=== PATIENT | female | born 1940 | race Caucasian/White ===

== ENCOUNTER 2017-06-19 13:58 | Inpatient (IN) | payer MEDICARE, OTHER ==
[2017-06-19] MEDS ORDERED: SODIUM CHLORIDE 0.9% 1,000 ML IV ONE ×2 (14:41→15:28)
--- NOTE | 2017-06-19 14:45 | ED ---
General Adult HPI - General Chief complaint: Altered Mental Status Stated complaint: UTI Time Seen by Provider: 06/19/17 14:09 Source: patient, EMS, RN notes reviewed Mode of arrival: EMS Limitations: no limitations - History of Present Illness Initial comments: 77-year-old female presents with chief complaint of confusion and difficulty urinating. Patient also complains of bilateral lower extremity and upper extremity twitching. Patient is alert and oriented 3 at the time my evaluation. He denies chest pain or shortness of breath. Denies fever. Patient believes she has urinary tract infection. She also has history of COPD and is on home oxygen. Denies worsening cough. Denies focal weakness. - Related Data Home Medications Medication Instructions Recorded Confirmed Metoprolol Succinate [Toprol XL] 25 mg PO DAILY 03/11/14 06/19/17 Cholecalciferol [Vitamin D3] 1,000 unit PO DAILY 02/24/15 06/19/17 Multivit-Min/FA/Lycopene/Lut 1 tab PO DAILY 02/25/15 06/19/17 [Centrum Silver Tablet] Levothyroxine Sodium [Synthroid] 100 mcg PO DAILY 08/26/15 06/19/17 HYDROcodone/APAP 10-325MG [[place] 1 tab PO TID PRN 11/18/15 06/19/17 10-325] Simvastatin [Simvastatin] 20 mg PO HS 05/30/16 06/19/17 metFORMIN HCL [Glucophage] 500 mg PO DAILY 05/30/16 06/19/17 Citalopram Hydrobromide [CeleXA] 10 mg PO DAILY 06/19/17 06/19/17 Diltiazem HCl [Diltiazem ER] 180 mg PO DAILY 06/19/17 06/19/17 Gabapentin 800 mg PO TID 06/19/17 06/19/17 Insulin Glargine,Hum.rec.anlog 30 unit SQ HS 06/19/17 06/19/17 [Lantus Solostar] Lactulose 10 gm PO BID 06/19/17 06/19/17 Lisinopril [Zestril] 10 mg PO DAILY 06/19/17 06/19/17 Spironolactone [Aldactone] 25 mg PO HS 06/19/17 06/19/17 Allergies Allergy/AdvReac Type Severity Reaction Status Date / Time atenolol [From Tenormin] AdvReac Severe Unknown Verified 06/19/17 14:46 Review of Systems ROS Statement: Those systems with pertinent positive or pertinent negative responses have been documented in the HPI. ROS Other: All systems not noted in ROS Statement are negative. Past Medical History Past Medical History: Asthma, Cancer, Heart Failure, COPD, Diabetes Mellitus, Eye Disorder, Hyperlipidemia, Hypertension, Osteoarthritis (OA), Thyroid Disorder Additional Past Medical History / Comment(s): PT was discharged 09/23/2015 from [facility]. Wheelchair van took her home. Fire dept had to be called to get her in house. She then tried to get up to commode after being home 1 hour. She states she was unable to stand on her own and "slid" down to ground. EMS was called ans she was brought back here to [facility]. History of Any Multi-Drug Resistant Organisms: MRSA Date of last positivie culture/infection: 2012 MDRO Source:: Blood, unknown Past Surgical History: Hernia Repair, Hysterectomy, Joint Replacement, Orthopedic Surgery Additional Past Surgical History / Comment(s): total L knee x 2, knee and lower back surgery, left breast Lumpectomy without cancer, bilateral hand surgeries, bilateral cataract extraction with intraocular lens implantations, nonmalignant mass removed from left leg -resulting lymphedema, [id number] left anterior chest wall in the past, oopherectomy and abdominal hernia repair, R carpal tunnel release, L leg wound debridement, lymph node removed from L neck. Past Anesthesia/Blood Transfusion Reactions: No Reported Reaction Past Psychological History: Anxiety Smoking Status: Never smoker Past Alcohol Use History: None Reported Past Drug Use History: None Reported - Past Family History Mother Family Medical History: Cancer Additional Family Medical History / Comment(s): Mother at age 89 with pt believes bone cancer. Father Family Medical History: Unable to Obtain Additional Family Medical History / Comment(s): Pt's father when she was 2 yrs old. He was in [place] and of a strep infection. General Exam Limitations: no limitations General appearance: alert, in no apparent distress, obese Head exam: Present: atraumatic, normocephalic Eye exam: Present: normal appearance, PERRL ENT exam: Present: normal exam Neck exam: Present: normal inspection. Absent: tenderness, meningismus Respiratory exam: Present: normal lung sounds bilaterally. Absent: respiratory distress, wheezes Cardiovascular Exam: Present: regular rate, normal rhythm GI/Abdominal exam: Present: soft. Absent: distended, tenderness Extremities exam: Present: pedal edema Neurological exam: Present: alert, oriented X3. Absent: motor sensory deficit Psychiatric exam: Present: normal affect, normal mood Skin exam: Present: warm, dry, intact. Absent: cyanosis, diaphoretic Course Vital Signs 06/19/17 06/19/17 06/19/17 14:13 15:53 15:55 Temperature 98.6 F Pulse Rate 67 69 71 Respiratory 20 18 Rate Blood Pressure 142/62 148/82 O2 Sat by Pulse 93 L 100 Oximetry 06/19/17 16:06 Temperature Pulse Rate 70 Respiratory Rate Blood Pressure O2 Sat by Pulse Oximetry EKG Findings - EKG Comments: EKG Findings:: EKG shows sinus rhythm with first-degree AV block, ventricular rate of 67, OH interval 214, castration 92, QTC 395. No signs of ischemia Medical Decision Making - Medical Decision Making 77-year-old female presenting with decreased urinary output and muscle twitching. Patient is found to have a potassium of 7.9 and acute kidney injury with creatinine of 1.25, patient is making urine. Her twitching symptoms likely related to uremia. Her confusion also related to uremia. She is given normal saline, and medical treatment of hyperkalemia. EKG does show first- degree AV block which may be a consequence of her elevated potassium. No other EKG findings of hyperkalemia. After initial medical treatment of hyperkalemia, her repeat potassium is 5.4. Patient will be admitted for further treatment and evaluation. Chest x-ray shows no acute process. Head CT is negative for intracranial hemorrhage. Diagnosis: Acute kidney injury, hyperkalemia, uremic encephalopathy - Lab Data Result diagrams: 06/19/17 13:27 06/19/17 17:05 Lab Results 06/19/17 06/19/17 06/19/17 Range/Units 13:27 13:27 13:27 WBC 8.3 (3.8-10.6) k/uL RBC 3.46 L (3.80-5.40) m/uL Hgb 10.9 L (11.4-16.0) gm/dL Hct 36.4 (34.0-46.0) % MCV 105.4 H (80.0-100.0) fL MCH 31.5 (25.0-35.0) pg MCHC 29.9 L (31.0-37.0) g/dL RDW 13.5 (11.5-15.5) % Plt Count 247 (150-450) k/uL Neutrophils % 80 % Lymphocytes % 9 % Monocytes % 5 % Eosinophils % 4 % Basophils % 1 % Neutrophils # 6.6 (1.3-7.7) k/uL Lymphocytes # 0.7 L (1.0-4.8) k/uL Monocytes # 0.4 (0-1.0) k/uL Eosinophils # 0.3 (0-0.7) k/uL Basophils # 0.0 (0-0.2) k/uL Hypochromasia Moderate Macrocytosis Slight PT (9.0-12.0) sec INR (<1.2) APTT (22.0-30.0) sec VBG pH (7.31-7.41) VBG pCO2 (37-51) mmHg VBG HCO3 (24-28) mmol/L Sodium 139 (137-145) mmol/L Potassium 7.9 H* (3.5-5.1) mmol/L Chloride 105 (98-107) mmol/L Carbon Dioxide 29 (22-30) mmol/L Anion Gap 5 mmol/L BUN 50 H (7-17) mg/dL Creatinine 1.25 H (0.52-1.04) mg/dL Est GFR (MDRD) Af Amer 50 (>60 ml/min/1.73 sqM) Est GFR (MDRD) Non-Af 41 (>60 ml/min/1.73 sqM) Glucose 92 (74-99) mg/dL Calcium 9.2 (8.4-10.2) mg/dL Magnesium 2.2 (1.6-2.3) mg/dL Total Bilirubin 0.3 (0.2-1.3) mg/dL AST 20 (14-36) U/L ALT 19 (9-52) U/L Alkaline Phosphatase 89 (38-126) U/L Total Creatine Kinase 59 (30-135) U/L CK-MB (CK-2) 0.2 (0.0-2.4) ng/mL CK-MB (CK-2) Rel Index 0.3 Troponin I 0.106 H* (0.000-0.034) ng/mL Total Protein 7.1 (6.3-8.2) g/dL Albumin 3.5 (3.5-5.0) g/dL Urine Color Urine Appearance (Clear) Urine pH (5.0-8.0) Ur Specific [place] (1.001-1.035) Urine Protein (Negative) Urine Glucose (UA) (Negative) Urine Ketones (Negative) Urine Blood (Negative) Urine Nitrite (Negative) Urine Bilirubin (Negative) Urine Urobilinogen (<2.0) mg/dL Ur Leukocyte Esterase (Negative) Urine WBC (0-5) /hpf Urine WBC Clumps (None) /hpf Ur Squamous Epith Cells (0-4) /hpf Amorphous Sediment (None) /hpf Urine Bacteria (None) /hpf 06/19/17 06/19/17 06/19/17 Range/Units 13:27 14:55 14:55 WBC (3.8-10.6) k/uL RBC (3.80-5.40) m/uL Hgb (11.4-16.0) gm/dL Hct (34.0-46.0) % MCV (80.0-100.0) fL MCH (25.0-35.0) pg MCHC (31.0-37.0) g/dL RDW (11.5-15.5) % Plt Count (150-450) k/uL Neutrophils % % Lymphocytes % % Monocytes % % Eosinophils % % Basophils % % Neutrophils # (1.3-7.7) k/uL Lymphocytes # (1.0-4.8) k/uL Monocytes # (0-1.0) k/uL Eosinophils # (0-0.7) k/uL Basophils # (0-0.2) k/uL Hypochromasia Macrocytosis PT 9.9 (9.0-12.0) sec INR 1.0 (<1.2) APTT 22.5 (22.0-30.0) sec VBG pH 7.30 L (7.31-7.41) VBG pCO2 65 H (37-51) mmHg VBG HCO3 31 H (24-28) mmol/L Sodium (137-145) mmol/L Potassium (3.5-5.1) mmol/L Chloride (98-107) mmol/L Carbon Dioxide (22-30) mmol/L Anion Gap mmol/L BUN (7-17) mg/dL Creatinine (0.52-1.04) mg/dL Est GFR (MDRD) Af Amer (>60 ml/min/1.73 sqM) Est GFR (MDRD) Non-Af (>60 ml/min/1.73 sqM) Glucose (74-99) mg/dL Calcium (8.4-10.2) mg/dL Magnesium (1.6-2.3) mg/dL Total Bilirubin (0.2-1.3) mg/dL AST (14-36) U/L ALT (9-52) U/L Alkaline Phosphatase (38-126) U/L Total Creatine Kinase (30-135) U/L CK-MB (CK-2) (0.0-2.4) ng/mL CK-MB (CK-2) Rel Index Troponin I (0.000-0.034) ng/mL Total Protein (6.3-8.2) g/dL Albumin (3.5-5.0) g/dL Urine Color Yellow Urine Appearance Cloudy H (Clear) Urine pH 5.5 (5.0-8.0) Ur Specific [place] 1.011 (1.001-1.035) Urine Protein Negative (Negative) Urine Glucose (UA) Negative (Negative) Urine Ketones Negative (Negative) Urine Blood Negative (Negative) Urine Nitrite Negative (Negative) Urine Bilirubin Negative (Negative) Urine Urobilinogen <2.0 (<2.0) mg/dL Ur Leukocyte Esterase Large H (Negative) Urine WBC 18 H (0-5) /hpf Urine WBC Clumps Many H (None) /hpf Ur Squamous Epith Cells 2 (0-4) /hpf Amorphous Sediment Rare H (None) /hpf Urine Bacteria Rare H (None) /hpf 06/19/17 Range/Units 17:05 WBC (3.8-10.6) k/uL RBC (3.80-5.40) m/uL Hgb (11.4-16.0) gm/dL Hct (34.0-46.0) % MCV (80.0-100.0) fL MCH (25.0-35.0) pg MCHC (31.0-37.0) g/dL RDW (11.5-15.5) % Plt Count (150-450) k/uL Neutrophils % % Lymphocytes % % Monocytes % % Eosinophils % % Basophils % % Neutrophils # (1.3-7.7) k/uL Lymphocytes # (1.0-4.8) k/uL Monocytes # (0-1.0) k/uL Eosinophils # (0-0.7) k/uL Basophils # (0-0.2) k/uL Hypochromasia Macrocytosis PT (9.0-12.0) sec INR (<1.2) APTT (22.0-30.0) sec VBG pH (7.31-7.41) VBG pCO2 (37-51) mmHg VBG HCO3 (24-28) mmol/L Sodium (137-145) mmol/L Potassium 5.4 H (3.5-5.1) mmol/L Chloride (98-107) mmol/L Carbon Dioxide (22-30) mmol/L Anion Gap mmol/L BUN (7-17) mg/dL Creatinine (0.52-1.04) mg/dL Est GFR (MDRD) Af Amer (>60 ml/min/1.73 sqM) Est GFR (MDRD) Non-Af (>60 ml/min/1.73 sqM) Glucose (74-99) mg/dL Calcium (8.4-10.2) mg/dL Magnesium (1.6-2.3) mg/dL Total Bilirubin (0.2-1.3) mg/dL AST (14-36) U/L ALT (9-52) U/L Alkaline Phosphatase (38-126) U/L Total Creatine Kinase (30-135) U/L CK-MB (CK-2) (0.0-2.4) ng/mL CK-MB (CK-2) Rel Index Troponin I (0.000-0.034) ng/mL Total Protein (6.3-8.2) g/dL Albumin (3.5-5.0) g/dL Urine Color Urine Appearance (Clear) Urine pH (5.0-8.0) Ur Specific [place] (1.001-1.035) Urine Protein (Negative) Urine Glucose (UA) (Negative) Urine Ketones (Negative) Urine Blood (Negative) Urine Nitrite (Negative) Urine Bilirubin (Negative) Urine Urobilinogen (<2.0) mg/dL Ur Leukocyte Esterase (Negative) Urine WBC (0-5) /hpf Urine WBC Clumps (None) /hpf Ur Squamous Epith Cells (0-4) /hpf Amorphous Sediment (None) /hpf Urine Bacteria (None) /hpf Critical Care Time Critical Care Time: Yes Total Critical Care Time: 35 Disposition Clinical Impression: Uremic encephalopathy, Acute kidney injury, Hyperkalemia Disposition: ADMITTED IP TO THIS [facility] Condition: Serious Referrals: Juan R Gamboa MD [Primary Care Provider] - 1-2 days Time of Disposition: 17:28 Decision to Admit Reason: Admit from EC Decision Date: 06/19/17 Decision Time: 17:28
[2017-06-19 14:54] LABS: Basophils % (A) 1 %; CH 31.3; CHCM 29.9; Eosinophils # (A) 0.3 k/uL (0-0.7); Eosinophils % (A) 4 %; HCT 36.4 % (34.0-46.0); HDW 2.18; HGB 10.9 gm/dL (11.4-16.0); Hypochromasia Moderate; Luc # (Auto) 0.11; Luc % (Auto) 1; Lymphocytes # (A) 0.7 k/uL (1.0-4.8); Lymphocytes % (A) 9 %; MCH 31.5 pg (25.0-35.0); MCHC 29.9 g/dL (31.0-37.0); MCV 105.4 fL (80.0-100.0); Macrocytosis Slight; Mean Platelet Volume 7.3; Monocytes # (A) 0.4 k/uL (0-1.0); Monocytes % (A) 5 %; Neutrophils # (A) 6.6 k/uL (1.3-7.7); Neutrophils % (A) 80 %; RBC 3.46 m/uL (3.80-5.40); RDW 13.5 % (11.5-15.5); WBC 8.3 k/uL (3.8-10.6); WBC (Perox) 8.55
[2017-06-19 15:09] LABS: VBG PH 7.3 (7.31-7.41)
[2017-06-19 15:09] LABS: Calcium 9.2 mg/dL (8.4-10.2); Magnesium 2.2 mg/dL (1.6-2.3); Total Bilirubin 0.3 mg/dL (0.2-1.3); Total Protein 7.1 g/dL (6.3-8.2)
[2017-06-19 15:10] LABS: Amorphous Sediment,Urine Rare /hpf; Appearance,Urine Cloudy (Clear); Bacteria,Urine Rare /hpf; Bilirubin,Urine Negative (Negative); Glucose,Urine (UA) Negative (Negative); Ketones,Urine Negative (Negative); Leukocyte Esterase,Urine Large (Negative); Nitrite,Urine Negative (Negative); PH, Urine 5.5 (5.0-8.0); Particle Count 2794; Protein,Urine Negative (Negative); Specific Gravity,Urine 1.011 (1.001-1.035); Squamous Epithelial Cell,Urine 2 /hpf (0-4); UA Billing (MACRO vs. MICRO) MICRO; Urobilinogen,Urine <2.0 mg/dL (<2.0); WBC,Urine 18 /hpf (0-5)
[2017-06-19 15:23] LABS: Potassium 7.9 mmol/L (3.5-5.1)
[2017-06-19] MEDS ORDERED: CALCIUM GLUCONATE 1,000 MG in SODIUM CHLORIDE 0.9% 100 ML IVPB ONE (15:25)
[2017-06-19] MEDS ORDERED: SODIUM BICARB 8.4% 50 ML SYR (1 MEQ/ML) IV ONE (15:25)
[2017-06-19] MEDS ORDERED: SODIUM POLYSTYRENE SULFONATE 15 GM/60 ML BOTTLE PO ONE (15:25)
[2017-06-19] MEDS ORDERED: INSULIN REGULAR 100 UNIT/ML VIAL IV ONE (15:25)
[2017-06-19] MEDS ORDERED: ALBUTEROL NEB (CONC) 2.5 MG/0.5 ML INHALATION ONE (15:25)
[2017-06-19] MEDS ORDERED: DEXTROSE 50%-WATER 50 ML SYRINGE IVP ONE (15:25)
--- NOTE | 2017-06-19 15:25 | XR ---
EXAMINATION TYPE: XR chest 2V DATE OF EXAM: 06/19/2017 COMPARISON: 07/03/2016 HISTORY: Altered mental status TECHNIQUE: Frontal and lateral views of the chest are obtained. FINDINGS: Copious soft tissues obscure the lung bases on the frontal image although no pleural effus ion or focal airspace disease is seen on the lateral image. Cardiac silhouette is enlarged. Moderate multilevel degenerative changes of the thoracic spine and acromio clavicular joints are noted. IMPRESSION: Stable cardiomegaly. Copious soft tissues overlie the lower lungs on the frontal image c reating a gradient effect, however no focal consolidation is seen on the lateral image.
[2017-06-19 15:26] LABS: Creatine Kinase MB 0.2 ng/mL (0.0-2.4)
[2017-06-19 15:29] LABS: Partial Thromboplastin Time 22.5 sec (22.0-30.0); Prothrombin Time 9.9 sec (9.0-12.0)
[2017-06-19 15:31] LABS: Troponin I 0.106 ng/mL (0.000-0.034)
--- NOTE | 2017-06-19 15:36 | CT ---
EXAMINATION TYPE: CT brain wo con DATE OF EXAM: 06/19/2017 COMPARISON: 08/26/2015 HISTORY: Altered Mental Status CT DLP: 961 mGycm. Automated Exposure Control for Dose Reduction was Utilized. TECHNIQUE: CT scan of the head is performed without contrast. FINDINGS: There is no acute intracranial hemorrhage or midline shift identified. There is diffuse v entricular and sulcal prominence consistent with diffuse age-related cerebral atrophy. There is low- attenuation in the periventricular white matter consistent with chronic small vessel ischemic change. The globes are intact and the visualized sinuses are clear. Again there is rightward nasal septal deviation. Unchanged partially calcified left parietal skull mass measures up to 2.3 cm. IMPRESSION: 1. No acute intracranial hemorrhage or midline shift. 2. There is diffuse age-related cerebral atrophy and chronic small vessel ischemic change noted. 3. Unchanged 2.3 cm partially calcified left parietal scalp mass in comparison to exam of 08/26/2015.
[2017-06-19] MEDS ORDERED: NALOXONE 0.4 MG/ML 1 ML VIAL IV PRN (17:20)
[2017-06-19] MEDS ORDERED: MORPHINE SULFATE 4 MG/ML SYRINGE IV PRN (17:20)
[2017-06-19] MEDS ORDERED: ACETAMINOPHEN TAB 325 MG TAB PO PRN (17:20)
[2017-06-19] MEDS ORDERED: HYDROcodone/APAP 10-325MG 1 EACH TAB PO ONE (17:29)
[2017-06-19 19:24] VITALS: BMI 57.4
[2017-06-19 21:21] LABS: Glucose,Whole Blood 115 mg/dL (75-99)
[2017-06-19] MEDS: ATORVASTATIN 10 MG TAB PO SCH (21:47)
[2017-06-19] MEDS: LACTULOSE 20 GM/30 ML CUP PO SCH (21:48)
[2017-06-19] MEDS: INSULIN DETEMIR 100 UNIT/ML 10 ML VIAL SQ SCH (21:48)
[2017-06-19] MEDS: GABAPENTIN 400 MG CAP PO SCH (21:48)
[2017-06-19] MEDS: LEVOFLOXACIN 500MG-D5W PMX 500 MG in DEXTROSE/WATER 1 100ML.BAG IVPB SCH (22:28)
[2017-06-20 05:40] LABS: Glucose,Whole Blood 103 mg/dL (75-99)
[2017-06-20] MEDS: HYDROcodone/APAP 10-325MG 1 EACH TAB PO PRN (05:52)
[2017-06-20] MEDS: LEVOTHYROXINE 100 MCG TAB PO SCH (05:53)
[2017-06-20 06:19] LABS: Basophils % (A) 1 %; CH 31.4; CHCM 30.8; Eosinophils # (A) 0.2 k/uL (0-0.7); Eosinophils % (A) 3 %; HDW 2.26; HGB 10.4 gm/dL (11.4-16.0); Hypochromasia Slight; Luc # (Auto) 0.13; Luc % (Auto) 2; Lymphocytes # (A) 0.7 k/uL (1.0-4.8); Lymphocytes % (A) 9 %; MCH 31.2 pg (25.0-35.0); MCHC 30.5 g/dL (31.0-37.0); MCV 102.4 fL (80.0-100.0); Macrocytosis Slight; Monocytes # (A) 0.5 k/uL (0-1.0); Monocytes % (A) 7 %; Neutrophils # (A) 6.3 k/uL (1.3-7.7); Neutrophils % (A) 80 %; RBC 3.32 m/uL (3.80-5.40); RDW 12.3 % (11.5-15.5); WBC 7.9 k/uL (3.8-10.6); WBC (Perox) 7.87
[2017-06-20 06:39] LABS: ALT 26 U/L (9-52); AST 15 U/L (14-36); Alkaline Phosphatase 76 U/L (38-126); Anion Gap 4 mmol/L; Blood Urea Nitrogen 34 mg/dL (7-17); Calcium 8.7 mg/dL (8.4-10.2); Carbon Dioxide 31 mmol/L (22-30); Chloride 104 mmol/L (98-107); Glucose 88 mg/dL (74-99); Magnesium 1.8 mg/dL (1.6-2.3); Non-African American GFR(MDRD) 54 (>60 ml/min/1.73 sqM); Sodium 139 mmol/L (137-145); Total Bilirubin 0.4 mg/dL (0.2-1.3); Total Protein 6.1 g/dL (6.3-8.2)
[2017-06-20 06:43] LABS: Potassium 6.2 mmol/L (3.5-5.1)
[2017-06-20] MEDS ORDERED: CALCIUM GLUCONATE 1,000 MG in SODIUM CHLORIDE 0.9% 100 ML IVPB ONE (06:55)
[2017-06-20] MEDS ORDERED: INSULIN REGULAR 100 UNIT/ML VIAL IV ONE (06:57)
[2017-06-20] MEDS ORDERED: DEXTROSE 50%-WATER 50 ML SYRINGE IVP ONE (06:57)
[2017-06-20] MEDS ORDERED: SODIUM BICARB 8.4% 50 ML SYR (1 MEQ/ML) IV ONE (06:57)
[2017-06-20] MEDS ORDERED: SODIUM POLYSTYRENE SULFONATE 15 GM/60 ML BOTTLE PO ONE (06:57)
[2017-06-20] MEDS: CITALOPRAM HYDROBROMIDE 10 MG TAB PO SCH (08:29)
[2017-06-20] MEDS: GABAPENTIN 400 MG CAP PO SCH ×3 (08:29→21:16)
[2017-06-20] MEDS: DILTIAZEM CD 180 MG CAP.ER.24H PO SCH (08:29)
[2017-06-20] MEDS: LACTULOSE 20 GM/30 ML CUP PO SCH ×2 (08:30→21:16)
[2017-06-20] MEDS: METOPROLOL SUCCINATE (ER) 25 MG TAB.ER.24H PO SCH (08:30)
[2017-06-20 11:56] LABS: Glucose,Whole Blood 143 mg/dL (75-99)
--- NOTE | 2017-06-20 15:51 | HP ---
HISTORY AND PHYSICAL I am covering for Dr. Gamboa. DATE OF SERVICE: 06/20/2017. CHIEF COMPLAINT: Change in mental status. HISTORY OF PRESENT ILLNESS: This 77-year-old woman with a past medical history of multiple medical problems including asthma, CHF, COPD, diabetes, hypertension, hyperlipidemia, history of DJD, hypothyroidism being followed by Dr. Juan R Gamboa in the outpatient setting was having caregivers. The caregiver noted that yesterday the patient had some change in mental status. Patient is not on herself. Patient is being treated for UTI and subsequently in the evening, the patient had some difficulty urinating also secondary to change in mental status and also complained of generalized weakness and twitching also. The patient came to [facility] and was admitted for further evaluation and treatment. Creatinine was elevated indicating acute renal failure. Patient on IV fluids. The patient also has significant hyperkalemia potassium up to 7.9. Glucose regimen was given also. There is no history of fever, rigors. No headache, loss of consciousness or seizures. The patient is mildly confused, able to give sketchy history at this time. No history of dysuria. PAST MEDICAL HISTORY: History of recent UTI, history of asthma, CHF, COPD, diabetes, hypertension, DJD, hypothyroidism. MEDICATIONS: Current medications are: 1. Aldactone 25 mg q.h.s. 2. Simvastatin 20 mg q.h.s. 3. Lantus 30 units subcu q.h.s. 4. [place] 10 mg t.i.d. p.r.n. 5. Glucophage 500 mg p.o. daily. 6. Vitamin D 3000 daily. 7. Lactulose 10 g p.o. b.i.d. 8. Celexa 10 mg p.o. daily. 9. Centrum 1 p.o. daily. 10.Zestril 10 mg p.o. daily. 11.Gabapentin 800 mg p.o. t.i.d. 12.Toprol-XL 25 mg p.o. daily. 13.Synthroid 100 mcg p.o. daily. 14.Diltiazem ER 180 mg p.o. daily. ALLERGIES: ATENOLOL. FAMILY HISTORY: Unknown. SOCIAL HISTORY: No history of smoking. No history of alcohol intake. REVIEW OF SYSTEMS: ENT: Diminished vision, diminished hearing. Cardiovascular: : No angina or palpitations. Respiratory: As mentioned earlier. GI: As mentioned earlier. as mentioned earlier. Central nervous system: As mentioned earlier. Allergy/Immunology: No asthma or hayfever. Musculoskeletal: As mentioned earlier. Hematology/Oncology: No history of anemia. Endocrine: Diabetes mellitus present. Constitutional: As mentioned earlier. Dermatology: Negative. Rheumatology: As mentioned earlier. Psychiatric: As mentioned earlier. PHYSICAL EXAMINATION: The patient is alert and oriented times three. Pulse 84, blood pressure 107/52, respiration 18, temperature 97.6, pulse ox 94% on room air. HEENT: Conjunctivae normal. Oral mucosa moist. Neck is no jugular venous distention. No lymph node enlargement. Cardiovascular: S1-S2 muffled. Respiratory: Breath sounds diminished in the bases. Bilateral scattered rhonchi and crackles. Expiratory wheezing also present. ABDOMEN: Soft, nontender. No mass palpable. Legs: No edema and no swelling. Nervous system: Higher functions as mentioned earlier. Moves all 4 limbs. No focal motor or sensory deficits. Lymphatics: No lymph nodes palpable in the neck, axillae or groin. Skin: No ulcer, rash or bleeding. LABS: WBC 7.2, hemoglobin 10.4, sodium 139, potassium 6.1, glucose 103. UA noted. ASSESSMENT: 1. Change in mental status possible acute metabolic encephalopathy secondary to acute renal failure. 2. Severe hyperkalemia secondary to renal failure as well as drug-induced. 3. Acute renal failure. 4. Acute hyperkalemia secondary to renal failure. 5. Possible urinary tract infection. 6. History of asthma. 7. History of congestive heart failure. 8. Chronic obstructive pulmonary disease. 9. History of diabetes mellitus type 2. 10.Hypertension. 11.Hyperlipidemia. 12.History of degenerative joint disease. 13.History of gait dysfunction. 14.History of anxiety. 15.Chronic hypoxic respiratory failure on home O2 3 L nasal cannula. 16.FULL CODE. 17.Obesity with BMI of . RECOMMENDATIONS AND DISCUSSION: This 77-year-old woman who presented with multiple complex medical issues, we will monitor the patient closely, continue the current medications, continue symptomatic treatment. Otherwise at this time I recommend Kayexalate. Monitor potassium closely. Low potassium diet. Otherwise, creatinine is improved at this time. Empiric antibiotics. Guarded prognosis because of multiple complex medical issues. Further recommendations to follow. Copy of dictation being forwarded to Dr. Juan R Gamboa in the outpatient setting. We will hold RANDALL inhibitors and will restart the metformin at this time. We will hold the Aldactone as well. The possibility of drug induced hyperkalemia also to be considered. DOMINGA / IZABEL: [id number] /
[2017-06-20 17:01] LABS: Glucose,Whole Blood 115 mg/dL (75-99)
[2017-06-20 18:59] LABS: Potassium 5.9 mmol/L (3.5-5.1)
[2017-06-20 20:57] LABS: Glucose,Whole Blood 129 mg/dL (75-99)
[2017-06-20] MEDS: LEVOFLOXACIN 500MG-D5W PMX 500 MG in DEXTROSE/WATER 1 100ML.BAG IVPB SCH (21:14)
[2017-06-20] MEDS: ATORVASTATIN 10 MG TAB PO SCH (21:16)
[2017-06-20] MEDS: INSULIN DETEMIR 100 UNIT/ML 10 ML VIAL SQ SCH (21:17)
[2017-06-21] MEDS: HYDROcodone/APAP 10-325MG 1 EACH TAB PO PRN (04:40)
[2017-06-21 06:25] LABS: Basophils % (A) 1 %; CHCM 30.6; Eosinophils # (A) 0.2 k/uL (0-0.7); Eosinophils % (A) 3 %; HCT 31.4 % (34.0-46.0); HGB 9.9 gm/dL (11.4-16.0); Hypochromasia Slight; Luc # (Auto) 0.09; Luc % (Auto) 1; Lymphocytes # (A) 0.6 k/uL (1.0-4.8); Lymphocytes % (A) 9 %; MCHC 31.5 g/dL (31.0-37.0); MCV 101.8 fL (80.0-100.0); Macrocytosis Slight; Mean Platelet Volume 7.2; Monocytes # (A) 0.4 k/uL (0-1.0); Monocytes % (A) 6 %; Neutrophils # (A) 5.9 k/uL (1.3-7.7); Neutrophils % (A) 81 %; RBC 3.09 m/uL (3.80-5.40); RDW 13.3 % (11.5-15.5); WBC 7.3 k/uL (3.8-10.6); WBC (Perox) 8.05
[2017-06-21 06:26] LABS: Glucose,Whole Blood 128 mg/dL (75-99)
[2017-06-21] MEDS: LEVOTHYROXINE 100 MCG TAB PO SCH (06:27)
[2017-06-21 06:35] LABS: Anion Gap 4 mmol/L; Blood Urea Nitrogen 20 mg/dL (7-17); Calcium 9.1 mg/dL (8.4-10.2); Carbon Dioxide 31 mmol/L (22-30); Chloride 103 mmol/L (98-107); Glucose 117 mg/dL (74-99); Non-African American GFR(MDRD) >60 (>60 ml/min/1.73 sqM); Potassium 5.4 mmol/L (3.5-5.1); Sodium 138 mmol/L (137-145)
[2017-06-21] MEDS ORDERED: CHOLECALCIFEROL 1,000 UNIT TAB PO SCH (09:00)
[2017-06-21] MEDS ORDERED: metFORMIN 500 MG TAB PO SCH (09:00)
[2017-06-21] MEDS: DILTIAZEM CD 180 MG CAP.ER.24H PO SCH (09:03)
[2017-06-21] MEDS: CITALOPRAM HYDROBROMIDE 10 MG TAB PO SCH (09:03)
[2017-06-21] MEDS: GABAPENTIN 400 MG CAP PO SCH (09:03)
[2017-06-21] MEDS: METOPROLOL SUCCINATE (ER) 25 MG TAB.ER.24H PO SCH (09:03)
[2017-06-21] MEDS: LACTULOSE 20 GM/30 ML CUP PO SCH (09:04)
[2017-06-21] MEDS ORDERED: LORATADINE 10 MG TAB PO SCH (10:00)
[2017-06-21] MEDS ORDERED: MULTIVITAMINS, THERA 1 EACH TAB PO SCH (12:00)
[2017-06-21 12:21] LABS: Glucose,Whole Blood 116 mg/dL (75-99)
--- NOTE | 2017-06-21 14:29 | P.DS ---
Providers Date of admission: 06/19/17 17:23 Expected date of discharge: 06/21/17 Attending physician: Juan R Mittal. Final Diagnoses: Consults: 06/21/17 09:48 Consult Physician Routine Consulting Provider: Marry Waters Consult Reason/Comments: left breast ulcer Do you want consulting provider notified?: Yes Primary care physician: Juan R Gamboa Hospital Course: 1. Change in mental status, acute metabolic encephalopathy secondary to acute renal failure,resolved 2. acute renal failure with Severe hyperkalemia -secondary to renal failure and drug-induced 3. Acute on chronic hypoxic respiratory failure, returned back to baseline at 3 L nasal cannula 4.doubt acute UTI, urine culture reporting 50-100,000 gram-negative bacilli, afebrile,normal WBC, asymptomatic.no antibiotics at DC. 5. COPD 6. Obesity, BMI 59.8 7. Diabetes mellitus type 2 Hospital course: this a 77-year-old admitted with change in mental status,acute renal failure, hyperkalemia. Received Kayexalate, glucose regimen with potassium down to 5.4.maintained on IV fluid hydration, antibiotics. sensorium significantly improved, and A & O 3. Significant clinical improvement. Patient asking to be discharged today as her is wheelchair bound, and she assits with his care.patient is also medical debilitated, requires a Jorge Alberto lift, states she has aides in the home 22/02 with [place] [facility] and assistance from son.verified by case management. Patient is being discharged home in a stable condition with guarded prognosis. The impression and plan of care has been dictated as directed. : I performed a history and examination of this patient, discussed the same with the dictator. I agree with the dictator's note ,documented as a scribe. Any additional findings or plans will be noted. Patient Condition at Discharge: Stable Plan - Discharge Summary Discharge Rx Participant: No New Discharge Prescriptions: New Loratadine [Claritin] 10 mg PO DAILY #30 tab Continue Metoprolol Succinate [Toprol XL] 25 mg PO DAILY Cholecalciferol [Vitamin D3] 1,000 unit PO DAILY Multivit-Min/FA/Lycopene/Lut [Centrum Silver Tablet] 1 tab PO DAILY Levothyroxine Sodium [Synthroid] 100 mcg PO DAILY HYDROcodone/APAP 10-325MG [[place] 10-325] 1 tab PO TID PRN PRN Reason: Pain metFORMIN HCL [Glucophage] 500 mg PO DAILY Simvastatin 20 mg PO HS Insulin Glargine,Hum.rec.anlog [Lantus Solostar] 30 unit SQ HS Lactulose 10 gm PO BID Citalopram Hydrobromide [CeleXA] 10 mg PO DAILY Gabapentin 800 mg PO TID Diltiazem HCl [Diltiazem 24Hr ER] 180 mg PO DAILY Discontinued Lisinopril [Zestril] 10 mg PO DAILY Spironolactone [Aldactone] 25 mg PO HS Discharge Medication List Metoprolol Succinate [Toprol XL] 25 mg PO DAILY 03/11/14 [History] Cholecalciferol [Vitamin D3] 1,000 unit PO DAILY 02/24/15 [History] Multivit-Min/FA/Lycopene/Lut [Centrum Silver Tablet] 1 tab PO DAILY 02/25/15 [ History] Levothyroxine Sodium [Synthroid] 100 mcg PO DAILY 08/26/15 [History] HYDROcodone/APAP 10-325MG [[place] 10-325] 1 tab PO TID PRN 11/18/15 [History] Simvastatin 20 mg PO HS 05/30/16 [History] metFORMIN HCL [Glucophage] 500 mg PO DAILY 05/30/16 [History] Citalopram Hydrobromide [CeleXA] 10 mg PO DAILY 06/19/17 [History] Diltiazem HCl [Diltiazem 24Hr ER] 180 mg PO DAILY 06/19/17 [History] Gabapentin 800 mg PO TID 06/19/17 [History] Insulin Glargine,Hum.rec.anlog [Lantus Solostar] 30 unit SQ HS 06/19/17 [History ] Lactulose 10 gm PO BID 06/19/17 [History] Loratadine [Claritin] 10 mg PO DAILY #30 tab 06/21/17 [Rx] Follow up Appointment(s)/Referral(s): Juan R Gamboa MD [Primary Care Provider] - 3 Days Activity/Diet/Wound Care/Special Instructions: b12 level pending, results to PCP wears 3lnc O2 at home No antibx, asymptomatic Diet: renal DIet, COnsist. carb
[2017-06-21 15:04] VITALS: BP 144/67; PULSE 74; RESP 18; TEMP 97.1
[2017-06-21 17:12] LABS: Glucose,Whole Blood 152 mg/dL (75-99)
[2017-06-21] MEDS ORDERED: LEVOFLOXACIN 500 MG TAB PO SCH (21:00)
--- NOTE | 2017-06-22 07:01 | CONS ---
CONSULTATION DATE OF SERVICE: 06/21/2017 REASON FOR CONSULTATION: Left lower chest wall wound, local wound care recommendation. HISTORY OF PRESENT ILLNESS: The patient is a 77-year-old female who presented to the ER at [facility] on 06/19/2017 with chief complaints of confusion, difficulty with urination and weakness. The patient subsequently has been evaluated by the ER physician on arrival to the ER. The patient was hypotensive. The patient was afebrile. Did have a normal white count, however, did have evidence of renal insufficiency for which the patient has been hydrated with an IV fluid. The patient did have a UA that was positive and the urine culture shows an E. Coli. Patient was on antibiotics. She was noticed to have a small wound on the left lower chest area, which the patient has had for a couple of weeks. She is not sure how it started. The patient denies having any pain at the site. There is no drainage from it. No surrounding swelling, no redness. I was asked to see the patient for recommendation regarding local wound care prior to discharge. REVIEW OF SYSTEMS: CONSTITUTIONAL: Positive for weakness. No high-grade fever. EYES: No complaint. ENT: No complaint. RESPIRATORY: No complaint. CARDIOVASCULAR: No complaint. GENITOURINARY: No complaint. GASTROINTESTINAL: No complaint. MUSCULOSKELETAL: No complaint. INTEGUMENTARY: As per HPI. PSYCHOLOGICAL: No complaint. ENDOCRINE: No complaint. NEUROLOGICAL: No complaint. PAST MEDICAL HISTORY: Significant for asthma, heart failure, COPD, diabetes mellitus, hypothyroidism, hypertension, osteoarthritis, hyperlipidemia. PAST SURGICAL HISTORY: Hysterectomy, left knee replacement, low back surgery and hernia repair. SOCIAL HISTORY: No history of smoking, drinking, or any drug use. FAMILY HISTORY: Mother with history of a cancer, bone cancer. ALLERGIES: Allergies to ATENOLOL. MEDICATIONS: Medications include the patient is currently on levofloxacin, Synthroid, Claritin, Glucophage, Toprol-XL, morphine sulfate, Theragran, Narcan, diltiazem, Celexa, vitamin D3. PHYSICAL EXAMINATION: On examination, blood pressure is 144/67 with a pulse of 74, temperature 97.1. She is 92% on 3 L nasal cannula. General description is an elderly female, lying in bed in no distress. No tachypnea or accessory muscle of respiration use. HEENT examination shows slight pallor, no scleral icterus. Oral mucous membranes dry. NECK: Trachea central. No thyromegaly. LUNGS: Unlabored breathing, clear to auscultation anteriorly. No wheeze or crackle. HEART: S1, S2. Regular rate and rhythm. ABDOMEN: Soft, no tenderness. No guarding or rigidity. EXTREMITIES: No edema of feet. EXAMINATION ON THE LEFT LOWER CHEST WALL: A small wound could be a sebaceous cyst. There is no significant surrounding swelling, redness or any drainage was noted. NEUROLOGICAL: Patient is awake, alert, oriented x3. Mood and affect normal. LABS: Hemoglobin is 9.9, white count 7.3. BUN of 20, creatinine 0.79. DIAGNOSTIC IMPRESSION AND PLAN: Patient with left lower chest wall wound could be a sebaceous cyst. No evidence of any cellulitis. Recommend local wound care. PLAN: 1. Aquacel silver packing of the wound to be changed q.48 hours. 2. No need for any systemic antibiotic therapy as no evidence of any cellulitis. 3. The patient would benefit from outpatient follow up in the wound care center for the local wound care. Thank you for this consultation. Will follow this patient along with you. MMODL / IJN: [id number] /
== END 2017-06-21 19:23 | disposition home or self-care (01) | DRG 682 ==
LOC: EEVIPCON 13:58 → EC 13:58 → 6SEL 17:23
PROVIDERS: ADMIT Family Medicine; ATTEND Family Medicine
DX: N17.9 Acute kidney failure, unspecified (principal); G93.41 Metabolic encephalopathy; J96.21 Acute and chronic respiratory failure with hypoxia; I11.0 Hypertensive heart disease with heart failure; I50.9 Heart failure, unspecified; E87.5 Hyperkalemia; E11.9 Type 2 diabetes mellitus without complications; E03.9 Hypothyroidism, unspecified; E66.9 Obesity, unspecified; E78.5 Hyperlipidemia, unspecified; I44.0 Atrioventricular block, first degree; Z96.652 Presence of left artificial knee joint; J44.9 Chronic obstructive pulmonary disease, unspecified; Z79.899 Other long term (current) drug therapy; Z80.8 Family history of malignant neoplasm of other organs or systems; Z99.81 Dependence on supplemental oxygen; Z88.8 Allergy status to other drugs, medicaments and biological substances; Z79.84 Long term (current) use of oral hypoglycemic drugs
CPT/HCPCS: 36415; 51701; 70450; 71020; 80048; 80051; 80053; 81001; 82550; 82553; 82607; 82803; 83735; 84132; 84484; 85025; 85610; 85730; 87040; 87077; 87086; 87186; 93005; 94640; 94760; 96361; 96365; 96375; 99291

== ENCOUNTER 2017-08-06 17:22 | Inpatient (IN) | payer MEDICARE, OTHER ==
[2017-08-06] MEDS ORDERED: RX INFO: IV CONTRAST WAS GIVEN 1 EACH MISC MISCELLANE PRN (17:56)
[2017-08-06] MEDS ORDERED: methylPREDNISolone SOD SUCCI 125 MG/2 ML VIAL IV STA (17:56)
[2017-08-06] MEDS ORDERED: IPRATROPIUM-ALBUTEROL 3 ML NEB INHALATION STA (17:56)
[2017-08-06] MEDS ORDERED: ASPIRIN 300 MG SUPP RECTAL STA (17:57)
--- NOTE | 2017-08-06 18:10 | ED ---
Weakness HPI - General Chief complaint: Weakness Stated complaint: Weakness Time Seen by Provider: 08/06/17 17:42 Source: patient, EMS Mode of arrival: EMS Limitations: no limitations - History of Present Illness Initial comments: Patient is a 77-year-old female with a history of COPD who presents with a chief complaint of altered mental status and weakness. The patient was at her home when she was picked up EMS. Initially her O2 sat was 60%. The patient was placed on 6 L and is now saturating between 85 and 88%. The patient states that she wears 3 L at home and normally has an oxygen saturation of 85%. The patient states that she was recently in the hospital for COPD exacerbation, and the ICU, and was discharged 1 week ago. She cannot identify any inciting incidences. There are no aggravating or alleviating factors. Patient does admit to dysuria, and increased shortness of breath. On initial evaluation, oxygen saturation is between 85 and 88% on 6 L. Vital signs are otherwise stable. Patient appears somnolent - Related Data Home Medications Medication Instructions Recorded Confirmed Metoprolol Succinate [Toprol XL] 25 mg PO DAILY 03/11/14 08/06/17 Cholecalciferol [Vitamin D3] 1,000 unit PO DAILY 02/24/15 08/06/17 HYDROcodone/APAP 10-325MG [[place] 1 tab PO TID PRN 11/18/15 08/06/17 10-325] Simvastatin 20 mg PO HS 05/30/16 08/06/17 metFORMIN HCL [Glucophage] 500 mg PO DAILY 05/30/16 08/06/17 Diltiazem HCl [Diltiazem 24Hr ER] 180 mg PO DAILY 06/19/17 08/06/17 Gabapentin 800 mg PO TID 06/19/17 08/06/17 Insulin Glargine,Hum.rec.anlog 30 unit SQ HS 06/19/17 08/06/17 [Lantus Solostar] Lactulose 10 gm PO BID 06/19/17 08/06/17 Aspirin [Adult Low Dose Aspirin EC] 81 mg PO DAILY 08/06/17 08/06/17 Cephalexin [Keflex] 500 mg PO Q6HR 08/06/17 08/06/17 Citalopram Hydrobromide [CeleXA] 20 mg PO DAILY 08/06/17 08/06/17 Levothyroxine Sodium [Synthroid] 100 mcg PO DAILY 08/06/17 08/06/17 Lisinopril [Prinivil] 20 mg PO DAILY 08/06/17 08/06/17 Spironolactone [Aldactone] 25 mg PO DAILY 08/06/17 08/06/17 Allergies Allergy/AdvReac Type Severity Reaction Status Date / Time atenolol [From Tenormin] AdvReac Severe Unknown Verified 06/19/17 14:46 Review of Systems ROS Statement: Those systems with pertinent positive or pertinent negative responses have been documented in the HPI. ROS Other: All systems not noted in ROS Statement are negative. Cardiovascular: Reports: dyspnea on exertion Genitourinary: Reports: dysuria Neurological: Reports: weakness, confusion Past Medical History Past Medical History: Asthma, Cancer, Heart Failure, COPD, Diabetes Mellitus, Eye Disorder, Hyperlipidemia, Hypertension, Osteoarthritis (OA), Thyroid Disorder Additional Past Medical History / Comment(s): PT was discharged 09/23/2015 from [facility]. Wheelchair van took her home. Fire dept had to be called to get her in house. She then tried to get up to commode after being home 1 hour. She states she was unable to stand on her own and "slid" down to ground. EMS was called ans she was brought back here to [facility]. History of Any Multi-Drug Resistant Organisms: MRSA Date of last positivie culture/infection: 2012 MDRO Source:: Blood, unknown Past Surgical History: Hernia Repair, Hysterectomy, Joint Replacement, Orthopedic Surgery Additional Past Surgical History / Comment(s): total L knee x 2, knee and lower back surgery, left breast Lumpectomy without cancer, bilateral hand surgeries, bilateral cataract extraction with intraocular lens implantations, nonmalignant mass removed from left leg -resulting lymphedema, [id number] left anterior chest wall in the past, oopherectomy and abdominal hernia repair, R carpal tunnel release, L leg wound debridement, lymph node removed from L neck. Past Anesthesia/Blood Transfusion Reactions: No Reported Reaction Past Psychological History: Anxiety Smoking Status: Never smoker Past Alcohol Use History: None Reported Past Drug Use History: None Reported - Past Family History Mother Family Medical History: Cancer Additional Family Medical History / Comment(s): Mother at age 89 with pt believes bone cancer. Father Family Medical History: Unable to Obtain Additional Family Medical History / Comment(s): Pt's father when she was 2 yrs old. He was in WWII and of a strep infection. General Exam Limitations: no limitations General appearance: alert, obese, other (Patient is somnolent but arousable) Head exam: Present: atraumatic, normocephalic Eye exam: Present: normal appearance ENT exam: Present: mucous membranes moist Respiratory exam: Present: wheezes, decreased breath sounds Cardiovascular Exam: Present: regular rate, normal rhythm GI/Abdominal exam: Present: soft, other (Abdominal exam is limited secondary to morbid obesity). Absent: distended, tenderness Rectal exam: Present: deferred Extremities exam: Present: normal inspection, other Neurological exam: Present: alert, other (Patient is somnolent but arousable. She answers questions appropriately. There is asterixis on exam.) Psychiatric exam: Present: normal affect, normal mood Skin exam: Present: warm, dry, intact Course Vital Signs 08/06/17 08/06/17 08/06/17 17:49 18:19 18:35 Temperature 98.3 F Pulse Rate 80 80 88 Respiratory 24 Rate Blood Pressure 156/70 O2 Sat by Pulse 89 L Oximetry 08/06/17 19:22 Temperature Pulse Rate 73 Respiratory 17 Rate Blood Pressure 140/69 O2 Sat by Pulse 95 Oximetry Medical Decision Making - Medical Decision Making Patient presents with a chief complaint of weakness and confusion. On initial evaluation, patient is somnolent but arousable. She is breathing slow but appears to be labored. She is able to answer questions appropriately. Patient has a history of severe COPD and was recently discharged from the hospital one week ago. At this time, the patient is likely hypercarbic. The patient was immediately placed on BiPAP. The patient will have basic cardiac lab work. She was given breathing treatments and will be sent for CT of the chest to rule out PE on reexamination, patient is more alert after being placed on BiPAP. She was given Solu-Medrol and aspirin. 8:10 PM Lab evaluation this patient shows an elevated troponin of 2.7, and evidence of acute on chronic hypercarbic respiratory failure. After a period of time on BiPAP, the patient is much more alert and arousable. CT evaluation of the chest shows dilated pulmonary vasculature likely indicative of pulmonary hypertension with nonspecific fluid which likely related to heart failure. At this time pending second troponin before the decision is made to heparinize the patient. Troponin elevation is likely type II in nature. The patient does not complain of any chest pain at this time. Currently pending repeat troponin and BNP. EKG performed at 191 shows normal sinus rhythm with a rate of [address] segments appear to be within normal limits. EKG is otherwise nonspecific. I discussed this case with Dr. Acosta who excepts admission of this patient for elevated troponin, and respiratory failure. At this time, cardiology will be consult on this patient's case. - Lab Data Result diagrams: 08/06/17 18:14 08/06/17 18:14 Lab Results 08/06/17 08/06/17 08/06/17 Range/Units 18:14 18:14 18:14 WBC 9.2 (3.8-10.6) k/uL RBC 3.46 L (3.80-5.40) m/uL Hgb 11.0 L (11.4-16.0) gm/dL Hct 36.2 (34.0-46.0) % MCV 104.7 H (80.0-100.0) fL MCH 31.8 (25.0-35.0) pg MCHC 30.3 L (31.0-37.0) g/dL RDW 13.7 (11.5-15.5) % Plt Count 244 (150-450) k/uL Neutrophils % 82 % Lymphocytes % 6 % Monocytes % 6 % Eosinophils % 4 % Basophils % 0 % Neutrophils # 7.6 (1.3-7.7) k/uL Lymphocytes # 0.5 L (1.0-4.8) k/uL Monocytes # 0.5 (0-1.0) k/uL Eosinophils # 0.4 (0-0.7) k/uL Basophils # 0.0 (0-0.2) k/uL Hypochromasia Marked Macrocytosis Slight VBG pH 7.31 (7.31-7.41) VBG pCO2 75 H* (37-51) mmHg VBG HCO3 37 H (24-28) mmol/L Sodium 139 (137-145) mmol/L Potassium 4.7 (3.5-5.1) mmol/L Chloride 96 L (98-107) mmol/L Carbon Dioxide 38 H (22-30) mmol/L Anion Gap 5 mmol/L BUN 28 H (7-17) mg/dL Creatinine 1.00 (0.52-1.04) mg/dL Est GFR (MDRD) Af Amer >60 (>60 ml/min/1.73 sqM) Est GFR (MDRD) Non-Af 54 (>60 ml/min/1.73 sqM) Glucose 201 H (74-99) mg/dL Plasma Lactic Acid [place] (0.7-2.0) mmol/L Calcium 8.7 (8.4-10.2) mg/dL Total Bilirubin 1.0 (0.2-1.3) mg/dL AST 86 H (14-36) U/L ALT 96 H (9-52) U/L Alkaline Phosphatase 206 H (38-126) U/L Troponin I (0.000-0.034) ng/mL Total Protein 6.3 (6.3-8.2) g/dL Albumin 3.1 L (3.5-5.0) g/dL Urine Color Urine Appearance (Clear) Urine pH (5.0-8.0) Ur Specific [place] (1.001-1.035) Urine Protein (Negative) Urine Glucose (UA) (Negative) Urine Ketones (Negative) Urine Blood (Negative) Urine Nitrite (Negative) Urine Bilirubin (Negative) Urine Urobilinogen (<2.0) mg/dL Ur Leukocyte Esterase (Negative) Urine RBC (0-5) /hpf Urine WBC (0-5) /hpf Ur Squamous Epith Cells (0-4) /hpf Urine Bacteria (None) /hpf Hyaline Casts (0-2) /lpf Urine Mucus (None) /hpf 08/06/17 08/06/17 08/06/17 Range/Units 18:14 18:14 18:40 WBC (3.8-10.6) k/uL RBC (3.80-5.40) m/uL Hgb (11.4-16.0) gm/dL Hct (34.0-46.0) % MCV (80.0-100.0) fL MCH (25.0-35.0) pg MCHC (31.0-37.0) g/dL RDW (11.5-15.5) % Plt Count (150-450) k/uL Neutrophils % % Lymphocytes % % Monocytes % % Eosinophils % % Basophils % % Neutrophils # (1.3-7.7) k/uL Lymphocytes # (1.0-4.8) k/uL Monocytes # (0-1.0) k/uL Eosinophils # (0-0.7) k/uL Basophils # (0-0.2) k/uL Hypochromasia Macrocytosis VBG pH (7.31-7.41) VBG pCO2 (37-51) mmHg VBG HCO3 (24-28) mmol/L Sodium (137-145) mmol/L Potassium (3.5-5.1) mmol/L Chloride (98-107) mmol/L Carbon Dioxide (22-30) mmol/L Anion Gap mmol/L BUN (7-17) mg/dL Creatinine (0.52-1.04) mg/dL Est GFR (MDRD) Af Amer (>60 ml/min/1.73 sqM) Est GFR (MDRD) Non-Af (>60 ml/min/1.73 sqM) Glucose (74-99) mg/dL Plasma Lactic Acid [place] 0.8 (0.7-2.0) mmol/L Calcium (8.4-10.2) mg/dL Total Bilirubin (0.2-1.3) mg/dL AST (14-36) U/L ALT (9-52) U/L Alkaline Phosphatase (38-126) U/L Troponin I 2.740 H* (0.000-0.034) ng/mL Total Protein (6.3-8.2) g/dL Albumin (3.5-5.0) g/dL Urine Color Yellow Urine Appearance Cloudy H (Clear) Urine pH 5.5 (5.0-8.0) Ur Specific [place] 1.020 (1.001-1.035) Urine Protein 1+ H (Negative) Urine Glucose (UA) Negative (Negative) Urine Ketones Trace H (Negative) Urine Blood Negative (Negative) Urine Nitrite Negative (Negative) Urine Bilirubin Negative (Negative) Urine Urobilinogen 6.0 (<2.0) mg/dL Ur Leukocyte Esterase Trace H (Negative) Urine RBC 1 (0-5) /hpf Urine WBC 4 (0-5) /hpf Ur Squamous Epith Cells 4 (0-4) /hpf Urine Bacteria Rare H (None) /hpf Hyaline Casts 6 H (0-2) /lpf Urine Mucus Rare H (None) /hpf Disposition Clinical Impression: Respiratory failure, Elevated troponin, Congestive heart failure, CHF exacerbation, Abnormal CT scan, chest, Hypercarbia, Respiratory acidosis, Morbid obesity Disposition: ADMITTED IP TO THIS HOSP Condition: Fair Referrals: Juan R Gamboa MD [Primary Care Provider] - 1-2 days Decision to Admit Reason: Admit from EC - Out of Hospital Transfer - Req. Specs Out of Hospital Transfer - Requested Specifics: Adult ICU
[2017-08-06 18:30] LABS: Basophils % (A) 0 %; Eosinophils # (A) 0.4 k/uL (0-0.7); Eosinophils % (A) 4 %; HCT 36.2 % (34.0-46.0); Hypochromasia Marked; Lymphocytes # (A) 0.5 k/uL (1.0-4.8); Lymphocytes % (A) 6 %; MCH 31.8 pg (25.0-35.0); MCHC 30.3 g/dL (31.0-37.0); MCV 104.7 fL (80.0-100.0); Macrocytosis Slight; Mean Platelet Volume 7.8; Monocytes # (A) 0.5 k/uL (0-1.0); Monocytes % (A) 6 %; Neutrophils # (A) 7.6 k/uL (1.3-7.7); Neutrophils % (A) 82 %; Platelet Count 244 k/uL (150-450); RBC 3.46 m/uL (3.80-5.40); RDW 13.7 % (11.5-15.5); WBC 9.2 k/uL (3.8-10.6)
[2017-08-06 18:31] LABS: VBG PH 7.31 (7.31-7.41)
[2017-08-06 18:38] LABS: ALT 96 U/L (9-52); AST 86 U/L (14-36); Albumin 3.1 g/dL (3.5-5.0); Alkaline Phosphatase 206 U/L (38-126); Anion Gap 5 mmol/L; Blood Urea Nitrogen 28 mg/dL (7-17); Calcium 8.7 mg/dL (8.4-10.2); Carbon Dioxide 38 mmol/L (22-30); Chloride 96 mmol/L (98-107); Glucose 201 mg/dL (74-99); Potassium 4.7 mmol/L (3.5-5.1); Sodium 139 mmol/L (137-145); Total Protein 6.3 g/dL (6.3-8.2)
[2017-08-06 18:58] LABS: Appearance,Urine Cloudy (Clear); Bacteria,Urine Rare /hpf; Bilirubin,Urine Negative (Negative); Blood,Urine Negative (Negative); Color,Urine Yellow; Glucose,Urine (UA) Negative (Negative); Hyaline Casts,Urine 6 /lpf (0-2); Ketones,Urine Trace (Negative); Leukocyte Esterase,Urine Trace (Negative); Mucus,Urine Rare /hpf; Nitrite,Urine Negative (Negative); PH, Urine 5.5 (5.0-8.0); Protein,Urine 1+ (Negative); RBC,Urine 1 /hpf (0-5); Squamous Epithelial Cell,Urine 4 /hpf (0-4); WBC,Urine 4 /hpf (0-5)
--- NOTE | 2017-08-06 19:26 | CT ---
EXAMINATION TYPE: CT chest angio for PE DATE OF EXAM: 08/06/2017 COMPARISON: NONE HISTORY: LOW OXYGEN STATS, LETHARGIC. CT DLP: 939.4 mGycm Automated exposure control for dose reduction was used. CONTRAST: CT Chest for pulmonary embolism performed with with IV Contrast, patient injected with 77 mL of Visip aque 320. There are 3-D post processed images. FINDINGS: The heart is enlarged. There are bilateral lower lobe pulmonary infiltrates. There is interstitial an d alveolar edema. There is minimal pleural thickening at the lung bases. There are large central pulmonary arteries. I see no filling defects. Thoracic aorta is atheromatous. There is no evidence of aneurysm or dissection. I see no mediastinal adenopathy. There is spurring t hroughout the thoracic spine. IMPRESSION: Cardiomegaly. No evidence of pulmonary embolism. Bilateral extensive pulmonary infiltrates are nonspe cific and could relate to heart failure or RDS. There are large pulmonary arteries suggestive of pulmonary hypertension.
[2017-08-06] MEDS ORDERED: NALOXONE 0.4 MG/ML 1 ML VIAL IV PRN (20:15)
[2017-08-06] MEDS ORDERED: HEPARIN SODIUM,PORCINE 5,000 UNIT/ML 1 ML VIAL SQ SCH (21:00)
[2017-08-06] MEDS ORDERED: INSULIN DETEMIR 100 UNIT/ML 10 ML VIAL SQ SCH (22:00)
[2017-08-06] MEDS ORDERED: IPRATROPIUM-ALBUTEROL 3 ML NEB INHALATION PRN (23:25)
[2017-08-06 23:42] LABS: Glucose,Whole Blood 213 mg/dL (75-99)
[2017-08-07 00:51] VITALS: BMI 63.2
[2017-08-07] MEDS: GABAPENTIN 400 MG CAP PO SCH ×4 (04:43→21:06)
[2017-08-07 05:26] LABS: Basophils % (A) 0 %; Eosinophils % (A) 0 %; HCT 38.2 % (34.0-46.0); HGB 11.5 gm/dL (11.4-16.0); Hypochromasia Slight; Lymphocytes # (A) 0.4 k/uL (1.0-4.8); Lymphocytes % (A) 7 %; MCH 31.5 pg (25.0-35.0); MCHC 30.1 g/dL (31.0-37.0); MCV 104.4 fL (80.0-100.0); Macrocytosis Slight; Mean Platelet Volume 7.1; Monocytes # (A) 0.1 k/uL (0-1.0); Monocytes % (A) 1 %; Neutrophils % (A) 91 %; Platelet Count 222 k/uL (150-450); RBC 3.66 m/uL (3.80-5.40); RDW 12.6 % (11.5-15.5); WBC 6.5 k/uL (3.8-10.6)
[2017-08-07 05:42] LABS: Anion Gap 5 mmol/L; Blood Urea Nitrogen 29 mg/dL (7-17); Calcium 8.6 mg/dL (8.4-10.2); Carbon Dioxide 37 mmol/L (22-30); Chloride 96 mmol/L (98-107); Glucose 239 mg/dL (74-99); Sodium 138 mmol/L (137-145)
--- NOTE | 2017-08-07 07:09 | XR ---
EXAMINATION TYPE: XR chest 1V DATE OF EXAM: 08/07/2017 HISTORY: respiratory failure. REFERENCE: Previous study dated 06/19/2017. FINDINGS: The heart is enlarged. There is left basilar atelectasis. I cannot exclude a small left eff usion. IMPRESSION: 1. CARDIOMEGALY. 2. LEFT BASILAR ATELECTASIS. 3. I COULD NOT EXCLUDE A SMALL, LEFT EFFUSION.
--- NOTE | 2017-08-07 07:44 | HP ---
HISTORY AND PHYSICAL I am covering for Dr. Juan R Gamboa. This 77-year-old woman with a past medical history of multiple medical problems including history of asthma, COPD, history of CHF, diabetes mellitus type 2, hypertension, hyperlipidemia, history of DJD being followed by Dr. Juan R Gamboa in the outpatient setting is apparently living at home and the patient was recently discharged from [facility] with renal failure, metabolic encephalopathy, and hyperkalemia. The patient was found to have complaints of weakness and EMS checked on her. Her pulse ox is usually around 85 and 88 on 6 L but EMS found the pulse ox 60%. The patient was taken to [facility] and admitted for evaluation and treatment. The CO2 was extremely high indicating hypercarbia and hypercarbic respiratory failure. The patient also had change in mental status. After connecting to the BiPAP the patient improved significantly. Patient admitted for further evaluation and treatment. Of note the patient also had elevated troponin 2.740 and 2.[address]-segment myocardial infarction. Also, influenza negative. There is no history of fever, rigors. No headache, loss of consciousness or seizures. The patient is much more alert and unable to give a sketchy history at least at this time. PAST MEDICAL HISTORY: History of asthma, CHF, COPD, diabetes mellitus type 2, history of obesity, hypertension, hyperlipidemia, history of degenerative joint disease. MEDICATIONS: Prior to admission include home medications are reviewed and include: 1. Insulin Lantus 30 units subcu q.h.s. 2. Diltiazem 180 mg p.o. daily. 3. Aspirin 81 mg. 4. Celexa 20 mg daily. 5. Vitamin D3 1000 daily. 6. Gabapentin 800 mg t.i.d. 7. Lactulose 10 mg p.o. b.i.d. 8. [place] 10 mg t.i.d. p.r.n. 9. Glucophage 500 mg p.o. daily. 10.Simvastatin 20 mg q.h.s. 11.Toprol-XL 25 mg daily. 12.Prinivil 20 mg p.o. daily. 13.Aldactone 25 mg. 14.Synthroid 100 mcg p.o. daily. 15.Keflex 500 mg p.o. every 6 hours p.r.n. ALLERGIES: ATENOLOL. FAMILY HISTORY: Unable to obtain. SOCIAL HISTORY: History of smoking. No alcohol intake. REVIEW OF SYSTEMS: ENT: Diminished hearing and vision. CARDIOVASCULAR: No angina. RESPIRATORY: As mentioned earlier. GI: No nausea. : No dysuria. NERVOUS SYSTEM: No numbness, weakness. ALLERGY/IMMUNOLOGY: As mentioned earlier. HEMATOLOGY/ONCOLOGY: No history of anemia. ENDOCRINE: As mentioned earlier. Diabetes. CONSTITUTIONAL: As mentioned earlier. DERMATOLOGY: Negative. RHEUMATOLOGY: Negative. PSYCHIATRY: As mentioned earlier. PHYSICAL EXAMINATION: Alert and oriented x2. Pulse 123, blood pressure 140/69, respirations 20, slightly drowsy, pulse ox 95% on BiPAP. BiPAP settings are noted. HEENT: Conjunctivae normal. Oral mucosa moist. NECK: No jugular venous distention. Rather obese. CARDIOVASCULAR: S1, S2. No S3, no S4. RESPIRATORY: Breath sounds diminished in the bases. Bilateral scattered rhonchi and crackles and breathing efforts increased also. ABDOMEN: Soft, obese, nontender. No mass palpable. LEGS: Bilateral leg edema. NERVOUS SYSTEM: Higher functions as mentioned. Moves all four limbs. Mild diffuse weakness. LYMPHATICS: No lymphadenopathy in the neck or axillae. SKIN: No ulcer, rash, bleeding. LABS: At this time shows WBC 9, hemoglobin is 11, and the sodium 139, potassium 4.7. Troponins are noted. ASSESSMENT: 1. Shortness of breath and as well as acute hypoxic hypercarbic respiratory failure secondary to obesity hypoventilation syndrome as well as chronic obstructive pulmonary disease acute exacerbation. 2. Troponin 2.[address]-segment elevation myocardial infarction. 3. Increased AST, ALT, possibly mild hepatitis. 4. History of asthma, chronic obstructive pulmonary disease. 5. History of congestive heart failure. 6. Diabetes mellitus type 2. 7. Hyperlipidemia. 8. Hypertension. 9. History of degenerative joint disease. 10.History of renal failure. 11.Anxiety. 12.History of obesity hypoventilation syndrome. 13.Chronic hypoxic respiratory failure on home O2 3 L nasal cannula. 14.Obesity with body mass index of 64.1. 15.FULL CODE. RECOMMENDATIONS AND DISCUSSION: This 77-year-old woman who presented with multiple complex medical issues, will monitor the patient closely, will continue the current management and symptomatic treatment. Will initiate broad-spectrum IV antibiotics and steroids. Pulmonary consultation. Cardiology consultation. Guarded prognosis. Resume the home medications. Continue the BiPAP. Guarded prognosis because of multiple complex medical issues. Further recommendations to follow. The patient will be followed by Dr. Juan R Gamboa who is the primary physician. Monitor blood sugars closely. See orders for details. Continue with beta blockers and other medications as well. MMODL / IJN: [id number] /
[2017-08-07] MEDS: IPRATROPIUM-ALBUTEROL 3 ML NEB INHALATION SCH ×4 (07:59→20:08)
[2017-08-07] MEDS: SYMBICORT 160-4.5 MCG INHALER INHALATION SCH ×2 (07:59→20:12)
[2017-08-07] MEDS ORDERED: ALBUTEROL NEBULIZED 2.5 MG/3 ML INHALATION SCH (08:00)
[2017-08-07] MEDS ORDERED: IPRATROPIUM 0.5 MG/2.5 ML NEBU INHALATION SCH (08:00)
--- NOTE | 2017-08-07 08:41 | P.CNPUL ---
History of Present Illness Consult date: 08/07/17 Reason for consult: dyspnea, hypoxemia History of present illness: 77-year-old female patient, morbidly obese, with known history of diabetes mellitus, chronic hypoxic respiratory failure maintained on oxygen 2 L/m nasal cannula, CHF with diastolic dysfunction with pulmonary hypertension, ejection fraction of 60-65%, chronic left lower extremity lymphedema and peripheral vascular disease and peripheral neuropathy whereas been reported baseline performance and functional status as the patient has poor vision and she has had previous falls and gait dysfunction and the patient claims that she has been essentially bedridden moving around with the help of a wheelchair. Note that the patient was at home when she became more short of breath and she became very weak. 5 department was called to her house. She then tried to get up to the commode and after being unable to do that she slid down to the ground. EMS was also called and the patient was brought into the hospital. The patient comes in yesterday because of increased shortness of breath. She was found to be hypoxic at home and her pulse ox was in the mid 60s. She was placed on high flow oxygen 6 L/m nasal cannula and she got moved to the intensive care unit. She did have some vague chest pain today before yet none on the day of presentation. She has some limited cough without any significant sputum production. No fever or chills. No chest pain. No pleurisy. No hemoptysis. No worsening lower extremity edema. Her chest x-ray shows left basilar pulmonary infiltration. The patient CAT scan of the chest showed hazy bilateral pulmonary infiltrates which could be either a combination of fluid and a superimposed pneumonia cannot be completely excluded. The patient was placed on a BiPAP at a pressure of 12/5 cm of water with an FiO2 of 40% and she got moved to the intensive care unit. Her EKG showed T-wave inversions over the anterolateral leads. Troponin maxed at 2.6. Cardiology consultation was obtained. This morning, she is awake and alert. She is laying down comfortably in bed. Her lungs are relatively clear and I'm going to take her off the BiPAP and put on nasal cannula at 3 L/m. Review of Systems REVIEW OF SYSTEMS: CONSTITUTIONAL: Denies any recent significant weight loss or weight gain. The patient is morbidly obese. The patient is very much debilitated. She is an increased risk of fall. She is moving around with the help of a wheelchair. EYES: Denies change in vision. The patient has impaired vision. EARS, NOSE, MOUTH, THROAT: Denies headaches, denies sore throat. CARDIOVASCULAR: Denies chest pain, palpitations or syncopal episodes. RESPIRATORY: Positive for shortness of breath, cough, congestion. Denies hemoptysis. GASTROINTESTINAL: Denies change in appetite, some abdominal discomfort secondary to constipation. GENITOURINARY: Denies hematuria, recent infections. MUSCULOSKELETAL: Chronic pain, she has chronic lymphedema lower extremities bilaterally. INTEGUMENTARY: Denies rash, denies eczema. No evidence of any acute cellulitis at this point. NEUROLOGICAL: Denies recent memory loss, no recent seizure activity. PSYCHIATRIC: Denies anxiety, denies depression. HEMATOLOGIC/LYMPHATIC: Denies anemia, denies enlarged lymph nodes Past Medical History Past Medical History: Asthma, Cancer, Heart Failure, COPD, Diabetes Mellitus, Eye Disorder, Hyperlipidemia, Hypertension, Osteoarthritis (OA), Thyroid Disorder Additional Past Medical History / Comment(s): Morbid obesity, obstructive sleep apnea, IDDM type II, chronic respiratory failure with home O2 most of the time, CHF diastolic dysfunction, 03/04/15 ech with mild pulmonary hypertension, mild to moderate tricuspid regurg, L ventricular systolic function normal EF 60-65%, L leg lymphedema, peripheral neuropathy bilateral legs/feet, macular degeneration bilaterally-vision is now poor, falls, gait dysfunction, chronic pain multiple joints, chronic urine incontinence, sinus problems, obesity, hypothyroidism, osteoarthritis History of Any Multi-Drug Resistant Organisms: MRSA Date of last positivie culture/infection: 2012 MDRO Source:: Blood, unknown Past Surgical History: Hernia Repair, Hysterectomy, Joint Replacement, Orthopedic Surgery Additional Past Surgical History / Comment(s): total L knee x 2, knee and lower back surgery, left breast Lumpectomy without cancer, bilateral hand surgeries, bilateral cataract extraction with intraocular lens implantations, nonmalignant mass removed from left leg -resulting lymphedema, [id number] left anterior chest wall in the past, oopherectomy and abdominal hernia repair, R carpal tunnel release, L leg wound debridement, lymph node removed from L neck. Past Anesthesia/Blood Transfusion Reactions: No Reported Reaction Smoking Status: Never smoker - Past Family History Mother Family Medical History: Cancer Additional Family Medical History / Comment(s): Mother at age 89 with pt believes bone cancer. Father Family Medical History: Unable to Obtain Additional Family Medical History / Comment(s): Pt's father when she was 2 yrs old. He was in WWII and of a strep infection. Medications and Allergies Home Medications Medication Instructions Recorded Confirmed Type Metoprolol Succinate [Toprol XL] 25 mg PO DAILY 03/11/14 08/06/17 History Cholecalciferol [Vitamin D3] 1,000 unit PO DAILY 02/24/15 08/06/17 History HYDROcodone/APAP 10-325MG [[place] 1 tab PO TID PRN 11/18/15 08/06/17 History 10-325] Simvastatin 20 mg PO HS 05/30/16 08/06/17 History metFORMIN HCL [Glucophage] 500 mg PO DAILY 05/30/16 08/06/17 History Diltiazem HCl [Diltiazem 24Hr ER] 180 mg PO DAILY 06/19/17 08/06/17 History Gabapentin 800 mg PO TID 06/19/17 08/06/17 History Insulin Glargine,Hum.rec.anlog 30 unit SQ HS 06/19/17 08/06/17 History [Lantus Solostar] Lactulose 10 gm PO BID 06/19/17 08/06/17 History Aspirin [Adult Low Dose Aspirin EC] 81 mg PO DAILY 08/06/17 08/06/17 History Cephalexin [Keflex] 500 mg PO Q6HR 08/06/17 08/06/17 History Citalopram Hydrobromide [CeleXA] 20 mg PO DAILY 08/06/17 08/06/17 History Levothyroxine Sodium [Synthroid] 100 mcg PO DAILY 08/06/17 08/06/17 History Lisinopril [Prinivil] 20 mg PO DAILY 08/06/17 08/06/17 History Spironolactone [Aldactone] 25 mg PO DAILY 08/06/17 08/06/17 History Allergies Allergy/AdvReac Type Severity Reaction Status Date / Time atenolol [From Tenormin] AdvReac Severe Unknown Verified 06/19/17 14:46 Physical Exam Vitals: Vital Signs Temp Pulse Resp BP BP Pulse Ox 08/07/17 07:59 65 08/07/17 07:30 61 21 125/58 96 08/07/17 07:00 95 21 136/60 95 08/07/17 06:30 77 29 H 107/56 90 L 08/07/17 06:00 54 L 12 126/56 91 L 08/07/17 05:30 53 L 12 127/58 92 L 08/07/17 05:00 58 L 15 128/58 92 L 08/07/17 04:30 97.3 F L 63 12 125/64 98 08/07/17 04:00 67 14 128/56 96 08/07/17 03:30 64 29 H 121/61 93 L 08/07/17 03:00 53 L 12 110/53 92 L 08/07/17 02:30 55 L 14 119/53 94 L 08/07/17 02:00 56 L 20 119/53 91 L 08/07/17 01:30 60 16 119/53 90 L 08/07/17 01:00 62 15 123/54 94 L 08/07/17 00:50 64 21 126/59 93 L 08/07/17 00:40 63 18 126/59 92 L 08/07/17 00:30 63 11 L 126/59 100 08/07/17 00:20 63 14 138/62 99 08/07/17 00:10 64 13 138/62 94 L 08/07/17 00:00 65 11 L 138/62 97 08/06/17 23:50 75 16 146/72 94 L 08/06/17 23:40 98.2 F 67 21 146/72 146/72 99 08/06/17 22:41 98.6 F 62 18 137/63 95 08/06/17 22:11 98.9 F 64 20 135/62 96 08/06/17 20:50 67 18 96 08/06/17 20:28 67 20 144/68 95 08/06/17 19:22 73 17 140/69 95 08/06/17 18:35 88 08/06/17 18:19 80 08/06/17 17:49 98.3 F 80 24 156/70 89 L Intake and Output 08/06/17 08/07/17 08/07/17 22:59 06:59 14:59 Output Total 500 40 Balance -500 -40 Output: Urine 500 40 Other: Voiding Method Indwelling Catheter Weight 174.7 kg 172.3 kg GENERAL EXAM: Morbidly obese. Alert, fairly comfortable in no apparent distress. HEAD: Normocephalic. EYES: Normal reaction of pupils, equal size. NOSE: Clear with pink turbinates. THROAT: No erythema or exudates. His cardiac the posterior pharynx. Patient has a Mallampati class IV with significant crowding of the posterior oropharynx. NECK: Short. No masses, no JVD. CHEST: No chest wall deformity. LUNGS: Equal air entry with no crackles, wheeze, rhonchi or dullness. CVS: S1 and S2 normal with no audible murmurs, regular rhythm. ABDOMEN: Obese. no appreciated hepatosplenomegaly, normal bowel sounds, no guarding or rigidity. SPINE: No scoliosis or deformity SKIN: No rashes Extremities: There is 1-2+ lower extremity peripheral edema, suspect chronic. No clubbing, no cyanosis. Peripheral pulses are intact. Results - Laboratory Findings CBC and BMP: 08/07/17 05:15 08/07/17 05:15 Abnormal lab findings: Abnormal Labs 08/06/17 08/06/17 08/06/17 18:14 18:14 18:14 RBC 3.46 L Hgb 11.0 L MCV 104.7 H MCHC 30.3 L Lymphocytes # 0.5 L VBG pCO2 75 H* VBG HCO3 37 H Chloride 96 L Carbon Dioxide 38 H BUN 28 H Glucose 201 H POC Glucose (mg/dL) AST 86 H ALT 96 H Alkaline Phosphatase 206 H Troponin I Albumin 3.1 L Urine Appearance Urine Protein Urine Ketones Ur Leukocyte Esterase Urine Bacteria Hyaline Casts Urine Mucus 08/06/17 08/06/17 08/06/17 18:14 18:40 20:46 RBC Hgb MCV MCHC Lymphocytes # VBG pCO2 VBG HCO3 Chloride Carbon Dioxide BUN Glucose POC Glucose (mg/dL) AST ALT Alkaline Phosphatase Troponin I 2.740 H* 2.650 H* Albumin Urine Appearance Cloudy H Urine Protein 1+ H Urine Ketones Trace H Ur Leukocyte Esterase Trace H Urine Bacteria Rare H Hyaline Casts 6 H Urine Mucus Rare H 08/06/17 08/07/17 08/07/17 23:37 05:15 05:15 RBC 3.66 L Hgb MCV 104.4 H MCHC 30.1 L Lymphocytes # 0.4 L VBG pCO2 VBG HCO3 Chloride 96 L Carbon Dioxide 37 H BUN 29 H Glucose 239 H POC Glucose (mg/dL) 213 H AST ALT Alkaline Phosphatase Troponin I Albumin Urine Appearance Urine Protein Urine Ketones Ur Leukocyte Esterase Urine Bacteria Hyaline Casts Urine Mucus - Diagnostic Findings Chest x-ray: image reviewed CT scan - chest: image reviewed Assessment and Plan Plan: Assessment #1 acute on top of chronic hypoxic respiratory failure in a patient who is morbidly obese, deconditioned, chronic oxygen dependent respiratory failure, chronic diastolic congestive heart failure with pulmonary hypertension, suspect obesity/hypoventilation syndrome along with chronic pain medications. The exact reason for the acute decompensation is not clear. The patient has an indication for an acute non-ST segment elevation myocardial infarction. My understanding that her previous cardiac catheterization has been negative. The acute decompensation could be related to a component of CHF as the patient has hazy but the pulmonary infiltrates. A pneumonia cannot be completely excluded. The patient will be treated accordingly. #2 Chronic oxygen dependent respiratory failure. #3 acute non-ST segment elevation myocardial infarction #4 Diabetes mellitus, type II. Patient is insulin-dependent with Levemir 30 units along with a sliding scale coverage. #5 Diastolic congestive heart failure with mild pulmonary hypertension and preserved left ventricular systolic function with estimated ejection fraction 60 -65%. #6 Recent urinary tract infection, chronic urinary incontinence. #7 Hyperlipidemia. #8 Hypertension. #9 Osteoarthritis. #10 Hypothyroidism. #11 morbid obesity with a BMI of 63.2.. #12 Macular degeneration. #13 Poor overall functional status secondary to multiple above-mentioned comorbidities. #14 chronic lymphedema of the lower extremities bilaterally. Plan Continue BiPAP for respiratory support and try to wean it off and put the patient's liters of oxygen by nasal cannula. Diabetes the patient with IV Lasix 40 mg every 12 hours., The patient with accommodation Rocephin and Zithromax. Cardiology consultation regarding the acute non-ST segment elevation myocardial infarction. Repeat echocardiogram. Put the patient IV heparin. Monitor the blood sugars. Keep the patient ICU. We'll continue to follow.
[2017-08-07] MEDS ORDERED: METOPROLOL SUCCINATE (ER) 25 MG TAB.ER.24H PO SCH (09:00)
[2017-08-07] MEDS ORDERED: LACTULOSE 200 GM/300 ML (FROM 1/2 GAL JUG) PO SCH (09:00)
[2017-08-07] MEDS ORDERED: DILTIAZEM CD 180 MG CAP.ER.24H PO SCH (09:00)
[2017-08-07] MEDS ORDERED: metFORMIN 500 MG TAB PO SCH (09:00)
[2017-08-07 09:15] LABS: Partial Thromboplastin Time 22.6 sec (22.0-30.0); Prothrombin Time 9.9 sec (9.0-12.0)
[2017-08-07] MEDS: cefTRIAXone IN SWFI 1,000 MG/10 ML SYRINGE IVP SCH (09:15)
[2017-08-07] MEDS: PANTOPRAZOLE 40 MG TABLET PO SCH (09:15)
[2017-08-07] MEDS: CHOLECALCIFEROL 1,000 UNIT TAB PO SCH (09:15)
[2017-08-07] MEDS: ASPIRIN 81 MG PO SCH (09:15)
[2017-08-07] MEDS: FUROSEMIDE 10 MG/ML 4 ML VIAL IV SCH ×2 (09:15→19:52)
[2017-08-07] MEDS: AZITHROMYCIN 500 MG TAB PO SCH (09:15)
[2017-08-07] MEDS: CITALOPRAM HYDROBROMIDE 20 MG TAB PO SCH (09:16)
[2017-08-07] MEDS: LISINOPRIL 20 MG TAB PO SCH (09:16)
[2017-08-07] MEDS: METOPROLOL SUCCINATE (ER) 25 MG TAB.ER.24H PO SCH ×2 (09:17→19:52)
[2017-08-07] MEDS: LEVOTHYROXINE 100 MCG TAB PO SCH (09:17)
[2017-08-07] MEDS: SPIRONOLACTONE 25 MG TAB PO SCH (09:17)
[2017-08-07] MEDS: HEPARIN SOD,PORK IN 0.45% NACL 25,000 UNIT in 0.45% NACL 1 500ML.BAG IV SCH (09:18)
[2017-08-07 09:39] LABS: Basophils % (A) 0 %; Eosinophils % (A) 0 %; HCT 41.2 % (34.0-46.0); HGB 12.5 gm/dL (11.4-16.0); Hypochromasia Marked; Lymphocytes # (A) 0.5 k/uL (1.0-4.8); Lymphocytes % (A) 7 %; MCHC 30.3 g/dL (31.0-37.0); MCV 105.8 fL (80.0-100.0); Macrocytosis Moderate; Mean Platelet Volume 7.6; Monocytes # (A) 0.1 k/uL (0-1.0); Monocytes % (A) 2 %; Neutrophils # (A) 6.5 k/uL (1.3-7.7); Neutrophils % (A) 90 %; Platelet Count 239 k/uL (150-450); RBC 3.89 m/uL (3.80-5.40); RDW 13.7 % (11.5-15.5); WBC 7.2 k/uL (3.8-10.6)
[2017-08-07] MEDS: ATORVASTATIN 40 MG TAB PO SCH (09:47)
[2017-08-07] MEDS: NITROGLYCERIN OINT 1 INCH/GM PACKET TOPICAL SCH ×2 (09:57→16:48)
[2017-08-07] MEDS: INSULIN ASPART 100 UNIT/ML 1 ML 10 ML VIAL SQ SCH ×4 (09:57→20:58)
[2017-08-07] MEDS: HYDROcodone/APAP 10-325MG 1 EACH TAB PO PRN (10:02)
--- NOTE | 2017-08-07 10:04 | CONS ---
CONSULTATION Mrs. Kohler is a 77-year-old female, known history of hypertension, hyperlipidemia, diabetes mellitus, who presented to the emergency room with symptoms of progressive fatigue and lack of energy. She has a history of chronic obstructive lung disease, morbid obesity, but no documented history of obstructive coronary disease. She has been followed by Dr. Rodriguez on a regular basis. She carries history of congestive heart failure, although she had a preserved systolic function by echocardiography recently. According to her, 2 days ago, she had an episode of chest discomfort, radiated to the back that subsequently resolved, but yesterday was feeling more fatigued, short of breath. Did not have any further symptoms of chest pain. She had no dizziness or palpitations. She came into the emergency room. She was hypoxemic and hypercapnic. There was a question of CHF and she was diuresed. She is feeling better at this time. She denies any symptoms of chest pain. The patient is quite limited in physical activity. She has lymphedema and chronic peripheral edema. She has no dizziness or palpitation and no syncope. She had a remote cardiac catheterization, although details of that are not available to me. Her coronary risk factors are remarkable for hypertension, hyperlipidemia, and diabetes. She is a nonsmoker. Her medications at home include: Insulin, diltiazem CD 180 mg daily, aspirin once a day, vitamin D, metformin 500 mg daily, simvastatin 20 mg daily, and Metoprolol succinate 25 mg daily, Prinivil 20 mg daily, Aldactone 25 mg daily, levothyroxine. REVIEW OF SYSTEMS: RESPIRATORY system: She has chronic dyspnea on exertion with chronic obstructive lung disease. GI system: No recent GI bleed. No peptic ulcer disease. system: No dysuria or hematuria. Nervous system: No history of stroke or seizure. PHYSICAL EXAMINATION: 77-year-old female, morbidly obese, on BiPAP, in no apparent distress. Blood pressure 138/50 with a heart in 60s. HEAD: Normocephalic. Eyes sclerae anicteric. Neck: Good upstroke. No bruit. Unable to evaluate jugular venous pressure. Lungs with mild decrease in breath sounds bilaterally. No wheezes. HEART: Regular rhythm S1, S2. No S3 with systolic murmur in the base. Ejection type, no diastolic murmur. No rub. ABDOMEN: Soft, nontender. Positive bowel sounds. No megaly. Extremities: Chronic stasis, chronic skin changes and 1+ edema. LAB DATA: Lab data revealed a hemoglobin of 11, white blood cell of 9.2, platelet count 244. On presentation, her PCO2 was 75. Her BUN and creatinine 28 and 1.0. Potassium 4.7. Her presenting troponin 2.7 with a NT proBNP of 2690, AST of 86, ALT of 96. Her EKG was sinus mechanism with mild T-wave inversion anteriorly. Her chest x-ray raised the question of atelectasis, questionable small effusion. Her chest CT angiogram revealed no evidence of pulmonary embolism. IMPRESSION: 1. Non ST-segment elevation myocardial infarction. The patient had discomfort a day before yesterday. At this time her troponin are on a downward pattern. 2. Symptoms of congestive heart failure on presentation, her left ventricular systolic function preserved. 3. Chronic obstructive lung disease. 4. Morbid obesity. 5. Limited activity. 6. Hypertension. 7. Hyperlipidemia. 8. Diabetes mellitus. RECOMMENDATIONS: From the cardiac standpoint, I will add to her regimen, IV heparin. I will add nitrate and stop her calcium channel elva and increase her dose of beta elva. I will repeat the echocardiogram to evaluate left ventricular systolic function. It is possible that the patient had a finding consistent with takotsubo syndrome. Depending on her progress, she may require coronary angiography and I have discussed those findings with her. Depending on results of testing, further recommendation will be made. In the meantime, we will continue intravenous diuresis. Thank you for this consult. We will follow with you. DOMINGA / IJN: [id number] /
[2017-08-07 12:26] LABS: Glucose,Whole Blood 295 mg/dL (75-99)
[2017-08-07 14:08] LABS: Hemoglobin A1C 6.4 % (4.0-6.0)
[2017-08-07] MEDS: HEPARIN SODIUM,PORCINE 5,000 UNIT/ML 1 ML VIAL IV PRN ×2 (15:31→22:14)
--- NOTE | 2017-08-07 15:59 | ECHOF ---
Referral Reason:mi MEASUREMENTS -------- HEIGHT: 165.1 cm WEIGHT: 171.9 kg BP: 140/71 LVOT Diam: 2.0 cm LALs A4C: 6.9 cm LAAs A4C: 30.7 cm LAESV A-L A4C: 116 ml LAESV MOD A4C: 113 ml LALs A2C: 6.0 cm LAAs A2C: 24.0 cm LAESV A-L A2C: 81 ml LAESV MOD A2C: 79 ml LAESV(A-L): 104 ml LAESV Index (A-L): 39.87 ml/m Ao Diam: 3.5 cm (2.0 - 3.7) AV Cusp: 1.0 cm (1.5 - 2.6) LA Diam: 3.5 cm (2.7 - 3.8) MV E Carlos: 1.19 m/s MV DecT: 298 ms MV Dec Hawkins: 4.0 m/s MV A Carlos: 1.19 m/s MV E/A Ratio: 1.00 LVOT Vmax: 0.87 m/s LVOT Vmean: 0.63 m/s LVOT maxP.02 mmHg LVOT meanP.73 mmHg LVOT Env.Ti: 362 ms LVOT VTI: 22.7 cm AV Vmax: 2.39 m/s AV maxP.82 mmHg KELSIE Vmax: 1.1 cm AVAI Vmax: 0.425 cm/m AV Vmax: 2.46 m/s AV Vmean: 1.86 m/s AV maxP.17 mmHg AV meanP.93 mmHg AV Env.Ti: 327 ms AV VTI: 60.7 cm KELSIE Vmax: 1.1 cm KELSIE (VTI): 1.1 cm AVAI (VTI): 0.436 cm/m AVAI Vmax: 0.413 cm/m TR Vmax: 3.15 m/s TR maxP.79 mmHg RAP: 5.00 mmHg RVSP: 44.79 mmHg FINDINGS -------- Sinus rhythm. This was a technically difficult study with suboptimal views. The left ventricular size is normal. There is mild concentric left ventricular hypertrophy. Overa ll left ventricular systolic function is normal with, an EF between 55 - 60 %. The RV was not well visualized. Normal LA size by volume 22+/-6 ml/m2. The right atrium was not well visualized. 1.5mg of Definity was utilized for enhancement of images There is mild aortic valve sclerosis. There is no evidence of aortic regurgitation. There is mild aortic stenosis present. Peak/mean gradient across the Aortic Valve is 24.17mmHg / 14.93mmHg. The mitral valve leaflets are mildly thickened. Mild mitral annular calcification present. There is trace to mild mitral regurgitation. Trace tricuspid regurgitation present. There is mild pulmonary hypertension. The right ventricula r systolic pressure, as measured by Doppler, is 44.79mmHg. The pulmonic valve was not well visualized. The aortic root size is normal. Normal inferior vena cava with normal inspiratory collapse consistent with estimated right atrial pre ssure of 5 mmHg. There is no pericardial effusion. CONCLUSIONS -------- 1. Sinus rhythm. 2. This was a technically difficult study with suboptimal views. 3. There is mild concentric left ventricular hypertrophy. 4. Overall left ventricular systolic function is normal with, an EF between 55 - 60 %. 5. The RV was not well visualized. 6. Normal LA size by volume 22+/-6 ml/m2. 7. The right atrium was not well visualized. 8. 1.5mg of Definity was utilized for enhancement of images 9. There is mild aortic valve sclerosis. 10. There is mild aortic stenosis present. 11. Peak/mean gradient across the Aortic Valve is 24.17mmHg / 14.93mmHg. 12. Mild mitral annular calcification present. 13. There is trace to mild mitral regurgitation. 14. Trace tricuspid regurgitation present. 15. There is mild pulmonary hypertension. 16. The pulmonic valve was not well visualized. 17. The aortic root size is normal. 18. There is no pericardial effusion. PEPPER CUTTER: Richard Boyle RDCS
[2017-08-07 17:18] LABS: Glucose,Whole Blood 229 mg/dL (75-99)
[2017-08-07 20:05] LABS: Glucose,Whole Blood 251 mg/dL (75-99)
--- NOTE | 2017-08-07 20:41 | PN ---
PROGRESS NOTE DATE OF SERVICE: 08/07/2017 I am covering for Dr. Juan R Gamboa. This 77-year-old woman who was admitted with shortness of breath and acute hypercapnic respiratory failure, also had possible obesity hypoventilation syndrome. The patient also had elevated troponin and saw multiple consultants, including Cardiology and Pulmonary, who are following the patient closely. The patient is apparently also unable to tolerate the BiPAP. A 2-D echo with Doppler showed normal ejection fraction of 55%-60% and mild aortic stenosis. Cardiology and Pulmonology following the patient closely. The patient is being closely monitored in ICU at this time. PAST MEDICAL HISTORY: Reviewed. REVIEW OF SYSTEMS: CARDIOVASCULAR: As mentioned earlier. RESPIRATORY: As mentioned earlier. GI: No nausea, vomiting. : No dysuria. NERVOUS: No numbness or weakness. CURRENT MEDICATIONS: Reviewed, include: 1. [place] 10 mg q.i.d. p.r.n. 2. DuoNeb q.i.d. and p.r.n. 3. Aspirin 81 mg daily. 4. Lipitor 40 mg. 5. Zithromax 500 mg p.o. 6. Symbicort 160/4.5, 2 puffs b.i.d. 7. Rocephin 1 g IV daily. 8. Vitamin D3 1000 daily. 9. Celexa 20 mg daily. 10.Lasix 40 mg IV b.i.d. 11.Neurontin 800 mg t.i.d. 12.Heparin drip. 13.NovoLog a.c. and at bedtime. 14.Levemir 30 units subcu q.h.s. 15.Cephulac. 16.Synthroid 100 mcg p.o. daily. 17.Zestril 20 mg p.o. daily. 18.Toprol-XL 25 mg p.o. b.i.d. 19.Narcan p.r.n. 20.Nitro-Bid 1 inch q.8h. 21.Protonix 40 mg a.c. breakfast. 22.Aldactone 25 mg p.o. daily. PHYSICAL EXAM: Patient is alert, oriented x3. Pulse 71, blood pressure 100/44, respirations 20, temperature 98.2, pulse ox 96% on BiPAP and on 40% FiO2. BiPAP settings are noted. HEENT: Conjunctivae normal. Oral mucosa moist. NECK: Obese. CARDIOVASCULAR: S1, S2 muffled. No S3. No S4. RESPIRATORY: Breath sounds diminished in the bases. Bilateral scattered rhonchi and crackles. ABDOMEN: Soft, obese, nontender. No mass palpable. LEGS: No edema. No swelling. NERVOUS SYSTEM: Higher functions as mentioned earlier. Moves all 4 limbs. No focal motor or sensory deficits LYMPHATIC: No lymphadenopathy in neck or axillae. SKIN: No ulcer, rash or bleeding. LABS: WBC 7.8, hemoglobin is 12.5. Otherwise glucose noted. Other labs are noted. ASSESSMENT: 1. Shortness of breath and acute hypoxic hypercarbic respiratory failure, multifactorial, possibly secondary to obesity hypoventilation syndrome as well as chronic obstructive pulmonary disease acute exacerbation. 2. Possible congestive heart failure with chronic diastolic dysfunction, ejection fraction 55%-60%. 3. Troponin 2.74, indicating acute non ST-segment elevation myocardial infarction. 4. Increased AST ALT, possibly mild hepatitis. 5. History of asthma, chronic obstructive pulmonary disease. 6. History of congestive heart failure. 7. Diabetes mellitus type 2. 8. Hyperlipidemia. 9. Hypertension. 10.History of degenerative joint disease. 11.History of renal failure. 12.History of anxiety. 13.History of obesity hypoventilation syndrome. 14.Chronic hypoxic respiratory failure on home O2 at 3L nasal cannula. 15.Obesity with body mass index of 64.1. 16.FULL CODE. RECOMMENDATIONS AND DISCUSSION: In this 77-year-old woman who presented with multiple complex medical issues, we will monitor the patient closely, continue the current medical management and symptomatic treatment, closely follow with Cardiology and Pulmonology. Encourage BiPAP. Otherwise, patient did have a negative cardiac cath. Medical treatment was recommended by Cardiology. Closely follow with Pulmonology. We are monitoring the patient closely in the ICU. Prognosis guarded because of multiple complex medical issues. Further recommendations to follow. MMODL / IJN: [id number] /
[2017-08-07] MEDS: LACTULOSE 20 GM/30 ML CUP PO SCH (20:57)
[2017-08-07] MEDS: INSULIN DETEMIR 100 UNIT/ML 10 ML VIAL SQ SCH (20:58)
[2017-08-07] MEDS ORDERED: ATORVASTATIN 10 MG TAB PO SCH (21:00)
[2017-08-08] MEDS: NITROGLYCERIN OINT 1 INCH/GM PACKET TOPICAL SCH ×2 (00:25→09:11)
[2017-08-08] MEDS: HEPARIN SOD,PORK IN 0.45% NACL 25,000 UNIT in 0.45% NACL 1 500ML.BAG IV SCH (03:12)
[2017-08-08 04:55] LABS: Basophils % (A) 0 %; Eosinophils % (A) 0 %; HCT 35.5 % (34.0-46.0); HGB 10.8 gm/dL (11.4-16.0); Hypochromasia Slight; Lymphocytes # (A) 0.6 k/uL (1.0-4.8); Lymphocytes % (A) 5 %; MCH 31.3 pg (25.0-35.0); MCHC 30.5 g/dL (31.0-37.0); MCV 102.7 fL (80.0-100.0); Macrocytosis Slight; Mean Platelet Volume 7.4; Monocytes # (A) 0.6 k/uL (0-1.0); Monocytes % (A) 5 %; Neutrophils # (A) 10.2 k/uL (1.3-7.7); Neutrophils % (A) 89 %; Platelet Count 255 k/uL (150-450); RBC 3.45 m/uL (3.80-5.40); RDW 12.7 % (11.5-15.5); WBC 11.5 k/uL (3.8-10.6)
[2017-08-08 05:10] LABS: Anion Gap 7 mmol/L; Blood Urea Nitrogen 34 mg/dL (7-17); Calcium 8.9 mg/dL (8.4-10.2); Carbon Dioxide 34 mmol/L (22-30); Chloride 97 mmol/L (98-107); Glucose 200 mg/dL (74-99); Magnesium 1.9 mg/dL (1.6-2.3); Phosphorus 3.7 mg/dL (2.5-4.5); Potassium 4.7 mmol/L (3.5-5.1); Sodium 138 mmol/L (137-145)
[2017-08-08 07:00] LABS: Glucose,Whole Blood 168 mg/dL (75-99)
[2017-08-08] MEDS: IPRATROPIUM-ALBUTEROL 3 ML NEB INHALATION SCH ×4 (07:57→20:08)
[2017-08-08] MEDS: SYMBICORT 160-4.5 MCG INHALER INHALATION SCH ×2 (07:58→20:08)
[2017-08-08] MEDS: CHOLECALCIFEROL 1,000 UNIT TAB PO SCH (08:07)
[2017-08-08] MEDS: PANTOPRAZOLE 40 MG TABLET PO SCH (08:07)
[2017-08-08] MEDS: METOPROLOL SUCCINATE (ER) 25 MG TAB.ER.24H PO SCH ×2 (08:07→20:54)
[2017-08-08] MEDS: ATORVASTATIN 40 MG TAB PO SCH (08:07)
[2017-08-08] MEDS: FUROSEMIDE 10 MG/ML 4 ML VIAL IV SCH (08:07)
[2017-08-08] MEDS: cefTRIAXone IN SWFI 1,000 MG/10 ML SYRINGE IVP SCH (08:07)
[2017-08-08] MEDS: GABAPENTIN 400 MG CAP PO SCH ×3 (08:07→20:54)
[2017-08-08] MEDS: CITALOPRAM HYDROBROMIDE 20 MG TAB PO SCH (08:08)
[2017-08-08] MEDS: LACTULOSE 20 GM/30 ML CUP PO SCH ×2 (08:08→20:54)
[2017-08-08] MEDS: AZITHROMYCIN 500 MG TAB PO SCH (08:08)
[2017-08-08] MEDS: ASPIRIN 81 MG PO SCH (08:08)
[2017-08-08] MEDS: SPIRONOLACTONE 25 MG TAB PO SCH (08:08)
[2017-08-08] MEDS: LEVOTHYROXINE 100 MCG TAB PO SCH (08:08)
[2017-08-08] MEDS: INSULIN ASPART 100 UNIT/ML 1 ML 10 ML VIAL SQ SCH ×4 (08:11→20:53)
[2017-08-08] MEDS: MAGNESIUM SULFATE-D5W PMX 1 GM in DEXTROSE/WATER 1 100ML.BAG IVPB SCH ×2 (08:12→09:11)
[2017-08-08] MEDS: LISINOPRIL 20 MG TAB PO SCH (09:46)
--- NOTE | 2017-08-08 10:48 | XR ---
EXAMINATION TYPE: XR chest 1V DATE OF EXAM: 08/08/2017 HISTORY: pneumonia. REFERENCE: Previous study dated 08/07/2017. FINDINGS: The heart is enlarged. No definite focal airspace disease is seen. The left CP angle is obs cured and I could not exclude a small left effusion. IMPRESSION: CARDIOMEGALY.
--- NOTE | 2017-08-08 10:51 | PN ---
PROGRESS NOTE DATE OF SERVICE: 08/09/2017. HISTORY: Ms. Kohler is a 77-year-old female with morbid obesity, who presented with symptoms of dyspnea as well as symptoms of chest discomfort. She is feeling well this morning. Her breathing is stable. She has no dizziness. No palpitations. She has no further symptoms of chest pain. She has no dizziness or palpitations. She had an echocardiogram yesterday, revealed a preserved ventricular size and systolic function. She continues to be, at this time, on aspirin once a day, Lipitor 40 mg daily, nitro paste, Lasix 40 mg daily, IV heparin, Zestril 20 mg daily, metoprolol succinate 25 mg twice a day. PHYSICAL EXAMINATION: Blood pressure running in the 100s with a heart in the 70s. LUNGS: Clear. HEART: Regular rhythm S1, S2. No S3 with systolic murmur. ABDOMEN: Soft, obese, nontender. EXTREMITIES: Chronic skin changes. LAB DATA: Lab data revealed a hemoglobin of 10.8, BUN creatinine 34 and 0.9. IMPRESSION: 1. Probable non ST-segment elevation myocardial infarction. 2. Morbid obesity. 3. Congestive heart failure with preserved systolic function. 4. Chronic obstructive lung disease. 5. Morbid obesity. 6. Hypertension. 7. Hyperlipidemia. 8. Diabetes mellitus. RECOMMENDATIONS: I will stop the IV heparin. Add Plavix to her regimen. Continue the rest of her medical regimen. I had a long discussion with her regarding the option for further workup including cardiac catheterization versus medical therapy. She does not want to proceed with cardiac catheterization. I will cut down the dose of her lisinopril because of her lower blood pressure. She should be able to be transferred to telemetry floor and depending on her progress, further recommendations will be made. MMODL / IJN: [id number] /
[2017-08-08 12:57] LABS: Glucose,Whole Blood 205 mg/dL (75-99)
--- NOTE | 2017-08-08 14:30 | P.PN ---
Subjective Progress Note Date: 08/08/17 77-year-old female patient, morbidly obese, with known history of diabetes mellitus, chronic hypoxic respiratory failure maintained on oxygen 2 L/m nasal cannula, CHF with diastolic dysfunction with pulmonary hypertension, ejection fraction of 60-65%, chronic left lower extremity lymphedema and peripheral vascular disease and peripheral neuropathy whereas been reported baseline performance and functional status as the patient has poor vision and she has had previous falls and gait dysfunction and the patient claims that she has been essentially bedridden moving around with the help of a wheelchair. Note that the patient was at home when she became more short of breath and she became very weak. 5 department was called to her house. She then tried to get up to the commode and after being unable to do that she slid down to the ground. EMS was also called and the patient was brought into the hospital. The patient comes in yesterday because of increased shortness of breath. She was found to be hypoxic at home and her pulse ox was in the mid 60s. She was placed on high flow oxygen 6 L/m nasal cannula and she got moved to the intensive care unit. She did have some vague chest pain today before yet none on the day of presentation. She has some limited cough without any significant sputum production. No fever or chills. No chest pain. No pleurisy. No hemoptysis. No worsening lower extremity edema. Her chest x-ray shows left basilar pulmonary infiltration. The patient CAT scan of the chest showed hazy bilateral pulmonary infiltrates which could be either a combination of fluid and a superimposed pneumonia cannot be completely excluded. The patient was placed on a BiPAP at a pressure of 12/5 cm of water with an FiO2 of 40% and she got moved to the intensive care unit. Her EKG showed T-wave inversions over the anterolateral leads. Troponin maxed at 2.6. Cardiology consultation was obtained. This morning, she is awake and alert. She is laying down comfortably in bed. Her lungs are relatively clear and I'm going to take her off the BiPAP and put on nasal cannula at 3 L/m. This morning, on 08/08/2017, the patient is being seen for a follow-up. She is doing better. She does not having any major respiratory distress. Her FiO2 will be weaned down to 4 L/m nasal cannula. She is currently off the BiPAP. No chest pain. No cough or sputum production. Lower extremity edema is somewhat improved while the patient was being diuresis with IV Lasix. No fever or chills. No hemoptysis. No pleurisy. No altered mentation at this point. Echocardiogram showed a preserved LV function. Cardiology is on the case. The patient remains on IV heparin which will also be discontinued to be switched to subcu heparin at this point. Objective - Vital Signs Vital signs: Vital Signs Temp 98.1 F 08/08/17 12:00 Pulse 65 08/08/17 14:00 Resp 28 H 08/08/17 14:00 BP 96/41 08/08/17 14:00 Pulse Ox 93 L 08/08/17 14:00 Intake & Output 08/07/17 08/08/17 08/08/17 18:59 06:59 18:59 Intake Total 1063.609 757.595 897.467 Output Total 1695 1000 1275 Balance -631.391 -242.405 -377.533 Weight 172.3 kg Intake: IV 100 110 40 ns 100 110 40 Intake, IV Titration 243.609 447.595 377.467 Amount Heparin Sod,Pork in 0.45% 243.609 447.595 177.467 NaCl 25,000 unit In 0.45 % NaCl 1 500ml.bag @ 5.8 UNITS/KG/HR 19.98 mls/hr IV .Q24H [facility] Rx#: [id number] Magnesium Sulfate-D5w Pmx 200 1 gm In Dextrose/Water 1 100ml.bag @ 100 mls/hr IVPB Q1H [facility] Rx#: [id number] Oral 720 200 240 Tube Feeding 240 Output: Urine 1695 1000 1275 Other: Voiding Method Indwelling Catheter Indwelling Catheter Indwelling Catheter - Exam GENERAL EXAM: Morbidly obese. Alert, fairly comfortable in no apparent distress. HEAD: Normocephalic. EYES: Normal reaction of pupils, equal size. NOSE: Clear with pink turbinates. THROAT: No erythema or exudates. His cardiac the posterior pharynx. Patient has a Mallampati class IV with significant crowding of the posterior oropharynx. NECK: Short. No masses, no JVD. CHEST: No chest wall deformity. LUNGS: Equal air entry with no crackles, wheeze, rhonchi or dullness. CVS: S1 and S2 normal with no audible murmurs, regular rhythm. ABDOMEN: Obese. no appreciated hepatosplenomegaly, normal bowel sounds, no guarding or rigidity. SPINE: No scoliosis or deformity SKIN: No rashes Extremities: There is 1-2+ lower extremity peripheral edema, suspect chronic. No clubbing, no cyanosis. Peripheral pulses are intact. - Labs CBC & Chem 7: 08/08/17 04:09 08/08/17 04:09 Labs: Abnormal Lab Results - Last 24 Hours (Table) 08/06/17 08/07/17 08/07/17 Range/Units 18:14 17:16 20:04 WBC (3.8-10.6) k/uL RBC (3.80-5.40) m/uL Hgb (11.4-16.0) gm/dL MCV (80.0-100.0) fL MCHC (31.0-37.0) g/dL Neutrophils # (1.3-7.7) k/uL Lymphocytes # (1.0-4.8) k/uL APTT (22.0-30.0) sec Chloride (98-107) mmol/L Carbon Dioxide (22-30) mmol/L BUN (7-17) mg/dL Glucose (74-99) mg/dL POC Glucose (mg/dL) 229 H 251 H (75-99) mg/dL Hemoglobin A1c 6.4 H (4.0-6.0) % 08/07/17 08/08/17 08/08/17 Range/Units 21:27 04:09 04:09 WBC 11.5 H (3.8-10.6) k/uL RBC 3.45 L (3.80-5.40) m/uL Hgb 10.8 L (11.4-16.0) gm/dL MCV 102.7 H (80.0-100.0) fL MCHC 30.5 L (31.0-37.0) g/dL Neutrophils # 10.2 H (1.3-7.7) k/uL Lymphocytes # 0.6 L (1.0-4.8) k/uL APTT 45.1 H (22.0-30.0) sec Chloride 97 L (98-107) mmol/L Carbon Dioxide 34 H (22-30) mmol/L BUN 34 H (7-17) mg/dL Glucose 200 H (74-99) mg/dL POC Glucose (mg/dL) (75-99) mg/dL Hemoglobin A1c (4.0-6.0) % 08/08/17 08/08/17 08/08/17 Range/Units 04:09 06:56 12:55 WBC (3.8-10.6) k/uL RBC (3.80-5.40) m/uL Hgb (11.4-16.0) gm/dL MCV (80.0-100.0) fL MCHC (31.0-37.0) g/dL Neutrophils # (1.3-7.7) k/uL Lymphocytes # (1.0-4.8) k/uL APTT 82.1 H (22.0-30.0) sec Chloride (98-107) mmol/L Carbon Dioxide (22-30) mmol/L BUN (7-17) mg/dL Glucose (74-99) mg/dL POC Glucose (mg/dL) 168 H 205 H (75-99) mg/dL Hemoglobin A1c (4.0-6.0) % Microbiology - Last 24 Hours (Table) 08/07/17 00:00 Urine Culture - Final Urine,Catheterized 08/06/17 18:14 Blood Culture - Preliminary Blood No Growth after 24 hours Assessment and Plan Plan: Assessment #1 acute on top of chronic hypoxic respiratory failure in a patient who is morbidly obese, deconditioned, chronic oxygen dependent respiratory failure, chronic diastolic congestive heart failure with pulmonary hypertension, suspect obesity/hypoventilation syndrome along with chronic pain medications. The exact reason for the acute decompensation is not clear. The patient has an indication for an acute non-ST segment elevation myocardial infarction. My understanding that her previous cardiac catheterization has been negative. The acute decompensation could be related to a component of CHF as the patient has hazy but the pulmonary infiltrates. A pneumonia cannot be completely excluded. The patient will be treated accordingly. #2 Chronic oxygen dependent respiratory failure. #3 acute non-ST segment elevation myocardial infarction #4 Diabetes mellitus, type II. Patient is insulin-dependent with Levemir 30 units along with a sliding scale coverage. #5 Diastolic congestive heart failure with mild pulmonary hypertension and preserved left ventricular systolic function with estimated ejection fraction 60 -65%. #6 Recent urinary tract infection, chronic urinary incontinence. #7 Hyperlipidemia. #8 Hypertension. #9 Osteoarthritis. #10 Hypothyroidism. #11 morbid obesity with a BMI of 63.2.. #12 Macular degeneration. #13 Poor overall functional status secondary to multiple above-mentioned comorbidities. #14 chronic lymphedema of the lower extremities bilaterally. Plan Clinically the patient is improved. We will discontinue the BiPAP. Wean down the FiO2 as tolerated. Stopped IV Lasix and switch this patient to oral Lasix 40 mg by mouth daily. She is also on Aldactone. The IV heparin can be discontinued and the patient be switched to subcu heparin. Continue Rocephin and Zithromax. Repeat chest x-ray in the morning. Increased level of activity. Continue the rest of the supportive care and the patient can be moved out to a medical surgical floor with telemetry privileges or a telemetry unit depending on bed availability. We'll continue to follow. Cardiology is on the case. Echocardiogram showed a preserved LV function with an ejection fraction of 55-60%.
[2017-08-08 17:25] LABS: Glucose,Whole Blood 135 mg/dL (75-99)
--- NOTE | 2017-08-08 19:18 | PN ---
PROGRESS NOTE DATE OF SERVICE: 08/08/2017 I am covering for Dr. Juan R Gamboa. This 77-year-old woman who was admitted with shortness of breath, possibly acute hypoxic hypercarbic respiratory failure also had change in mental status. The patient using BiPAP at this time. The patient is feeling much better. The patient also had evidence of CHF also. The patient also had multiple other abnormalities including possible acute non ST elevation myocardial infarction also. The most recent chest x- ray which was personally reviewed by me showed cardiomegaly. Multiple consultants including Cardiology and pulmonology following the patient closely. The patient monitored in ICU at this time. 2D echo with Doppler done yesterday showed ejection fraction about 50-60%. PAST MEDICAL HISTORY: Reviewed. REVIEW OF SYSTEMS: Cardiovascular: No angina. Respiratory: As mentioned earlier. GI no nausea or vomiting. as mentioned earlier. Nervous system: Diffusely weak. CURRENT MEDICATIONS: Reviewed and include: 1. Lennox 10 mg q.i.d. p.r.n. 2. DuoNeb q.i.d. and p.r.n. 3. Aspirin 81 mg daily. 4. Lipitor 40 mg. 5. Zithromax 500 mg daily. 6. Symbicort 160/4.5 two puffs b.i.d. 7. Rocephin 1 g daily. 8. Vitamin D3 1000 daily. 9. Celexa 20 mg. 10.Plavix 75 mg. 11.Lasix 40 mg. 12.Neurontin 800 mg t.i.d. 13.Heparin 5000 subcu b.i.d. 14.NovoLog scale. 15.Levemir 30 units subcu q.h.s. 16.Imdur 30 mg p.o. daily. 17.Cephulac 10 g p.o. b.i.d. 18.Synthroid 100 mcg. 19.Zestril 10 mg. 20.Toprol-XL 25 mg p.o. b.i.d. 21.Narcan 0.2 p.r.n. 22.Protonix 40 mg. 23.Aldactone 25 mg p.o. daily. PHYSICAL EXAMINATION: Patient is alert, oriented x2. Pulse 75, blood pressure 120/70, respiration 22, temperature normal, pulse ox 97% on BiPAP 40% FiO2. HEENT is conjunctivae normal. Oral mucosa moist. Neck is no jugular venous distention. No carotid bruit. No lymph node enlargement. Cardiovascular system: S1, S2 muffled, no S3, no S4. RESPIRATORY: Breath sounds diminished in the bases. A few scattered rhonchi and crackles. Abdomen is soft, nontender. No mass palpable, obese. Legs bilateral leg edema. Nervous system: Higher functions as mentioned. Moves all four extremities. Mild diffuse weakness. Lymphatics: No lymph nodes palpable in the neck, axillae or groin. Skin no ulcer, rash or bleeding. LABS: WBC 7.2, hemoglobin 10.8, and APTT 82.1. Sodium 130, potassium 4.7. ASSESSMENT: 1. Shortness of breath with acute hypoxic hypercarbic respiratory failure multifactorial possibly secondary to obesity hypoventilation syndrome as well as chronic obstructive pulmonary disease acute exacerbation. 2. Possible congestive heart failure with acute on chronic diastolic dysfunction ejection fraction 50-60%. 3. Troponin 2.[address] segment elevation myocardial infarction. 4. Increased AST, ALT, possible mild hepatitis. 5. History of asthma, chronic obstructive pulmonary disease. 6. History of congestive heart failure. 7. Diabetes type 2. 8. Hyperlipidemia. 9. History of hypertension. 10.History of degenerative joint disease. 11.History of renal failure. 12.History of anxiety. 13.Obesity hypoventilation syndrome. 14.Chronic hypoxic respiratory failure on home O2 3 L nasal cannula. 15.Obesity with body mass 64.1. 16.FULL CODE. RECOMMENDATIONS AND DISCUSSION: Continue current medications, continue to monitor, symptomatic treatment. At this time I would recommend continue with the current medications, p.o. diuretic, bronchodilators, continue the rest of medications, IV antibiotics, empiric antibiotics. Guarded prognosis because of multiple complex medical issues. Further recommendations to follow. See orders for details. MMODL / IJN: [id number] /
[2017-08-08] MEDS: HYDROcodone/APAP 10-325MG 1 EACH TAB PO PRN (20:02)
[2017-08-08 20:50] LABS: Glucose,Whole Blood 190 mg/dL (75-99)
[2017-08-08] MEDS: HEPARIN SODIUM,PORCINE 5,000 UNIT/ML 1 ML VIAL SQ SCH (20:51)
[2017-08-08] MEDS: INSULIN DETEMIR 100 UNIT/ML 10 ML VIAL SQ SCH (20:54)
[2017-08-09 04:34] LABS: Basophils % (A) 0 %; Eosinophils # (A) 0.2 k/uL (0-0.7); Eosinophils % (A) 2 %; HCT 34.7 % (34.0-46.0); HGB 10.5 gm/dL (11.4-16.0); Hypochromasia Slight; Lymphocytes # (A) 0.8 k/uL (1.0-4.8); Lymphocytes % (A) 10 %; MCH 31.2 pg (25.0-35.0); MCHC 30.3 g/dL (31.0-37.0); MCV 102.9 fL (80.0-100.0); Macrocytosis Slight; Mean Platelet Volume 6.8; Monocytes # (A) 0.5 k/uL (0-1.0); Monocytes % (A) 6 %; Neutrophils # (A) 5.9 k/uL (1.3-7.7); Neutrophils % (A) 80 %; Platelet Count 299 k/uL (150-450); RBC 3.37 m/uL (3.80-5.40); RDW 12.8 % (11.5-15.5); WBC 7.4 k/uL (3.8-10.6)
[2017-08-09 04:47] LABS: Blood Urea Nitrogen 32 mg/dL (7-17); Calcium 9.1 mg/dL (8.4-10.2); Chloride 93 mmol/L (98-107); Glucose 115 mg/dL (74-99); Magnesium 1.8 mg/dL (1.6-2.3); Phosphorus 3.8 mg/dL (2.5-4.5); Potassium 4.3 mmol/L (3.5-5.1); Sodium 140 mmol/L (137-145)
[2017-08-09 05:18] LABS: Anion Gap 6 mmol/L; Carbon Dioxide 41 mmol/L (22-30)
[2017-08-09 07:32] LABS: Glucose,Whole Blood 117 mg/dL (75-99)
[2017-08-09] MEDS: SYMBICORT 160-4.5 MCG INHALER INHALATION SCH ×2 (07:32→20:09)
[2017-08-09] MEDS: IPRATROPIUM-ALBUTEROL 3 ML NEB INHALATION SCH ×4 (07:32→20:21)
[2017-08-09] MEDS: INSULIN ASPART 100 UNIT/ML 1 ML 10 ML VIAL SQ SCH ×4 (07:44→21:18)
[2017-08-09] MEDS: HYDROcodone/APAP 10-325MG 1 EACH TAB PO PRN ×2 (08:18→17:15)
[2017-08-09] MEDS: ATORVASTATIN 40 MG TAB PO SCH (08:19)
[2017-08-09] MEDS: cefTRIAXone IN SWFI 1,000 MG/10 ML SYRINGE IVP SCH (08:19)
[2017-08-09] MEDS: SPIRONOLACTONE 25 MG TAB PO SCH (08:19)
[2017-08-09] MEDS: AZITHROMYCIN 500 MG TAB PO SCH (08:19)
[2017-08-09] MEDS: LEVOTHYROXINE 100 MCG TAB PO SCH (08:19)
[2017-08-09] MEDS: GABAPENTIN 400 MG CAP PO SCH ×3 (08:19→21:17)
[2017-08-09] MEDS: FUROSEMIDE 40 MG TAB PO SCH (08:19)
[2017-08-09] MEDS: PANTOPRAZOLE 40 MG TABLET PO SCH (08:20)
[2017-08-09] MEDS: CITALOPRAM HYDROBROMIDE 20 MG TAB PO SCH (08:20)
[2017-08-09] MEDS: METOPROLOL SUCCINATE (ER) 25 MG TAB.ER.24H PO SCH ×2 (08:20→21:17)
[2017-08-09] MEDS: ASPIRIN 81 MG PO SCH (08:20)
[2017-08-09] MEDS: HEPARIN SODIUM,PORCINE 5,000 UNIT/ML 1 ML VIAL SQ SCH ×2 (08:21→21:18)
[2017-08-09] MEDS: LACTULOSE 20 GM/30 ML CUP PO SCH ×2 (08:21→21:18)
[2017-08-09] MEDS: LISINOPRIL 10 MG TAB PO SCH (08:21)
[2017-08-09] MEDS: CLOPIDOGREL 75 MG TAB PO SCH (08:21)
[2017-08-09] MEDS: ISOSORBIDE MONONITRATE ER 30 MG TAB.ER.24H PO SCH (09:55)
--- NOTE | 2017-08-09 09:55 | P.PN ---
Subjective Progress Note Date: 08/09/17 Principal diagnosis: Acute on chronic hypoxic respiratory failure, multifactorial. 77-year-old female patient, morbidly obese, with known history of diabetes mellitus, chronic hypoxic respiratory failure maintained on oxygen 2 L/m nasal cannula, CHF with diastolic dysfunction with pulmonary hypertension, ejection fraction of 60-65%, chronic left lower extremity lymphedema and peripheral vascular disease and peripheral neuropathy whereas been reported baseline performance and functional status as the patient has poor vision and she has had previous falls and gait dysfunction and the patient claims that she has been essentially bedridden moving around with the help of a wheelchair. Note that the patient was at home when she became more short of breath and she became very weak. 5 department was called to her house. She then tried to get up to the commode and after being unable to do that she slid down to the ground. EMS was also called and the patient was brought into the hospital. The patient comes in yesterday because of increased shortness of breath. She was found to be hypoxic at home and her pulse ox was in the mid 60s. She was placed on high flow oxygen 6 L/m nasal cannula and she got moved to the intensive care unit. She did have some vague chest pain today before yet none on the day of presentation. She has some limited cough without any significant sputum production. No fever or chills. No chest pain. No pleurisy. No hemoptysis. No worsening lower extremity edema. Her chest x-ray shows left basilar pulmonary infiltration. The patient CAT scan of the chest showed hazy bilateral pulmonary infiltrates which could be either a combination of fluid and a superimposed pneumonia cannot be completely excluded. The patient was placed on a BiPAP at a pressure of 12/5 cm of water with an FiO2 of 40% and she got moved to the intensive care unit. Her EKG showed T-wave inversions over the anterolateral leads. Troponin maxed at 2.6. Cardiology consultation was obtained. This morning, she is awake and alert. She is laying down comfortably in bed. Her lungs are relatively clear and I'm going to take her off the BiPAP and put on nasal cannula at 3 L/m. This morning, on 08/08/2017, the patient is being seen for a follow-up. She is doing better. She does not having any major respiratory distress. Her FiO2 will be weaned down to 4 L/m nasal cannula. She is currently off the BiPAP. No chest pain. No cough or sputum production. Lower extremity edema is somewhat improved while the patient was being diuresis with IV Lasix. No fever or chills. No hemoptysis. No pleurisy. No altered mentation at this point. Echocardiogram showed a preserved LV function. Cardiology is on the case. The patient remains on IV heparin which will also be discontinued to be switched to subcu heparin at this point. Patient was reevaluated today on 08/09/2017, presently on 3 L nasal cannula, doing well, off BiPAP, denies any shortness of breath, no cough, no wheezing, no chest pain. Continues to respond well to diuretics, oxygen, bronchodilators , and she remains on subcu heparin. CBC is relatively normal basic metabolic profile is normal except for bicarb of 41. Objective - Vital Signs Vital signs: Vital Signs Temp 98.3 F 08/09/17 08:00 Pulse 79 08/09/17 08:00 Resp 23 08/09/17 08:00 BP 133/69 08/09/17 08:00 Pulse Ox 93 L 08/09/17 08:00 Intake & Output 08/08/17 08/09/17 08/09/17 18:59 06:59 18:59 Intake Total 897.467 240 Output Total 1974 640 395 Balance -9057.533 -640 -155 Intake: IV 40 ns 40 Intake, IV Titration 377.467 Amount Heparin Sod,Pork in 0.45% 177.467 NaCl 25,000 unit In 0.45 % NaCl 1 500ml.bag @ 5.8 UNITS/KG/HR 19.98 mls/hr IV .Q24H [facility] Rx#: [id number] Magnesium Sulfate-D5w Pmx 200 1 gm In Dextrose/Water 1 100ml.bag @ 100 mls/hr IVPB Q1H [facility] Rx#: [id number] Oral 240 240 Tube Feeding 240 Output: Urine 1975 640 395 Other: Voiding Method Indwelling Catheter Indwelling Catheter Indwelling Catheter - Exam GENERAL EXAM: Morbidly obese. Alert, fairly comfortable in no apparent distress. HEAD: Normocephalic. EYES: Normal reaction of pupils, equal size. NOSE: Clear with pink turbinates. THROAT: No erythema or exudates. His cardiac the posterior pharynx. Patient has a Mallampati class IV with significant crowding of the posterior oropharynx. NECK: Short. No masses, no JVD. CHEST: No chest wall deformity. LUNGS: Equal air entry with no crackles, wheeze, rhonchi or dullness. CVS: S1 and S2 normal with no audible murmurs, regular rhythm. ABDOMEN: Obese. no appreciated hepatosplenomegaly, normal bowel sounds, no guarding or rigidity. SPINE: No scoliosis or deformity SKIN: No rashes Extremities: There is 1-2+ lower extremity peripheral edema, suspect chronic. No clubbing, no cyanosis. Peripheral pulses are intact. - Labs CBC & Chem 7: 08/09/17 03:39 08/09/17 03:39 Labs: Abnormal Lab Results - Last 24 Hours (Table) 08/08/17 08/08/17 08/08/17 Range/Units 12:55 17:23 20:47 RBC (3.80-5.40) m/uL Hgb (11.4-16.0) gm/dL MCV (80.0-100.0) fL MCHC (31.0-37.0) g/dL Lymphocytes # (1.0-4.8) k/uL Chloride (98-107) mmol/L Carbon Dioxide (22-30) mmol/L BUN (7-17) mg/dL Glucose (74-99) mg/dL POC Glucose (mg/dL) 205 H 135 H 190 H (75-99) mg/dL 08/09/17 08/09/17 08/09/17 Range/Units 03:39 03:39 07:28 RBC 3.37 L (3.80-5.40) m/uL Hgb 10.5 L (11.4-16.0) gm/dL MCV 102.9 H (80.0-100.0) fL MCHC 30.3 L (31.0-37.0) g/dL Lymphocytes # 0.8 L (1.0-4.8) k/uL Chloride 93 L (98-107) mmol/L Carbon Dioxide 41 H* (22-30) mmol/L BUN 32 H (7-17) mg/dL Glucose 115 H (74-99) mg/dL POC Glucose (mg/dL) 117 H (75-99) mg/dL Microbiology - Last 24 Hours (Table) 08/06/17 18:14 Blood Culture - Preliminary Blood No Growth after 48 hours 08/07/17 00:00 Urine Culture - Final Urine,Catheterized Assessment and Plan Assessment: #1 acute on chronic hypoxic respiratory failure in a patient who is morbidly obese, deconditioned, chronic oxygen dependent respiratory failure, chronic diastolic congestive heart failure with pulmonary hypertension, suspect obesity/ hypoventilation syndrome along with chronic pain medications. The exact reason for the acute decompensation is not clear. The patient has an indication for an acute non-ST segment elevation myocardial infarction. My understanding that her previous cardiac catheterization has been negative. The acute decompensation could be related to a component of CHF as the patient has hazy but the pulmonary infiltrates. A pneumonia cannot be completely excluded. The patient will be treated accordingly. #2 Chronic oxygen dependent respiratory failure. #3 acute non-ST segment elevation myocardial infarction #4 Diabetes mellitus, type II. Patient is insulin-dependent with Levemir 30 units along with a sliding scale coverage. #5 Diastolic congestive heart failure with mild pulmonary hypertension and preserved left ventricular systolic function with estimated ejection fraction 60 -65%. #6 Recent urinary tract infection, chronic urinary incontinence. #7 Hyperlipidemia. #8 Hypertension. #9 Osteoarthritis. #10 Hypothyroidism. #11 morbid obesity with a BMI of 63.2.. #12 Macular degeneration. #13 Poor overall functional status secondary to multiple above-mentioned comorbidities. #14 chronic lymphedema of the lower extremities bilaterally. Recommendation: Continue present meds, continue oral Lasix, continue to wean FiO2 accordingly, continue subcu heparin, Rocephin and Zithromax, consider transfer out of the ICU to a monitor bed today on selective. Long-term prognosis remains poor and guarded. Time with Patient: Less than 30
[2017-08-09 12:16] LABS: Glucose,Whole Blood 110 mg/dL (75-99)
[2017-08-09] MEDS: CHOLECALCIFEROL 1,000 UNIT TAB PO SCH (12:18)
[2017-08-09] MEDS: MAGNESIUM SULFATE-D5W PMX 1 GM in DEXTROSE/WATER 1 100ML.BAG IVPB SCH ×2 (12:19→17:07)
--- NOTE | 2017-08-09 12:55 | PN ---
PROGRESS NOTE HISTORY: Ms. Kohler is a 77-year-old female who presented with symptoms of dyspnea as well as episodes of chest discomfort. She ruled in for non ST-segment elevation myocardial infarction. She is feeling well this morning. Her main complaint is her back discomfort. She denies any symptoms of chest pain. Her breathing is stable. She denies any dizziness or palpitations. She denies any nausea. She continues to be in sinus mechanism. She continues to be on aspirin, Lipitor 40 mg daily, Plavix 75 mg daily, furosemide 40 mg daily, isosorbide mononitrate 30 mg daily, Zestril 10 mg daily, metoprolol succinate 25 mg twice a day, spironolactone 25 mg daily. PHYSICAL EXAMINATION: Blood pressure 115/56 with a heart in the 80s. Lungs, no wheezes. Heart, regular rate and rhythm S1, S2. No S3. No rub. Abdomen is soft, obese, nontender. Extremities have chronic stasis changes with minimal edema. LAB DATA: Lab data revealed BUN 32 and creatinine 0.79, potassium 4.3, hemoglobin of 10.5. IMPRESSION: 1. Non ST-segment elevation myocardial infarction. 2. Respiratory failure, improving. 3. Patient has a history of diastolic dysfunction and congestive heart failure as well as obesity hypoventilation syndrome. 4. Diabetes. 5. Hyperlipidemia. 6. Hypertension. RECOMMENDATIONS: From the cardiac standpoint, we will continue vanc therapy. Expect she should be able to be discharged home today, on the same medication. The patient has declined invasive cardiac workup at this point. She will follow up with Dr. Rodriguez as an outpatient. MMJANETTEL / LEIGHN: [id number] /
--- NOTE | 2017-08-09 14:30 | CDI ---
Last Revision, July 2017 Documentation Clarification Form Date: 08/09/2017 2:11:00 PM From: Cher Wilkins Admit Date: 08/06/2017 8:17:00 PM Patient Name: Caitlin Kohler Visit Number: [id number] ATTENTION: The Clinical Documentation Specialists (CDI) and [facility] Coding Staff appreciate your assistance in clarifying documentation. Please respond to the clarification below the line at the bottom and electronically sign. The CDI & [facility] Coding staff will review the response and follow-up if needed. Please note: Queries are made part of the Legal Health Record. If you have any questions, please contact the author of this message via ITS. Dr. Mayuri Acosta Admitted with change in mental status was documented in your Progress note on 08/08/17. Patient history/risk factors: COPD, CHF, NSTEMI, Acute on Chronic Respiratory Failure, Morbid Obesity with Hypoventilation Syndrome, possible hepatitis Clinical Indicators: O2 sats were found by EMS to be 60% In ED patient was 'somnolent but arousable' Vitals on admission: temp 98.3, hr 80, rr 24, bp 156/70, sats 89% on 6L nc Labs on admission: hgb 11.0, cl 96, CO2 38, gluc 201, hgb A1c 6.4, ast 86, alt 96, alk phos 206, trop 2.740 VBG: pH 7.31, pCO2 75, HCO3 37 CT chest 08/06: bilateral lower lobe pulmonary infiltrates, interstitial and alveolar edema Treatment: EMS placed pt on 6L O2 BiPap IV Solu-Medrol, IV Lasix, PO Aspirin ICU monitoring In your professional opinion, please clarify the etiology of the altered mental status, if known. Encephalopathy (specify Type and Underlying Medical Illness) Delirium (please specify cause) Other condition (please specify) Unable to determine Please continue to document in your progress notes and discharge summary in order to capture severity of illness and risk of mortality. Include clinical findings that support your diagnosis. Encephalopathy metabolic MTDD
[2017-08-09 16:58] LABS: Glucose,Whole Blood 158 mg/dL (75-99)
[2017-08-09 21:09] LABS: Glucose,Whole Blood 142 mg/dL (75-99)
[2017-08-09] MEDS: INSULIN DETEMIR 100 UNIT/ML 10 ML VIAL SQ SCH (22:19)
[2017-08-10 01:52] VITALS: RESP 17
[2017-08-10] MEDS: HYDROcodone/APAP 10-325MG 1 EACH TAB PO PRN (04:04)
[2017-08-10 06:42] LABS: Glucose,Whole Blood 94 mg/dL (75-99)
[2017-08-10] MEDS: INSULIN ASPART 100 UNIT/ML 1 ML 10 ML VIAL SQ SCH ×2 (06:43→12:34)
[2017-08-10] MEDS: PANTOPRAZOLE 40 MG TABLET PO SCH (06:45)
[2017-08-10 06:51] LABS: Basophils % (A) 0 %; Eosinophils # (A) 0.4 k/uL (0-0.7); Eosinophils % (A) 6 %; HCT 34.4 % (34.0-46.0); HGB 10.7 gm/dL (11.4-16.0); Lymphocytes # (A) 0.9 k/uL (1.0-4.8); Lymphocytes % (A) 13 %; MCH 31.5 pg (25.0-35.0); MCHC 31.2 g/dL (31.0-37.0); MCV 101.2 fL (80.0-100.0); Mean Platelet Volume 6.5; Monocytes # (A) 0.5 k/uL (0-1.0); Monocytes % (A) 8 %; Neutrophils # (A) 4.7 k/uL (1.3-7.7); Neutrophils % (A) 71 %; Platelet Count 284 k/uL (150-450); RDW 12.8 % (11.5-15.5); WBC 6.7 k/uL (3.8-10.6)
[2017-08-10 07:07] LABS: Blood Urea Nitrogen 23 mg/dL (7-17); Calcium 8.9 mg/dL (8.4-10.2); Chloride 90 mmol/L (98-107); Glucose 94 mg/dL (74-99); Magnesium 1.8 mg/dL (1.6-2.3); Phosphorus 4.2 mg/dL (2.5-4.5); Potassium 3.9 mmol/L (3.5-5.1); Sodium 137 mmol/L (137-145)
[2017-08-10 07:13] LABS: Anion Gap 4 mmol/L
[2017-08-10 07:26] LABS: Carbon Dioxide 43 mmol/L (22-30)
[2017-08-10] MEDS: LACTULOSE 20 GM/30 ML CUP PO SCH (08:40)
[2017-08-10] MEDS: cefTRIAXone IN SWFI 1,000 MG/10 ML SYRINGE IVP SCH (08:40)
[2017-08-10] MEDS: CITALOPRAM HYDROBROMIDE 20 MG TAB PO SCH (08:40)
[2017-08-10] MEDS: METOPROLOL SUCCINATE (ER) 25 MG TAB.ER.24H PO SCH (08:40)
[2017-08-10] MEDS: SPIRONOLACTONE 25 MG TAB PO SCH (08:40)
[2017-08-10] MEDS: ASPIRIN 81 MG PO SCH (08:40)
[2017-08-10] MEDS: CLOPIDOGREL 75 MG TAB PO SCH (08:40)
[2017-08-10] MEDS: ISOSORBIDE MONONITRATE ER 30 MG TAB.ER.24H PO SCH (08:40)
[2017-08-10] MEDS: FUROSEMIDE 40 MG TAB PO SCH (08:40)
[2017-08-10] MEDS: LISINOPRIL 10 MG TAB PO SCH (08:40)
[2017-08-10] MEDS: LEVOTHYROXINE 100 MCG TAB PO SCH (08:40)
[2017-08-10] MEDS: ATORVASTATIN 40 MG TAB PO SCH (08:40)
[2017-08-10] MEDS: GABAPENTIN 400 MG CAP PO SCH ×2 (08:40→16:31)
[2017-08-10] MEDS: CHOLECALCIFEROL 1,000 UNIT TAB PO SCH (08:40)
[2017-08-10] MEDS: HEPARIN SODIUM,PORCINE 5,000 UNIT/ML 1 ML VIAL SQ SCH (08:41)
[2017-08-10] MEDS: AZITHROMYCIN 500 MG TAB PO SCH (08:41)
[2017-08-10] MEDS: SYMBICORT 160-4.5 MCG INHALER INHALATION SCH (09:36)
[2017-08-10] MEDS: IPRATROPIUM-ALBUTEROL 3 ML NEB INHALATION SCH ×3 (09:36→16:55)
--- NOTE | 2017-08-10 10:26 | PN ---
PROGRESS NOTE DATE OF SERVICE: 08/09/2017 I am covering for Dr. Juan R Gamboa. This 77-year-old woman who was admitted with shortness of breath also had change in mental status. The patient also had a combination of CHF and lung problems. Also patient has been closely monitored in ICU at this time. PAST MEDICAL HISTORY: Reviewed. REVIEW OF SYSTEMS: CARDIOVASCULAR SYSTEM: No angina. RESPIRATORY SYSTEM: As mentioned earlier. GI: No nausea or vomiting. : No dysuria. NERVOUS SYSTEM: No numbness or weakness. ALLERGY/IMMUNOLOGY: No asthma or hayfever. MUSCULOSKELETAL: As mentioned earlier. HEMATOLOGY/ONCOLOGY: No history of anemia. ENDOCRINE: As mentioned earlier. CONSTITUTIONAL: As mentioned earlier. HOME MEDICATIONS: Home medications, the medications are reviewed and include: 1. Lyons 10 mg q.i.d. p.r.n. 2. DuoNeb q.i.d. and p.r.n. 3. Aspirin 81 mg daily. 4. Lipitor 40 mg p.o. daily. 5. Zithromax 500 mg p.o. daily. 6. Symbicort 160/4.5 two puffs b.i.d. 7. Rocephin 1 gram daily. 8. Vitamin D3, 1000 daily. 9. Celexa 20 mg daily. 10.Plavix 75 mg p.o. daily. 11.Lasix 40 mg daily. 12.Neurontin 800 mg p.o. . 13.NovoLog to scale. 14.Levemir. 15.Imdur. 16.Cephulac. 17.Synthroid 100 mcg p.o. daily. 18.Zestril 10 mg. 19.Toprol XL 25 mg b.i.d. 20.Narcan. 21.Protonix. 22.Aldactone. PHYSICAL EXAMINATION: The patient is alert and oriented x2. Pulse 67, blood pressure 116/60, respiration 18, temperature 97 degrees, pulse ox 95% on 3 L. HEENT: Conjunctivae normal. Oral mucosa moist. Neck is no jugular venous distention. No carotid bruit. No lymph node enlargement. CARDIOVASCULAR: S1, S2 muffled. No S3, no S4. RESPIRATORY: Breath sounds diminished at the bases. Scattered rhonchi and crackles. ABDOMEN: Soft, obese, nontender. No mass palpable. LEGS: Minimal edema. NERVOUS SYSTEM: Diffusely weak. LABS: WBC 7.4, hemoglobin 10.5. CO2 is 41. are noted. ASSESSMENT: 1. Shortness of breath with acute hypoxic hypercarbic respiratory failure multifactorial possibly secondary to obesity hypoventilation syndrome as well as chronic obstructive pulmonary disease acute exacerbation. 2. Possible congestive heart failure acute exacerbation with acute on chronic diastolic dysfunction, ejection fraction 50% to 60%. 3. Change in mental status, acute metabolic encephalopathy, multifactorial. 4. Troponin 2.[address]-segment elevation myocardial infarction. 5. Increased AST, ALT, possible mild hepatitis. 6. History of asthma, chronic obstructive pulmonary disease. 7. History of congestive heart failure. 8. Diabetes mellitus type 2. 9. Hyperlipidemia. 10.History hypertension. 11.History of degenerative joint disease. 12.History of renal failure. 13.History anxiety. 14.Obesity hypoventilation syndrome. 15.Chronic hypoxic respiratory failure on home oxygen, 3 L nasal cannula. 16.Obesity with body mass index 64.1. 17.FULL CODE. RECOMMENDATIONS AND DISCUSSION: Recommend to continue current medications. Continue symptomatic treatment. Otherwise at this time I recommend continue with current medications. Continue with symptomatic treatment. Otherwise continue to monitor, continue symptomatic treatment and bronchodilators. The PT, OT evaluation. Dr. Gamboa will follow. MMODL / IJN: [id number] / [facility]
[2017-08-10 12:34] LABS: Glucose,Whole Blood 127 mg/dL (75-99)
--- NOTE | 2017-08-10 12:35 | P.PN ---
Subjective Patient resting in bed without complaint appears to be baseline. Hopeful discharge soon. Objective - Vital Signs Vital signs: Vital Signs Temp 97.8 F 08/10/17 08:49 Pulse 72 08/10/17 11:57 Resp 17 08/10/17 08:49 BP 113/56 08/10/17 08:49 Pulse Ox 96 08/10/17 08:49 Intake & Output 08/09/17 08/10/17 08/10/17 18:59 06:59 18:59 Intake Total 580 Output Total 1545 Balance -965 Weight 169.5 kg Intake: Intake, IV Titration 100 Amount Magnesium Sulfate-D5w Pmx 100 1 gm In Dextrose/Water 1 100ml.bag @ 100 mls/hr IVPB Q1H RADHA Rx#: [id number] Oral 480 Output: Urine 1545 Other: Voiding Method Bedpan Bedpan Bedpan Incontinent Incontinent Incontinent # Voids 1 1 - Constitutional General appearance: Present: morbidly obese - EENT Eyes: Present: PERRLA Ears: bilateral: normal - Neck Neck: Present: normal ROM - Respiratory Respiratory: bilateral: CTA - Cardiovascular Rhythm: regular Abnormal Heart Sounds: Present: systolic murmur - Peripheral edema leg Peripheral Edema: bilateral: 2+ - Gastrointestinal General gastrointestinal: Present: soft - Neurologic Neurologic: Present: CNII-XII intact - Musculoskeletal Musculoskeletal: Present: generalized weakness - Psychiatric Psychiatric: Present: A&O x's 3, appropriate affect, intact judgment & insight - Labs CBC & Chem 7: 08/10/17 06:28 08/10/17 06:28 Labs: Abnormal Lab Results - Last 24 Hours (Table) 08/09/17 08/09/17 08/10/17 Range/Units 16:54 21:07 06:28 RBC 3.40 L (3.80-5.40) m/uL Hgb 10.7 L (11.4-16.0) gm/dL MCV 101.2 H (80.0-100.0) fL Lymphocytes # 0.9 L (1.0-4.8) k/uL Chloride (98-107) mmol/L Carbon Dioxide (22-30) mmol/L BUN (7-17) mg/dL POC Glucose (mg/dL) 158 H 142 H (75-99) mg/dL 08/10/17 Range/Units 06:28 RBC (3.80-5.40) m/uL Hgb (11.4-16.0) gm/dL MCV (80.0-100.0) fL Lymphocytes # (1.0-4.8) k/uL Chloride 90 L (98-107) mmol/L Carbon Dioxide 43 H* (22-30) mmol/L BUN 23 H (7-17) mg/dL POC Glucose (mg/dL) (75-99) mg/dL Microbiology - Last 24 Hours (Table) 08/06/17 18:14 Blood Culture - Preliminary Blood No Growth after 72 hours - Imaging and Cardiology CT scan - chest: report reviewed Assessment and Plan Plan: Assessment Shortness of breath with acute hypoxic hypercapnic respiratory failure multifactorial secondary to morbid obesity hypoventilation's syndrome as well as exhibited exacerbation of COPD Bilateral pneumonia Congestive heart failure with acute on chronic diastolic dysfunction ejection fraction 50-60% pulmonary hypertension Elevated troponin indicating non-ST segment elevation myocardial infarction Mild hepatitis elevated is TLT Diabetes type 2 Hyperlipidemia Hypertension History of degenerative joint disease Chronic renal failure Anxiety Morbid obesity BMI 62.2 Altered mental status secondary to hypoxia metabolic encephalopathy Plan Patient on Rocephin Continue consultation with pulmonology Cardiology declined to do any invasive procedures
--- NOTE | 2017-08-10 12:49 | P.PN ---
Subjective Progress Note Date: 08/10/17 Principal diagnosis: Non-STEMI His is a 77-year-old female who presented to the hospital with symptoms of dyspnea as well as episodes of chest discomfort. She ruled in for non-ST elevation myocardial infarction. Patient was seen and examined on the telemetry unit this morning, she denies any chest discomfort, breathing is stable. Continues to be in a normal sinus rhythm. Hemodynamically stable. Objective - Vital Signs Vital signs: Vital Signs Temp 97.8 F 08/10/17 08:49 Pulse 72 08/10/17 11:57 Resp 17 08/10/17 08:49 BP 113/56 08/10/17 08:49 Pulse Ox 96 08/10/17 08:49 Intake & Output 08/09/17 08/10/17 08/10/17 18:59 06:59 18:59 Intake Total 580 Output Total 1545 Balance -965 Weight 169.5 kg Intake: Intake, IV Titration 100 Amount Magnesium Sulfate-D5w Pmx 100 1 gm In Dextrose/Water 1 100ml.bag @ 100 mls/hr IVPB Q1H RADHA Rx#: [id number] Oral 480 Output: Urine 1545 Other: Voiding Method Bedpan Bedpan Bedpan Incontinent Incontinent Incontinent # Voids 1 1 - Exam PHYSICAL EXAMINATION: HEENT: Head is atraumatic, normocephalic. Pupils equal, round. Neck is supple. There is no elevated jugular venous pressure. HEART EXAMINATION: Heart S1, S2 normal. No murmur or gallop heard. CHEST EXAMINATION: Lungs are clear to auscultation and precussion. No chest wall tenderness is noted on palpation or with deep breathing. ABDOMEN: Soft, obese, nontender. Bowel sounds are heard. No organomegaly noted. EXTREMITIES:[ 2+ peripheral pulses with trace evidence of peripheral edema , bilateral venous stasis noted NEUROLOGIC patient is awake, alert and oriented -3. . - Labs CBC & Chem 7: 08/10/17 06:28 08/10/17 06:28 Labs: Abnormal Lab Results - Last 24 Hours (Table) 08/09/17 08/09/17 08/10/17 Range/Units 16:54 21:07 06:28 RBC 3.40 L (3.80-5.40) m/uL Hgb 10.7 L (11.4-16.0) gm/dL MCV 101.2 H (80.0-100.0) fL Lymphocytes # 0.9 L (1.0-4.8) k/uL Chloride (98-107) mmol/L Carbon Dioxide (22-30) mmol/L BUN (7-17) mg/dL POC Glucose (mg/dL) 158 H 142 H (75-99) mg/dL 08/10/17 08/10/17 Range/Units 06:28 12:31 RBC (3.80-5.40) m/uL Hgb (11.4-16.0) gm/dL MCV (80.0-100.0) fL Lymphocytes # (1.0-4.8) k/uL Chloride 90 L (98-107) mmol/L Carbon Dioxide 43 H* (22-30) mmol/L BUN 23 H (7-17) mg/dL POC Glucose (mg/dL) 127 H (75-99) mg/dL Microbiology - Last 24 Hours (Table) 08/06/17 18:14 Blood Culture - Preliminary Blood No Growth after 72 hours Assessment and Plan Plan: Assessment and plan #1 non-ST elevation myocardial infarction #2 respiratory failure, improving #3 history of diastolic congestive heart failure chronic #4 obesity hypoventilation syndrome #5 diabetes #6 hyperlipidemia #7 hypertension Plan Patient may be discharged home today from cardiology's perspective, we will make her a follow-up appointment to see Dr. Thomas in the office post discharge. DNP note has been reviewed, I agree with a documented findings and plan of care. Patient was seen and examined.
--- NOTE | 2017-08-10 13:26 | P.DS ---
Providers Date of admission: 08/06/17 20:17 Expected date of discharge: 08/10/17 Attending physician: Mayuri Acosta Consults: 08/06/17 20:15 Consult Physician Stat Consulting Provider: Prasad Burns Consult Reason/Comments: elevated troponin, chf Do you want consulting provider notified?: Yes 08/06/17 22:02 Consult Physician Routine Consulting Provider: Marianne Duffy Consult Reason/Comments: resp failure Do you want consulting provider notified?: Yes Primary care physician: Juan R Gamboa Hospital Course: 77-year-old female presented to the emergency room with hypoxia and treat decreased level of mental status. Patient was transferred the intensive care unit stabilized on BiPAP. Patient was then transferred to stepdown unit. Patient has had consultation with cardiology and pulmonology patient is been cleared for discharge home. Patient will follow-up with family physician and cardiology Assessment Shortness of breath with acute hypoxic hyper Respiratory failure multiple pectoral possible secondary to obesity hypoventilation as well as COPD with acute exacerbation Bi lateral pneumonia Acute VA non-ST elevation as indicated by elevated troponin Congestive heart failure acute on chronic diastolic dysfunction ejection fraction 50-65% pulmonary hypertension Mild hepatitis elevated AST TLT Diabetes type 2 Hyperlipidemia Hypertension History of degenerative joint disease History of renal failure Anxiety disorder Morbid obesity with hypoventilation syndrome BMI 62.2 Chronic hypoxic respiratory failure on home O2 3 L Altered mental status secondary to hypoxia metabolic encephalopathy Plan Continue Keflex and the Zithromax Follow-up with family physician Patient Condition at Discharge: Fair Plan - Discharge Summary New Discharge Prescriptions: New Azithromycin [Zithromax] 500 mg PO DAILY #3 tab Budesonide-Formot 160-4.5 Mcg [Symbicort 160-4.5 Mcg Inhaler] 2 puff INHALATION RT-BID puff Clopidogrel [Plavix] 75 mg PO DAILY tab Furosemide [Lasix] 40 mg PO DAILY tab Ipratropium-Albuterol Nebulize [Duoneb 0.5 mg-3 mg/3 ml Soln] 3 ml INHALATION RT-QID ampul.neb Isosorbide Mononitrate ER [Imdur] 30 mg PO DAILY tab.er.24h Pantoprazole [Protonix] 40 mg PO AC-BRKFST tablet. Continue Metoprolol Succinate [Toprol XL] 25 mg PO DAILY Cholecalciferol [Vitamin D3] 1,000 unit PO DAILY HYDROcodone/APAP 10-325MG [Touchet 10-325] 1 tab PO TID PRN PRN Reason: Pain metFORMIN HCL [Glucophage] 500 mg PO DAILY Simvastatin 20 mg PO HS Insulin Glargine,Hum.rec.anlog [Lantus Solostar] 30 unit SQ HS Lactulose 10 gm PO BID Gabapentin 800 mg PO TID Diltiazem HCl [Diltiazem 24Hr ER] 180 mg PO DAILY Citalopram Hydrobromide [CeleXA] 20 mg PO DAILY Lisinopril [Prinivil] 20 mg PO DAILY Spironolactone [Aldactone] 25 mg PO DAILY Levothyroxine Sodium [Synthroid] 100 mcg PO DAILY Cephalexin [Keflex] 500 mg PO Q6HR Aspirin [Adult Low Dose Aspirin EC] 81 mg PO DAILY Discharge Medication List Metoprolol Succinate [Toprol XL] 25 mg PO DAILY 03/11/14 [History] Cholecalciferol [Vitamin D3] 1,000 unit PO DAILY 02/24/15 [History] HYDROcodone/APAP 10-325MG [Touchet 10-325] 1 tab PO TID PRN 11/18/15 [History] Simvastatin 20 mg PO HS 05/30/16 [History] metFORMIN HCL [Glucophage] 500 mg PO DAILY 05/30/16 [History] Diltiazem HCl [Diltiazem 24Hr ER] 180 mg PO DAILY 06/19/17 [History] Gabapentin 800 mg PO TID 06/19/17 [History] Insulin Glargine,Hum.rec.anlog [Lantus Solostar] 30 unit SQ HS 06/19/17 [History ] Lactulose 10 gm PO BID 06/19/17 [History] Aspirin [Adult Low Dose Aspirin EC] 81 mg PO DAILY 08/06/17 [History] Cephalexin [Keflex] 500 mg PO Q6HR 08/06/17 [History] Citalopram Hydrobromide [CeleXA] 20 mg PO DAILY 08/06/17 [History] Levothyroxine Sodium [Synthroid] 100 mcg PO DAILY 08/06/17 [History] Lisinopril [Prinivil] 20 mg PO DAILY 08/06/17 [History] Spironolactone [Aldactone] 25 mg PO DAILY 08/06/17 [History] Azithromycin [Zithromax] 500 mg PO DAILY #3 tab 08/10/17 [Rx] Budesonide-Formot 160-4.5 Mcg [Symbicort 160-4.5 Mcg Inhaler] 2 puff INHALATION RT-BID puff 08/10/17 [Rx] Clopidogrel [Plavix] 75 mg PO DAILY tab 08/10/17 [Rx] Furosemide [Lasix] 40 mg PO DAILY tab 08/10/17 [Rx] Ipratropium-Albuterol Nebulize [Duoneb 0.5 mg-3 mg/3 ml Soln] 3 ml INHALATION RT -QID ampul.neb 08/10/17 [Rx] Isosorbide Mononitrate ER [Imdur] 30 mg PO DAILY tab.er.24h 08/10/17 [Rx] Pantoprazole [Protonix] 40 mg PO AC-BRKFST tablet. 08/10/17 [Rx] Follow up Appointment(s)/Referral(s): Juan R Gamboa MD [Primary Care Provider] - 1-2 days Zoltan Rodriguez MD [STAFF PHYSICIAN] - 1 Week [facility], [NON-STAFF] - As Needed
--- NOTE | 2017-08-10 14:01 | P.PN ---
Subjective Progress Note Date: 08/10/17 Principal diagnosis: Acute on chronic hypoxic respiratory failure. 77-year-old female patient, morbidly obese, with known history of diabetes mellitus, chronic hypoxic respiratory failure maintained on oxygen 2 L/m nasal cannula, CHF with diastolic dysfunction with pulmonary hypertension, ejection fraction of 60-65%, chronic left lower extremity lymphedema and peripheral vascular disease and peripheral neuropathy whereas been reported baseline performance and functional status as the patient has poor vision and she has had previous falls and gait dysfunction and the patient claims that she has been essentially bedridden moving around with the help of a wheelchair. Note that the patient was at home when she became more short of breath and she became very weak. 5 department was called to her house. She then tried to get up to the commode and after being unable to do that she slid down to the ground. EMS was also called and the patient was brought into the hospital. The patient comes in yesterday because of increased shortness of breath. She was found to be hypoxic at home and her pulse ox was in the mid 60s. She was placed on high flow oxygen 6 L/m nasal cannula and she got moved to the intensive care unit. She did have some vague chest pain today before yet none on the day of presentation. She has some limited cough without any significant sputum production. No fever or chills. No chest pain. No pleurisy. No hemoptysis. No worsening lower extremity edema. Her chest x-ray shows left basilar pulmonary infiltration. The patient CAT scan of the chest showed hazy bilateral pulmonary infiltrates which could be either a combination of fluid and a superimposed pneumonia cannot be completely excluded. The patient was placed on a BiPAP at a pressure of 12/5 cm of water with an FiO2 of 40% and she got moved to the intensive care unit. Her EKG showed T-wave inversions over the anterolateral leads. Troponin maxed at 2.6. Cardiology consultation was obtained. This morning, she is awake and alert. She is laying down comfortably in bed. Her lungs are relatively clear and I'm going to take her off the BiPAP and put on nasal cannula at 3 L/m. This morning, on 08/08/2017, the patient is being seen for a follow-up. She is doing better. She does not having any major respiratory distress. Her FiO2 will be weaned down to 4 L/m nasal cannula. She is currently off the BiPAP. No chest pain. No cough or sputum production. Lower extremity edema is somewhat improved while the patient was being diuresis with IV Lasix. No fever or chills. No hemoptysis. No pleurisy. No altered mentation at this point. Echocardiogram showed a preserved LV function. Cardiology is on the case. The patient remains on IV heparin which will also be discontinued to be switched to subcu heparin at this point. Patient was reevaluated today on 08/09/2017, presently on 3 L nasal cannula, doing well, off BiPAP, denies any shortness of breath, no cough, no wheezing, no chest pain. Continues to respond well to diuretics, oxygen, bronchodilators , and she remains on subcu heparin. CBC is relatively normal basic metabolic profile is normal except for bicarb of 41. Patient is seen again today 08/10/2017 in follow-up on the selective care unit. She is awake and alert in no acute distress. She denies any worsening shortness of breath, cough or congestion. She is anxious to go home. He is maintaining good O2 saturations in the 90s on 2 L/m per nasal cannula. She's been afebrile. Hemodynamically stable. The cultures reveal no growth. Urine culture reveals no growth. White count 6.7. Hemoglobin 10.7. Bicarb 43. Creatinine 0.80. Objective - Vital Signs Vital signs: Vital Signs Temp 97.8 F 08/10/17 08:49 Pulse 72 08/10/17 11:57 Resp 17 08/10/17 08:49 BP 113/56 08/10/17 08:49 Pulse Ox 96 08/10/17 08:49 Intake & Output 08/09/17 08/10/17 08/10/17 18:59 06:59 18:59 Intake Total 580 236 Output Total 1545 400 Balance -965 -164 Weight 169.5 kg Intake: Intake, IV Titration 100 Amount Magnesium Sulfate-D5w Pmx 100 1 gm In Dextrose/Water 1 100ml.bag @ 100 mls/hr IVPB Q1H RADHA Rx#: [id number] Oral 480 236 Output: Urine 1545 400 Other: Voiding Method Bedpan Bedpan Bedpan Incontinent Incontinent Incontinent # Voids 1 1 4 - Exam GENERAL EXAM: Morbidly obese. Alert, fairly comfortable in no apparent distress. HEAD: Normocephalic. EYES: Normal reaction of pupils, equal size. NOSE: Clear with pink turbinates. THROAT: No erythema or exudates. His cardiac the posterior pharynx. Patient has a Mallampati class IV with significant crowding of the posterior oropharynx. NECK: Short. No masses, no JVD. CHEST: No chest wall deformity. LUNGS: Equal air entry with no crackles, wheeze, rhonchi or dullness. CVS: S1 and S2 normal with no audible murmurs, regular rhythm. ABDOMEN: Obese. no appreciated hepatosplenomegaly, normal bowel sounds, no guarding or rigidity. SPINE: No scoliosis or deformity SKIN: No rashes Extremities: There is 1-2+ lower extremity peripheral edema, suspect chronic. No clubbing, no cyanosis. Peripheral pulses are intact. - Labs CBC & Chem 7: 08/10/17 06:28 08/10/17 06:28 Labs: Abnormal Lab Results - Last 24 Hours (Table) 08/09/17 08/09/17 08/10/17 Range/Units 16:54 21:07 06:28 RBC 3.40 L (3.80-5.40) m/uL Hgb 10.7 L (11.4-16.0) gm/dL MCV 101.2 H (80.0-100.0) fL Lymphocytes # 0.9 L (1.0-4.8) k/uL Chloride (98-107) mmol/L Carbon Dioxide (22-30) mmol/L BUN (7-17) mg/dL POC Glucose (mg/dL) 158 H 142 H (75-99) mg/dL 08/10/17 08/10/17 Range/Units 06:28 12:31 RBC (3.80-5.40) m/uL Hgb (11.4-16.0) gm/dL MCV (80.0-100.0) fL Lymphocytes # (1.0-4.8) k/uL Chloride 90 L (98-107) mmol/L Carbon Dioxide 43 H* (22-30) mmol/L BUN 23 H (7-17) mg/dL POC Glucose (mg/dL) 127 H (75-99) mg/dL Microbiology - Last 24 Hours (Table) 08/06/17 18:14 Blood Culture - Preliminary Blood No Growth after 72 hours Assessment and Plan Assessment: #1 Acute on chronic hypoxic respiratory failure in a patient who is morbidly obese, deconditioned, chronic oxygen dependent respiratory failure, chronic diastolic congestive heart failure with pulmonary hypertension, suspect obesity/ hypoventilation syndrome along with chronic pain medications. The exact reason for the acute decompensation is not clear. The patient has an indication for an acute non-ST segment elevation myocardial infarction. My understanding that her previous cardiac catheterization has been negative. The acute decompensation could be related to a component of CHF as the patient has hazy but the pulmonary infiltrates. A pneumonia cannot be completely excluded. The patient will be treated accordingly. #2 Chronic oxygen dependent respiratory failure. #3 acute non-ST segment elevation myocardial infarction #4 Diabetes mellitus, type II. Patient is insulin-dependent with Levemir 30 units along with a sliding scale coverage. #5 Diastolic congestive heart failure with mild pulmonary hypertension and preserved left ventricular systolic function with estimated ejection fraction 60 -65%. #6 Recent urinary tract infection, chronic urinary incontinence. #7 Hyperlipidemia. #8 Hypertension. #9 Osteoarthritis. #10 Hypothyroidism. #11 morbid obesity with a BMI of 63.2. #12 Macular degeneration. #13 Poor overall functional status secondary to multiple above-mentioned comorbidities. #14 chronic lymphedema of the lower extremities bilaterally. Plan: The patient was seen and evaluated by Dr. Noyola. She is cleared for discharge from the pulmonary standpoint. Suspect some degree of hypercapnic respiratory failure with altered mental status secondary to obesity/hypoventilation syndrome and chronic pain medications. She is advised regarding the cautious use of narcotics. I, the cosigning physician, have performed a history and physical examination on the patient. Lung sounds are clear. Maintaining good O2 saturations in the 90s on 2 L/m per nasal cannula. I have discussed the assessment and plan of care with my nurse practitioner, Katy Terry. I attest the above documented note as dictated by her.
[2017-08-10 14:47] VITALS: BP 131/61; PULSE 76; TEMP 97.6
== END 2017-08-10 18:29 | disposition home health service (06) | DRG 280 ==
LOC: EC 17:22 → 6ICU 20:17 → 6SEL 08-09 13:01
PROVIDERS: ADMIT Hospitalist; ATTEND Family Medicine
DX: I21.4 Non-ST elevation (NSTEMI) myocardial infarction (principal); J96.21 Acute and chronic respiratory failure with hypoxia; G93.41 Metabolic encephalopathy; J18.9 Pneumonia, unspecified organism; I50.33 Acute on chronic diastolic (congestive) heart failure; E87.2 Acidosis; E11.42 Type 2 diabetes mellitus with diabetic polyneuropathy; E11.51 Type 2 diabetes mellitus with diabetic peripheral angiopathy without gangrene; I11.0 Hypertensive heart disease with heart failure; J96.22 Acute and chronic respiratory failure with hypercapnia; Z68.44 Body mass index [BMI] 60.0-69.9, adult; E66.2 Morbid (severe) obesity with alveolar hypoventilation; J44.1 Chronic obstructive pulmonary disease with (acute) exacerbation; J44.0 Chronic obstructive pulmonary disease with (acute) lower respiratory infection; B17.9 Acute viral hepatitis, unspecified; I08.2 Rheumatic disorders of both aortic and tricuspid valves; I27.20 Pulmonary hypertension, unspecified; Z99.81 Dependence on supplemental oxygen; E78.5 Hyperlipidemia, unspecified; I89.0 Lymphedema, not elsewhere classified; H35.30 Unspecified macular degeneration; E03.9 Hypothyroidism, unspecified; G47.33 Obstructive sleep apnea (adult) (pediatric); F41.9 Anxiety disorder, unspecified; R32 Unspecified urinary incontinence; M19.91 Primary osteoarthritis, unspecified site; R26.9 Unspecified abnormalities of gait and mobility; G89.29 Other chronic pain; H54.7 Unspecified visual loss; Z90.710 Acquired absence of both cervix and uterus; Z79.4 Long term (current) use of insulin; Z79.82 Long term (current) use of aspirin; Z79.899 Other long term (current) drug therapy; Z74.01 Bed confinement status; Z99.3 Dependence on wheelchair; Z96.652 Presence of left artificial knee joint; Z98.42 Cataract extraction status, left eye; Z98.41 Cataract extraction status, right eye; Z96.1 Presence of intraocular lens; Z87.891 Personal history of nicotine dependence; Z91.81 History of falling; Z86.14 Personal history of Methicillin resistant Staphylococcus aureus infection; Z88.8 Allergy status to other drugs, medicaments and biological substances
CPT/HCPCS: 36415; 71045; 71275; 80048; 80053; 81001; 82803; 83036; 83605; 83735; 83880; 84100; 84484; 85025; 85610; 85730; 87040; 87086; 87502; 93005; 93306; 94640; 94660; 94760; 96372; 96374; 99285

== ENCOUNTER 2018-01-14 16:26 | Emergency (ER) | payer MEDICARE, OTHER ==
[2018-01-14 16:45] VITALS: RESP 18
--- NOTE | 2018-01-14 17:03 | ED ---
General Adult HPI - General Chief complaint: Overdose Stated complaint: poss overdose Time Seen by Provider: 01/14/18 16:46 Source: patient, RN notes reviewed Mode of arrival: ambulatory Limitations: no limitations - History of Present Illness Initial comments: Patient 77-year-old female presents into the emergency room today by EMS, with chief complaint of accidentally taking wrong medications.. She states this morning around 8:00 she took her 's medications instead of her own. She states takes Namenda, vitamin D, vitamin C, Accupril, and Lasix. Patient states that she waited take her morning medications until 1 PM. She states visiting nurse came out checked her blood pressure was low and they called Dr. sears come here to the emergency room. Patient states feeling fine. She states repeat blood pressures have been well. Denies any other complaints or symptoms. Patient denies any recent fever, chills, shortness of breath, chest pain, back pain, abdominal pain, nausea or vomiting, numbness or tingling, dysuria or hematuria, constipation or diarrhea, headaches or visual changes, or any other complaints. - Related Data Home Medications Medication Instructions Recorded Confirmed Metoprolol Succinate [Toprol XL] 25 mg PO DAILY 03/11/14 01/14/18 Cholecalciferol [Vitamin D3] 1,000 unit PO DAILY 02/24/15 01/14/18 HYDROcodone/APAP 10-325MG [[place] 1 tab PO TID PRN 11/18/15 01/14/18 10-325] Simvastatin 20 mg PO HS 05/30/16 01/14/18 metFORMIN HCL [Glucophage] 500 mg PO DAILY 05/30/16 01/14/18 Diltiazem HCl [Diltiazem 24Hr ER] 180 mg PO DAILY 06/19/17 01/14/18 Gabapentin 800 mg PO TID 06/19/17 01/14/18 Insulin Glargine,Hum.rec.anlog 30 unit SQ HS 06/19/17 01/14/18 [Lantus Solostar] Lactulose 10 gm PO BID 06/19/17 01/14/18 Aspirin [Adult Low Dose Aspirin EC] 81 mg PO DAILY 08/06/17 01/14/18 Citalopram Hydrobromide [CeleXA] 20 mg PO DAILY 08/06/17 01/14/18 Levothyroxine Sodium [Synthroid] 100 mcg PO DAILY 08/06/17 01/14/18 Spironolactone [Aldactone] 25 mg PO DAILY 08/06/17 01/14/18 Losartan [Cozaar] 25 mg PO DAILY 01/14/18 01/14/18 Previous Rx's Medication Instructions Recorded Budesonide-Formot 160-4.5 Mcg 2 puff INHALATION RT-BID puff 08/10/17 [Symbicort 160-4.5 Mcg Inhaler] Clopidogrel [Plavix] 75 mg PO DAILY tab 08/10/17 Furosemide [Lasix] 40 mg PO DAILY tab 08/10/17 Ipratropium-Albuterol Nebulize 3 ml INHALATION RT-QID ampul.neb 08/10/17 [Duoneb 0.5 mg-3 mg/3 ml Soln] Isosorbide Mononitrate ER [Imdur] 30 mg PO DAILY tab.er.24h 08/10/17 Pantoprazole [Protonix] 40 mg PO AC-BRKFST tablet. 08/10/17 Allergies Allergy/AdvReac Type Severity Reaction Status Date / Time atenolol [From Tenormin] AdvReac Severe Anxiety Verified 01/14/18 16:57 attack Review of Systems ROS Statement: Those systems with pertinent positive or pertinent negative responses have been documented in the HPI. ROS Other: All systems not noted in ROS Statement are negative. Past Medical History Past Medical History: Asthma, Cancer, Heart Failure, COPD, Diabetes Mellitus, Eye Disorder, Hyperlipidemia, Hypertension, Osteoarthritis (OA), Thyroid Disorder Additional Past Medical History / Comment(s): Morbid obesity, obstructive sleep apnea, IDDM type II, chronic respiratory failure with home O2 most of the time, CHF diastolic dysfunction, 03/04/15 ech with mild pulmonary hypertension, mild to moderate tricuspid regurg, L ventricular systolic function normal EF 60-65%, L leg lymphedema, peripheral neuropathy bilateral legs/feet, macular degeneration bilaterally-vision is now poor, falls, gait dysfunction, chronic pain multiple joints, chronic urine incontinence, sinus problems, obesity, hypothyroidism, osteoarthritis History of Any Multi-Drug Resistant Organisms: MRSA Date of last positivie culture/infection: 2012 MDRO Source:: Blood, unknown Past Surgical History: Hernia Repair, Hysterectomy, Joint Replacement, Orthopedic Surgery Additional Past Surgical History / Comment(s): total L knee x 2, knee and lower back surgery, left breast Lumpectomy without cancer, bilateral hand surgeries, bilateral cataract extraction with intraocular lens implantations, nonmalignant mass removed from left leg -resulting lymphedema, [id number] left anterior chest wall in the past, oopherectomy and abdominal hernia repair, R carpal tunnel release, L leg wound debridement, lymph node removed from L neck. Past Anesthesia/Blood Transfusion Reactions: No Reported Reaction Past Psychological History: Anxiety Smoking Status: Never smoker - Past Family History Mother Family Medical History: Cancer Additional Family Medical History / Comment(s): Mother at age 89 with pt believes bone cancer. Father Family Medical History: Unable to Obtain Additional Family Medical History / Comment(s): Pt's father when she was 2 yrs old. He was in WWII and of a strep infection. General Exam - General Exam Comments Initial Comments: General: The patient is awake and alert, in no distress, and does not appear acutely ill. Eye: Pupils are equal, round and reactive to light, extra-ocular movements are intact. No nystagmus. There is normal conjunctiva bilaterally. No signs of icterus. Ears, nose, mouth and throat: There are moist mucous membranes and no oral lesions. Neck: The neck is supple Cardiovascular: There is a regular rate and rhythm. No murmur, rub or gallop is appreciated. Respiratory: Lungs are clear to auscultation, respirations are non-labored, breath sounds are equal. No wheezes, stridor, rales, or rhonchi. Musculoskeletal: Normal ROM, no tenderness. Strength 5/5. Sensation intact. Pulses equal bilaterally 2+. Neurological: A&O x 3. CN II-XII intact, There are no obvious motor or sensory deficits. Coordination appears grossly intact. Speech is normal. Skin: Skin is warm and dry and no rashes or lesions are noted. Psychiatric: Cooperative, appropriate mood & affect, normal judgment. Limitations: no limitations Course Vital Signs 01/14/18 01/14/18 16:40 17:06 Temperature 98.6 F 98.0 F Pulse Rate 63 65 Respiratory 18 18 Rate Blood Pressure 133/60 144/67 O2 Sat by Pulse 93 L 91 L Oximetry Medical Decision Making - Medical Decision Making Patient blood pressure stable here in the emergency room. Patient has no complaints. Patient does use discharged home. Patient did take oral medications earlier this morning with 5 hours taking her medication. 4 hours since taking that medication. She's had no symptoms. States feels well with blood pressure stable. Patient will be discharged to follow-up with family doctor. Disposition Clinical Impression: Accidental medication error Disposition: HOME SELF-CARE Condition: Stable Additional Instructions: Please make sure double checking your medications prior to taking them. Please follow-up with your family doctor tomorrow. Please return to emergency room for any other concerns. Is patient prescribed a controlled substance at d/c from ED?: No Referrals: Toby Alford NPC [Primary Care Provider] - 1-2 days Time of Disposition: 17:11
[2018-01-14 17:08] VITALS: TEMP 98
[2018-01-14 19:18] VITALS: BP 145/58; PULSE 66
== END 2018-01-14 19:17 | disposition home or self-care (01) ==
LOC: EC 16:26
DX: T43.8X1A Poisoning by other psychotropic drugs, accidental (unintentional), initial encounter (principal); T45.2X1A Poisoning by vitamins, accidental (unintentional), initial encounter; T46.4X1A Poisoning by angiotensin-converting-enzyme inhibitors, accidental (unintentional), initial encounter; T50.1X1A Poisoning by loop [high-ceiling] diuretics, accidental (unintentional), initial encounter; I11.0 Hypertensive heart disease with heart failure; I50.9 Heart failure, unspecified; E78.5 Hyperlipidemia, unspecified; M19.90 Unspecified osteoarthritis, unspecified site; E11.40 Type 2 diabetes mellitus with diabetic neuropathy, unspecified; E03.9 Hypothyroidism, unspecified; E66.01 Morbid (severe) obesity due to excess calories; Z68.43 Body mass index [BMI] 50.0-59.9, adult; Z86.14 Personal history of Methicillin resistant Staphylococcus aureus infection; Z88.8 Allergy status to other drugs, medicaments and biological substances; Z79.4 Long term (current) use of insulin; Z79.82 Long term (current) use of aspirin; Z79.84 Long term (current) use of oral hypoglycemic drugs; Z79.899 Other long term (current) drug therapy
CPT/HCPCS: 99284

== ENCOUNTER 2018-04-08 16:33 | Emergency (ER) | payer MEDICARE, OTHER ==
[2018-04-08 16:52] VITALS: RESP 18
[2018-04-08 18:02] LABS: Appearance,Urine Cloudy (Clear); Bilirubin,Urine Negative (Negative); Blood,Urine Negative (Negative); Color,Urine Yellow; Glucose,Urine (UA) Negative (Negative); Hyaline Casts,Urine 21 /lpf (0-2); Ketones,Urine Negative (Negative); Leukocyte Esterase,Urine Large (Negative); Mucus,Urine Rare /hpf; Nitrite,Urine Negative (Negative); Protein,Urine Trace (Negative); RBC,Urine <1 /hpf (0-5); Specific Gravity,Urine 1.016 (1.001-1.035); Squamous Epithelial Cell,Urine 1 /hpf (0-4); Urobilinogen,Urine <2.0 mg/dL (<2.0); WBC,Urine 12 /hpf (0-5)
[2018-04-08 20:12] LABS: Basophils # (A) 0.1 k/uL (0-0.2); Basophils % (A) 1 %; Eosinophils # (A) 0.3 k/uL (0-0.7); Eosinophils % (A) 4 %; Lymphocytes % (A) 11 %; MCHC 31.7 g/dL (31.0-37.0); MCV 98.1 fL (80.0-100.0); Mean Platelet Volume 6.7; Monocytes # (A) 0.5 k/uL (0-1.0); Monocytes % (A) 6 %; Neutrophils # (A) 6.9 k/uL (1.3-7.7); Neutrophils % (A) 77 %; Platelet Count 237 k/uL (150-450); Potassium 4.2 mmol/L (3.5-5.1); RBC 3.87 m/uL (3.80-5.40); RDW 13.1 % (11.5-15.5)
--- NOTE | 2018-04-08 20:35 | ED ---
General Adult HPI - General Chief complaint: Urogenital Stated complaint: Poss UTI Source: patient, EMS Mode of arrival: EMS Limitations: physical limitation - History of Present Illness Initial comments: 77-year-old female with past medical history of asthma, cancer, diabetes mellitus, hypertension sent in by Dr. Alford her home health care doctor for rule out sepsis, urinalysis. Patient has had complaints of changes in urination. She is currently undergoing antibiotic treatment for urinary tract infection. She is on cefuroxime 250 mg twice a day. She's been on this medication approximate 4 days. She is on Lasix. Patient states she's had strange urinary habits where she would urinate a lot 1 day and urinated very little other day. Patient states she has not been drinking water very frequently. Patient denies any other complaints at this time the patient complains. Denies any constitutional symptoms - Related Data Home Medications Medication Instructions Recorded Confirmed Metoprolol Succinate [Toprol XL] 25 mg PO DAILY 03/11/14 04/08/18 Cholecalciferol [Vitamin D3] 1,000 unit PO DAILY 02/24/15 04/08/18 HYDROcodone/APAP 10-325MG [[place] 1 tab PO TID PRN 11/18/15 04/08/18 10-325] Simvastatin 40 mg PO HS 05/30/16 04/08/18 metFORMIN HCL [Glucophage] 500 mg PO DAILY 05/30/16 04/08/18 Diltiazem HCl [Diltiazem 24Hr ER] 180 mg PO HS 06/19/17 04/08/18 Gabapentin 800 mg PO TID 06/19/17 04/08/18 Insulin Glargine,Hum.rec.anlog 30 unit SQ HS 06/19/17 04/08/18 [Lantus Solostar] Lactulose 10 gm PO BID 06/19/17 04/08/18 Aspirin [Adult Low Dose Aspirin EC] 81 mg PO DAILY 08/06/17 04/08/18 Citalopram Hydrobromide [CeleXA] 20 mg PO DAILY 08/06/17 04/08/18 Levothyroxine Sodium [Synthroid] 100 mcg PO DAILY 08/06/17 04/08/18 Losartan [Cozaar] 25 mg PO DAILY 01/14/18 04/08/18 Cefuroxime [Ceftin] 250 mg PO BID 04/08/18 04/08/18 Ipratropium-Albuterol Nebulize 3 ml INHALATION RT-QID PRN 04/08/18 04/08/18 [Duoneb 0.5 mg-3 mg/3 ml Soln] Magnesium 400 mg PO DAILY 04/08/18 04/08/18 cefTRIAXone [Rocephin] 04/08/18 Previous Rx's Medication Instructions Recorded Budesonide-Formot 160-4.5 Mcg 2 puff INHALATION RT-BID puff 08/10/17 [Symbicort 160-4.5 Mcg Inhaler] Clopidogrel [Plavix] 75 mg PO DAILY tab 08/10/17 Furosemide [Lasix] 40 mg PO DAILY tab 08/10/17 Isosorbide Mononitrate ER [Imdur] 30 mg PO DAILY tab.er.24h 08/10/17 Pantoprazole [Protonix] 40 mg PO AC-BRKFST tablet. 08/10/17 Allergies Allergy/AdvReac Type Severity Reaction Status Date / Time atenolol [From Tenormin] AdvReac Severe Anxiety Verified 04/08/18 16:59 attack Review of Systems ROS Statement: Those systems with pertinent positive or pertinent negative responses have been documented in the HPI. ROS Other: All systems not noted in ROS Statement are negative. Past Medical History Past Medical History: Asthma, Cancer, Heart Failure, COPD, Diabetes Mellitus, Eye Disorder, Hyperlipidemia, Hypertension, Osteoarthritis (OA), Thyroid Disorder Additional Past Medical History / Comment(s): Morbid obesity, obstructive sleep apnea, IDDM type II, chronic respiratory failure with home O2 most of the time, CHF diastolic dysfunction, 03/04/15 ech with mild pulmonary hypertension, mild to moderate tricuspid regurg, L ventricular systolic function normal EF 60-65%, L leg lymphedema, peripheral neuropathy bilateral legs/feet, macular degeneration bilaterally-vision is now poor, falls, gait dysfunction, chronic pain multiple joints, chronic urine incontinence, sinus problems, obesity, hypothyroidism, osteoarthritis History of Any Multi-Drug Resistant Organisms: MRSA Date of last positivie culture/infection: 2012 MDRO Source:: Blood, unknown Past Surgical History: Hernia Repair, Hysterectomy, Joint Replacement, Orthopedic Surgery Additional Past Surgical History / Comment(s): total L knee x 2, knee and lower back surgery, left breast Lumpectomy without cancer, bilateral hand surgeries, bilateral cataract extraction with intraocular lens implantations, nonmalignant mass removed from left leg -resulting lymphedema, [id number] left anterior chest wall in the past, oopherectomy and abdominal hernia repair, R carpal tunnel release, L leg wound debridement, lymph node removed from L neck. Past Anesthesia/Blood Transfusion Reactions: No Reported Reaction Past Psychological History: Anxiety Smoking Status: Never smoker Past Alcohol Use History: None Reported Past Drug Use History: None Reported - Past Family History Mother Family Medical History: Cancer Additional Family Medical History / Comment(s): Mother at age 89 with pt believes bone cancer. Father Family Medical History: Unable to Obtain Additional Family Medical History / Comment(s): Pt's father when she was 2 yrs old. He was in WWII and of a strep infection. General Exam - General Exam Comments Initial Comments: PHYSICAL EXAM: General Impression: Alert and oriented x3, not in acute distress HEENT: Normocephalic atraumatic, extra-ocular movements intact, pupils equal and reactive to light bilaterally, mucous membranes moist. Cardiovascular: Heart regular rate and rhythm, S1&S2 audible, no murmurs, rubs or gallops Chest: Lungs clear to auscultation bilaterally, no rhonchi, no wheeze, no rales Abdomen: Bowel sounds present, abdomen soft, non-tender, non-distended, no organomegaly Musculoskeletal: Pulses present and equal in all extremities, no peripheral edema Motor: Power 5/5 bilaterally, no focal deficits noted Neurological: CN II-XII grossly intact, no focal motor or sensory deficits noted Skin: Intact with no visualized rashes Psych: Normal affect and mood Limitations: physical limitation Course Vital Signs 04/08/18 04/08/18 04/08/18 16:46 19:04 20:07 Temperature 98.1 F 97.3 F L Pulse Rate 62 61 61 Respiratory 18 18 18 Rate Blood Pressure 119/56 126/59 130/59 O2 Sat by Pulse 95 96 96 Oximetry Medical Decision Making - Medical Decision Making Laboratory evaluation obtained. CBC unremarkable. Metabolic panel shows mild elevation of renal markers. She does have non-gap acidosis. Glucose is 120. Urinalysis demonstrates 12 white blood cells. There is large leukocyte esterase. Medications were reviewed patient is on cefuroxime 250 mg twice a day. Clinically documentation patient has been on these medications for roughly 4 days. Patient is hemodynamically stable. Repeat vital signs are unremarkable. Discussed patient case with on-call doctor for Dr. Alford. I believe the patient is amenable for discharge given stable vital signs and laboratory evaluations within acceptable limits. Microbiology and susceptibilities were reviewed. Cefuroxime is an appropriate medication. She' s been on that medication approximate 4 days. She'll follow up with Dr. Alford upon discharge. - Lab Data Result diagrams: 04/08/18 19:47 04/08/18 19:47 Lab Results 04/08/18 04/08/18 04/08/18 Range/Units 17:46 19:47 19:47 WBC 9.0 (3.8-10.6) k/uL RBC 3.87 (3.80-5.40) m/uL Hgb 12.0 (11.4-16.0) gm/dL Hct 38.0 (34.0-46.0) % MCV 98.1 (80.0-100.0) fL MCH 31.0 (25.0-35.0) pg MCHC 31.7 (31.0-37.0) g/dL RDW 13.1 (11.5-15.5) % Plt Count 237 (150-450) k/uL Neutrophils % 77 % Lymphocytes % 11 % Monocytes % 6 % Eosinophils % 4 % Basophils % 1 % Neutrophils # 6.9 (1.3-7.7) k/uL Lymphocytes # 1.0 (1.0-4.8) k/uL Monocytes # 0.5 (0-1.0) k/uL Eosinophils # 0.3 (0-0.7) k/uL Basophils # 0.1 (0-0.2) k/uL Sodium 137 (137-145) mmol/L Potassium 4.2 (3.5-5.1) mmol/L Chloride 92 L (98-107) mmol/L Carbon Dioxide 40 H (22-30) mmol/L Anion Gap 5 mmol/L BUN 33 H (7-17) mg/dL Creatinine 1.20 H (0.52-1.04) mg/dL Est GFR (CKD-EPI)AfAm 50 (>60 ml/min/1.73 sqM) Est GFR (CKD-EPI)NonAf 44 (>60 ml/min/1.73 sqM) Glucose 128 H (74-99) mg/dL Calcium 9.0 (8.4-10.2) mg/dL Urine Color Yellow Urine Appearance Cloudy H (Clear) Urine pH 5.0 (5.0-8.0) Ur Specific [place] 1.016 (1.001-1.035) Urine Protein Trace H (Negative) Urine Glucose (UA) Negative (Negative) Urine Ketones Negative (Negative) Urine Blood Negative (Negative) Urine Nitrite Negative (Negative) Urine Bilirubin Negative (Negative) Urine Urobilinogen <2.0 (<2.0) mg/dL Ur Leukocyte Esterase Large H (Negative) Urine RBC <1 (0-5) /hpf Urine WBC 12 H (0-5) /hpf Ur Squamous Epith Cells 1 (0-4) /hpf Hyaline Casts 21 H (0-2) /lpf Urine Mucus Rare H (None) /hpf Disposition Clinical Impression: Wellness examination, Urinary tract infection Disposition: HOME SELF-CARE Condition: Good Instructions: Urinary Tract Infection in Women (ED) Is patient prescribed a controlled substance at d/c from ED?: No Referrals: Cristian Harvey MD [Primary Care Provider] - 1-2 days Time of Disposition: 20:35
[2018-04-08 21:30] VITALS: BP 127/56; PULSE 68; TEMP 97.9
== END 2018-04-08 22:26 | disposition home or self-care (01) ==
LOC: EC 16:33
DX: N39.0 Urinary tract infection, site not specified (principal); E87.2 Acidosis; R94.4 Abnormal results of kidney function studies; E11.42 Type 2 diabetes mellitus with diabetic polyneuropathy; F41.9 Anxiety disorder, unspecified; E78.5 Hyperlipidemia, unspecified; G47.33 Obstructive sleep apnea (adult) (pediatric); E03.9 Hypothyroidism, unspecified; I11.0 Hypertensive heart disease with heart failure; I50.32 Chronic diastolic (congestive) heart failure; J45.909 Unspecified asthma, uncomplicated; J44.9 Chronic obstructive pulmonary disease, unspecified; G89.29 Other chronic pain; Z79.4 Long term (current) use of insulin; Z79.82 Long term (current) use of aspirin; Z79.899 Other long term (current) drug therapy; Z88.8 Allergy status to other drugs, medicaments and biological substances; Z85.9 Personal history of malignant neoplasm, unspecified; Z86.14 Personal history of Methicillin resistant Staphylococcus aureus infection; Z96.652 Presence of left artificial knee joint; Z99.81 Dependence on supplemental oxygen
CPT/HCPCS: 36415; 51798; 80048; 81001; 85025; 87086; 99284

== ENCOUNTER 2018-09-05 09:57 | Emergency (ER) | payer MEDICARE, OTHER ==
[2018-09-05 10:07] VITALS: RESP 16; TEMP 98.2
--- NOTE | 2018-09-05 10:26 | ED ---
General Adult HPI - General Chief complaint: Urogenital Stated complaint: poss UTI, cyst on head Time Seen by Provider: 09/05/18 10:18 Source: patient Mode of arrival: EMS Limitations: no limitations - History of Present Illness Initial comments: Dictation was produced using [employer] dictation software. please excuse any grammatical, word or spelling errors. Chief Complaint: 78-year-old female multiple comorbidities sent in by home health care doctor for IV antibiotics. History of Present Illness: She is 78-year-old female. She was sent in from her visiting physicians. Patient allegedly has multidrug resistant urinary tract infection. Patient has chronic indwelling Moreno catheter for chronic debility and accurate intake and output for congestive heart failure. She has multiple urinary tract infections. Patient denies any your symptoms at this time. Patient has no pain complaints. She does have a secondary complaint of bleeding in the head. She states she's had, masses that were similar. She sits over her left scalp. Patient states that her pain has began since yesterday. She also notes bleeding. The ROS documented in this emergency department record has been reviewed and confirmed by me. Those systems with pertinent positive or negative responses have been documented in the HPI. All other systems are other negative and/or noncontributory. PHYSICAL EXAM: General Impression: Alert and oriented x3, not in acute distress, chronic indwelling Moreno catheter HEENT: Normocephalic atraumatic, extra-ocular movements intact, pupils equal and reactive to light bilaterally, mucous membranes moist, 3 x 3 cm protruding scalp mass over the left parietal occiput area Cardiovascular: Heart regular rate and rhythm, S1&S2 audible, no murmurs, rubs or gallops Chest: Lungs clear to auscultation bilaterally, no rhonchi, no wheeze, no rales Abdomen: Bowel sounds present, abdomen soft, non-tender, non-distended, no organomegaly Musculoskeletal: Pulses present and equal in all extremities, no peripheral edema Motor: Power 5/5 bilaterally, no focal deficits noted Neurological: CN II-XII grossly intact, no focal motor or sensory deficits noted Skin: Intact with no visualized rashes Psych: Normal affect and mood ED course: 78-year-old female presents with concern for multidrug resistant urinary tract infection. Signs upon arrival are within acceptable limits. Patient not showing any signs of sepsis at the moment. She appears well. Urine culture results are with patient. Patient has urine culture is positive [id number] polymicrobial urine.. Lavatory evaluation obtained. Patient has mild leukocytosis of 10.7. Cardiac panel unremarkable. Metabolic panel is grossly unremarkable. There is no Acidosis. Patient has mild lactic acidosis of 2.8. Patient given intravenous fluids. Urinalysis unremarkable. Patient's symptoms likely secondary to dehydration. Discussed patient case with nurse practitioner that patient is clear for discharge. Patient appears asymptomatic at this time. Moreno was changed in our emergency department. Patient does not require antibiotics at this time. Positive urinary cultures probably secondary to Moreno bag plan tubing colonization. Patient told to follow up with general surgery outpatient in regards to the mass on her scalp. - Related Data Home Medications Medication Instructions Recorded Confirmed Cholecalciferol [Vitamin D3] 1,000 unit PO DAILY 02/24/15 09/05/18 HYDROcodone/APAP 10-325MG [[place] 1 tab PO TID PRN 11/18/15 09/05/18 10-325] Simvastatin 40 mg PO HS 05/30/16 09/05/18 metFORMIN HCL [Glucophage] 1,000 mg PO DAILY 05/30/16 09/05/18 Insulin Glargine,Hum.rec.anlog 30 unit SQ HS 06/19/17 09/05/18 [Lantus Solostar] Lactulose 10 gm PO BID 06/19/17 09/05/18 Aspirin [Adult Low Dose Aspirin EC] 81 mg PO DAILY@1200 08/06/17 04/08/18 Citalopram Hydrobromide [CeleXA] 20 mg PO DAILY 08/06/17 09/05/18 Losartan [Cozaar] 25 mg PO DAILY 01/14/18 09/05/18 Ipratropium-Albuterol Nebulize 3 ml INHALATION RT-QID PRN 04/08/18 09/05/18 [Duoneb 0.5 mg-3 mg/3 ml Soln] Magnesium 400 mg PO HS 04/08/18 09/05/18 Gabapentin 600 mg PO TID 09/05/18 09/05/18 Isosorbide Mononitrate ER [Imdur] 30 mg PO DAILY@1200 09/05/18 09/05/18 Levothyroxine Sodium [Synthroid] 125 mcg PO DAILY 09/05/18 09/05/18 Metoprolol Succinate (ER) [Toprol 25 mg PO DAILY 09/05/18 09/05/18 Xl] Pantoprazole [Protonix] 40 mg PO DAILY PRN 09/05/18 09/05/18 Previous Rx's Medication Instructions Recorded Budesonide-Formot 160-4.5 Mcg 2 puff INHALATION RT-BID puff 08/10/17 [Symbicort 160-4.5 Mcg Inhaler] Clopidogrel [Plavix] 75 mg PO DAILY tab 08/10/17 Furosemide [Lasix] 40 mg PO DAILY tab 08/10/17 Allergies Allergy/AdvReac Type Severity Reaction Status Date / Time atenolol [From Tenormin] AdvReac Severe Anxiety Verified 09/05/18 11:15 attack Review of Systems ROS Statement: Those systems with pertinent positive or pertinent negative responses have been documented in the HPI. ROS Other: All systems not noted in ROS Statement are negative. Past Medical History Past Medical History: Asthma, Cancer, Heart Failure, COPD, Diabetes Mellitus, Eye Disorder, Hyperlipidemia, Hypertension, Osteoarthritis (OA), Thyroid Disorder Additional Past Medical History / Comment(s): Morbid obesity, obstructive sleep apnea, IDDM type II, chronic respiratory failure with home O2 most of the time, CHF diastolic dysfunction, 03/04/15 ech with mild pulmonary hypertension, mild to moderate tricuspid regurg, L ventricular systolic function normal EF 60-65%, L leg lymphedema, peripheral neuropathy bilateral legs/feet, macular degeneration bilaterally-vision is now poor, falls, gait dysfunction, chronic pain multiple joints, chronic urine incontinence, sinus problems, obesity, hypothyroidism, osteoarthritis History of Any Multi-Drug Resistant Organisms: MRSA Date of last positivie culture/infection: 2012 MDRO Source:: Blood, unknown Past Surgical History: Hernia Repair, Hysterectomy, Joint Replacement, Orthopedic Surgery Additional Past Surgical History / Comment(s): total L knee x 2, knee and lower back surgery, left breast Lumpectomy without cancer, bilateral hand surgeries, bilateral cataract extraction with intraocular lens implantations, nonmalignant mass removed from left leg -resulting lymphedema, [id number] left anterior chest wall in the past, oopherectomy and abdominal hernia repair, R carpal tunnel release, L leg wound debridement, lymph node removed from L neck. Past Anesthesia/Blood Transfusion Reactions: No Reported Reaction Past Psychological History: Anxiety Smoking Status: Never smoker Past Alcohol Use History: None Reported Past Drug Use History: None Reported - Past Family History Mother Family Medical History: Cancer Additional Family Medical History / Comment(s): Mother at age 89 with pt believes bone cancer. Father Family Medical History: Unable to Obtain Additional Family Medical History / Comment(s): Pt's father when she was 2 yrs old. He was in WWII and of a strep infection. General Exam Limitations: no limitations Course Vital Signs 09/05/18 09/05/18 10:04 12:46 Temperature 98.2 F Pulse Rate 83 84 Respiratory 16 16 Rate Blood Pressure 127/60 135/79 O2 Sat by Pulse 95 96 Oximetry Medical Decision Making - Lab Data Result diagrams: 09/05/18 10:43 09/05/18 10:43 Lab Results 09/05/18 09/05/18 09/05/18 Range/Units 10:43 10:43 10:43 WBC 10.7 H (3.8-10.6) k/uL RBC 3.82 (3.80-5.40) m/uL Hgb 11.9 (11.4-16.0) gm/dL Hct 36.6 (34.0-46.0) % MCV 95.8 (80.0-100.0) fL MCH 31.1 (25.0-35.0) pg MCHC 32.5 (31.0-37.0) g/dL RDW 12.5 (11.5-15.5) % Plt Count 285 (150-450) k/uL Neutrophils % 81 % Lymphocytes % 9 % Monocytes % 5 % Eosinophils % 3 % Basophils % 0 % Neutrophils # 8.7 H (1.3-7.7) k/uL Lymphocytes # 1.0 (1.0-4.8) k/uL Monocytes # 0.6 (0-1.0) k/uL Eosinophils # 0.3 (0-0.7) k/uL Basophils # 0.0 (0-0.2) k/uL PT (9.0-12.0) sec INR (<1.2) Sodium 136 L (137-145) mmol/L Potassium 4.1 (3.5-5.1) mmol/L Chloride 90 L (98-107) mmol/L Carbon Dioxide 36 H (22-30) mmol/L Anion Gap 10 mmol/L BUN 24 H (7-17) mg/dL Creatinine 1.04 (0.52-1.04) mg/dL Est GFR (CKD-EPI)AfAm 59 (>60 ml/min/1.73 sqM) Est GFR (CKD-EPI)NonAf 51 (>60 ml/min/1.73 sqM) Glucose 96 (74-99) mg/dL POC Glucose (mg/dL) (75-99) mg/dL POC Glu Insulator Tester ID Lactic Ac Sepsis Rflx Plasma Lactic Acid German (0.7-2.0) mmol/L Calcium 8.9 (8.4-10.2) mg/dL Magnesium 1.5 L (1.6-2.3) mg/dL Urine Color Yellow Urine Appearance Cloudy H (Clear) Urine pH 9.0 H (5.0-8.0) Ur Specific [place] 1.000 L (1.001-1.035) Urine Protein 1+ H (Negative) Urine Glucose (UA) Negative (Negative) Urine Ketones Negative (Negative) Urine Blood Negative (Negative) Urine Nitrite Negative (Negative) Urine Bilirubin Negative (Negative) Urine Urobilinogen <2.0 (<2.0) mg/dL Ur Leukocyte Esterase Large (Negative) Urine RBC 0 (0-5) /hpf Urine WBC 3 (0-5) /hpf Ur Squamous Epith Cells 2 (0-4) /hpf Triple Phos Crystals Many H (None) /hpf Amorphous Sediment Moderate H (None) /hpf Urine Bacteria Many H (None) /hpf 09/05/18 09/05/18 09/05/18 Range/Units 10:43 10:43 11:26 WBC (3.8-10.6) k/uL RBC (3.80-5.40) m/uL Hgb (11.4-16.0) gm/dL Hct (34.0-46.0) % MCV (80.0-100.0) fL MCH (25.0-35.0) pg MCHC (31.0-37.0) g/dL RDW (11.5-15.5) % Plt Count (150-450) k/uL Neutrophils % % Lymphocytes % % Monocytes % % Eosinophils % % Basophils % % Neutrophils # (1.3-7.7) k/uL Lymphocytes # (1.0-4.8) k/uL Monocytes # (0-1.0) k/uL Eosinophils # (0-0.7) k/uL Basophils # (0-0.2) k/uL PT 9.7 (9.0-12.0) sec INR 0.9 (<1.2) Sodium (137-145) mmol/L Potassium (3.5-5.1) mmol/L Chloride (98-107) mmol/L Carbon Dioxide (22-30) mmol/L Anion Gap mmol/L BUN (7-17) mg/dL Creatinine (0.52-1.04) mg/dL Est GFR (CKD-EPI)AfAm (>60 ml/min/1.73 sqM) Est GFR (CKD-EPI)NonAf (>60 ml/min/1.73 sqM) Glucose (74-99) mg/dL POC Glucose (mg/dL) (75-99) mg/dL POC Glu Insulator Tester ID Lactic Ac Sepsis Rflx Y Plasma Lactic Acid German 2.8 H* (0.7-2.0) mmol/L Calcium (8.4-10.2) mg/dL Magnesium (1.6-2.3) mg/dL Urine Color Urine Appearance (Clear) Urine pH (5.0-8.0) Ur Specific [place] (1.001-1.035) Urine Protein (Negative) Urine Glucose (UA) (Negative) Urine Ketones (Negative) Urine Blood (Negative) Urine Nitrite (Negative) Urine Bilirubin (Negative) Urine Urobilinogen (<2.0) mg/dL Ur Leukocyte Esterase (Negative) Urine RBC (0-5) /hpf Urine WBC (0-5) /hpf Ur Squamous Epith Cells (0-4) /hpf Triple Phos Crystals (None) /hpf Amorphous Sediment (None) /hpf Urine Bacteria (None) /hpf 09/05/18 Range/Units 15:04 WBC (3.8-10.6) k/uL RBC (3.80-5.40) m/uL Hgb (11.4-16.0) gm/dL Hct (34.0-46.0) % MCV (80.0-100.0) fL MCH (25.0-35.0) pg MCHC (31.0-37.0) g/dL RDW (11.5-15.5) % Plt Count (150-450) k/uL Neutrophils % % Lymphocytes % % Monocytes % % Eosinophils % % Basophils % % Neutrophils # (1.3-7.7) k/uL Lymphocytes # (1.0-4.8) k/uL Monocytes # (0-1.0) k/uL Eosinophils # (0-0.7) k/uL Basophils # (0-0.2) k/uL PT (9.0-12.0) sec INR (<1.2) Sodium (137-145) mmol/L Potassium (3.5-5.1) mmol/L Chloride (98-107) mmol/L Carbon Dioxide (22-30) mmol/L Anion Gap mmol/L BUN (7-17) mg/dL Creatinine (0.52-1.04) mg/dL Est GFR (CKD-EPI)AfAm (>60 ml/min/1.73 sqM) Est GFR (CKD-EPI)NonAf (>60 ml/min/1.73 sqM) Glucose (74-99) mg/dL POC Glucose (mg/dL) 90 (75-99) mg/dL POC Glu Insulator Tester ID [place] Lactic Ac Sepsis Rflx Plasma Lactic Acid German (0.7-2.0) mmol/L Calcium (8.4-10.2) mg/dL Magnesium (1.6-2.3) mg/dL Urine Color Urine Appearance (Clear) Urine pH (5.0-8.0) Ur Specific [place] (1.001-1.035) Urine Protein (Negative) Urine Glucose (UA) (Negative) Urine Ketones (Negative) Urine Blood (Negative) Urine Nitrite (Negative) Urine Bilirubin (Negative) Urine Urobilinogen (<2.0) mg/dL Ur Leukocyte Esterase (Negative) Urine RBC (0-5) /hpf Urine WBC (0-5) /hpf Ur Squamous Epith Cells (0-4) /hpf Triple Phos Crystals (None) /hpf Amorphous Sediment (None) /hpf Urine Bacteria (None) /hpf Disposition Clinical Impression: Wellness examination Disposition: HOME SELF-CARE Condition: Good Instructions (If sedation given, give patient instructions): Urinary Tract Infection in Women (ED) Is patient prescribed a controlled substance at d/c from ED?: No Referrals: Cristian Harvey MD [Primary Care Provider] - 1-2 days Time of Disposition: 15:21
[2018-09-05] MEDS ORDERED: RX INFO: IV CONTRAST WAS GIVEN 1 EACH MISC MISCELLANE PRN (10:27)
[2018-09-05 11:08] LABS: Basophils % (A) 0 %; Eosinophils # (A) 0.3 k/uL (0-0.7); Eosinophils % (A) 3 %; HCT 36.6 % (34.0-46.0); HGB 11.9 gm/dL (11.4-16.0); Lymphocytes % (A) 9 %; MCH 31.1 pg (25.0-35.0); MCHC 32.5 g/dL (31.0-37.0); MCV 95.8 fL (80.0-100.0); Mean Platelet Volume 6.4; Monocytes # (A) 0.6 k/uL (0-1.0); Monocytes % (A) 5 %; Neutrophils # (A) 8.7 k/uL (1.3-7.7); Neutrophils % (A) 81 %; Platelet Count 285 k/uL (150-450); RBC 3.82 m/uL (3.80-5.40); RDW 12.5 % (11.5-15.5); WBC 10.7 k/uL (3.8-10.6)
[2018-09-05 11:16] LABS: Calcium 8.9 mg/dL (8.4-10.2); Magnesium 1.5 mg/dL (1.6-2.3); Potassium 4.1 mmol/L (3.5-5.1)
[2018-09-05 11:21] LABS: INR 0.9 (<1.2); Prothrombin Time 9.7 sec (9.0-12.0)
[2018-09-05 12:01] LABS: Appearance,Urine Cloudy (Clear); Color,Urine Yellow
[2018-09-05 12:03] LABS: Bilirubin,Urine Negative (Negative); Glucose,Urine (UA) Negative (Negative); Ketones,Urine Negative (Negative); Protein,Urine 1+ (Negative)
[2018-09-05 12:04] LABS: Blood,Urine Negative (Negative); Leukocyte Esterase,Urine Large (Negative); Nitrite,Urine Negative (Negative); Urobilinogen,Urine <2.0 mg/dL (<2.0)
[2018-09-05 12:05] LABS: RBC,Urine 0 /hpf (0-5); WBC,Urine 3 /hpf (0-5)
[2018-09-05 12:06] LABS: Amorphous Sediment,Urine Moderate /hpf; Bacteria,Urine Many /hpf; Squamous Epithelial Cell,Urine 2 /hpf (0-4); Triple Phosphate Crystal,Urine Many /hpf
--- NOTE | 2018-09-05 12:45 | CT ---
EXAMINATION TYPE: CT brain w con DATE OF EXAM: 09/05/2018 COMPARISON: 06/19/2017 HISTORY: head pain CT DLP: 1050.4 mGycm Automated Exposure Control for Dose Reduction was Utilized. TECHNIQUE: CT scan of the head is performed with IV contrast.,CT scan of the head is performed withou t and with with IV Contrast, patient injected with 80 mL of Isovue 300. FINDINGS: There is diffuse ventricular and sulcal prominence consistent with diffuse age-related ce rebral atrophy. There is low-attenuation in the periventricular white matter consistent with chronic small vessel ischemic change. The globes are intact and the visualized sinuses are clear. Severe a therosclerosis is seen of the cavernous and supraclinoid portions of the internal carotid arteries. P unctate benign-appearing parenchymal calcification is unchanged from the exam of 06/19/2017 retrospec tively seen on image 41 within the right frontal lobe. Postcontrast images show no suspicious enhanci ng intraparenchymal mass. Calcified extra-axial benign-appearing scalp lesion is unchanged from the p rior. Bilateral cerumen impaction is noted, right greater than left in the external auditory canals. IMPRESSION: No suspicious intracranial enhancement. No evidence of intracranial mass. White matter ch anges and mild cerebral atrophy are similar to the prior of 06/19/2017.
[2018-09-05] MEDS ORDERED: SODIUM CHLORIDE 0.9% 1,000 ML IV STA (13:08)
[2018-09-05] MEDS ORDERED: MAGNESIUM SULFATE-D5W PMX 1 GM in DEXTROSE/WATER 1 100ML.BAG IVPB SCH (13:30)
[2018-09-05 15:05] LABS: Glucose,Whole Blood 90 mg/dL (75-99)
[2018-09-05 15:36] VITALS: BP 127/62; PULSE 74
== END 2018-09-05 17:56 | disposition home or self-care (01) ==
LOC: EC 09:57
DX: Z00.00 Encounter for general adult medical examination without abnormal findings (principal); R29.898 Other symptoms and signs involving the musculoskeletal system; J44.9 Chronic obstructive pulmonary disease, unspecified; I11.0 Hypertensive heart disease with heart failure; I50.9 Heart failure, unspecified; I10 Essential (primary) hypertension; M19.90 Unspecified osteoarthritis, unspecified site; E03.9 Hypothyroidism, unspecified; J96.10 Chronic respiratory failure, unspecified whether with hypoxia or hypercapnia; E78.5 Hyperlipidemia, unspecified; E11.42 Type 2 diabetes mellitus with diabetic polyneuropathy; H35.30 Unspecified macular degeneration; E66.01 Morbid (severe) obesity due to excess calories; Z68.43 Body mass index [BMI] 50.0-59.9, adult; Z16.24 Resistance to multiple antibiotics; Z85.9 Personal history of malignant neoplasm, unspecified; Z86.14 Personal history of Methicillin resistant Staphylococcus aureus infection; Z79.4 Long term (current) use of insulin; Z79.82 Long term (current) use of aspirin; Z79.84 Long term (current) use of oral hypoglycemic drugs; Z79.899 Other long term (current) drug therapy; Z88.8 Allergy status to other drugs, medicaments and biological substances; Z96.652 Presence of left artificial knee joint
CPT/HCPCS: 36415; 80048; 83605; 83735; 85025; 85610; 81001; 87086; 70460; 99284; 51702; 96365; 96366; J3475; Q9967

== ENCOUNTER 2018-10-01 09:35 | Inpatient (IN) | payer MEDICARE, OTHER ==
--- NOTE | 2018-10-01 09:56 | ED ---
Lower Extremity Injury HPI - General Chief Complaint: Extremity Injury, Lower Stated Complaint: Fell rt knee pain Time Seen by Provider: 10/01/18 09:39 Source: patient Mode of arrival: EMS Limitations: no limitations - History of Present Illness Initial Comments: Patient is a 78-year-old female presents emergency Department today with complaints of right knee pain. Patient reports that she ambulates at home in a wheelchair. She was attempting to stand with her landscape engineer sit to stand. Patient reports that her right knee gave from underneath her and buckle. Patient complains of pain with straightening the leg. She is brought here via EMS. She states that she has a home health aide who helps manage her care. Patient states that she had not attempted to stand after buckling her leg earlier today. - Related Data Home Medications Medication Instructions Recorded Confirmed Cholecalciferol [Vitamin D3] 1,000 unit PO DAILY 02/24/15 10/01/18 HYDROcodone/APAP 10-325MG [[place] 1 tab PO TID PRN 11/18/15 10/01/18 10-325] Simvastatin 40 mg PO HS 05/30/16 10/01/18 metFORMIN HCL [Glucophage] 1,000 mg PO DAILY 05/30/16 10/01/18 Insulin Glargine,Hum.rec.anlog 30 unit SQ HS 06/19/17 10/01/18 [Lantus Solostar] Aspirin [Adult Low Dose Aspirin EC] 81 mg PO DAILY@1200 08/06/17 10/01/18 Citalopram Hydrobromide [CeleXA] 20 mg PO DAILY 08/06/17 10/01/18 Losartan [Cozaar] 25 mg PO DAILY 01/14/18 10/01/18 Ipratropium-Albuterol Nebulize 3 ml INHALATION RT-QID PRN 04/08/18 10/01/18 [Duoneb 0.5 mg-3 mg/3 ml Soln] Magnesium 400 mg PO HS 04/08/18 10/01/18 Gabapentin 600 mg PO TID 09/05/18 10/01/18 Isosorbide Mononitrate ER [Imdur] 30 mg PO DAILY@1200 09/05/18 10/01/18 Levothyroxine Sodium [Synthroid] 125 mcg PO DAILY 09/05/18 10/01/18 Metoprolol Succinate (ER) [Toprol 25 mg PO DAILY 09/05/18 10/01/18 Xl] Pantoprazole [Protonix] 40 mg PO DAILY PRN 09/05/18 10/01/18 Cefuroxime [Ceftin] 250 mg PO BID 10/01/18 10/01/18 Previous Rx's Medication Instructions Recorded Budesonide-Formot 160-4.5 Mcg 2 puff INHALATION RT-BID puff 08/10/17 [Symbicort 160-4.5 Mcg Inhaler] Clopidogrel [Plavix] 75 mg PO DAILY tab 08/10/17 Furosemide [Lasix] 40 mg PO DAILY tab 08/10/17 Allergies Allergy/AdvReac Type Severity Reaction Status Date / Time atenolol [From Tenormin] AdvReac Severe Anxiety Verified 10/01/18 10:38 attack Review of Systems ROS Statement: Those systems with pertinent positive or pertinent negative responses have been documented in the HPI. ROS Other: All systems not noted in ROS Statement are negative. Past Medical History Past Medical History: Asthma, Cancer, Heart Failure, COPD, Diabetes Mellitus, Eye Disorder, Hyperlipidemia, Hypertension, Osteoarthritis (OA), Thyroid Disorder Additional Past Medical History / Comment(s): Morbid obesity, obstructive sleep apnea, IDDM type II, chronic respiratory failure with home O2 most of the time, CHF diastolic dysfunction, 03/04/15 ech with mild pulmonary hypertension, mild to moderate tricuspid regurg, L ventricular systolic function normal EF 60-65%, L leg lymphedema, peripheral neuropathy bilateral legs/feet, macular degeneration bilaterally-vision is now poor, falls, gait dysfunction, chronic pain multiple joints, chronic urine incontinence, sinus problems, obesity, hypothyroidism, osteoarthritis History of Any Multi-Drug Resistant Organisms: MRSA Date of last positivie culture/infection: 2012 MDRO Source:: Blood, unknown Past Surgical History: Hernia Repair, Hysterectomy, Joint Replacement, Orthopedic Surgery Additional Past Surgical History / Comment(s): total L knee x 2, knee and lower back surgery, left breast Lumpectomy without cancer, bilateral hand surgeries, bilateral cataract extraction with intraocular lens implantations, nonmalignant mass removed from left leg -resulting lymphedema, [id number] left anterior chest wall in the past, oopherectomy and abdominal hernia repair, R carpal tunnel release, L leg wound debridement, lymph node removed from L neck. Past Anesthesia/Blood Transfusion Reactions: No Reported Reaction Past Psychological History: Anxiety Smoking Status: Never smoker Past Alcohol Use History: None Reported Past Drug Use History: None Reported - Past Family History Mother Family Medical History: Cancer Additional Family Medical History / Comment(s): Mother at age 89 with pt believes bone cancer. Father Family Medical History: Unable to Obtain Additional Family Medical History / Comment(s): Pt's father when she was 2 yrs old. He was in [place] and of a strep infection. General Exam - General Exam Comments Initial Comments: Patient is a 78-year-old female. Alert and oriented 3. Patient appears in no significant distress. Patient is morbidly obese. Limitations: no limitations General appearance: alert, in no apparent distress Head exam: Present: atraumatic, normocephalic, normal inspection Eye exam: Present: normal appearance, PERRL, EOMI. Absent: scleral icterus, conjunctival injection, periorbital swelling ENT exam: Present: normal exam, mucous membranes moist Neck exam: Present: normal inspection Respiratory exam: Present: normal lung sounds bilaterally. Absent: respiratory distress, wheezes, rales, rhonchi, stridor Cardiovascular Exam: Present: regular rate, normal rhythm, normal heart sounds. Absent: systolic murmur, diastolic murmur, rubs, gallop, clicks GI/Abdominal exam: Present: soft, normal bowel sounds. Absent: distended, tenderness, guarding, rebound, rigid Extremities exam: Present: normal inspection, full ROM, normal capillary refill. Absent: tenderness, pedal edema, joint swelling, calf tenderness Right Knee exam: Present: normal inspection, tenderness (Patient has tenderness over the medial aspect of the knee.). Absent: full ROM Lower Leg exam: Present: normal inspection, full ROM Ankle exam: Present: normal inspection, full ROM Neurovascular tendon exam: Present: no vascular compromise Back exam: Present: normal inspection Skin exam: Present: warm, dry, intact, normal color, other (his coloration of her bilateral lower extremities consistent with venous insufficiency.). Absent : rash Course Vital Signs 10/01/18 09:37 Temperature 98.3 F Pulse Rate 73 Respiratory 20 Rate Blood Pressure 121/56 O2 Sat by Pulse 95 Oximetry Procedures - Orthopedic Splinting/Casting Injury #1 Side: right Lower Extremity Injury Location: knee Lower Extremity Immobilizer: knee immobilizer Medical Decision Making - Medical Decision Making Patient is a 78-year-old female who presents emergency department today with right knee pain after attempting to ambulate and stand with her sit to stand for airlift. At this time Patient has some pain over the medial aspect of the knee. She is fairly obese. Difficult to palpate the patella and osseous structures. Patient's x-ray of the knee and tib-fib are completed. This is negative for any acute process. Patient was placed in a knee immobilizer and will be transferred back home. I discussed that she needs follow-up with correctional treatment specialist. All questions were answered return parameters were discussed. Patient understands treatment plan. - Radiology Data Radiology results: report reviewed No acute fracture dislocation with the right leg or knee noted. Advanced tricompartmental degenerative changes with marked joint space loss and spring. Diffuse soft tissue prominence likely products of underlying obesity. High density material medially could reflect dystrophic calcification. Additional vascular calcifications and phleboliths. Disposition Clinical Impression: Right knee pain, Right knee sprain Disposition: HOME SELF-CARE Condition: Good Instructions (If sedation given, give patient instructions): Knee Sprain (ED) Additional Instructions: Patient advised to follow-up with correctional treatment specialist. Patient should return to the emergency department if any alarming signs or symptoms occur.Patient should ice the knee. Motrin Tylenol for pain. Have close follow-up with primary care physician as well. Is patient prescribed a controlled substance at d/c from ED?: No Referrals: Cristian Harvey MD [Primary Care Provider] - 1-2 days Time of Disposition: 10:43
--- NOTE | 2018-10-01 10:22 | XR ---
EXAMINATION TYPE: XR tibia fibula RT, XR knee complete RT DATE OF EXAM: 10/01/2018 CLINICAL HISTORY: Pain after fall injury. TECHNIQUE: Three views of the right knee are obtained. 2 views of right leg are acquired. COMPARISON: None. FINDINGS: There is genu barrel positioning. There is advanced tricompartment degenerative changes wit h marked joint space loss and spurring. No acute fracture or dislocation is seen. Diffuse soft tissue prominence likely product of underlying obesity noted. High dense material medially could reflect dy strophic calcification. There is additional vascular calcification and phleboliths. Images of right leg show no acute fracture or dislocation. Visualized portion of ankle joint is felt within normal limits. Soft tissue prominence with phleboliths and vascular calcification is noted. IMPRESSION: There is no acute fracture or dislocation in the right leg or knee.
[2018-10-01] MEDS ORDERED: MORPHINE SULFATE 4 MG/ML SYRINGE IVP STA (11:05)
[2018-10-01] MEDS ORDERED: SODIUM CHLORIDE 0.9% 1,000 ML IV ONE (11:05)
--- NOTE | 2018-10-01 11:05 | ED ---
Medical Decision Making - Medical Decision Making On my review of x-rays it does appear the Patient has a distal femur fracture. We called the radiologist Dr. Newberry and he agrees. At this time Patient was placed in a knee immoblizer and lab work will be obtained for possible surgery. Upon further discussion with ALLISON Almeida with Patient being relatively immobile and wheelchair-bound at home, Patient will likely be a nonsurgical candidate. Patient reports that she is taking care of her who is home on hospice. She has a home health aide who was transferring her via Jorge Alberto sit to stand lift when this fall occurred causing the leg fracture. I discussed that Patient is unstable to be discharged home using a sit to stand jorge alberto lift with a broken leg as a knee immobilizer does not fit Patient properly due to obesity. Patient will be admitted under medicine with orthopedic consult to Dr. Garcia. - Lab Data Result diagrams: 10/01/18 11:29 10/01/18 11:29 Lab Results 10/01/18 10/01/18 10/01/18 Range/Units 11:29 11:29 11:29 WBC 10.8 H (3.8-10.6) k/uL RBC 3.82 (3.80-5.40) m/uL Hgb 11.9 (11.4-16.0) gm/dL Hct 37.0 (34.0-46.0) % MCV 97.0 (80.0-100.0) fL MCH 31.1 (25.0-35.0) pg MCHC 32.1 (31.0-37.0) g/dL RDW 12.6 (11.5-15.5) % Plt Count 301 (150-450) k/uL Neutrophils % 83 % Lymphocytes % 7 % Monocytes % 5 % Eosinophils % 4 % Basophils % 0 % Neutrophils # 9.0 H (1.3-7.7) k/uL Lymphocytes # 0.8 L (1.0-4.8) k/uL Monocytes # 0.5 (0-1.0) k/uL Eosinophils # 0.4 (0-0.7) k/uL Basophils # 0.0 (0-0.2) k/uL PT 9.5 (9.0-12.0) sec INR 0.9 (<1.2) APTT 22.2 (22.0-30.0) sec Sodium 141 (137-145) mmol/L Potassium 4.8 (3.5-5.1) mmol/L Chloride 97 L (98-107) mmol/L Carbon Dioxide 35 H (22-30) mmol/L Anion Gap 9 mmol/L BUN 25 H (7-17) mg/dL Creatinine 0.89 (0.52-1.04) mg/dL Est GFR (CKD-EPI)AfAm 71 (>60 ml/min/1.73 sqM) Est GFR (CKD-EPI)NonAf 62 (>60 ml/min/1.73 sqM) Glucose 108 H (74-99) mg/dL Calcium 9.0 (8.4-10.2) mg/dL Total Bilirubin 0.5 (0.2-1.3) mg/dL AST 16 (14-36) U/L ALT 18 (9-52) U/L Alkaline Phosphatase 83 (38-126) U/L Total Protein 7.0 (6.3-8.2) g/dL Albumin 3.6 (3.5-5.0) g/dL - Radiology Data Radiology results: report reviewed Best seen on the lateral view acute displaced interarticular fracture through the distal femur metaphysis with impaction and posterior displacement of the distal fracture fragment there is a 2.1 cm displacement. Fracture is confirmed in retrospect on the frontal view with slight cortical disruption along the aspect of the distal femoral metaphysis. Disposition Clinical Impression: Right knee pain, Femoral distal fracture Disposition: ADMITTED IP TO THIS [facility] Condition: Stable Additional Instructions: Patient advised to follow-up with economic development specialist. Patient should return to the emergency department if any alarming signs or symptoms occur.Patient should ice the knee. Motrin Tylenol for pain. Have close follow-up with primary care physician as well. Is patient prescribed a controlled substance at d/c from ED?: No Referrals: Cristian Harvey MD [Primary Care Provider] - 1-2 days Time of Disposition: 12:55
[2018-10-01 11:41] LABS: Basophils % (A) 0 %; Eosinophils # (A) 0.4 k/uL (0-0.7); Eosinophils % (A) 4 %; HGB 11.9 gm/dL (11.4-16.0); Lymphocytes # (A) 0.8 k/uL (1.0-4.8); Lymphocytes % (A) 7 %; MCH 31.1 pg (25.0-35.0); MCHC 32.1 g/dL (31.0-37.0); Mean Platelet Volume 6.7; Monocytes # (A) 0.5 k/uL (0-1.0); Monocytes % (A) 5 %; Neutrophils % (A) 83 %; Platelet Count 301 k/uL (150-450); RBC 3.82 m/uL (3.80-5.40); RDW 12.6 % (11.5-15.5); WBC 10.8 k/uL (3.8-10.6)
[2018-10-01 11:49] LABS: Albumin 3.6 g/dL (3.5-5.0); Potassium 4.8 mmol/L (3.5-5.1); Total Bilirubin 0.5 mg/dL (0.2-1.3)
[2018-10-01 12:10] LABS: INR 0.9 (<1.2); Partial Thromboplastin Time 22.2 sec (22.0-30.0); Prothrombin Time 9.5 sec (9.0-12.0)
[2018-10-01] MEDS ORDERED: MORPHINE SULFATE 4 MG/ML SYRINGE IV PRN (12:55)
[2018-10-01] MEDS ORDERED: HYDROcodone/APAP 5-325MG 1 EACH TAB PO PRN (12:55)
[2018-10-01] MEDS ORDERED: NALOXONE 0.4 MG/ML 1 ML VIAL IV PRN (12:55)
[2018-10-01] MEDS ORDERED: ONDANSETRON 4 MG/2 ML VIAL IVP PRN (12:55)
[2018-10-01] MEDS ORDERED: IBUPROFEN 400 MG TAB PO PRN (12:55)
[2018-10-01] MEDS ORDERED: ACETAMINOPHEN TAB 325 MG TAB PO PRN (12:55)
[2018-10-01 14:30] VITALS: BMI 50.0
[2018-10-01] MEDS ORDERED: PANTOPRAZOLE 40 MG TABLET PO PRN (16:16)
[2018-10-01] MEDS ORDERED: IPRATROPIUM-ALBUTEROL 3 ML NEB INHALATION PRN (16:16)
[2018-10-01 17:15] LABS: Glucose,Whole Blood 89 mg/dL (75-99)
[2018-10-01] MEDS: ENOXAPARIN 40 MG/0.4 ML SYRINGE SQ SCH (17:16)
[2018-10-01] MEDS: INSULIN ASPART (NovoLOG) 100 UNIT/ML VIAL SQ SCH ×2 (17:17→22:10)
[2018-10-01] MEDS ORDERED: INSULIN ASPART (NovoLOG) 100 UNIT/ML VIAL SQ SCH (17:30)
[2018-10-01] MEDS: HYDROcodone/APAP 10-325MG 1 EACH TAB PO PRN (18:15)
[2018-10-01] MEDS: SYMBICORT 160-4.5 MCG INHALER INHALATION SCH (20:40)
[2018-10-01] MEDS ORDERED: MAGNESIUM OXIDE 400 MG TAB PO SCH (21:00)
[2018-10-01] MEDS ORDERED: ATORVASTATIN 20 MG TAB PO SCH (21:00)
[2018-10-01] MEDS ORDERED: INSULIN DETEMIR (LEVEMIR) 100 UNIT/ML SYR SQ SCH (21:00)
[2018-10-01] MEDS: GABAPENTIN 300 MG CAP PO SCH (21:01)
[2018-10-01 21:30] LABS: Glucose,Whole Blood 127 mg/dL (75-99)
[2018-10-02] MEDS: HYDROcodone/APAP 10-325MG 1 EACH TAB PO PRN ×2 (03:40→10:31)
[2018-10-02] MEDS ORDERED: LEVOTHYROXINE 125 MCG TAB PO SCH (06:30)
[2018-10-02 07:12] LABS: Glucose,Whole Blood 70 mg/dL (75-99)
[2018-10-02] MEDS: INSULIN ASPART (NovoLOG) 100 UNIT/ML VIAL SQ SCH ×3 (07:23→16:49)
[2018-10-02] MEDS ORDERED: metFORMIN 500 MG TAB PO SCH (07:30)
[2018-10-02] MEDS: GABAPENTIN 300 MG CAP PO SCH ×2 (08:51→16:51)
[2018-10-02] MEDS: SYMBICORT 160-4.5 MCG INHALER INHALATION SCH (08:56)
[2018-10-02] MEDS ORDERED: PANTOPRAZOLE 40 MG/10 ML VIAL IV SCH (09:00)
[2018-10-02] MEDS ORDERED: METOPROLOL SUCCINATE (ER) 25 MG TAB.ER.24H PO SCH (09:00)
[2018-10-02] MEDS ORDERED: CLOPIDOGREL 75 MG TAB PO SCH (09:00)
[2018-10-02] MEDS ORDERED: CITALOPRAM HYDROBROMIDE 20 MG TAB PO SCH (09:00)
[2018-10-02] MEDS ORDERED: LOSARTAN 25 MG TAB PO SCH (09:00)
[2018-10-02] MEDS ORDERED: FUROSEMIDE 40 MG TAB PO SCH (09:00)
[2018-10-02] MEDS: ENOXAPARIN 40 MG/0.4 ML SYRINGE SQ SCH (09:23)
--- NOTE | 2018-10-02 10:30 | P.CNOR ---
<Sandeep Clarso - Last Filed: 10/02/18 10:18> History of Present Illness - [facility] Consult date: 10/02/18 Requesting physician: Laura Sahu Consult reason: fracture (Right acute displaced intra-articular fracture to the distal femoral metaphyseal with impaction and posterior displacement of the distal fracture) History of present illness: Patient is a very pleasant 78-year-old female who is seen and examined at the bedside after consultation was placed in regards to her right lower extremity. Patient lives at home with her and they currently have 3 home aides who come to the house to help take care of them and help them with mobilization. She uses a sit to stand lift at home. Yesterday while attempting to stand, her foot got caught in the sit and stand lift causing her knee twist. She states the aid helped her to the floor and upon going to the floor she heard a snap in her leg. She had severe pain at that time. She was transferred to [facility] for further evaluation. X-rays taken in the emergency department showed evidence of acute displaced intra-articular fracture to the distal femoral metaphysis with impaction and posterior displacement of the distal fracture fragment along with advanced tricompartmental degenerative changes with marked joint space loss and spurring. She was placed in a knee immobilizer. Patient was not safe for mobilization to return home. She was admitted for further evaluation and to discuss possible placement at discharge. Patient states she does not wish to be discharged to a rehabilitation facility. She states she needs to be discharged home. She states her is on hospice care at home and needs to be with him. She states she does have multiple home aides that help her and her with her needs inside the home. She states she is essentially non-ambulatory except during transfers. A Moreno catheter is currently intact. Her right knee pain is adequately controlled while at rest. She does have history of multiple surgical interventions at her left knee with the last being a left total knee arthroplasty which she states was performed by Dr. Gonzalez and Dr. Victor. Patient has a significant medical history including COPD, diabetes mellitus, hypertension, hyperlipidemia, heart failure, thyroid disorder, and history of cancer. Patient states she has been told previously by medical provider she would not receive clearance for surgical intervention. Past Medical History Past Medical History: Asthma, Cancer, Heart Failure, COPD, Diabetes Mellitus, Eye Disorder, Hyperlipidemia, Hypertension, Osteoarthritis (OA), Thyroid Disorder Additional Past Medical History / Comment(s): Morbid obesity, obstructive, IDDM type II, chronic respiratory failure with home O2 most of the time 4 liters, CHF diastolic dysfunction, 03/04/15 ech with mild pulmonary hypertension, mild to moderate tricuspid regurg, L ventricular systolic function normal EF 60-65%, L leg lymphedema, peripheral neuropathy bilateral legs/feet, macular degeneration bilaterally-vision is now poor, falls, gait dysfunction, chronic pain multiple joints, chronic urine incontinence, sinus problems, obesity, hypothyroidism, osteoarthritis History of Any Multi-Drug Resistant Organisms: MRSA Year Discovered:: 2012 MDRO Source:: Blood, unknown Past Surgical History: Hernia Repair, Hysterectomy, Joint Replacement, Orthopedic Surgery Additional Past Surgical History / Comment(s): total L knee x 2, knee and lower back surgery, left breast Lumpectomy without cancer, bilateral hand surgeries, bilateral cataract extraction with intraocular lens implantations, nonmalignant mass removed from left leg -resulting lymphedema, oopherectomy, hysterectomy and abdominal hernia repair, R carpal tunnel release, L leg wound debridement, lymph node removed from L neck. Past Anesthesia/Blood Transfusion Reactions: No Reported Reaction Past Psychological History: Anxiety Additional Psychological History / Comment(s): She is lives with her who is quite debilitated. She states a nurse aid comes in 3x week and assists pt and her to bathe/shower. Pt ambulates with a walker and wheelchair. She does not drive. She uses home O2 at 4L/NC most of the time. She states they have helpful neighbors and family. 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 She has no experience. She has no travels. No pets in the home. Smoking Status: Never smoker Past Alcohol Use History: None Reported Past Drug Use History: None Reported - Past Family History Mother Family Medical History: Cancer Additional Family Medical History / Comment(s): Mother at age 89 with pt believes bone cancer. Father Family Medical History: Unable to Obtain Additional Family Medical History / Comment(s): Pt's father when she was 2 yrs old. He was in WWII and of a strep infection. Medications and Allergies Home Medications Medication Instructions Recorded Confirmed Type Cholecalciferol [Vitamin D3] 1,000 unit PO DAILY 02/24/15 10/01/18 History HYDROcodone/APAP 10-325MG [[employer] 1 tab PO TID PRN 11/18/15 10/01/18 History 10-325] Simvastatin 40 mg PO HS 05/30/16 10/01/18 History metFORMIN HCL [Glucophage] 1,000 mg PO DAILY 05/30/16 10/01/18 History Insulin Glargine,Hum.rec.anlog 30 unit SQ HS 06/19/17 10/01/18 History [Lantus Solostar] Aspirin [Adult Low Dose Aspirin EC] 81 mg PO DAILY@1200 08/06/17 10/01/18 History Citalopram Hydrobromide [CeleXA] 20 mg PO DAILY 08/06/17 10/01/18 History Budesonide-Formot 160-4.5 Mcg 2 puff INHALATION RT-BID puff 08/10/17 10/01/18 Rx [Symbicort 160-4.5 Mcg Inhaler] Clopidogrel [Plavix] 75 mg PO DAILY tab 08/10/17 10/01/18 Rx Furosemide [Lasix] 40 mg PO DAILY tab 08/10/17 10/01/18 Rx Losartan [Cozaar] 25 mg PO DAILY 01/14/18 10/01/18 History Ipratropium-Albuterol Nebulize 3 ml INHALATION RT-QID PRN 04/08/18 10/01/18 History [Duoneb 0.5 mg-3 mg/3 ml Soln] Magnesium 400 mg PO HS 04/08/18 10/01/18 History Gabapentin 600 mg PO TID 09/05/18 10/01/18 History Isosorbide Mononitrate ER [Imdur] 30 mg PO DAILY@1200 09/05/18 10/01/18 History Levothyroxine Sodium [Synthroid] 125 mcg PO DAILY 09/05/18 10/01/18 History Metoprolol Succinate (ER) [Toprol 25 mg PO DAILY 09/05/18 10/01/18 History Xl] Pantoprazole [Protonix] 40 mg PO DAILY PRN 09/05/18 10/01/18 History Cefuroxime [Ceftin] 250 mg PO BID 10/01/18 10/01/18 History Allergies Allergy/AdvReac Type Severity Reaction Status Date / Time atenolol [From Tenormin] AdvReac Severe Anxiety Verified 10/01/18 10:38 attack Physical Examination Physical Exam: Patient is awake, alert, and oriented 3 Vital signs stable Good chest excursion with deep inspiration and expiration Abdomen soft nontender Patient appears obese during physical examination Some pain with palpation over the right lateral distal femur Small light bruising approximately the size of a dime over the right medial inferior knee No pain with palpation over the right proximal femur No pain with palpation over the right calf Dorsiflexion and plantarflexion positive sustained right lower extremity Moreno catheter intact Results Pertinent studies: X-rays of the right knee, tibia, and fibula: Acute displaced intra-articular fracture to the distal femoral metaphysis with impaction and posterior displacement of the distal fracture fragment along with advanced tricompartmental degenerative changes with marked joint space loss and spurring ; diffuse soft tissue prominence most likely product of underlying obesity - Labs Labs: Abnormal Lab Results - Last 24 Hours (Table) 10/01/18 10/01/18 10/01/18 Range/Units 11:29 11:29 21:28 WBC 10.8 H (3.8-10.6) k/uL Neutrophils # 9.0 H (1.3-7.7) k/uL Lymphocytes # 0.8 L (1.0-4.8) k/uL Chloride 97 L (98-107) mmol/L Carbon Dioxide 35 H (22-30) mmol/L BUN 25 H (7-17) mg/dL Glucose 108 H (74-99) mg/dL POC Glucose (mg/dL) 127 H (75-99) mg/dL 10/02/18 Range/Units 07:01 WBC (3.8-10.6) k/uL Neutrophils # (1.3-7.7) k/uL Lymphocytes # (1.0-4.8) k/uL Chloride (98-107) mmol/L Carbon Dioxide (22-30) mmol/L BUN (7-17) mg/dL Glucose (74-99) mg/dL POC Glucose (mg/dL) 70 L (75-99) mg/dL H & H 10/01/18 Range/Units 11:29 Hgb 11.9 (11.4-16.0) gm/dL Hct 37.0 (34.0-46.0) % Coagulation 10/01/18 Range/Units 11:29 INR 0.9 (<1.2) Result Diagrams: 10/01/18 11:29 10/01/18 11:29 Assessment and Plan Assessment: Assessment: Right acute displaced intra-articular fracture to the distal femoral metaphyseal Advanced tricompartmental osteoarthritis of the right knee Right knee pain Essentially nonweightbearing in the outpatient setting Obesity Status post late fall with twisting mechanism causing the fracture History left total knee arthroplasty History of COPD, diabetes mellitus, hypertension, hyperlipidemia, heart failure , thyroid disorder, and history of cancer (1) Tricompartment osteoarthritis of right knee Current Visit: Yes Status: Acute Code(s): M17.11 - UNILATERAL PRIMARY OSTEOARTHRITIS, RIGHT KNEE SNOMED Code(s): 455095325 (2) Morbid obesity with BMI of 45.0-49.9, adult Current Visit: Yes Status: Acute Code(s): E66.01 - MORBID (SEVERE) OBESITY DUE TO EXCESS CALORIES; Z68.42 - BODY MASS INDEX (BMI) 45.0-49.9, ADULT SNOMED Code(s): 545994250 (3) History of COPD Current Visit: Yes Status: Acute Code(s): Z87.09 - PERSONAL HISTORY OF OTHER DISEASES OF THE RESPIRATORY SYSTEM SNOMED Code(s): 360072400 (4) History of diabetes mellitus Current Visit: Yes Status: Acute Code(s): Z86.39 - PERSONAL HISTORY OF ENDO , NUTRITIONAL AND METABOLIC DISEASE SNOMED Code(s): 974035713 (5) History of hypertension Current Visit: Yes Status: Acute Code(s): Z86.79 - PERSONAL HISTORY OF OTHER DISEASES OF THE CIRCULATORY SYSTEM SNOMED Code(s): 506530037 (6) History of hyperlipidemia Current Visit: Yes Status: Acute Code(s): Z86.39 - PERSONAL HISTORY OF ENDO , NUTRITIONAL AND METABOLIC DISEASE SNOMED Code(s): 576979006 (7) Femoral distal fracture Current Visit: Yes Status: Acute Code(s): S72.409A - UNSP FRACTURE OF LOWER END OF UNSP FEMUR, INIT FOR CLOS FX SNOMED Code(s): 484619314 (8) Right knee pain Current Visit: Yes Status: Acute Code(s): M25.561 - PAIN IN RIGHT KNEE SNOMED Code(s): 69585867 (9) Inability to ambulate due to knee Current Visit: No Status: Acute Code(s): R26.2 - DIFFICULTY IN WALKING, NOT ELSEWHERE CLASSIFIED SNOMED Code(s): 473165620 Plan: Plan: 1. Patient has been discussed in detail with Dr. Lavelle Gacria. After physical examination the patient, obtaining history of the patient, and reviewing of imaging, we will continue conservative treatment at this time. Patient currently has a knee immobilizer intact over the right lower extremity. She should keep this brace intact at all times. She should remain nonweightbearing on the right lower extremity. She is essentially nonambulatory in the outpatient setting. We discussed she will continue to be nonweightbearing on the right lower extremity over at least the next 6 weeks postoperatively. We' re not planning for surgical intervention in regards to her right knee. We will continue to follow patient closely during her admission to the hospital will plan to see her up in the outpatient setting in approximately 2-3 weeks. 2. Patient will continue to be seen and examined by medicine in regards to her other medical diagnoses and for medical placement. Patient is currently in extenuating circumstances as she may have difficulty with mobilization at home but adamantly states she does not wish to be discharged to a rehabilitation facility as her is currently on hospice and has been taking care of inside the home. She states they do have multiple home aides that help her and her with mobility and care. If patient is able to maintain a knee immobilizer over the right lower extremity has appropriate home theater expert inside the home, it may be possible for the patient be discharged back home rather than an extended care facility. Patient will plan to discuss her discharge plans in greater detail with medicine. 3. Patient has been discussed in detail with Dr. Lavelle Garcia and he agrees with this plan Time with Patient: Greater than 30 (Including obtaining history, physical examination, reviewing of imaging, and dictation.) <Harvey Garcia - Last Filed: 10/02/18 11:37> Physical Examination Osteopathic Statement: *. No significant issues noted on an osteopathic structural exam other than those noted in the History and Physical/Consult. Results - Labs Labs: Abnormal Lab Results - Last 24 Hours (Table) 10/01/18 10/01/18 10/01/18 Range/Units 11:29 11:29 21:28 WBC 10.8 H (3.8-10.6) k/uL Neutrophils # 9.0 H (1.3-7.7) k/uL Lymphocytes # 0.8 L (1.0-4.8) k/uL Chloride 97 L (98-107) mmol/L Carbon Dioxide 35 H (22-30) mmol/L BUN 25 H (7-17) mg/dL Glucose 108 H (74-99) mg/dL POC Glucose (mg/dL) 127 H (75-99) mg/dL 10/02/18 Range/Units 07:01 WBC (3.8-10.6) k/uL Neutrophils # (1.3-7.7) k/uL Lymphocytes # (1.0-4.8) k/uL Chloride (98-107) mmol/L Carbon Dioxide (22-30) mmol/L BUN (7-17) mg/dL Glucose (74-99) mg/dL POC Glucose (mg/dL) 70 L (75-99) mg/dL H & H 10/01/18 Range/Units 11:29 Hgb 11.9 (11.4-16.0) gm/dL Hct 37.0 (34.0-46.0) % Coagulation 10/01/18 Range/Units 11:29 INR 0.9 (<1.2) Result Diagrams: 10/01/18 11:29 10/01/18 11:29 Assessment and Plan Plan: The patient is seen and examined at bedside. We had a discussion about her issues with her in relation. She has essentially been a nonambulator over the past 5 years. She has had extensive surgeries on her left knee which she considers "her badly". She is maximal assist for any sort of mobilization and sll-do-kgyro transfers. She had an incident and twisted her knee yesterday and has new fracture at her right distal. She has severe end-stage arthritis at her right knee as well with valgus deformity and she is morbidly obese. She is a nonambulator and she is not interested in any sort of surgical intervention. She says that her doctors told her that she is not a candidate for any surgery. It would be very difficult to determine if surgical intervention for her new distal femur fracture with just for any improvement in her function or if we would simply add significant risk to her overall well-being and status. I think that the benefit would not outweigh the risk for her if we were to pursue surgical intervention for her distal femur fracture. I think that treatment with conservative measures is the most reasonable for her. She understands that this will leave significant stiffness in her right knee but she says that she does not move her recent right knee at this point. She says that she is not amatory this point and understands that she will have to be nonweightbearing on her right leg as this heals. She lives at home with her who is in ill and in home hospice and does not feel that she can be away from in a facility. She says that she has home care that helps her 3 times a day and is asking about a Jorge Alberto lift for her. Right now she is recently comfortable and a knee immobilizer. We discussed the possibility of placing in a hard cast but if the knee immobilizer is manageable for her we could leave that as she is essentially nonweightbearing and bed bound. I answered her questions best my ability and plan she can understand. We will have case management discuss her issues with her and her status for when she is able to be discharged from the hospital possibly with continued home care and Jorge Alberto lift. She should remain nonweightbearing on right lower extremity likely for the next 2 months before she can start weightbearing on the right leg.
[2018-10-02 11:38] LABS: Glucose,Whole Blood 98 mg/dL (75-99)
[2018-10-02] MEDS ORDERED: ISOSORBIDE MONONITRATE ER 30 MG TAB.ER.24H PO SCH (12:00)
[2018-10-02] MEDS ORDERED: ASPIRIN 81 MG PO SCH (12:00)
[2018-10-02] MEDS ORDERED: MORPHINE SULFATE 2 MG/ML SYRINGE IVP STA (13:03)
[2018-10-02] MEDS ORDERED: NAPROXEN 250 MG TAB PO STA (13:03)
[2018-10-02] MEDS ORDERED: HYDROcodone/APAP 10-325MG 1 EACH TAB PO ONE (13:08)
--- NOTE | 2018-10-02 13:43 | HP ---
HISTORY AND PHYSICAL DATE OF ADMISSION: October 01, 2018. DATE OF SERVICE: October 01, 2018. PRESENTING COMPLAINT: Fracture right femur. HISTORY OF PRESENTING COMPLAINT: This is a very pleasant 78-year-old patient of visiting physician Dr. Harvey. Chronic stable medical conditions include COPD, diabetes, hyperlipidemia, hypertension, osteoarthritis, hypothyroid, morbid obesity, chronic hypoxic respiratory failure on 4 L oxygen at home. The patient reports she uses a Jorge Alberto lift. The patient has multiple other problems. The patient is nonambulatory. The patient somewhat twisted her leg and heard a crack. X-ray in the ER revealed fracture of the distal femur. Dr. aGrcia was called from the ER. They will not do any surgical intervention. Hence patient is admitted to our service. The patient has got a mobilizer brace in place. Patient does not want to go to inpatient rehab. She has been there she says for 3 months in the past. The other condition really did not help much. The patient has a at home who is under hospice, who is also wheelchair bound. She wants to get back to him. Pain is much better controlled. REVIEW OF SYSTEMS: CONSTITUTIONAL: None. HEENT none. RESPIRATORY: Occasional short of breath. CARDIOVASCULAR: None. GASTROINTESTINAL: None. GENITOURINARY: Incontinence. MUSCULOSKELETAL: As above and pain in different joints. DERMATOLOGICAL: None. HEMATOLOGICAL: None. LYMPHATICS: None. PSYCHIATRIC: Slightly anxious. NEUROLOGICAL: Peripheral neuropathy. PAST MEDICAL HISTORY: Of asthma, heart failure, COPD, diabetes, hyperlipidemia, hypertension, osteoarthritis, hypothyroid, morbid obesity, diabetes type 2, on home oxygen 4 L. CHF from diastolic dysfunction, left leg lymphedema, peripheral neuropathy, macular degeneration, chronic pain in multiple joints, chronic urine incontinence, hypothyroidism. PAST SURGICAL HISTORY: Hernia repair, hysterectomy, left knee x2 surgery, knee and lower back surgery, left breast lumpectomy without cancer, bilateral hand surgery, bilateral cataract extraction, nonmalignant mass removed from left flank, hysterectomy, abdominal hernia repair, right carpal tunnel release, left leg wound debridement. SOCIAL HISTORY: She lives with her of 60 years of marriage. She has [facility] of [employer] coming in and also got an aide 3 times a week. Jorge Alberto lift is used for her. 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 No smoking. No alcohol. FAMILY HISTORY: Reviewed, noncontributory to presentation. HOME MEDICATIONS: 1. Simvastatin 40 mg q.h.s. 2. Protonix 40 mg daily p.r.n. 3. Magnesium 400 mg q.h.s. 4. DuoNeb q.i.d. p.r.n. 5. Lantus 30 units subcu q.h.s. 6. Aspirin 81 mg p.o. daily. 7. Glucophage 1000 mg p.o. daily. 8. Toprol-XL 25 mg p.o. daily. 9. Cozaar 25 mg p.o. daily. 10.Synthroid 125 mcg a day. 11.Imdur ER 30 mg a day. 12.[place] 10 one tablet t.i.d. p.r.n. 13.Gabapentin 600 mg t.i.d. 14.Lasix 40 mg daily. 15.Plavix 75 mg p.o. daily. 16.Celexa 20 mg p.o. daily. 17.Vitamin D3 1000 units p.o. daily. 18.Ceftin 250 mg b.i.d. 19.Symbicort 160/4.5, 2 puffs b.i.d. ALLERGIES: TO ATENOLOL. PHYSICAL EXAMINATION: VITAL SIGNS: Vital signs on presentation, temperature 98.3, pulse 73, respiration 20, blood pressure 120/56, pulse ox 95 percent on 4 L. GENERAL APPEARANCE: Well built. BMI 49.9. Lying in bed, somewhat anxious-appearing. EYES: Pupils equal. Conjunctivae normal. HEENT: External appearance of nose and ears normal. Oral cavity normal. NECK: JVD unable to assess. Mass not palpable. RESPIRATORY: Effort increased. LUNGS: Distant breath sounds. CARDIOVASCULAR: Heart sounds muffled. No edema. ABDOMEN: Distended, soft. Liver and spleen not palpable. LYMPHATIC: No lymph nodes palpable in the neck or axilla. PSYCHIATRY: Alert and oriented times three. Mood and affect anxious-appearing. EXTREMITIES: Right lower extremity in an immobilizer brace. Left leg has got lymphedema. INVESTIGATIONS: White count 10.8, hemoglobin 11.9, potassium 4.8, BUN 25, creatinine 0.89. Accu-Cheks are noted. X-rays reviewed by Orthopedic revealed right distal femur fracture. ASSESSMENT: 1. Acute right femur distal fracture, not a candidate for surgery per Orthopedics. Patient has got an immobilizer brace in place. 2. Chronic medical debility at baseline, patient is immobile and does use a Jorge Alberto lift. 3. Chronic congestive heart failure from diastolic dysfunction. EF 60-65 percent. 4. Chronic obstructive pulmonary disease in a nonsmoker. 5. Diabetes mellitus type 2 on oral hypoglycemics. 6. Hyperlipidemia. 7. Essential hypertension. 8. Primary osteoarthritis. 9. Morbid obesity BMI 49.9. 10.Chronic hypoxic respiratory failure on home oxygen 4 L. 11.Peripheral neuropathy probably secondary to diabetes. 12.Macular degeneration. 13.Chronic urine incontinence. 14.Chronic pain syndrome for multiple joint problems. 15.Hypothyroidism. PLAN: I had a very lengthy talk with the patient. She does not want to go to rehab. Patient is to go home. She says her pain is much better controlled. Seen by Dr. Garcia from Orthopedics. Has an immobilizer brace in place. She wants to go back and join her , is not going to leave him alone. She is also under hospice. Care was discussed with the patient. Questions were answered. Copy to Visiting Physicians, Dr. Harvey. MMJANETTEL / LEIGHN: [id number] /
[2018-10-02 16:58] LABS: Glucose,Whole Blood 150 mg/dL (75-99)
[2018-10-02 19:14] VITALS: BP 93/54; PULSE 73; RESP 16; TEMP 98.2
--- NOTE | 2018-10-02 22:43 | DS ---
DISCHARGE SUMMARY DATE OF ADMISSION: 10/01/2018. DATE OF DISCHARGE: 10/02/2018. FINAL DIAGNOSES: 1. Acute right femur distal fracture, not a candidate for surgery. 2. Chronic medical debility at baseline, patient is immobile, uses a Jorge Alberto lift. 3. Chronic congestive heart failure from diastolic dysfunction, ejection fraction 60% to 65%. 4. Chronic obstructive pulmonary disease in a nonsmoker. 5. Diabetes mellitus type 2 on oral hypoglycemics. 6. Hyperlipidemia. 7. Essential hypertension. 8. Primary osteoarthritis. 9. Morbid obesity BMI 49.9. 10.Chronic hypoxic respiratory failure on home oxygen 4 L. 11.Peripheral neuropathy, probably secondary to diabetes. 12.Macular degeneration. 13.Chronic urinary incontinence. 14.Chronic pain syndrome from multiple joint problems. 15.Hypothyroidism. HOSPITAL COURSE: Please see my H and P from earlier today. The patient presented with a fracture of the right femur. Was put on a immobilizer cast by Orthopedics. The patient at baseline is nonmobile. Is not felt to be a candidate for rehab. In any case, the patient did not want to go to rehab, wanted to go back to her who is on hospice at home. Seen by Dr. Garcia from Orthopedics. Pain is well controlled. Not for any intervention. The patient is keen to go back to her who is under hospice. CONSULTATIONS: 1. Dr. Garcia from [facility]. PHYSICAL EXAMINATION: On examination, temperature 98.2, pulse 73, respirations 16, blood pressure 93/54, pulse ox 92 percent on 4 L. EXTREMITIES: Right lower extremity in a brace. The patient is nonweightbearing. DISCHARGE MEDICATIONS: See my H and P from earlier. No change in home medication except naproxen 250 mg t.i.d. has been added. FOLLOWUP: 1. Sandeep Claros in 2 weeks. 2. Visiting Physician, , in 2 days. The patient has already had quite a bit of support at home from [facility] and aids come 3 times a day. shopper insights manager was involved in discharge planning. DOMINGA / IZABEL: [id number] /
[2018-10-03 11:12] LABS: Hemoglobin A1C 6.1 % (4.0-6.0)
== END 2018-10-02 20:23 | disposition home health service (06) | DRG 534 ==
LOC: EC 09:35 → 4SSUR 12:55
PROVIDERS: ADMIT Hospitalist; ATTEND Hospitalist
DX: S72.491A Other fracture of lower end of right femur, initial encounter for closed fracture (principal); I50.32 Chronic diastolic (congestive) heart failure; J96.11 Chronic respiratory failure with hypoxia; Z68.42 Body mass index [BMI] 45.0-49.9, adult; E03.9 Hypothyroidism, unspecified; E11.42 Type 2 diabetes mellitus with diabetic polyneuropathy; E66.01 Morbid (severe) obesity due to excess calories; E78.5 Hyperlipidemia, unspecified; G47.33 Obstructive sleep apnea (adult) (pediatric); G89.4 Chronic pain syndrome; H35.30 Unspecified macular degeneration; I07.1 Rheumatic tricuspid insufficiency; I11.0 Hypertensive heart disease with heart failure; I27.20 Pulmonary hypertension, unspecified; J44.9 Chronic obstructive pulmonary disease, unspecified; M17.11 Unilateral primary osteoarthritis, right knee; R32 Unspecified urinary incontinence; Z79.02 Long term (current) use of antithrombotics/antiplatelets; Z79.4 Long term (current) use of insulin; Z79.51 Long term (current) use of inhaled steroids; Z79.82 Long term (current) use of aspirin; Z79.890 Hormone replacement therapy; Z79.899 Other long term (current) drug therapy; Z90.710 Acquired absence of both cervix and uterus; Z96.652 Presence of left artificial knee joint; Z99.81 Dependence on supplemental oxygen; Z98.42 Cataract extraction status, left eye; Z98.41 Cataract extraction status, right eye; Z88.8 Allergy status to other drugs, medicaments and biological substances
CPT/HCPCS: 36415; 80053; 83036; 85025; 85610; 85730; 94640; 96361; 96374; 99285

== ENCOUNTER 2018-10-05 12:59 | Observation (INO) | payer MEDICARE, OTHER ==
[2018-10-05] MEDS ORDERED: MORPHINE SULFATE 4 MG/ML SYRINGE IVP STA ×2 (13:33→15:25)
--- NOTE | 2018-10-05 14:07 | ED ---
Lower Extremity Injury HPI <RanulfoMarcio - Last Filed: 10/05/18 16:55> - General Source: patient, EMS Mode of arrival: EMS Limitations: no limitations <Ngoc Fierro - Last Filed: 10/05/18 18:57> - General Chief Complaint: Extremity Injury, Lower Stated Complaint: Leg pain Time Seen by Provider: 10/05/18 13:13 - History of Present Illness Initial Comments: 78-year-old female with hyperlipidemia, hypertension, thyroid disorder, morbid obesity, COPD on home oxygen 4 L, insulin-dependent diabetes presenting today for chief complaint of persistent right leg pain x 5 days. Patient states she presented Wednesday09/30/18 after an injury from a easy lift transferring device, she states she is none ambulatory baseline at home. Patient states that she was diagnosed with a right femur fracture and was told it was nonoperative. Patient was offered at that time admission to a rehabilitation facility upon discharge, for further care. Patient refused wanted to go home. Patient was discharged with prescription of Plavix orally. Patient states that since discharge she has not been able to tolerate the pain. She denies any significant swelling or change in characteristic of the pain she denies any chest pain dyspnea describes exertion, headache nausea or vomiting. Patient denies any coolness or pallor of the extremity. Upon arrival patient appears uncomfortable, there is right knee immobilizer in place. Upon chart review x-ray findings revealed pt diagnosed with acute displaced intra-articular fracture through the distal femoral metaphysis with impaction and posterior displacement of distal fracture fragment, 2.1 cm displacement. Remaining ROS (-) upon arrival, patient denies any new trauma, fever, chills, shortness of breath, chest pain, back pain, abdominal pain, nausea or vomiting, numbness or tingling, dysuria or hematuria, constipation or diarrhea, headaches or visual changes, or any other complaints. (Ngoc Fierro) - Related Data Home Medications Medication Instructions Recorded Confirmed Cholecalciferol [Vitamin D3] 1,000 unit PO DAILY 02/24/15 10/05/18 HYDROcodone/APAP 10-325MG [Victor 1 tab PO TID PRN 11/18/15 10/05/18 10-325] Simvastatin 40 mg PO HS 05/30/16 10/05/18 metFORMIN HCL [Glucophage] 1,000 mg PO DAILY 05/30/16 10/05/18 Insulin Glargine,Hum.rec.anlog 30 unit SQ HS 06/19/17 10/05/18 [Lantus Solostar] Aspirin [Adult Low Dose Aspirin EC] 81 mg PO DAILY@1200 08/06/17 10/05/18 Citalopram Hydrobromide [CeleXA] 20 mg PO DAILY 08/06/17 10/05/18 Losartan [Cozaar] 25 mg PO DAILY 01/14/18 10/05/18 Ipratropium-Albuterol Nebulize 3 ml INHALATION RT-QID PRN 04/08/18 10/05/18 [Duoneb 0.5 mg-3 mg/3 ml Soln] Magnesium 400 mg PO HS 04/08/18 10/05/18 Gabapentin 600 mg PO TID 09/05/18 10/05/18 Isosorbide Mononitrate ER [Imdur] 30 mg PO DAILY@1200 09/05/18 10/05/18 Levothyroxine Sodium [Synthroid] 125 mcg PO DAILY 09/05/18 10/05/18 Metoprolol Succinate (ER) [Toprol 25 mg PO DAILY 09/05/18 10/05/18 XL] Pantoprazole [Protonix] 40 mg PO DAILY PRN 09/05/18 10/05/18 Previous Rx's Medication Instructions Recorded Budesonide-Formot 160-4.5 Mcg 2 puff INHALATION RT-BID puff 08/10/17 [Symbicort 160-4.5 Mcg Inhaler] Clopidogrel [Plavix] 75 mg PO DAILY tab 08/10/17 Furosemide [Lasix] 40 mg PO DAILY tab 08/10/17 Naproxen [Naprosyn] 250 mg PO TID #21 tab 10/02/18 Allergies Allergy/AdvReac Type Severity Reaction Status Date / Time atenolol [From Tenormin] AdvReac Severe Anxiety Verified 10/05/18 13:54 attack Review of Systems ROS Other: All systems not noted in ROS Statement are negative. <Marcio Winchester - Last Filed: 10/05/18 16:55> ROS Other: All systems not noted in ROS Statement are negative. <Ngoc Fierro - Last Filed: 10/05/18 18:57> ROS Statement: Those systems with pertinent positive or pertinent negative responses have been documented in the HPI. Past Medical History Past Medical History: Asthma, Cancer, Heart Failure, COPD, Diabetes Mellitus, Eye Disorder, Hyperlipidemia, Hypertension, Osteoarthritis (OA), Thyroid Disorder Additional Past Medical History / Comment(s): Morbid obesity, obstructive, IDDM type II, chronic respiratory failure with home O2 most of the time 4 liters, CHF diastolic dysfunction, 03/04/15 ech with mild pulmonary hypertension, mild to moderate tricuspid regurg, L ventricular systolic function normal EF 60-65%, L leg lymphedema, peripheral neuropathy bilateral legs/feet, macular degeneration bilaterally-vision is now poor, falls, gait dysfunction, chronic pain multiple joints, chronic urine incontinence, sinus problems, obesity, hypothyroidism, osteoarthritis History of Any Multi-Drug Resistant Organisms: MRSA Date of last positivie culture/infection: 2012 MDRO Source:: Blood, unknown Past Surgical History: Hernia Repair, Hysterectomy, Joint Replacement, Orthopedic Surgery Additional Past Surgical History / Comment(s): total L knee x 2, knee and lower back surgery, left breast Lumpectomy without cancer, bilateral hand surgeries, bilateral cataract extraction with intraocular lens implantations, nonmalignant mass removed from left leg -resulting lymphedema, oopherectomy, hysterectomy and abdominal hernia repair, R carpal tunnel release, L leg wound debridement, lymph node removed from L neck. Past Anesthesia/Blood Transfusion Reactions: No Reported Reaction Past Psychological History: Anxiety Smoking Status: Never smoker Past Alcohol Use History: None Reported Past Drug Use History: None Reported - Past Family History Mother Family Medical History: Cancer Additional Family Medical History / Comment(s): Mother at age 89 with pt believes bone cancer. Father Family Medical History: Unable to Obtain Additional Family Medical History / Comment(s): Pt's father when she was 2 yrs old. He was in WWII and of a strep infection. <Ngoc Fierro - Last Filed: 10/05/18 18:57> General Exam <Marcio Winchester - Last Filed: 10/05/18 16:55> Limitations: no limitations <Ngoc Fierro - Last Filed: 10/05/18 18:57> - General Exam Comments Initial Comments: General: The patient is awake and alert, appears uncomfortable, no distress, does not appear toxic. Morbidly obese Eye: +3 mm pupils are equal, round and reactive to light, extra-ocular movements are intact. No nystagmus. There is normal conjunctiva bilaterally. No signs of icterus. Ears, nose, mouth and throat: There are moist mucous membranes and no oral lesions. Neck: The neck is supple, there is no tenderness or JVD. Cardiovascular: There is a regular rate and rhythm. No murmur, rub or gallop is appreciated. Respiratory: Lungs are clear to auscultation, respirations are non-labored, breath sounds are equal. No wheezes, stridor, rales, or rhonchi. Gastrointestinal: Soft, non-distended, non-tender abdomen without masses or organomegaly noted. There is no rebound or guarding present. Bowel sounds are unremarkable. Musculoskeletal: Pt unable to range at the right knee, hip secondary to pain in the right knee. Normal ROM, no tenderness. Strength 5/5 of the UE. Sensation intact. Radial and DP pulses equal bilaterally. Stasis dermatitis b/l no erythema. No pain to palpation of the calf, (-) Homans b/l. Neurological: A&O x 3. CN II-XII intact, There are no obvious motor or sensory deficits. Coordination appears grossly intact. Speech is normal. Skin: Skin is warm and dry and no rashes or lesions are noted. Psychiatric: Cooperative, appropriate mood & affect, normal judgment. (Ngoc Fierro) Vital Signs 10/05/18 10/05/18 10/05/18 13:00 15:18 16:53 Temperature 98.1 F Pulse Rate 77 81 75 Respiratory 16 16 16 Rate Blood Pressure 103/48 110/61 111/63 O2 Sat by Pulse 94 L 93 L 91 L Oximetry Medical Decision Making <Marcio Winchester - Last Filed: 10/05/18 16:55> <Ngoc Fierro - Last Filed: 10/05/18 18:57> - Medical Decision Making Case was discussed with practitioner Vadim. Case also discussed with Dr. Echavarria, who will admit. (Marcio Winchester) 78 year-old female presenting for intractable right leg pain. Patient diagnosed with right femur fracture Wednesday. Patient states she was told she may have option to go to rehab on Wednesday, patient states she declined. Patient has home care 3 times a day. Patient states that the pain has been on Tylenol at home. She states she would like to be admitted to the hospital and would like to proceed with outpatient rehabilitation. Patient is jamila lift at home. Pt on plavix. Pt denies any new symptoms. Pt denies any change in characteristic or new injury. Social work consulted, recommending admission with PT/OT evaluation so patient may attempt approval for outpatient subacute rehabilitation. Dr. Echavarria accepted admission, after discussing the case. No further questions or orders at this time. Pt transferred to the floor after analgesics provided in the emergency department. Pt neurovascularly intact. (Ngoc Fierro) Disposition <Marcio Winchester - Last Filed: 10/05/18 16:55> Is patient prescribed a controlled substance at d/c from ED?: No Time of Disposition: 16:19 Decision to Admit Reason: Admit from EC Decision Date: 10/05/18 Decision Time: 16:19 <Ngoc Fierro - Last Filed: 10/05/18 18:57> Clinical Impression: Intractable pain, Femur fracture, right Disposition: ADMITTED IP TO THIS HOSP Condition: Stable
[2018-10-05] MEDS ORDERED: SODIUM CHLORIDE 0.9% 1,000 ML IV SCH (16:15)
[2018-10-05] MEDS ORDERED: NALOXONE 0.4 MG/ML 1 ML VIAL IV PRN (16:15)
[2018-10-05] MEDS ORDERED: PANTOPRAZOLE 40 MG TABLET PO PRN (19:51)
[2018-10-05] MEDS ORDERED: IPRATROPIUM-ALBUTEROL 3 ML NEB INHALATION PRN (19:51)
[2018-10-05] MEDS: SYMBICORT 160-4.5 MCG INHALER INHALATION SCH (20:20)
[2018-10-05] MEDS: ATORVASTATIN 20 MG TAB PO SCH (22:05)
[2018-10-05] MEDS: NAPROXEN 250 MG TAB PO SCH (22:05)
[2018-10-05] MEDS: GABAPENTIN 300 MG CAP PO SCH (22:06)
[2018-10-05] MEDS: INSULIN DETEMIR (LEVEMIR) 100 UNIT/ML SYR SQ SCH (22:06)
[2018-10-05] MEDS: MORPHINE SULFATE 4 MG/ML SYRINGE IV PRN (22:06)
[2018-10-05] MEDS: MAGNESIUM OXIDE 400 MG TAB PO SCH (22:06)
[2018-10-05 22:10] LABS: Glucose,Whole Blood 92 mg/dL (75-99)
--- NOTE | 2018-10-05 22:38 | HP ---
HISTORY AND PHYSICAL DATE OF ADMISSION: 10/05/2018. DATE OF SERVICE: 10/05/2018. PRESENT COMPLAINT: Unable to manage at home. HISTORY OF PRESENTING COMPLAINT: This is a 78-year-old patient who follows with visiting physician Dr. Harvey. Chronic stable medical conditions include COPD, diabetes, hyperlipidemia, hypertension, osteoarthritis, hypothyroid, morbid obesity, chronic hypoxic respiratory failure on 4 L oxygen at home. She also has a Jorge Alberto left. The patient at baseline is nonambulatory. The patient had presented on 10/01/2018 to the hospital after she had a fractured distal femur. The patient was seen by Orthopedics and given leg brace. No intervention could be done. Patient decided to go back home where her is under hospice and is also wheelchair bound. The patient's pain was controlled. The patient at home could not be transferred from the Jorge Alberto lift to the commode, was not able to manage herself at home. Hence, she presented to the ER. REVIEW OF SYSTEMS: CONSTITUTIONAL: None. HEENT: None. RESPIRATORY: Mild shortness of breath. CARDIOVASCULAR: None. GASTROINTESTINAL: None. GENITOURINARY: Incontinence. MUSCULOSKELETAL: Pain in multiple joints. DERMATOLOGICAL, HEMATOLOGIC, LYMPHATICS: None. PSYCHIATRY none. NEUROLOGICAL: Peripheral neuropathy. PAST MEDICAL HISTORY: Asthma, heart failure, COPD, diabetes, hyperlipidemia, hypertension, osteoarthritis, hypothyroid, morbid obesity, diabetes mellitus type 2, on home oxygen 4 L, CHF from diastolic dysfunction, left leg lymphedema, peripheral neuropathy, macular degeneration, chronic pain in multiple joints, chronic urine incontinence, hypothyroidism. PAST SURGICAL HISTORY: Hernia repair, hysterectomy, left knee x2 surgery, lower back surgery, left breast lumpectomy without cancer, bilateral hand surgery, bilateral cataract extraction, lobulated mass removed from the left flank, hysterectomy, abdominal hernia repair, right carpal tunnel release, left leg wound debridement. SOCIAL HISTORY: The patient lives with her of 60 years of marriage. She has [facility] coming in and has an aide 3 times a week. A Jorge Alberto lift is used. 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 No smoking. No alcohol. at home, bound in wheelchair, with hospice. FAMILY HISTORY: Reviewed, noncontributory to presentation. HOME MEDICATIONS: 1. Glucophage 1000 mg p.o. daily. 2. Simvastatin 40 mg at bedtime. 3. Protonix 40 mg p.o. daily p.r.n. 4. Naproxen 250 mg t.i.d. 5. Toprol-XL 25 mg a day. 6. Magnesium 400 mg p.o. at bedtime. 7. Cozaar 25 mg p.o. daily. 8. Synthroid 125 mcg a day. 9. Imdur ER 30 mg p.o. daily. 10.DuoNeb q.i.d. p.r.n. 11.Lantus 30 units subcu at bedtime. 12.[place] 10 one tablet t.i.d. p.r.n. 13.Gabapentin 600 mg t.i.d. 14.Lasix 40 mg p.o. daily. 15.Plavix 75 mg p.o. daily. 16.Celexa 20 mg p.o. daily. 17.Vitamin D3, 1000 units p.o. daily. 18.Symbicort 160/4.5, 2 puffs b.i.d. 19.Aspirin 81 mg p.o. daily. ALLERGIES: ATENOLOL. PHYSICAL EXAMINATION: Temperature 98, pulse 75, respirations 16, blood pressure 100/66, pulse ox 99 percent room air. GENERAL APPEARANCE: BMI 40.9. Lying in bed, awake. EYES: Pupils equal. Conjunctivae normal. HEENT: External nose and ears normal. Oral cavity normal. NECK: JVD unable to assess. Mass not palpable. Respiratory effort increased. LUNGS: Distant breath sounds. CARDIOVASCULAR: Heart sounds muffled. Lymphedema of the left leg. ABDOMEN: Distended, soft. Liver and spleen not palpable. LYMPHATIC: No lymph nodes palpable in the neck. Lymphedema of the left lower extremity. PSYCHIATRY: Alert and oriented x3. Mood and affect slightly anxious. Right lower extremity has got immobilizer brace. INVESTIGATIONS: White count 10.8, potassium 4.8, BUN 25, creatinine 0.89. Accu-Cheks are noted. ASSESSMENT: 1. Acute right femur distal fragment, not a candidate for surgery per Orthopedics. Patient has got immobilizer brace in place. 2. Chronic medical debility at baseline, patient uses a Jorge Alberto lift. 3. Chronic congestive heart failure from diastolic dysfunction. Ejection fraction 60% to 65%. 4. Chronic obstructive pulmonary disease in a nonsmoker. 5. Diabetes mellitus type 2 on oral hypoglycemic. 6. Hyperlipidemia. 7. Essential hypertension. 8. Primary osteoarthritis. 9. Morbid obesity BMI 49.9. 10.Chronic hypoxic respiratory failure on home oxygen 4 L. 11.Peripheral neuropathy secondary to diabetes. 12.Macular degeneration. 13.Chronic urinary incontinence. 14.Chronic pain syndrome from multiple joint problems. 15.Hypothyroidism. 16.Diabetes mellitus type 2, uncontrolled from hypoglycemia. PLAN: Dose of Lantus will be cut back. bull gang worker to work with. PT/OT is consulted. Home medications are resumed. The patient is not able to manage at home at all and it will be very difficult for her to return to home given the current changes that she was just discharged and returned to the hospital. MMODL / IJN: [id number] /
[2018-10-06] MEDS ORDERED: MORPHINE SULFATE 4 MG/ML SYRINGE ONE (03:10)
[2018-10-06] MEDS: LEVOTHYROXINE 125 MCG TAB PO SCH (06:39)
[2018-10-06 07:18] LABS: Glucose,Whole Blood 85 mg/dL (75-99)
[2018-10-06] MEDS: SYMBICORT 160-4.5 MCG INHALER INHALATION SCH ×2 (08:22→20:22)
[2018-10-06] MEDS: metFORMIN 500 MG TAB PO SCH (09:16)
[2018-10-06] MEDS: CITALOPRAM HYDROBROMIDE 20 MG TAB PO SCH (09:16)
[2018-10-06] MEDS: GABAPENTIN 300 MG CAP PO SCH ×3 (09:16→21:02)
[2018-10-06] MEDS: METOPROLOL SUCCINATE (ER) 25 MG TAB.ER.24H PO SCH (09:17)
[2018-10-06] MEDS: CLOPIDOGREL 75 MG TAB PO SCH (09:17)
[2018-10-06] MEDS: LOSARTAN 25 MG TAB PO SCH (09:17)
[2018-10-06] MEDS: FUROSEMIDE 40 MG TAB PO SCH (09:17)
[2018-10-06] MEDS: NAPROXEN 250 MG TAB PO SCH ×3 (09:19→22:17)
[2018-10-06 12:25] LABS: Glucose,Whole Blood 165 mg/dL (75-99)
[2018-10-06] MEDS: ISOSORBIDE MONONITRATE ER 30 MG TAB.ER.24H PO SCH (16:29)
[2018-10-06] MEDS: ASPIRIN 81 MG PO SCH (16:35)
[2018-10-06 17:16] LABS: Glucose,Whole Blood 115 mg/dL (75-99)
[2018-10-06 20:57] LABS: Glucose,Whole Blood 148 mg/dL (75-99)
[2018-10-06] MEDS: INSULIN DETEMIR (LEVEMIR) 100 UNIT/ML SYR SQ SCH (21:02)
[2018-10-06] MEDS: MAGNESIUM OXIDE 400 MG TAB PO SCH (21:02)
[2018-10-06] MEDS: ATORVASTATIN 20 MG TAB PO SCH (21:02)
--- NOTE | 2018-10-06 22:35 | PN ---
PROGRESS NOTE DATE OF SERVICE: 10/06/2018 PRESENTING COMPLAINT: Tired. INTERVAL HISTORY: This patient with multiple medical problems presented with right femur fracture, unable to manage at home. cleaning and maintenance worker is looking into placement. REVIEW OF SYSTEMS: Done for constitutional, cardiovascular, GI, pulmonary; relevant findings as above. CURRENT MEDICATIONS: Reviewed. PHYSICAL EXAMINATION: VITAL SIGNS: Temperature 98.3, pulse 68, respiration 14, blood pressure 97/54, pulse ox 93% on 4 L. GENERAL APPEARANCE: Sitting up. Tired. EYES: Pupils equal. Conjunctivae normal. NECK: JVD not raised. Mass not palpable. RESPIRATORY: Effort increased. LUNGS: Diminished breath sounds. CARDIOVASCULAR: Heart sounds muffled. Lymphedema of the left leg. ABDOMEN: Distended, soft. Liver and spleen not palpable. PSYCHIATRY: Patient able to answer simple questions. EXTREMITIES: Right lower extremity has an immobilizer brace. INVESTIGATIONS: Accu-Cheks are noted. ASSESSMENT: 1. Acute right femur distal fragment, not a candidate for surgery. The patient has an immobilizer brace. 2. Chronic medical debility at baseline. The patient requires support. 3. Chronic congestive heart failure from diastolic dysfunction; ejection fraction 60% to 65%. 4. Chronic obstructive pulmonary disease in a nonsmoker. 5. Diabetes mellitus, type 2, on oral hypoglycemic. 6. Hyperlipidemia. 7. Essential hypertension. 8. Primary osteoarthritis. 9. Morbid obesity, body mass index of 49.9. 10.Chronic hypoxic respiratory failure, on home oxygen 4 L. 11.Peripheral neuropathy secondary to diabetes. 12.Macular degeneration. 13.Chronic urinary incontinence. 14.Chronic pain syndrome from multiple joint problems. 15.Hypothyroidism. 16.Diabetes mellitus, type 2, uncontrolled with hyperglycemia. PLAN: The patient is doing better. Continue current medication and treatment plan. PT/OT and social work job titles are involved. I discussed with them. Looking at placement. MMODL / IJN: [id number] /
[2018-10-07] MEDS: LEVOTHYROXINE 125 MCG TAB PO SCH (05:35)
[2018-10-07] MEDS ORDERED: INSULIN DETEMIR (LEVEMIR) 100 UNIT/ML SYR SQ SCH (06:10)
[2018-10-07 07:13] LABS: Glucose,Whole Blood 84 mg/dL (75-99)
[2018-10-07] MEDS: MORPHINE SULFATE 4 MG/ML SYRINGE IV PRN ×2 (07:26→11:35)
[2018-10-07] MEDS: SYMBICORT 160-4.5 MCG INHALER INHALATION SCH ×2 (07:32→19:59)
[2018-10-07 08:09] VITALS: RESP 15
[2018-10-07] MEDS: LOSARTAN 25 MG TAB PO SCH (08:18)
[2018-10-07] MEDS: GABAPENTIN 300 MG CAP PO SCH ×2 (08:18→16:44)
[2018-10-07] MEDS: metFORMIN 500 MG TAB PO SCH (08:18)
[2018-10-07] MEDS: CLOPIDOGREL 75 MG TAB PO SCH (08:18)
[2018-10-07] MEDS: CITALOPRAM HYDROBROMIDE 20 MG TAB PO SCH (08:18)
[2018-10-07] MEDS: METOPROLOL SUCCINATE (ER) 25 MG TAB.ER.24H PO SCH (08:18)
[2018-10-07] MEDS: FUROSEMIDE 40 MG TAB PO SCH (08:18)
[2018-10-07] MEDS: NAPROXEN 250 MG TAB PO SCH ×2 (08:19→16:43)
[2018-10-07] MEDS: ASPIRIN 81 MG PO SCH (11:35)
[2018-10-07] MEDS: ISOSORBIDE MONONITRATE ER 30 MG TAB.ER.24H PO SCH (11:35)
[2018-10-07 11:40] LABS: Glucose,Whole Blood 108 mg/dL (75-99)
--- NOTE | 2018-10-07 15:31 | DS ---
DISCHARGE SUMMARY DATE OF ADMISSION: 10/05/2018 DATE OF DISCHARGE: 10/07/2018 FINAL DIAGNOSES: 1. Acute right femur, distal fragment fracture spontaneous with the immobilizer brace. The patient is not a candidate for surgery. 2. Chronic medical debility at baseline. 3. Chronic congestive heart failure from diastolic dysfunction. EF 60% to 65%. 4. Chronic obstructive pulmonary disease in a nonsmoker. 5. Diabetes mellitus type 2 on oral hypoglycemic. 6. Hyperlipidemia. 7. Essential hypertension. 8. Primary osteoarthritis. 9. Morbid obesity, body mass index 49.9. 10.Chronic hypoxic respiratory failure, on home oxygen 4 L. 11.Peripheral neuropathy secondary to diabetes. 12.Macular degeneration. 13.Chronic urine incontinence. 14.Chronic pain syndrome from multiple joint problems. 15.Hypothyroidism. 16.Diabetes mellitus type 2, uncontrolled with hypoglycemia. HOSPITAL COURSE: This very pleasant lady was just in the hospital on 10/01/2018, and was subsequently discharged on 10/02/2018 following a right femur fracture. Patient has good home support from causing aging pupil's Visiting 3 times a day. The patient normally has a support to stand up and then to pivot pit. The patient also got a at home, was under hospice on a wheelchair last admission. She was seen by Dr. Garcia from Orthopedics for the distal femur fracture not felt to be a surgical candidate, was told to not weightbearing. Patient did go home that came back as she could not manage at home. Seen by social worker health services, PT, OT, and patient was will be going for inpatient rehab. PHYSICAL EXAMINATION: VITAL SIGNS: Temperature 98.3 pulse 71, respiratory blood pressure 126/45, pulse ox 95% on 4. APPEARANCE: Lying in bed, comfortable. RESPIRATORY: Effort increased lungs distant breath sounds. CARDIOVASCULAR: Heart sounds muffled. Right lower extremity brace. INVESTIGATIONS: Accu-Cheks are noted. BUN 25, creatinine 0.89, hemoglobin 11.9. DISCHARGE MEDICATIONS: 1. Vitamin D3 1000 units p.o. daily. 2. Simvastatin 40 mg at bedtime. 3. Glucophage 1000 mg p.o. daily. 4. Lantus 30 units subcu q.h.s. 5. Aspirin 81 mg p.o. daily. 6. Celexa 20 mg daily. 7. Symbicort 160/4.5, 2 puffs b.i.d. 8. Plavix 75 mg p.o. daily. 9. Lasix 40 mg p.o. daily. 10.Cozaar 25 mg p.o. daily. 11.DuoNeb q.i.d. plus p.r.n. 12.Magnesium 4 mg q.h.s. 13.Imdur ER 30 mg p.o. daily. 14.Synthroid 125 mcg p.o. daily. 15.Toprol-XL 25 mg p.o. daily. 16.Protonix 40 mg p.o. daily p.r.n. 17.Naproxen 250 mg p.o. t.i.d. 18.Gabapentin 600 mg p.o. t.i.d. 19.[place] 10 1 tablet p.o. t.i.d. p.r.n. DISPOSITION: [facility]. FOLLOWUP: Follow up with Dr. Tobias in the [facility]. Follow up with Visiting Physician, Dr. Harvey after DC from the [facility]. The patient to be not weightbearing on the right lower extremity and follow up with Dr. Garcia in 2 weeks. MMODL / IJN: [id number] /
[2018-10-07 16:05] VITALS: BP 89/56; PULSE 74; TEMP 98.2
[2018-10-07 16:48] LABS: Glucose,Whole Blood 106 mg/dL (75-99)
== END 2018-10-07 21:00 ==
LOC: EC 12:59 → 4SSUR 16:15
PROVIDERS: ADMIT Hospitalist; ATTEND Hospitalist
DX: S72.491A Other fracture of lower end of right femur, initial encounter for closed fracture (principal); I11.0 Hypertensive heart disease with heart failure; I50.32 Chronic diastolic (congestive) heart failure; E66.01 Morbid (severe) obesity due to excess calories; E03.9 Hypothyroidism, unspecified; M19.91 Primary osteoarthritis, unspecified site; E78.5 Hyperlipidemia, unspecified; R53.81 Other malaise; J44.9 Chronic obstructive pulmonary disease, unspecified; J96.10 Chronic respiratory failure, unspecified whether with hypoxia or hypercapnia; E11.42 Type 2 diabetes mellitus with diabetic polyneuropathy; E11.65 Type 2 diabetes mellitus with hyperglycemia; I36.1 Nonrheumatic tricuspid (valve) insufficiency; R32 Unspecified urinary incontinence; H35.30 Unspecified macular degeneration; Z68.42 Body mass index [BMI] 45.0-49.9, adult; G89.4 Chronic pain syndrome; Z90.710 Acquired absence of both cervix and uterus; Z99.81 Dependence on supplemental oxygen; Z79.02 Long term (current) use of antithrombotics/antiplatelets; Z79.82 Long term (current) use of aspirin; Z79.51 Long term (current) use of inhaled steroids; Z79.890 Hormone replacement therapy; Z79.899 Other long term (current) drug therapy; Z88.8 Allergy status to other drugs, medicaments and biological substances
CPT/HCPCS: 96376 ×3; 96361; 96374; 99285; 94640 ×6; 97110; 97163; 97535; 97166; G0378 ×3; J2270 ×3

== ENCOUNTER 2018-11-24 20:43 | Inpatient (IN) | payer MEDICARE, OTHER ==
[2018-11-24 21:31] LABS: Basophils % (A) 0 %; Eosinophils # (A) 0.2 k/uL (0-0.7); Eosinophils % (A) 2 %; HCT 32.7 % (34.0-46.0); HGB 10.3 gm/dL (11.4-16.0); Lymphocytes # (A) 0.6 k/uL (1.0-4.8); Lymphocytes % (A) 7 %; MCH 31.2 pg (25.0-35.0); MCHC 31.4 g/dL (31.0-37.0); MCV 99.2 fL (80.0-100.0); Mean Platelet Volume 6.7; Monocytes # (A) 0.6 k/uL (0-1.0); Monocytes % (A) 7 %; Neutrophils # (A) 7.5 k/uL (1.3-7.7); Neutrophils % (A) 83 %; Platelet Count 278 k/uL (150-450); RBC 3.29 m/uL (3.80-5.40); RDW 13.4 % (11.5-15.5)
[2018-11-24 21:40] LABS: Calcium 8.2 mg/dL (8.4-10.2); Total Bilirubin 0.5 mg/dL (0.2-1.3)
[2018-11-24 21:44] LABS: INR 0.9 (<1.2); Prothrombin Time 10.1 sec (9.0-12.0)
[2018-11-24] MEDS ORDERED: IPRATROPIUM-ALBUTEROL 3 ML NEB INHALATION STA (21:45)
--- NOTE | 2018-11-24 21:57 | ED ---
Abdominal Pain HPI - General Source: patient, EMS Mode of arrival: EMS Limitations: no limitations <Ngoc Fierro - Last Filed: 11/25/18 01:30> <Percy Gould - Last Filed: 11/30/18 09:12> - General Chief Complaint: Abdominal Pain Stated Complaint: ABD pain Time Seen by Provider: 11/24/18 21:06 - History of Present Illness Initial Comments: 78-year-old female with DM, HTN, lymphedema of the left leg presenting today for chief complaint of cough and abdominal pain x 2 -3 days. Patient states that she has had increasing cough for the past few days. Patient states that the extended care facility that she is staying at was concerned and sent her for evaluation. Patient states that she is a dull aching pain in her belly when she coughs. Patient has history of hernia. Patient denies vomiting, diarrhea, headache, dizziness, nausea, chest pain. Patient states she does have some mild shortness of breath. She states she has baseline shortness of breath all the time however appear slightly increased. Patient admits to sputum production. Patient denies dysuria urgency frequency. She was recently hospitalized within the last 90 days. Remaining review of systems negative, Patient denies any recent fever, back pain, abdominal pain, numbness or tingling, constipation, visual changes, leg swelling or any other complaints. (Ngoc Fierro) - Related Data Home Medications Medication Instructions Recorded Confirmed Cholecalciferol [Vitamin D3] 1,000 unit PO DAILY 02/24/15 11/24/18 Insulin Glargine,Hum.rec.anlog 30 unit SQ HS 06/19/17 11/24/18 [Lantus Solostar] Citalopram Hydrobromide [CeleXA] 20 mg PO DAILY 08/06/17 11/24/18 Ipratropium-Albuterol Nebulize 3 ml INHALATION RT-QID PRN 04/08/18 11/24/18 [Duoneb 0.5 mg-3 mg/3 ml Soln] Isosorbide Mononitrate ER [Imdur] 30 mg PO DAILY 09/05/18 11/24/18 Levothyroxine Sodium [Synthroid] 125 mcg PO DAILY 09/05/18 11/24/18 Metoprolol Succinate (ER) [Toprol 25 mg PO DAILY 09/05/18 11/24/18 XL] Pantoprazole [Protonix] 40 mg PO DAILY 09/05/18 11/24/18 Fluticasone/Vilanterol [Breo 1 puff INHALATION RT-HS 11/24/18 11/24/18 Ellipta 200-25 Mcg INH] Simvastatin 40 mg PO HS 11/24/18 11/24/18 Previous Rx's Medication Instructions Recorded Clopidogrel [Plavix] 75 mg PO DAILY tab 08/10/17 Acetaminophen Tab [Tylenol] 650 mg PO Q6HR PRN tab 11/29/18 Amoxic-Pot Clav 875-125Mg 1 each PO Q12HR #14 tab 11/29/18 [Augmentin 875-125] Aspirin 81 mg PO DAILY chew 11/29/18 Gabapentin 600 mg PO TID #9 tablet 11/29/18 INSULIN ASPART (NovoLOG) [NovoLOG 0 unit SQ ACHS vial 11/29/18 (formulary)] Losartan [Cozaar] 25 mg PO HS #0 11/29/18 traMADol HCL [Ultram] 50 mg PO Q6HR PRN #9 tablet 11/29/18 Allergies Allergy/AdvReac Type Severity Reaction Status Date / Time atenolol [From Tenormin] AdvReac Severe Anxiety Verified 11/24/18 21:33 attack Review of Systems ROS Other: All systems not noted in ROS Statement are negative. <Ngoc Fierro - Last Filed: 11/25/18 01:30> ROS Other: All systems not noted in ROS Statement are negative. <Percy Gould - Last Filed: 11/30/18 09:12> ROS Statement: Those systems with pertinent positive or pertinent negative responses have been documented in the HPI. Past Medical History Past Medical History: Asthma, Cancer, Heart Failure, COPD, Diabetes Mellitus, Eye Disorder, Hyperlipidemia, Hypertension, Osteoarthritis (OA), Thyroid Disorder Additional Past Medical History / Comment(s): Morbid obesity, obstructive, IDDM type II, chronic respiratory failure with home O2 most of the time 4 liters, CHF diastolic dysfunction, 03/04/15 ech with mild pulmonary hypertension, mild to moderate tricuspid regurg, L ventricular systolic function normal EF 60-65%, L leg lymphedema, peripheral neuropathy bilateral legs/feet, macular degeneration bilaterally-vision is now poor, falls, gait dysfunction, chronic pain multiple joints, chronic urine incontinence, sinus problems, obesity, hypothyroidism, osteoarthritis History of Any Multi-Drug Resistant Organisms: MRSA Date of last positivie culture/infection: 2012 MDRO Source:: Blood, unknown Past Surgical History: Hernia Repair, Hysterectomy, Joint Replacement, Orthopedic Surgery Additional Past Surgical History / Comment(s): total L knee x 2, knee and lower back surgery, left breast Lumpectomy without cancer, bilateral hand surgeries, bilateral cataract extraction with intraocular lens implantations, nonmalignant mass removed from left leg -resulting lymphedema, oopherectomy, hysterectomy and abdominal hernia repair, R carpal tunnel release, L leg wound debridement, lymph node removed from L neck. Past Anesthesia/Blood Transfusion Reactions: No Reported Reaction Past Psychological History: Anxiety Smoking Status: Never smoker Past Alcohol Use History: None Reported Past Drug Use History: None Reported - Past Family History Mother Family Medical History: Cancer Additional Family Medical History / Comment(s): Mother at age 89 with pt believes bone cancer. Father Family Medical History: Unable to Obtain Additional Family Medical History / Comment(s): Pt's father when she was 2 yrs old. He was in WWII and of a strep infection. <Ngoc Fierro - Last Filed: 11/25/18 01:30> General Exam Limitations: no limitations <Ngoc Fierro - Last Filed: 11/25/18 01:30> - General Exam Comments Initial Comments: General: The patient is awake and alert, in no distress Eye: Pupils are equal, round and reactive to light, extra-ocular movements are intact. No nystagmus. There is normal conjunctiva bilaterally. No signs of icterus. Ears, nose, mouth and throat: There are moist mucous membranes and no oral lesions. Neck: The neck is supple, there is no tenderness or JVD. Cardiovascular: There is a regular rate and rhythm. No murmur, rub or gallop is appreciated. Respiratory: Respirations are non-labored, breath sounds are equal. No wheezes, stridor, or rhonchi. Mild rales present in lung valenzuela bilaterally. Gastrointestinal: Soft, non-distended, non-tender abdomen without masses or organomegaly noted. There is no rebound or guarding present. Bowel sounds are unremarkable. Umbilical hernia present midline, reducible. Musculoskeletal: Normal ROM, no tenderness. Strength 5/5. Sensation intact. Pulses equal bilaterally 2+. Neurological: A&O x 3. CN II-XII intact, There are no obvious motor or sensory deficits. Coordination appears grossly intact. Speech is normal. Skin: Skin is warm and dry and no rashes or lesions are noted. Psychiatric: Cooperative, appropriate mood & affect, normal judgment. (Ngoc Fierro) Course Vital Signs 11/24/18 11/24/18 11/24/18 21:03 22:30 22:37 Temperature 100.3 F H Pulse Rate 77 75 81 Respiratory 20 18 18 Rate Blood Pressure 119/79 O2 Sat by Pulse 96 Oximetry 11/25/18 11/25/18 00:00 01:00 Temperature 98.8 F Pulse Rate 80 81 Respiratory 20 18 Rate Blood Pressure 150/72 148/70 O2 Sat by Pulse 97 97 Oximetry Medical Decision Making - Lab Data Result diagrams: 11/24/18 21:18 11/25/18 00:35 <Ngoc Fierro - Last Filed: 11/25/18 01:30> - Lab Data Result diagrams: 11/27/18 06:17 11/29/18 11:18 <Percy Gould - Last Filed: 11/30/18 09:12> - Medical Decision Making 78-year-old female with history of CHF presenting today for chief complaint of cough. Pt on oxygen at [facility], 4. EKG was obtained revealing normal sinus no ST elevation or depression. Troponin elevated, upon chart review patients troponin appears elevated on multiple occasions. I discussed this findings immediately with attending, Dr Gould at this time we will hold heparin with concern for adverse effects such as hemorrhage with patients advanced age and significant comorbities. Ddx for elevated troponin included infection. Influenza (-). Repeat troponin appears no elevated. Cardiology will be consulted. CXR revealed patch infiltrates concerning for pneumonia. Pt will be started on hospital acquired pneumonia. Pt does not appear toxic. Lactic acid WNL. No significant leukocytosis. Blood cultures pending. Urinarlysis revealed large WBC, and (+) nitrates consistent with UTI. Convered with ceftriaxone. At this time pt will be admitted for elevated troponin. UTI. PNA hospital acquired. Dr. Gould spoke with admitted provider after we discussed the case with detail. (Ngoc Fierro) I saw this patient in conjunction with the physician market research assistant. I performed ind ependent history and physical exam. Agree with case management. (Percy Gould) - Lab Data Lab Results 11/24/18 11/24/18 11/24/18 Range/Units 21:18 21:18 21:18 WBC 9.0 (3.8-10.6) k/uL RBC 3.29 L (3.80-5.40) m/uL Hgb 10.3 L (11.4-16.0) gm/dL Hct 32.7 L (34.0-46.0) % MCV 99.2 (80.0-100.0) fL MCH 31.2 (25.0-35.0) pg MCHC 31.4 (31.0-37.0) g/dL RDW 13.4 (11.5-15.5) % Plt Count 278 (150-450) k/uL Neutrophils % 83 % Lymphocytes % 7 % Monocytes % 7 % Eosinophils % 2 % Basophils % 0 % Neutrophils # 7.5 (1.3-7.7) k/uL Lymphocytes # 0.6 L (1.0-4.8) k/uL Monocytes # 0.6 (0-1.0) k/uL Eosinophils # 0.2 (0-0.7) k/uL Basophils # 0.0 (0-0.2) k/uL PT (9.0-12.0) sec INR (<1.2) APTT (22.0-30.0) sec Sodium 137 (137-145) mmol/L Potassium 4.0 (3.5-5.1) mmol/L Chloride 95 L (98-107) mmol/L Carbon Dioxide 39 H (22-30) mmol/L Anion Gap 3 mmol/L BUN 24 H (7-17) mg/dL Creatinine 0.88 (0.52-1.04) mg/dL Est GFR (CKD-EPI)AfAm 73 (>60 ml/min/1.73 sqM) Est GFR (CKD-EPI)NonAf 63 (>60 ml/min/1.73 sqM) Glucose 136 H (74-99) mg/dL Plasma Lactic Acid German 0.9 (0.7-2.0) mmol/L Calcium 8.2 L (8.4-10.2) mg/dL Total Bilirubin 0.5 (0.2-1.3) mg/dL AST 17 (14-36) U/L ALT 23 (9-52) U/L Alkaline Phosphatase 96 (38-126) U/L Troponin I (0.000-0.034) ng/mL NT-Pro-B Natriuret Pep pg/mL Total Protein 6.0 L (6.3-8.2) g/dL Albumin 3.0 L (3.5-5.0) g/dL Amylase 35 (30-110) U/L Lipase 131 (23-300) U/L Urine Color Urine Appearance (Clear) Urine pH (5.0-8.0) Ur Specific Loa (1.001-1.035) Urine Protein (Negative) Urine Glucose (UA) (Negative) Urine Ketones (Negative) Urine Blood (Negative) Urine Nitrite (Negative) Urine Bilirubin (Negative) Urine Urobilinogen (<2.0) mg/dL Ur Leukocyte Esterase (Negative) Urine RBC (0-5) /hpf Urine WBC (0-5) /hpf Ur Squamous Epith Cells (0-4) /hpf Hyaline Casts (0-2) /lpf Urine Mucus (None) /hpf 11/24/18 11/24/18 11/24/18 Range/Units 21:18 21:18 21:18 WBC (3.8-10.6) k/uL RBC (3.80-5.40) m/uL Hgb (11.4-16.0) gm/dL Hct (34.0-46.0) % MCV (80.0-100.0) fL MCH (25.0-35.0) pg MCHC (31.0-37.0) g/dL RDW (11.5-15.5) % Plt Count (150-450) k/uL Neutrophils % % Lymphocytes % % Monocytes % % Eosinophils % % Basophils % % Neutrophils # (1.3-7.7) k/uL Lymphocytes # (1.0-4.8) k/uL Monocytes # (0-1.0) k/uL Eosinophils # (0-0.7) k/uL Basophils # (0-0.2) k/uL PT 10.1 (9.0-12.0) sec INR 0.9 (<1.2) APTT 24.0 (22.0-30.0) sec Sodium (137-145) mmol/L Potassium (3.5-5.1) mmol/L Chloride (98-107) mmol/L Carbon Dioxide (22-30) mmol/L Anion Gap mmol/L BUN (7-17) mg/dL Creatinine (0.52-1.04) mg/dL Est GFR (CKD-EPI)AfAm (>60 ml/min/1.73 sqM) Est GFR (CKD-EPI)NonAf (>60 ml/min/1.73 sqM) Glucose (74-99) mg/dL Plasma Lactic Acid German (0.7-2.0) mmol/L Calcium (8.4-10.2) mg/dL Total Bilirubin (0.2-1.3) mg/dL AST (14-36) U/L ALT (9-52) U/L Alkaline Phosphatase (38-126) U/L Troponin I 0.377 H* (0.000-0.034) ng/mL NT-Pro-B Natriuret Pep 1080 pg/mL Total Protein (6.3-8.2) g/dL Albumin (3.5-5.0) g/dL Amylase (30-110) U/L Lipase (23-300) U/L Urine Color Urine Appearance (Clear) Urine pH (5.0-8.0) Ur Specific Loa (1.001-1.035) Urine Protein (Negative) Urine Glucose (UA) (Negative) Urine Ketones (Negative) Urine Blood (Negative) Urine Nitrite (Negative) Urine Bilirubin (Negative) Urine Urobilinogen (<2.0) mg/dL Ur Leukocyte Esterase (Negative) Urine RBC (0-5) /hpf Urine WBC (0-5) /hpf Ur Squamous Epith Cells (0-4) /hpf Hyaline Casts (0-2) /lpf Urine Mucus (None) /hpf 11/24/18 Range/Units 22:53 WBC (3.8-10.6) k/uL RBC (3.80-5.40) m/uL Hgb (11.4-16.0) gm/dL Hct (34.0-46.0) % MCV (80.0-100.0) fL MCH (25.0-35.0) pg MCHC (31.0-37.0) g/dL RDW (11.5-15.5) % Plt Count (150-450) k/uL Neutrophils % % Lymphocytes % % Monocytes % % Eosinophils % % Basophils % % Neutrophils # (1.3-7.7) k/uL Lymphocytes # (1.0-4.8) k/uL Monocytes # (0-1.0) k/uL Eosinophils # (0-0.7) k/uL Basophils # (0-0.2) k/uL PT (9.0-12.0) sec INR (<1.2) APTT (22.0-30.0) sec Sodium (137-145) mmol/L Potassium (3.5-5.1) mmol/L Chloride (98-107) mmol/L Carbon Dioxide (22-30) mmol/L Anion Gap mmol/L BUN (7-17) mg/dL Creatinine (0.52-1.04) mg/dL Est GFR (CKD-EPI)AfAm (>60 ml/min/1.73 sqM) Est GFR (CKD-EPI)NonAf (>60 ml/min/1.73 sqM) Glucose (74-99) mg/dL Plasma Lactic Acid German (0.7-2.0) mmol/L Calcium (8.4-10.2) mg/dL Total Bilirubin (0.2-1.3) mg/dL AST (14-36) U/L ALT (9-52) U/L Alkaline Phosphatase (38-126) U/L Troponin I (0.000-0.034) ng/mL NT-Pro-B Natriuret Pep pg/mL Total Protein (6.3-8.2) g/dL Albumin (3.5-5.0) g/dL Amylase (30-110) U/L Lipase (23-300) U/L Urine Color Yellow Urine Appearance Clear (Clear) Urine pH 7.5 (5.0-8.0) Ur Specific Loa 1.031 (1.001-1.035) Urine Protein 1+ H (Negative) Urine Glucose (UA) Negative (Negative) Urine Ketones Negative (Negative) Urine Blood Negative (Negative) Urine Nitrite Positive H (Negative) Urine Bilirubin Negative (Negative) Urine Urobilinogen <2.0 (<2.0) mg/dL Ur Leukocyte Esterase Large H (Negative) Urine RBC 3 (0-5) /hpf Urine WBC 67 H (0-5) /hpf Ur Squamous Epith Cells <1 (0-4) /hpf Hyaline Casts 1 (0-2) /lpf Urine Mucus Rare H (None) /hpf - EKG Data EKG Comments: A 12-lead EKG was performed and shows the following: Rate is 76bpm, and rhythm is normal sinus. There are normal QRS complexes and normal R-wave progression. ST segments have no elevation or depression, and AK segments appear normal. AK interval 186 months seconds, QRS duration 96 ms, QT/QTC 422/474 ms. (Ngoc Fierro) Disposition Is patient prescribed a controlled substance at d/c from ED?: No Time of Disposition: 00:13 Decision to Admit Reason: Admit from EC Decision Date: 11/25/18 Decision Time: 00:13 <Ngoc Fierro - Last Filed: 11/25/18 01:30> <Percy Gould - Last Filed: 11/30/18 09:12> Clinical Impression: Pneumonia, Elevated troponin, Cough, Fever, UTI (urinary tract infection) Disposition: ADMITTED IP TO THIS HOSP Condition: Stable
--- NOTE | 2018-11-24 22:31 | XR ---
EXAM: XR Chest, 2 Views CLINICAL HISTORY: Pain TECHNIQUE: Frontal and lateral views of the chest. COMPARISON: 08/08/17 FINDINGS: Lungs: Patchy infiltrates noted bilaterally.. Pleural space: Unremarkable. No pneumothorax. Heart: Prominence of the cardiac silhouette again noted . IMPRESSION: Patchy infiltrates bilaterally
[2018-11-24 23:15] LABS: Appearance,Urine Clear (Clear); Bilirubin,Urine Negative (Negative); Blood,Urine Negative (Negative); Color,Urine Yellow; Glucose,Urine (UA) Negative (Negative); Hyaline Casts,Urine 1 /lpf (0-2); Ketones,Urine Negative (Negative); Leukocyte Esterase,Urine Large (Negative); Mucus,Urine Rare /hpf; Nitrite,Urine Positive (Negative); PH, Urine 7.5 (5.0-8.0); Protein,Urine 1+ (Negative); RBC,Urine 3 /hpf (0-5); Specific Gravity,Urine 1.031 (1.001-1.035); Squamous Epithelial Cell,Urine <1 /hpf (0-4); Urobilinogen,Urine <2.0 mg/dL (<2.0); WBC,Urine 67 /hpf (0-5)
--- NOTE | 2018-11-24 23:18 | CT ---
EXAM: CT Abdomen and Pelvis With Intravenous Contrast CLINICAL HISTORY: abdominal pain TECHNIQUE: Axial computed tomography images of the abdomen and pelvis with intravenous contrast. CTDI is 45.7 mGy and DLP is 2368 mGy-cm. This CT exam was performed using one or more of the following dose reduction techniques: automated exposure control, adjustment of the mA and/or kV according to patient size, and/or use of iterative reconstruction technique. COMPARISON: 05/14/14 FINDINGS: Lung bases: Unremarkable. No mass. No consolidation. ABDOMEN: Liver: Unremarkable. No mass. Gallbladder and bile ducts: Layering stones and possible sludge noted in the gallbladder No ductal dilation. Pancreas: Unremarkable. No mass. No ductal dilation. Spleen: Unremarkable. No splenomegaly. Adrenals: Unremarkable. No mass. Kidneys and ureters: Right sided nephrolithiasis with small nonobstructing calyceal stones in the midpole No solid mass. No hydronephrosis. Stomach and bowel: Inflammatory changes are noted around portions of the proximal sigmoid colon with infiltration of the pericolonic fat. Possibility of diverticulitis or other regional colitis cannot be excluded. PELVIS: Appendix: No findings to suggest acute appendicitis. Bladder: Unremarkable. No mass. Reproductive: Unremarkable as visualized. ABDOMEN and PELVIS: Intraperitoneal space: Unremarkable. No free air. No significant fluid collection. Bones/joints: No acute fracture. No dislocation. Soft tissues: Unremarkable. Vasculature: Unremarkable. No abdominal aortic aneurysm. Lymph nodes: Unremarkable. No enlarged lymph nodes. IMPRESSION: Inflammatory changes adjacent to the proximal sigmoid colon infiltrating the pericolonic fat. The possibility of diverticulitis or other focal inflammatory process cannot be excluded. No focal abscess is identified. No free air is noted
[2018-11-25] MEDS ORDERED: NALOXONE 0.4 MG/ML 1 ML VIAL IV PRN (00:09)
[2018-11-25] MEDS ORDERED: VANCOMYCIN IV PER PHARMACY 1 EACH MISC MISCELLANE PRN (00:14)
[2018-11-25] MEDS ORDERED: AZITHROMYCIN 500 MG in SODIUM CHLORIDE 0.9% 250 ML IVPB STA (00:14)
[2018-11-25] MEDS ORDERED: PIPERACILLIN-TAZOBACTAM 3.375 GM in SODIUM CHLORIDE 0.9% 100 ML IVPB STA (00:14)
[2018-11-25] MEDS ORDERED: VANCOMYCIN 2,000 MG in SODIUM CHLORIDE 0.9% 500 ML 500 ML IVPB STA (00:16)
[2018-11-25 01:05] LABS: Albumin 3.3 g/dL (3.5-5.0); Calcium 8.2 mg/dL (8.4-10.2); Potassium 3.7 mmol/L (3.5-5.1); Total Bilirubin 0.6 mg/dL (0.2-1.3); Total Protein 6.8 g/dL (6.3-8.2)
[2018-11-25 02:05] LABS: Glucose,Whole Blood 162 mg/dL (75-99)
[2018-11-25] MEDS: SODIUM CHLORIDE 0.9% 1,000 ML IV SCH ×2 (02:08→13:00)
[2018-11-25] MEDS ORDERED: ACETAMINOPHEN TAB 325 MG TAB PO PRN (02:44)
[2018-11-25] MEDS: IPRATROPIUM-ALBUTEROL 3 ML NEB INHALATION PRN ×3 (03:34→12:41)
[2018-11-25 06:08] LABS: Glucose,Whole Blood 137 mg/dL (75-99)
[2018-11-25] MEDS: INSULIN ASPART (NovoLOG) 100 UNIT/ML VIAL SQ SCH ×4 (06:14→21:15)
[2018-11-25 07:02] LABS: Basophils % (A) 0 %; Eosinophils # (A) 0.1 k/uL (0-0.7); Eosinophils % (A) 2 %; HCT 31.3 % (34.0-46.0); HGB 10.1 gm/dL (11.4-16.0); Lymphocytes # (A) 0.6 k/uL (1.0-4.8); Lymphocytes % (A) 7 %; MCH 31.7 pg (25.0-35.0); MCHC 32.2 g/dL (31.0-37.0); MCV 98.5 fL (80.0-100.0); Monocytes # (A) 0.5 k/uL (0-1.0); Monocytes % (A) 6 %; Neutrophils # (A) 7.3 k/uL (1.3-7.7); Neutrophils % (A) 83 %; Platelet Count 283 k/uL (150-450); RBC 3.18 m/uL (3.80-5.40); RDW 13.7 % (11.5-15.5); WBC 8.8 k/uL (3.8-10.6)
[2018-11-25 07:18] LABS: Calcium 7.7 mg/dL (8.4-10.2); Potassium 3.7 mmol/L (3.5-5.1)
[2018-11-25 11:47] LABS: Glucose,Whole Blood 136 mg/dL (75-99)
--- NOTE | 2018-11-25 13:05 | CONS ---
CONSULTATION CHIEF COMPLAINT: Elevated troponin. This is a 78-year-old lady with history of diabetes, hypertension, dyslipidemia, morbid obesity, insulin-requiring diabetes, and dyslipidemia who presented to hospital primarily with cough and abdominal pain. Cardiology had been consulted because of mild elevation of troponin. She does not have any chest pain. She also has mild shortness of breath. There is no history of cough or fever. Her troponin is really in the loyd zone at 0.38 and remained unchanged at 0.37. EKG does not reveal acute ischemic changes. Her chest x-ray revealed patchy infiltrate bilaterally. Her troponin elevation is of no clear clinical significance and does not require further evaluation at this time. This is not suggestive of acute myocardial infarction. PAST MEDICAL HISTORY: Significant for hypertension, diabetes, dyslipidemia, hypothyroidism. MEDICATIONS: At home included aspirin, Plavix, Imdur, Lasix, Cozaar, Toprol, Synthroid, simvastatin, iron, and nebulizers. Patient is allergic to ATENOLOL. FAMILY HISTORY: Negative for premature coronary artery disease. SOCIAL HISTORY: Negative for current smoking, EtOH abuse, or drug abuse. REVIEW OF SYSTEMS: HEENT: Unremarkable. CARDIAC: As described above. RESPIRATORY: As described above. GI: Negative. GENITOURINARY: Negative. ALLERGY/IMMUNOLOGY: Negative. MUSCULOSKELETAL: Significant for arthritis. PSYCHOSOCIAL: Negative. DERMATOLOGICAL: Negative. HEMATOLOGICAL: Negative. CONSTITUTIONAL: Negative. ONCOLOGICAL: Negative. FINAL BLOCK PRESS OPERATOR: Negative. Rest of the system review is not relevant. PHYSICAL EXAMINATION: On exam, patient is afebrile. Vital signs are stable. There is no jugular venous distention. Chest exam reveals good air entry bilaterally. Heart exam reveals first and second heart sounds. No gallop. No murmur. No rub. Abdomen is soft, nontender. Exam of extremities reveals bilateral 1+ edema. Peripheral pulses are felt. LABS: Show a potassium of 3.7, hemoglobin is 10.1, troponin is in the loyd zone. ASSESSMENT: 1. Troponin elevation of unclear etiology. 2. Abdominal pain, management as per primary. 3. Hypertension. 4. Dyslipidemia. 5. Diabetes. 6. Chronic obstructive pulmonary disease with possible pneumonia. PLAN: I am going to obtain a 2D echo on her to evaluate her LV function and wall motion and continue her current medications. MMODL / IJN: [id number] /
[2018-11-25] MEDS ORDERED: VANCOMYCIN 2,000 MG in SODIUM CHLORIDE 0.9% 500 ML 500 ML IVPB SCH (14:00)
[2018-11-25 16:59] LABS: Glucose,Whole Blood 148 mg/dL (75-99)
[2018-11-25] MEDS ORDERED: IPRATROPIUM-ALBUTEROL 3 ML NEB INHALATION PRN (17:24)
[2018-11-25] MEDS: GABAPENTIN 300 MG CAP PO SCH ×2 (18:15→20:18)
--- NOTE | 2018-11-25 19:05 | ECHOF ---
Referral Reason:trop MEASUREMENTS -------- HEIGHT: 165.1 cm WEIGHT: 152.9 kg BP: IVSd: 1.5 cm (0.6 - 1.1) LVIDd: 4.9 cm (3.9 - 5.3) LVPWd: 1.4 cm (0.6 - 1.1) IVSs: 1.8 cm LVIDs: 4.1 cm LVPWs: 1.6 cm Ao Diam: 3.5 cm (2.0 - 3.7) AV Cusp: 1.4 cm (1.5 - 2.6) LA Diam: 4.2 cm (2.7 - 3.8) MV E Carlos: 0.93 m/s MV DecT: 284 ms MV A Carlos: 1.07 m/s MV E/A Ratio: 0.86 AV maxP.89 mmHg AV meanP.64 mmHg FINDINGS -------- Sinus rhythm. Morbid Obesity The left ventricular size is normal. There is moderate concentric left ventricular hypertrophy. O verall left ventricular systolic function is low-normal with, an EF between 50 - 55 %. The right ventricle is normal in size. The left atrium is mildly dilated. The right atrial size is normal. 5.0mg OF Lumason UTLIZED: 2 OR MORE WALL SEGMENTS NOT VISUALIZED. The aortic valve was not well visualized. There is [id number] aortic stenosis present. Pe ak/mean gradient across the Aortic Valve is 47.89mmHg / 24.64mmHg. No regurgitation noted Unable to estimate RVSP due to inadequate TR jet spectral doppler profile. The pulmonic valve was not well visualized. The aortic root size is normal. IVC Not well visulized. There is no pericardial effusion. CONCLUSIONS -------- 1. Morbid Obesity 2. The left ventricular size is normal. 3. There is moderate concentric left ventricular hypertrophy. 4. Overall left ventricular systolic function is low-normal with, an EF between 50 - 55 %. 5. The right ventricle is normal in size. 6. The left atrium is mildly dilated. 7. The right atrial size is normal. 8. 5.0mg OF Lumason UTLIZED: 2 OR MORE WALL SEGMENTS NOT VISUALIZED. 9. Interatrial Septum not well visulized. 10. The aortic valve was not well visualized. 11. There is yxloylxu-ag-ptynen aortic stenosis present. 12. Peak/mean gradient across the Aortic Valve is 47.89mmHg / 24.64mmHg. 13. No regurgitation noted 14. Unable to estimate RVSP due to inadequate TR jet spectral doppler profile. 15. The pulmonic valve was not well visualized. 16. The aortic root size is normal. 17. IVC Not well visulized. 18. There is no pericardial effusion. MECHANIC FIELD SERVICE: Gayle Knight RDCS
--- NOTE | 2018-11-25 20:08 | HP ---
HISTORY AND PHYSICAL DATE OF ADMISSION: 11/24/2018 DATE OF SERVICE: 11/25/2018 PRESENTING COMPLAINT: Cough. HISTORY OF PRESENTING COMPLAINT: This is a 78-year-old patient who is a resident of [facility] who follows with visiting physician Dr. Harvey. Chronic stable medical conditions include COPD, diabetes, hyperlipidemia, hypertension, osteoarthritis, hypothyroid, morbid obesity, chronic hypoxic respiratory failure, on 4 L oxygen at home. Also has a Jorge Alberto left. Patient is nonambulatory. Patient also had a fracture of the distal femur and got a leg brace. Patient is not for any intervention. The patient has also been complaining of some abdominal pain. She has a cough, not really able to bring up a lot of stuff and has had a low fever. Tired, rundown, not much of an appetite. REVIEW OF SYSTEMS: CONSTITUTIONAL: Tired. Low-grade fever. HEENT: None. RESPIRATORY: Cough with congestion. CARDIOVASCULAR: None. GASTROINTESTINAL: Abdominal pain. Some nausea. No diarrhea. GENITOURINARY: Incontinence. MUSCULOSKELETAL: Pain in multiple joints. DERMATOLOGICAL: None. HEMATOLOGICAL: None. LYMPHATICS: None. PSYCHIATRY: None. NEUROLOGICAL: Peripheral neuropathy. PAST MEDICAL HISTORY: 1. Asthma. 2. Heart failure. 3. COPD. 4. Diabetes. 5. Hyperlipidemia. 6. Hypertension. 7. Osteoarthritis. 8. Hypothyroidism. 9. Morbid obesity. 10.Diabetes mellitus, type 2. 11.Home oxygen 4 L. 12.CHF from diastolic dysfunction. 13.Left leg lymphedema. 14.Peripheral neuropathy. 15.Macular degeneration. 16.Chronic pain in multiple joints. 17.Chronic urine incontinence. PAST SURGICAL HISTORY: 1. Hernia repair. 2. Hysterectomy. 3. Left knee surgery x2. 4. Lower back surgery. 5. Left breast lumpectomy without cancer. 6. Bilateral hand surgery. 7. Bilateral cataract extraction. 8. Lobulated mass removed from the left flank. 9. Abdominal hernia repair. 10.Right carpal tunnel release. 11.Left leg wound debridement. SOCIAL HISTORY: Patient lives with her of 60 years of marriage. She has [place] [facility] [place] [facility] coming in and has an aide 3 times a week. Jorge Alberto lift is used. 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 No smoking. No alcohol. . Currently patient lives in an [facility]. FAMILY HISTORY: Reviewed; noncontributory to presentation. HOME MEDICATIONS: 1. Ultram 50 mg q.6 p.r.n. 2. DuoNeb 3 mL q.i.d. p.r.n. 3. Gabapentin 600 mg t.i.d. 4. Iron 325 p.o. b.i.d. 5. Simvastatin 40 mg at bedtime. 6. Protonix 40 mg p.o. daily. 7. Toprol-XL 25 mg p.o. daily. 8. Synthroid 125 mcg p.o. daily. 9. Magnesium oxide 400 mg at bedtime. 10.Cozaar 25 mg a day. 11.Lasix 40 mg Wednesday, Wednesday, Wednesday; 20 mg Wednesday, Wednesday, , Wednesday. 12.Imdur ER 30 mg a day. 13.Lantus 30 units subcutaneously at bedtime. 14.Plavix 75 mg daily. 15.Breo Ellipta 1 puff at bedtime. 16.Celexa 20 mg p.o. daily. 17.Vitamin D3 1000 units p.o. daily. 18.Aspirin 325 p.o. daily. ALLERGIES: ATENOLOL. PHYSICAL EXAMINATION: VITAL SIGNS ON PRESENTATION: Temperature 100.3, pulse 77, respiration 20, blood pressure 119/79, pulse ox 96% on 4 L. GENERAL APPEARANCE: Well built, BMI 56.1. Lying in bed, awake. Tired-appearing. EYES: Pupils equal. Conjunctivae normal. HEENT: External appearance of nose and ears normal. Oral cavity dry. NECK: JVD unable to assess. Mass not palpable. RESPIRATORY: Effort increased. LUNGS: Decreased breath sounds. CARDIOVASCULAR: Heart sound muffled. Lymphedema of the left leg. ABDOMEN: Mild tenderness. Soft. No guarding or rigidity. Liver and spleen not palpable. LYMPHATIC: No lymph node palpable in neck or axillae. PSYCHIATRY: Alert and oriented x3. Mood and affect a bit anxious. Right lower extremity has an immobilizer brace. INVESTIGATIONS: White count 9, hemoglobin 10.3. Potassium 4.0, BUN 24, creatinine 0.88. Troponin 0.3; repeat was 0.3. EKG tracing, personally reviewed by me, shows normal sinus rhythm. Chest x-ray film, personally reviewed by me, shows infiltrates. CT scan of the abdomen and pelvis shows inflammatory changes adjacent to the proximal sigmoid colon infiltrating the pericolonic fat. ASSESSMENT: 1. Acute pneumonia. Suspect gram-negative organism. 2. Possible acute sigmoid diverticulitis. 3. Chronic right femur distal fracture with immobilizer brace. 4. Chronic medical debility at baseline. Uses a Jorge Alberto lift. 5. Chronic congestive heart failure from diastolic dysfunction, ejection fraction 60% to 65%. 6. Chronic obstructive pulmonary disease in a nonsmoker. 7. Diabetes mellitus, type 2, on oral hypoglycemic. 8. Hyperlipidemia. 9. Essential hypertension. 10.Primary osteoarthritis. 11.Morbid obesity with a body mass index of more than 40. 12.Chronic hypoxic respiratory failure, on home oxygen. 13.Peripheral neuropathy secondary to diabetes. 14.Macular degeneration. 15.Chronic urine incontinence. 16.Chronic pain syndrome from multiple joint problems. 17.Hypothyroidism. PLAN: Home medications are resumed. Patient was put on IV Zosyn. Patient's troponins seem to be from hemodynamic mismatch. Will also add scheduled DuoNeb. Will put the patient on clear liquids for now and see how she does and go from there. Care was discussed with the patient. MMODL / IJN: [id number] /
[2018-11-25] MEDS: MAGNESIUM OXIDE 400 MG TAB PO SCH (20:09)
[2018-11-25] MEDS: FERROUS SULFATE 325 MG TAB PO SCH (20:09)
[2018-11-25] MEDS: ATORVASTATIN 20 MG TAB PO SCH (20:09)
[2018-11-25] MEDS: PIPERACILLIN-TAZOBACTAM 3.375 GM in SODIUM CHLORIDE 0.9% 100 ML IVPB SCH (20:09)
[2018-11-25] MEDS: IPRATROPIUM-ALBUTEROL 3 ML NEB INHALATION SCH (20:41)
[2018-11-25] MEDS: SYMBICORT 160-4.5 MCG INHALER INHALATION SCH (20:41)
[2018-11-25 20:48] LABS: Glucose,Whole Blood 133 mg/dL (75-99)
[2018-11-25] MEDS: INSULIN DETEMIR (LEVEMIR) 100 UNIT/ML SYR SQ SCH (21:16)
[2018-11-26] MEDS: PIPERACILLIN-TAZOBACTAM 3.375 GM in SODIUM CHLORIDE 0.9% 100 ML IVPB SCH ×4 (00:32→23:06)
[2018-11-26] MEDS ORDERED: VANCOMYCIN 2,000 MG in SODIUM CHLORIDE 0.9% 500 ML 500 ML IVPB SCH (02:00)
[2018-11-26] MEDS: SODIUM CHLORIDE 0.9% 1,000 ML IV SCH ×2 (04:21→17:52)
[2018-11-26] MEDS: INSULIN ASPART (NovoLOG) 100 UNIT/ML VIAL SQ SCH ×4 (06:14→21:18)
[2018-11-26 06:15] LABS: Glucose,Whole Blood 112 mg/dL (75-99)
[2018-11-26] MEDS: LEVOTHYROXINE 125 MCG TAB PO SCH (06:17)
[2018-11-26 07:04] LABS: Basophils % (A) 0 %; Eosinophils # (A) 0.2 k/uL (0-0.7); Eosinophils % (A) 2 %; HCT 32.5 % (34.0-46.0); HGB 10.2 gm/dL (11.4-16.0); Lymphocytes # (A) 0.5 k/uL (1.0-4.8); Lymphocytes % (A) 7 %; MCH 30.9 pg (25.0-35.0); MCHC 31.4 g/dL (31.0-37.0); MCV 98.4 fL (80.0-100.0); Mean Platelet Volume 7.2; Monocytes # (A) 0.5 k/uL (0-1.0); Monocytes % (A) 6 %; Neutrophils # (A) 5.8 k/uL (1.3-7.7); Neutrophils % (A) 82 %; Platelet Count 276 k/uL (150-450); RDW 13.6 % (11.5-15.5); WBC 7.1 k/uL (3.8-10.6)
[2018-11-26 07:25] LABS: Anion Gap 6 mmol/L; Blood Urea Nitrogen 15 mg/dL (7-17); Calcium 7.9 mg/dL (8.4-10.2); Carbon Dioxide 32 mmol/L (22-30); Chloride 101 mmol/L (98-107); Glucose 90 mg/dL (74-99); Potassium 3.4 mmol/L (3.5-5.1); Sodium 139 mmol/L (137-145)
[2018-11-26] MEDS ORDERED: ASPIRIN 325 MG TAB PO SCH (09:00)
[2018-11-26] MEDS: CLOPIDOGREL 75 MG TAB PO SCH (09:14)
[2018-11-26] MEDS: FERROUS SULFATE 325 MG TAB PO SCH ×2 (09:14→21:16)
[2018-11-26] MEDS: METOPROLOL SUCCINATE (ER) 25 MG TAB.ER.24H PO SCH (09:14)
[2018-11-26] MEDS: traMADol 50 MG TAB PO PRN (09:15)
[2018-11-26] MEDS: CITALOPRAM HYDROBROMIDE 20 MG TAB PO SCH (09:15)
[2018-11-26] MEDS: CHOLECALCIFEROL 1,000 UNIT TAB PO SCH (09:15)
[2018-11-26] MEDS: FUROSEMIDE 20 MG TAB PO SCH (09:15)
[2018-11-26] MEDS: ISOSORBIDE MONONITRATE ER 30 MG TAB.ER.24H PO SCH (09:15)
[2018-11-26] MEDS: GABAPENTIN 300 MG CAP PO SCH ×3 (09:16→21:16)
[2018-11-26] MEDS: LOSARTAN 25 MG TAB PO SCH (09:16)
[2018-11-26] MEDS: PANTOPRAZOLE 40 MG TABLET PO SCH (09:16)
[2018-11-26] MEDS: IPRATROPIUM-ALBUTEROL 3 ML NEB INHALATION SCH ×4 (09:33→20:31)
[2018-11-26] MEDS: SYMBICORT 160-4.5 MCG INHALER INHALATION SCH ×2 (09:33→20:31)
--- NOTE | 2018-11-26 12:09 | P.PN ---
Subjective Progress Note Date: 11/26/18 this is a 78-year-old female with history of diabetes, hypertension, hyperlipidemia, morbid obesity, who presented to the hospital primarily with symptoms of cough and abdominal discomfort. Cardiology was consulted because of abnormality in troponin. Patient was seen in consultation yesterday, she denied having any chest discomfort, did have some mild shortness of breath. EKG did not reveal any acute changes. Her chest x-ray showed patchy infiltrates bilaterally. An echocardiogram with Doppler study was performed which revealed a normal left ventricular systolic function with moderate to severe aortic stenosis noted. At the time of our examination this morning, patient was quite sleepy in bed. Appeared to be comfortable, did state she has an occasional cough. We will discontinue the IV heparin and decrease the aspirin to 81 mg today.blood pressure 120/50 with a heart rate in the 80s, 93% on 4 L of oxygen. Objective - Vital Signs Vital signs: Vital Signs Temp 99.4 F 11/26/18 08:00 Pulse 88 11/26/18 09:50 Resp 18 11/26/18 08:00 BP 142/66 11/26/18 08:00 Pulse Ox 94 L 11/26/18 08:00 Intake & Output 11/25/18 11/26/18 11/26/18 18:59 06:59 18:59 Intake Total 902 1825 360 Output Total 550 450 Balance 352 1375 360 Weight 113.5 kg Intake: Intake, IV Titration 1025 Amount Piperacillin-Tazobactam 3 200 .375 gm In Sodium Chloride 0.9% 100 ml @ 25 mls/hr IVPB Q8HR [facility] Rx# :[id number] Sodium Chloride 0.9% 1, 825 000 ml @ 75 mls/hr IV . [id number] [facility] Rx#:[id number] Oral 902 800 360 Output: Urine 550 450 Other: Voiding Method Diaper Diaper Diaper Incontinent Incontinent Incontinent # Bowel Movements 1 - Exam PHYSICAL EXAMINATION: GENERAL:78-year-old female in no acute distress at the time of my examination HEENT: Head is atraumatic, normocephalic. Pupils equal, round. Sclera anicteric. Conjunctiva are clear. Mucous membranes of the mouth are moist. Neck is supple. There is no elevated jugular venous pressure.no carotid bruit is heard. HEART EXAMINATION: [Heart S1, S2 systolic murmur is heard.] CHEST EXAMINATION:lungs reveal coarse crackles bilaterally ABDOMEN: [ Soft,Obese, nontender. Bowel sounds are heard. No organomegaly noted]. EXTREMITIES:[ 2+ peripheral pulses with trace evidence of peripheral edema and no calf tenderness noted]. NEUROLOGIC [patient is sleepy, difficult to arouse. - Labs CBC & Chem 7: 11/26/18 06:35 11/26/18 06:35 Labs: Abnormal Lab Results - Last 24 Hours (Table) 11/25/18 11/25/18 11/26/18 Range/Units 16:57 20:47 06:13 RBC (3.80-5.40) m/uL Hgb (11.4-16.0) gm/dL Hct (34.0-46.0) % Lymphocytes # (1.0-4.8) k/uL Potassium (3.5-5.1) mmol/L Carbon Dioxide (22-30) mmol/L POC Glucose (mg/dL) 148 H 133 H 112 H (75-99) mg/dL Calcium (8.4-10.2) mg/dL 11/26/18 11/26/18 Range/Units 06:35 06:35 RBC 3.30 L (3.80-5.40) m/uL Hgb 10.2 L (11.4-16.0) gm/dL Hct 32.5 L (34.0-46.0) % Lymphocytes # 0.5 L (1.0-4.8) k/uL Potassium 3.4 L (3.5-5.1) mmol/L Carbon Dioxide 32 H (22-30) mmol/L POC Glucose (mg/dL) (75-99) mg/dL Calcium 7.9 L (8.4-10.2) mg/dL Microbiology - Last 24 Hours (Table) 11/24/18 21:44 Blood Culture - Preliminary Blood No Growth after 24 hours Assessment and Plan Plan: assessment and plan #1 abdominal discomfort #2 troponin abnormality not consistent with acute coronary syndrome could be secondary to pneumonia #3 COPD with possible pneumonia #4 hypertension #5 diabetes #6 hyperlipidemia Plan Echo revealed normal left ventricular systolic function with moderate aortic stenosis. From cardiology's perspective, we will recommend to decrease aspirin to 81 mg daily, we'll follow this patient along with you now on an as-needed basis only, please don't hesitate to call with any questions. DNP note has been reviewed, I agree with a documented findings and plan of care. Patient was seen and examined.
[2018-11-26 12:15] LABS: Glucose,Whole Blood 106 mg/dL (75-99)
[2018-11-26 16:54] LABS: Glucose,Whole Blood 107 mg/dL (75-99)
--- NOTE | 2018-11-26 20:46 | PN ---
PROGRESS NOTE DATE OF SERVICE: November 26, 2018. PRESENTING COMPLAINT: Cough. INTERVAL HISTORY: Patient with multiple medical problems admitted with pneumonia and acute sigmoid diverticulitis. The patient did eat a bit better today. Sputum production not there. Less congested. Abdominal pain is a bit better. Did not have a bowel movement. Looks more perky. REVIEW OF SYSTEMS: Done for constitutional, cardiovascular, GI, pulmonary and relevant findings as above. CURRENT MEDICATIONS: Reviewed that include IV Zosyn. PHYSICAL EXAMINATION: VITAL SIGNS: Temperature 97.1, pulse 80, respiratory rate 18, blood pressure 120/61, pulse ox 99% on 4 L. GENERAL APPEARANCE: Lying in bed, appears a bit better. EYES: Pupils are equal. Conjunctivae normal. NECK: JVD unable to assess. Mass not palpable. RESPIRATORY: Effort increased. LUNGS: Decreased breath sounds. CARDIOVASCULAR: Heart sounds muffled. Lymphedema of the left leg. ABDOMEN: Decreased tenderness. No guarding or rigidity, soft. PSYCHIATRY: Alert and oriented times three. Mood and affect normal. EXTREMITIES: Right lower extremity in an immobilizer brace. INVESTIGATIONS: White count 7.1, hemoglobin 10.2, potassium 3.4, BUN and creatinine is normal. ASSESSMENT: 1. Pneumonia suspect gram-negative organism. 2. Acute sigmoid diverticulitis with some clinical response. 3. Chronic right femur distal fracture with immobilizer brace. 4. Chronic medical debility at baseline uses a Jorge Alberto left. 5. Chronic congestive heart failure from diastolic dysfunction. EF 60-65 percent. 6. Chronic obstructive pulmonary disease in a nonsmoker. 7. Diabetes mellitus type 2 on oral hypoglycemics. 8. Hyperlipidemia. 9. Essential hypertension. 10.Primary osteoarthritis. 11.Morbid obesity BMI more than 40. 12.Chronic hypoxic respiratory failure on home oxygen. 13.Peripheral neuropathy secondary to diabetes. 14.Macular degeneration. 15.Chronic urine incontinence. 16.Chronic pain syndrome from multiple joint problems. 17.Hypothyroidism. 18.Moderate aortic stenosis, nonrheumatic. PLAN: Patient is started to respond. Continue with IV Zosyn. The patient has also got gentle fluid hydration. Care was discussed with the patient. Follow. MMODL / IJN: [id number] /
[2018-11-26 20:56] LABS: Glucose,Whole Blood 114 mg/dL (75-99)
[2018-11-26] MEDS: ATORVASTATIN 20 MG TAB PO SCH (21:16)
[2018-11-26] MEDS: INSULIN DETEMIR (LEVEMIR) 100 UNIT/ML SYR SQ SCH (21:16)
[2018-11-26] MEDS: MAGNESIUM OXIDE 400 MG TAB PO SCH (21:16)
[2018-11-27] MEDS: SODIUM CHLORIDE 0.9% 1,000 ML IV SCH ×2 (06:01→17:42)
[2018-11-27 06:02] LABS: Glucose,Whole Blood 110 mg/dL (75-99)
[2018-11-27] MEDS: LEVOTHYROXINE 125 MCG TAB PO SCH (06:02)
[2018-11-27] MEDS: INSULIN ASPART (NovoLOG) 100 UNIT/ML VIAL SQ SCH ×4 (06:04→22:01)
[2018-11-27] MEDS ORDERED: INSULIN DETEMIR (LEVEMIR) 100 UNIT/ML SYR SQ SCH (07:05)
[2018-11-27 07:08] LABS: Potassium 3.4 mmol/L (3.5-5.1)
[2018-11-27 07:31] LABS: Basophils % (A) 0 %; Eosinophils # (A) 0.3 k/uL (0-0.7); Eosinophils % (A) 4 %; HCT 31.8 % (34.0-46.0); HGB 9.8 gm/dL (11.4-16.0); Hypochromasia Slight; Lymphocytes # (A) 0.7 k/uL (1.0-4.8); Lymphocytes % (A) 11 %; MCH 30.6 pg (25.0-35.0); MCHC 30.9 g/dL (31.0-37.0); MCV 98.9 fL (80.0-100.0); Mean Platelet Volume 7.1; Monocytes # (A) 0.5 k/uL (0-1.0); Monocytes % (A) 7 %; Neutrophils # (A) 4.7 k/uL (1.3-7.7); Neutrophils % (A) 75 %; Platelet Count 249 k/uL (150-450); RBC 3.22 m/uL (3.80-5.40); RDW 13.6 % (11.5-15.5); WBC 6.3 k/uL (3.8-10.6)
[2018-11-27] MEDS: SYMBICORT 160-4.5 MCG INHALER INHALATION SCH ×2 (08:33→20:26)
[2018-11-27] MEDS: IPRATROPIUM-ALBUTEROL 3 ML NEB INHALATION SCH ×4 (08:33→20:25)
[2018-11-27] MEDS: CHOLECALCIFEROL 1,000 UNIT TAB PO SCH (09:16)
[2018-11-27] MEDS: ASPIRIN 81 MG PO SCH (09:16)
[2018-11-27] MEDS: LOSARTAN 25 MG TAB PO SCH (09:16)
[2018-11-27] MEDS: PIPERACILLIN-TAZOBACTAM 3.375 GM in SODIUM CHLORIDE 0.9% 100 ML IVPB SCH ×3 (09:16→22:59)
[2018-11-27] MEDS: GABAPENTIN 300 MG CAP PO SCH ×3 (09:16→22:48)
[2018-11-27] MEDS: PANTOPRAZOLE 40 MG TABLET PO SCH (09:16)
[2018-11-27] MEDS: CLOPIDOGREL 75 MG TAB PO SCH (09:16)
[2018-11-27] MEDS: METOPROLOL SUCCINATE (ER) 25 MG TAB.ER.24H PO SCH (09:16)
[2018-11-27] MEDS: FERROUS SULFATE 325 MG TAB PO SCH ×2 (09:16→22:48)
[2018-11-27] MEDS: FUROSEMIDE 20 MG TAB PO SCH (09:17)
[2018-11-27] MEDS: CITALOPRAM HYDROBROMIDE 20 MG TAB PO SCH (09:17)
[2018-11-27] MEDS: ISOSORBIDE MONONITRATE ER 30 MG TAB.ER.24H PO SCH (09:17)
[2018-11-27] MEDS ORDERED: POTASSIUM CHLORIDE ER 20 MEQ TAB.ER PO STA (10:52)
[2018-11-27 12:09] LABS: Glucose,Whole Blood 143 mg/dL (75-99)
[2018-11-27 17:06] LABS: Glucose,Whole Blood 92 mg/dL (75-99)
[2018-11-27 20:56] LABS: Glucose,Whole Blood 97 mg/dL (75-99)
[2018-11-27] MEDS: INSULIN DETEMIR (LEVEMIR) 100 UNIT/ML SYR SQ SCH (22:05)
[2018-11-27] MEDS: ATORVASTATIN 20 MG TAB PO SCH (22:48)
[2018-11-27] MEDS: MAGNESIUM OXIDE 400 MG TAB PO SCH (22:49)
--- NOTE | 2018-11-27 23:13 | PN ---
PROGRESS NOTE DATE OF SERVICE: 11/27/2018. PRESENTING COMPLAINT: Cough. INTERVAL HISTORY: Patient has multiple medical problems, presented with pneumonia and acute sigmoid diverticulitis. Continues to tolerate some diet. Abdominal pain continues to improve. Respiratory symptoms also improving. Resting though tired. REVIEW OF SYSTEMS: Done for constitutional, cardiovascular, GI, pulmonary; relevant findings as above. CURRENT MEDICATIONS: Reviewed that include IV Zosyn. EXAMINATION: Afebrile, pulse 70, respiratory rate 18, blood pressure 98/40, pulse ox 96 percent on 4 liters. GENERAL APPEARANCE: Lying in bed, tired. EYES: Pupils equal. Conjunctivae normal. NECK: JVD unable to assess. Mass not palpable. RESPIRATORY: Effort increased. LUNGS: Decreased breath sounds. CARDIOVASCULAR: Heart sounds muffled. Lymphedema of the left lower extremity. ABDOMEN: Decreased tenderness. No guarding or rigidity. Liver and spleen not palpable. PSYCHIATRY: Awake, answering questions. EXTREMITIES: Right lower extremity in an immobilizer brace. INVESTIGATIONS: White count 6.3, hemoglobin 9.8, potassium 3.4. Accu-Cheks are noted. ASSESSMENT: 1. Pneumonia, suspect gram-negative organism, POA, improving. 2. Acute sigmoid diverticulitis with some clinical response. 3. Chronic right femur distal fracture with immobilizer brace. 4. Chronic medical debility at baseline uses a Jorge Alberto left. 5. Chronic congestive heart failure from diastolic dysfunction EF 60-65 percent. 6. Chronic obstructive pulmonary disease in a nonsmoker. 7. Diabetes mellitus type 2 on oral hypoglycemic. 8. Hyperlipidemia. 9. Essential hypertension. 10.Primary osteoarthritis. 11.Morbid obesity, BMI more than 40. 12.Chronic hypoxic respiratory failure on home oxygen. 13.Peripheral neuropathy secondary to diabetes. 14.Macular degeneration. 15.Chronic urine incontinence. 16.Chronic pain syndrome from multiple joint problems. 17.Hypothyroidism. 18.Moderate aortic stenosis, nonrheumatic. PLAN: Continue patient on current antibiotics. Is improving. Depending on clinical course, possibly back to the ECF next 1 or 2 days. MMODL / IJN: [id number] /
[2018-11-28 06:04] LABS: Glucose,Whole Blood 103 mg/dL (75-99)
[2018-11-28] MEDS: INSULIN ASPART (NovoLOG) 100 UNIT/ML VIAL SQ SCH ×4 (06:22→21:25)
[2018-11-28] MEDS: LEVOTHYROXINE 125 MCG TAB PO SCH (06:36)
[2018-11-28] MEDS ORDERED: FUROSEMIDE 40 MG TAB PO SCH (09:00)
[2018-11-28] MEDS: GABAPENTIN 300 MG CAP PO SCH ×3 (09:17→20:46)
[2018-11-28] MEDS: ASPIRIN 81 MG PO SCH (09:18)
[2018-11-28] MEDS: ISOSORBIDE MONONITRATE ER 30 MG TAB.ER.24H PO SCH (09:18)
[2018-11-28] MEDS: IPRATROPIUM-ALBUTEROL 3 ML NEB INHALATION SCH ×4 (09:18→20:49)
[2018-11-28] MEDS: CITALOPRAM HYDROBROMIDE 20 MG TAB PO SCH (09:18)
[2018-11-28] MEDS: SYMBICORT 160-4.5 MCG INHALER INHALATION SCH ×2 (09:18→20:49)
[2018-11-28] MEDS: METOPROLOL SUCCINATE (ER) 25 MG TAB.ER.24H PO SCH (09:18)
[2018-11-28] MEDS: PIPERACILLIN-TAZOBACTAM 3.375 GM in SODIUM CHLORIDE 0.9% 100 ML IVPB SCH ×2 (09:18→15:13)
[2018-11-28] MEDS: FERROUS SULFATE 325 MG TAB PO SCH ×2 (09:18→20:46)
[2018-11-28] MEDS: CLOPIDOGREL 75 MG TAB PO SCH (09:18)
[2018-11-28] MEDS: LOSARTAN 25 MG TAB PO SCH (09:18)
[2018-11-28] MEDS: PANTOPRAZOLE 40 MG TABLET PO SCH (09:18)
[2018-11-28] MEDS: CHOLECALCIFEROL 1,000 UNIT TAB PO SCH (09:18)
[2018-11-28] MEDS: SODIUM CHLORIDE 0.9% 1,000 ML IV SCH ×2 (09:19→15:14)
[2018-11-28 11:31] LABS: Glucose,Whole Blood 102 mg/dL (75-99)
--- NOTE | 2018-11-28 16:43 | XR ---
EXAMINATION TYPE: XR knee complete RT DATE OF EXAM: 11/28/2018 CLINICAL HISTORY: Distal femur fracture with increasing right knee pain. TECHNIQUE: Three views of the right knee are obtained. COMPARISON: Right knee x-ray October 01, 2018.. FINDINGS: There is redemonstration of acute minimally displaced comminuted fracture distal femoral m eta-epiphysis with some interval callus formation. On lateral view there appears to be increased post erior displacement of distal fracture fragment versus prior. Advanced tricompartment joint space loss and spurring is redemonstrated. Medial irregular density and soft tissue is again seen of uncertain etiology presumed product of venous stasis. Diffuse soft tissue prominence likely product of body hab itus again identified. IMPRESSION: There is some interval callus formation but increasing posterior displacement of comminu laura intra-articular fracture distal femur from prior.
[2018-11-28 16:48] LABS: Glucose,Whole Blood 116 mg/dL (75-99)
--- NOTE | 2018-11-28 18:23 | PN ---
PROGRESS NOTE DATE OF SERVICE: November 28, 2018. PRESENTING COMPLAINT: Tired. INTERVAL HISTORY: Patient has multiple medical problems, presented with pneumonia and acute sigmoid diverticulitis, slowly improving. Tolerating some diet. Does feel a bit tired today. She wants an opinion from Orthopedic, who she was due to see in the office. Abdominal pain continues to improve. REVIEW OF SYSTEMS: Done for constitutional, cardiovascular, GI, pulmonary; relevant findings as above. CURRENT MEDICATIONS: Current medications reviewed that include IV Zosyn. PHYSICAL EXAMINATION: VITAL SIGNS: Temperature 97.7, pulse 72, respiratory 18, blood pressure 101/58, pulse ox 94 percent on 4 L. GENERAL APPEARANCE: Lying in bed. A bit tired-appearing. EYES: Pupils equal. Conjunctivae normal. NECK: JVD not raised. Mass not palpable. RESPIRATORY: Effort increased. LUNGS: Decreased breath sounds. CARDIOVASCULAR: Heart sounds muffled. Lymphedema of the left lower extremity. ABDOMEN: Soft, nontender. Liver and spleen not palpable. PSYCHIATRY: Awake, answering questions. Right lower extremity has got a brace in place. INVESTIGATIONS: Accu-Cheks 92, 97, 108, 102. ASSESSMENT: 1. Pneumonia suspect gram-negative organism, POA, improving. 2. Acute sigmoid diverticulitis with clinical improvement. 3. Chronic right femur distal fracture with immobilizer brace. 4. Chronic medical debility at baseline using Jorge Alberto lift. 5. Chronic congestive heart failure from diastolic dysfunction, EF 60-65 percent. 6. Chronic obstructive pulmonary disease in a nonsmoker. 7. Diabetes mellitus type 2 on oral hypoglycemic. 8. Hyperlipidemia. 9. Essential hypertension. 10.Primary osteoarthritis. 11.Morbid obesity BMI more than 40. 12.Chronic hypoxic respiratory failure on home oxygen. 13.Peripheral neuropathy secondary to diabetes. 14.Macular degeneration. 15.Chronic urine incontinence. 16.Chronic pain syndrome from multiple joint problems. 17.Hypothyroidism. 18.Moderate aortic stenosis nonrheumatic. PLAN: We will get an orthopedic opinion. Patient is supposed to follow up with them. Should be able to switch to oral antibiotics tomorrow and should be able to go back to the ECF tomorrow. Care was discussed with the patient. MMODL / IJN: [id number] /
[2018-11-28] MEDS: ATORVASTATIN 20 MG TAB PO SCH (20:46)
[2018-11-28] MEDS: MAGNESIUM OXIDE 400 MG TAB PO SCH (20:46)
[2018-11-28 20:53] LABS: Glucose,Whole Blood 122 mg/dL (75-99)
[2018-11-28] MEDS: INSULIN DETEMIR (LEVEMIR) 100 UNIT/ML SYR SQ SCH (21:25)
[2018-11-29 05:04] LABS: Glucose,Whole Blood 105 mg/dL (75-99)
[2018-11-29] MEDS: INSULIN ASPART (NovoLOG) 100 UNIT/ML VIAL SQ SCH ×2 (06:09→11:48)
[2018-11-29] MEDS: LEVOTHYROXINE 125 MCG TAB PO SCH (06:53)
[2018-11-29] MEDS: FERROUS SULFATE 325 MG TAB PO SCH (09:00)
[2018-11-29] MEDS: ISOSORBIDE MONONITRATE ER 30 MG TAB.ER.24H PO SCH (09:00)
[2018-11-29] MEDS: CITALOPRAM HYDROBROMIDE 20 MG TAB PO SCH (09:00)
[2018-11-29] MEDS: GABAPENTIN 300 MG CAP PO SCH (09:00)
[2018-11-29] MEDS: METOPROLOL SUCCINATE (ER) 25 MG TAB.ER.24H PO SCH (09:00)
[2018-11-29] MEDS: CLOPIDOGREL 75 MG TAB PO SCH (09:00)
[2018-11-29] MEDS ORDERED: AMOXIC-POT CLAV 875-125MG 1 EACH TAB PO SCH (09:00)
[2018-11-29] MEDS: ASPIRIN 81 MG PO SCH (09:00)
[2018-11-29] MEDS: PANTOPRAZOLE 40 MG TABLET PO SCH (09:00)
[2018-11-29] MEDS: CHOLECALCIFEROL 1,000 UNIT TAB PO SCH (09:01)
--- NOTE | 2018-11-29 09:01 | P.CNOR ---
History of Present Illness - [facility] Consult date: 11/29/18 Requesting physician: Pablo Echavarria Consult reason: fracture (Right acute displaced intra-articular fracture to the distal femoral metaphyseal with impaction and posterior displacement of the distal fracture), other (Weightbearing status) History of present illness: Patient is a very pleasant 78-year-old female who is well known to our service who is seen and examined at the bedside after consultation was placed in regards to her right lower extremity and known fracture. Patient was originally seen in the hospital setting on 10/02/2018 after sustaining a right distal femur fracture status post fall at that time she was placed in a knee immobilizer and discharged from the hospital. She has followed up in the outpatient setting for further treatment and evaluation. She has remained nonweightbearing on the right lower extremity. She is currently residing at [facility]. She was transferred to the hospital for further treatment and evaluation and is currently being seen by medicine and treated for pneumonia and acute sigmoid diverticulitis. Patient states she was willing to work with physical therapy while at the rehabilitation Center but was told not to continue working with therapy. She was placed in long-term care. She would like to be transferred to [facility] at the time of discharge to work with therapy however nursing states patient must be weightbearing on the right lower extremity as a requirement for her to go to [facility]. Patient states she would be willing to work with physical therapy. She feels her right knee pain has been well-controlled. Her knee immobilizer has remained intact on the right lower extremity. She continues to be nonweightbearing. Patient is also known to have a have history of multiple surgical interventions at her left knee with the last being a left total knee arthroplasty which she states was performed by Dr. Gonzalez and Dr. Victor. Patient has a significant medical history including COPD, diabetes mellitus, hypertension, hyperlipidemia, heart failure, thyroid disorder, and history of cancer. Patient states she has been told previously by medical provider she would not receive clearance for surgical intervention. Past Medical History Past Medical History: Asthma, Cancer, Heart Failure, COPD, Diabetes Mellitus, Eye Disorder, Hyperlipidemia, Hypertension, Osteoarthritis (OA), Thyroid Disorder Additional Past Medical History / Comment(s): Morbid obesity, obstructive, IDDM type II, chronic respiratory failure with home O2 most of the time 4 liters, CHF diastolic dysfunction, 03/04/15 ech with mild pulmonary hypertension, mild to moderate tricuspid regurg, L ventricular systolic function normal EF 60-65%, L leg lymphedema, peripheral neuropathy bilateral legs/feet, macular degeneration bilaterally-vision is now poor, falls, gait dysfunction, chronic pain multiple joints, chronic urine incontinence, sinus problems, obesity, hypothyroidism, osteoarthritis History of Any Multi-Drug Resistant Organisms: MRSA Year Discovered:: 2012 MDRO Source:: Blood, unknown Past Surgical History: Hernia Repair, Hysterectomy, Joint Replacement, Orthopedic Surgery Additional Past Surgical History / Comment(s): total L knee x 2, knee and lower back surgery, left breast Lumpectomy without cancer, bilateral hand surgeries, bilateral cataract extraction with intraocular lens implantations, nonmalignant mass removed from left leg -resulting lymphedema, oopherectomy, hysterectomy an d abdominal hernia repair, R carpal tunnel release, L leg wound debridement, lymph node removed from L neck. Past Anesthesia/Blood Transfusion Reactions: No Reported Reaction Additional Past Anesthesia/Blood Transfusion Reaction / Comm: Patient states "she has a hard time waking up from anesthesia". Past Psychological History: Anxiety Smoking Status: Never smoker Past Alcohol Use History: None Reported Past Drug Use History: None Reported - Past Family History Mother Family Medical History: Cancer Additional Family Medical History / Comment(s): Mother at age 89 with pt believes bone cancer. Father Family Medical History: Unable to Obtain Additional Family Medical History / Comment(s): Pt's father when she was 2 yrs old. He was in WWII and of a strep infection. Medications and Allergies Home Medications Medication Instructions Recorded Confirmed Type Cholecalciferol [Vitamin D3] 1,000 unit PO DAILY 02/24/15 11/24/18 History Insulin Glargine,Hum.rec.anlog 30 unit SQ HS 06/19/17 11/24/18 History [Lantus Solostar] Citalopram Hydrobromide [CeleXA] 20 mg PO DAILY 08/06/17 11/24/18 History Clopidogrel [Plavix] 75 mg PO DAILY tab 08/10/17 11/24/18 Rx Losartan [Cozaar] 25 mg PO DAILY 01/14/18 11/24/18 History Ipratropium-Albuterol Nebulize 3 ml INHALATION RT-QID PRN 04/08/18 11/24/18 History [Duoneb 0.5 mg-3 mg/3 ml Soln] Isosorbide Mononitrate ER [Imdur] 30 mg PO DAILY 09/05/18 11/24/18 History Levothyroxine Sodium [Synthroid] 125 mcg PO DAILY 09/05/18 11/24/18 History Metoprolol Succinate (ER) [Toprol 25 mg PO DAILY 09/05/18 11/24/18 History XL] Pantoprazole [Protonix] 40 mg PO DAILY 09/05/18 11/24/18 History Gabapentin 600 mg PO TID #9 tablet 10/07/18 11/24/18 Rx Aspirin 325 mg PO DAILY 11/24/18 11/24/18 History Ferrous Sulfate [Feosol] 325 mg PO BID 11/24/18 11/24/18 History Fluticasone/Vilanterol [Breo 1 puff INHALATION RT-HS 11/24/18 11/24/18 History Ellipta 200-25 Mcg INH] Furosemide [Lasix] 20 mg PO SUTUTHSA 11/24/18 11/24/18 History Furosemide [Lasix] 40 mg PO MOWEFR 11/24/18 11/24/18 History Magnesium Oxide 400 mg PO HS 11/24/18 11/24/18 History Simvastatin 40 mg PO HS 11/24/18 11/24/18 History traMADol HCL [Ultram] 50 mg PO Q6HR PRN 11/24/18 11/24/18 History Allergies Allergy/AdvReac Type Severity Reaction Status Date / Time atenolol [From Tenormin] AdvReac Severe Anxiety Verified 11/24/18 21:33 attack Physical Examination Physical Exam: Patient is awake, alert, and oriented 3 Vital signs stable Good chest excursion with deep inspiration and expiration Abdomen soft nontender Patient appears obese during physical examination No significant pain with palpation over the right lateral distal femur No pain with palpation over the right proximal femur No pain with palpation over the right calf Dorsiflexion and plantarflexion positive sustained right lower extremity Neurologically intact right lower extremity Knee immobilizer intact over the right lower extremity Results Pertinent studies: X-rays of the right knee taken on 11/28/2018: Acute displaced intra-articular fracture to the distal femoral metaphysis with impaction and posterior displacement of the distal fracture fragment with some evidence of interval callus formation and some increased posterior displacement on lateral view imaging along with advanced tricompartmental degenerative changes with marked joint space loss and spurring; diffuse soft tissue prominence most likely product of underlying obesity X-rays of the right knee, tibia, and fibula taken on 10/01/2018: Acute displaced intra-articular fracture to the distal femoral metaphysis with impaction and posterior displacement of the distal fracture fragment along with advanced tricompartmental degenerative changes with marked joint space loss and spurring; diffuse soft tissue prominence most likely product of underlying obesity - Labs Labs: Abnormal Lab Results - Last 24 Hours (Table) 11/28/18 11/28/18 11/28/18 Range/Units 11:29 16:47 20:51 POC Glucose (mg/dL) 102 H 116 H 122 H (75-99) mg/dL 11/29/18 Range/Units 05:02 POC Glucose (mg/dL) 105 H (75-99) mg/dL Microbiology - Last 24 Hours (Table) 11/24/18 21:44 Blood Culture - Preliminary Blood No Growth after 96 hours H & H 11/24/18 11/25/18 11/26/18 Range/Units 21:18 06:46 06:35 Hgb 10.3 L 10.1 L 10.2 L (11.4-16.0) gm/dL Hct 32.7 L 31.3 L 32.5 L (34.0-46.0) % 11/27/18 Range/Units 06:17 Hgb 9.8 L (11.4-16.0) gm/dL Hct 31.8 L (34.0-46.0) % Coagulation 11/24/18 Range/Units 21:18 INR 0.9 (<1.2) Result Diagrams: 11/27/18 06:17 11/27/18 06:17 Assessment and Plan Assessment: Assessment: Right acute displaced intra-articular fracture to the distal femoral metaphyseal Advanced tricompartmental osteoarthritis of the right knee Right knee pain Essentially nonweightbearing in the outpatient setting Obesity Status post late fall with twisting mechanism causing the fracture History left total knee arthroplasty Current treatment for pneumonia and acute sigmoid diverticulitis History of COPD, diabetes mellitus, hypertension, hyperlipidemia, heart failure, thyroid disorder, and history of cancer (1) Status post fall Current Visit: Yes Status: Acute Code(s): Z91.81 - HISTORY OF FALLING SNOMED Code(s): 222090382 (2) Pneumonia Current Visit: Yes Status: Acute Code(s): J18.9 - PNEUMONIA, UNSPECIFIED ORGANISM SNOMED Code(s): 884499387 (3) Femoral distal fracture Current Visit: No Status: Acute Code(s): S72.409A - UNSP FRACTURE OF LOWER END OF UNSP FEMUR, INIT FOR CLOS FX SNOMED Code(s): 556303947 (4) History of COPD Current Visit: No Status: Acute Code(s): Z87.09 - PERSONAL HISTORY OF OTHER DISEASES OF THE RESPIRATORY SYSTEM SNOMED Code(s): 975392728 (5) History of diabetes mellitus Current Visit: No Status: Acute Code(s): Z86.39 - PERSONAL HISTORY OF ENDO, NUTRITIONAL AND METABOLIC DISEASE SNOMED Code(s): 990803860 (6) History of hyperlipidemia Current Visit: No Status: Acute Code(s): Z86.39 - PERSONAL HISTORY OF ENDO, NUTRITIONAL AND METABOLIC DISEASE SNOMED Code(s): 175494667 (7) History of hypertension Current Visit: No Status: Acute Code(s): Z86.79 - PERSONAL HISTORY OF OTHER DISEASES OF THE CIRCULATORY SYSTEM SNOMED Code(s): 879378371 (8) Hx of total knee replacement Current Visit: No Status: Acute Code(s): Z96.659 - PRESENCE OF UNSPECIFIED ARTIFICIAL KNEE JOINT SNOMED Code(s): 1903704461419 (9) Morbid obesity Current Visit: No Status: Acute Code(s): E66.01 - MORBID (SEVERE) OBESITY DUE TO EXCESS CALORIES SNOMED Code(s): 123575472 (10) Right knee pain Current Visit: No Status: Acute Code(s): M25.561 - PAIN IN RIGHT KNEE SNOMED Code(s): 31204150 (11) Tricompartment osteoarthritis of right knee Current Visit: No Status: Acute Code(s): M17.11 - UNILATERAL PRIMARY OSTEOARTHRITIS, RIGHT KNEE SNOMED Code(s): 181261510 Plan: Plan: 1. Patient is well known to our service. Patient has been discussed in detail with Dr. Lavelle Garcia. X-ray imaging of the right knee has been reviewed by myself and Dr. Lavelle Garcia. After physical examination the patient, and reviewing of imaging, we will continue conservative treatment at this time. Patient currently has a knee immobilizer intact over the right lower extremity. She should keep this brace intact at all times. Imaging does show some evidence of callus formation as compared to previous imaging was some increased displacement. At this time we will allow her to toe-touch weightbearing only on the right lower extremity with knee immobilizer intact. We discussed in significant detail she is not cleared for weightbearing as tolerated on the right lower extremity. She is essentially nonambulatory in the outpatient setting. We discussed she will continue to be toe-touch weightbearing on the right lower extremity over at least the next 4 weeks. We're not planning for surgical intervention in regards to her right knee. We discussed she is able to work with physical therapy to increase transfers and mobility with her knee immobilizer intact over the right lower extremity. At this time, patient is clear for discharge from an orthopedic standpoint. We will plan to have her follow up in the outpatient setting in approximately 3 weeks. We discussed she may be discharged back to [facility]. She may also be discharged to [facility] if they will accept her weightbearing status, if the approved inpatient is willing to work with physical therapy, and if the patient is approved. 2. Patient will continue to be seen and examined by medicine in regards to her other medical diagnoses including pneumonia and acute sigmoid diverticulitis. 3. Patient has been discussed in detail with Dr. Lavelle Garcia and he agrees with this plan Time with Patient: Greater than 30 (Including obtaining history, physical examination, reviewing of imaging, and dictation.)
[2018-11-29] MEDS: traMADol 50 MG TAB PO PRN (09:03)
[2018-11-29] MEDS: SODIUM CHLORIDE 0.9% 1,000 ML IV SCH (09:07)
[2018-11-29] MEDS: IPRATROPIUM-ALBUTEROL 3 ML NEB INHALATION SCH ×2 (10:06→14:03)
[2018-11-29] MEDS: SYMBICORT 160-4.5 MCG INHALER INHALATION SCH (10:06)
[2018-11-29 11:46] LABS: Glucose,Whole Blood 129 mg/dL (75-99)
[2018-11-29 12:01] LABS: Anion Gap 5 mmol/L; Blood Urea Nitrogen 15 mg/dL (7-17); Carbon Dioxide 36 mmol/L (22-30); Chloride 99 mmol/L (98-107); Glucose 124 mg/dL (74-99); Potassium 3.4 mmol/L (3.5-5.1); Sodium 140 mmol/L (137-145)
--- NOTE | 2018-11-29 12:52 | DS ---
DISCHARGE SUMMARY DATE OF ADMISSION: 11/24/2018 DATE OF DISCHARGE: 11/29/2018 FINAL DIAGNOSES: 1. Pneumonia, suspect gram-negative organism, POA. 2. Acute sigmoid diverticulitis with clinical improvement, POA. 3. Chronic right femur distal fracture with immobilizer brace, nonweightbearing toe- touch allowed. 4. Chronic medical debility at baseline using Jorge Alberto lift. 5. Chronic congestive heart failure from diastolic dysfunction, ejection fraction 60%- 65%. 6. Chronic obstructive pulmonary disease in a nonsmoker. 7. Diabetes mellitus type 2 on oral hypoglycemic. 8. Hyperlipidemia. 9. Essential hypertension. 10.Primary osteoarthritis. 11.Morbid obesity, body mass index more than 40. 12.Chronic hypoxic respiratory failure on home oxygen. 13.Peripheral neuropathy secondary to diabetes. 14.Macular degeneration. 15.Chronic urine incontinence. 16.Chronic pain syndrome, multiple joint problems. 17.Hypothyroidism. 18.Moderate aortic stenosis, nonrheumatic. CONSULTATION: 1. Dr. Burns from Cardiology. 2. Dr. Garcia from Orthopedic spine. HOSPITAL COURSE: This is a patient who was at the rehab, pretty much nonambulatory because of chronic left lower extremity lymphedema and right femur fracture immobilizer brace, presented with pneumonia and acute diverticulitis. Responded well to IV Zosyn. Patient was seen by Cardiology. Nothing further to be added. A 2D echo did show EF of 50%-55% and moderate severe aortic stenosis. Currently patient is tolerating a diet. No further abdominal pain. The patient has dark stools, but that is from iron pills. PHYSICAL EXAMINATION: Temperature 97.9, pulse 58, respirations 17, blood pressure 107/59, pulse ox 97% on 4 L. LUNGS: Distant breath sounds. ABDOMEN: Soft, nontender. PSYCH: Alert and oriented x3. INVESTIGATIONS: Potassium 3.4, BUN 15, creatinine 0.73. Accu-Cheks are noted. ADDITIONAL NOTE: Patient was seen by Orthopedics. Patient is to remain nonweightbearing on the right leg with toe-touches allowed. Care was discussed with the lining caser. The patient wanted the change of ECF. test worker is again involved in that. Care was again discussed with the patient. Condition was discussed. Discussion and discharge planning more than 35 minutes. DISCHARGE MEDICATIONS: 1. Vitamin D3 one thousand units p.o. daily. 2. Lantus 30 units subcu q.h.s. 3. Celexa 20 mg p.o. daily. 4. Plavix 75 mg a day. 5. DuoNeb q.i.d. p.r.n. 6. Imdur 30 mg a day. 7. Synthroid 125 mcg a day. 8. Toprol-XL 25 mg a day. 9. Protonix 40 mg a day. 10.Breo Ellipta 200/25 one puff q.h.s. 11.Simvastatin 40 mg q.h.s. 12.Tylenol 650 mg q.6 p.r.n. 13.Augmentin 875 one tablet q.12, fourteen tablets. 14.Aspirin 81 mg a day. 15.Gabapentin 600 mg t.i.d. 16.NovoLog per scale. 17.Cozaar 25 mg q.h.s. 18.Ultram 50 mg q.6 p.r.n. FOLLOWUP: With Cardiology in 1 week[address] up with Dr. Reynaga at the [facility]. Follow up with Sandeep in 3 weeks. DISPOSITION: [facility]. MMODL / IJN: [id number] /
[2018-11-29 13:12] VITALS: RESP 18
[2018-11-29 13:17] VITALS: BP 154/67; PULSE 73; TEMP 96.5
[2018-11-29] MEDS ORDERED: LOSARTAN 25 MG TAB PO SCH (21:00)
== END 2018-11-29 14:21 | DRG 178 ==
LOC: EC 20:43 → 3SCARD 23:46
PROVIDERS: ADMIT Hospitalist; ATTEND Hospitalist
DX: J15.6 Pneumonia due to other Gram-negative bacteria (principal); N39.0 Urinary tract infection, site not specified; J96.11 Chronic respiratory failure with hypoxia; I50.32 Chronic diastolic (congestive) heart failure; Z68.43 Body mass index [BMI] 50.0-59.9, adult; K57.32 Diverticulitis of large intestine without perforation or abscess without bleeding; J44.0 Chronic obstructive pulmonary disease with (acute) lower respiratory infection; E11.42 Type 2 diabetes mellitus with diabetic polyneuropathy; I11.0 Hypertensive heart disease with heart failure; I27.20 Pulmonary hypertension, unspecified; E66.01 Morbid (severe) obesity due to excess calories; I08.2 Rheumatic disorders of both aortic and tricuspid valves; R74.8 Abnormal levels of other serum enzymes; I89.0 Lymphedema, not elsewhere classified; E78.5 Hyperlipidemia, unspecified; F41.9 Anxiety disorder, unspecified; H35.30 Unspecified macular degeneration; E03.9 Hypothyroidism, unspecified; R32 Unspecified urinary incontinence; M19.91 Primary osteoarthritis, unspecified site; G89.4 Chronic pain syndrome; Z66 Do not resuscitate; S72.401D Unspecified fracture of lower end of right femur, subsequent encounter for closed fracture with routine healing; Z99.81 Dependence on supplemental oxygen; Z79.899 Other long term (current) drug therapy; Z79.02 Long term (current) use of antithrombotics/antiplatelets; Z79.4 Long term (current) use of insulin; Z79.82 Long term (current) use of aspirin; Z79.890 Hormone replacement therapy; Z90.710 Acquired absence of both cervix and uterus; Z86.14 Personal history of Methicillin resistant Staphylococcus aureus infection; Z98.42 Cataract extraction status, left eye; Z98.41 Cataract extraction status, right eye; Z96.1 Presence of intraocular lens; Z96.652 Presence of left artificial knee joint; Z91.81 History of falling; Z88.8 Allergy status to other drugs, medicaments and biological substances; Z80.8 Family history of malignant neoplasm of other organs or systems
CPT/HCPCS: 36415; 51701; 71046; 74177; 80048; 80053; 81001; 82150; 83605; 83690; 83880; 84484; 85025; 85610; 85730; 87040; 93005; 93306; 94640; 94760; 96365; 96367; 99285

== ENCOUNTER 2020-07-10 20:57 | Inpatient (IN) | payer MEDICARE, OTHER ==
[2020-07-10] MEDS ORDERED: ONDANSETRON 4 MG/2 ML VIAL IVP STA (21:09)
[2020-07-10 21:30] LABS: Basophils # (A) 0.1 k/uL (0-0.2); Basophils % (A) 1 %; Eosinophils # (A) 0.1 k/uL (0-0.7); Eosinophils % (A) 1 %; HCT 37.6 % (34.0-46.0); HGB 12.4 gm/dL (11.4-16.0); Lymphocytes # (A) 0.3 k/uL (1.0-4.8); Lymphocytes % (A) 2 %; MCH 31.7 pg (25.0-35.0); Mean Platelet Volume 6.9; Monocytes # (A) 0.4 k/uL (0-1.0); Monocytes % (A) 3 %; Neutrophils # (A) 12.5 k/uL (1.3-7.7); Neutrophils % (A) 92 %; Platelet Count 271 k/uL (150-450); RBC 3.91 m/uL (3.80-5.40); RDW 12.8 % (11.5-15.5); WBC 13.5 k/uL (3.8-10.6)
[2020-07-10 21:37] LABS: MCV 96.1 fL (80.0-100.0)
[2020-07-10 21:40] LABS: Albumin 3.2 g/dL (3.5-5.0); Calcium 8.7 mg/dL (8.4-10.2); Total Bilirubin 1.6 mg/dL (0.2-1.3); Total Protein 6.4 g/dL (6.3-8.2)
[2020-07-10] MEDS: SODIUM CHLORIDE 0.9% 1,000 ML IV STA (21:43)
[2020-07-10 22:13] LABS: Appearance,Urine Cloudy (Clear); Bacteria,Urine Many /hpf; Bilirubin,Urine Negative (Negative); Blood,Urine Trace (Negative); Color,Urine Yellow; Glucose,Urine (UA) Negative (Negative); Hyaline Casts,Urine 4 /lpf (0-2); Ketones,Urine Negative (Negative); Leukocyte Esterase,Urine Large (Negative); Mucus,Urine Occasional /hpf; Nitrite,Urine Negative (Negative); PH, Urine 5.5 (5.0-8.0); Protein,Urine Trace (Negative); RBC,Urine 5 /hpf (0-5); Specific Gravity,Urine 1.016 (1.001-1.035); WBC,Urine 85 /hpf (0-5)
--- NOTE | 2020-07-10 22:39 | US ---
EXAMINATION TYPE: US abdomen limited DATE OF EXAM: 07/10/2020 COMPARISON: CT, US CLINICAL HISTORY: History of cholelithiasis, ruq pain, + paris. Hx of cholelithiasis, RUQ pain x few days. + Paris's sign. EXAM MEASUREMENTS: Liver Length: Limited, measured at 16.6 cm Gallbladder Wall: 0.3 cm CBD: Not visualized Right Kidney: Not visualized Very limited and difficult exam due to large patient body habitus and overlying bowel gas. Pancreas: Limited. Portions seen appear wnl. Liver: Increased attenuation and echogenicity. Limited. Gallbladder: Limited, there appears to be echogenic material within the gallbladder measurin.6 x 2.5 x 0.8 cm. Gallbladder measures 4.4 cm in width. Evidence for sonographic Paris's sign: Yes CBD: Not visualized Right Kidney: Not visualized IMPRESSION: There is echogenic bile and gallstones in the gallbladder. No dilated ducts seen within the liver. Co mmon bile duct not visualized. Exam limited by patient's size. There was tenderness over the gallblad leslie during the exam.
--- NOTE | 2020-07-10 22:41 | ED ---
Abdominal Pain HPI - General Chief Complaint: Abdominal Pain Stated Complaint: Abd Pain Time Seen by Provider: 07/10/20 21:09 Source: patient, EMS Mode of arrival: EMS Limitations: physical limitation - History of Present Illness Initial Comments: Patient is an 80-year-old female presenting to the emergency department with a chief complaint of abdominal pain. Patient states she has history of cholelithiasis and has an appointment scheduled for cholecystectomy in 19 days. Patient reports the pain is located right upper quadrant with occasional radi ation to the back. States the pain is sharp. She does report nausea and bilious vomiting. States she has not been able to keep any fluids or solids down. She denies any chest pain or shortness of breath at this time. Denies any night sweats fevers or chills. Denies any vaginal urinary symptoms. Patient came from [facility] via EMS. She cant recall the name of the surgeon who will be performing cholecystectomy. - Related Data Home Medications Medication Instructions Recorded Confirmed Cholecalciferol [Vitamin D3 (25 1,000 unit PO DAILY 02/24/15 07/10/20 Mcg = 1000 Iu)] Insulin Glargine,Hum.rec.anlog 12 unit SQ HS 06/19/17 07/10/20 [Lantus Solostar] Citalopram Hydrobromide [CeleXA] 20 mg PO DAILY 08/06/17 07/10/20 Isosorbide Mononitrate ER [Imdur] 30 mg PO DAILY 09/05/18 07/10/20 Levothyroxine Sodium [Synthroid] 125 mcg PO DAILY 09/05/18 07/10/20 Metoprolol Succinate (ER) [Toprol 25 mg PO DAILY 09/05/18 07/10/20 XL] Simvastatin 40 mg PO DAILY 11/24/18 07/10/20 Artificial Tears-Hypromellose 1 drops BOTH EYES DIRECTED PRN 07/10/20 07/10/20 [Artificial Tear Drops] Budesonide/Formoterol Fumarate 2 puff INHALATION RT-BID 07/10/20 07/10/20 [Symbicort 80-4.5 Mcg Inhaler] Ferrous Sulfate [Feosol] 325 mg PO HS 07/10/20 07/10/20 Furosemide [Lasix] 20 mg PO DAILY 07/10/20 07/10/20 Gabapentin 600 mg PO TID@0800,1200,1800 07/10/20 07/10/20 Lactobacillus Acidophilus 1 tab PO DAILY 07/10/20 07/10/20 [Acidophilus] Losartan [Cozaar] 12.5 mg PO DAILY 07/10/20 07/10/20 Mag Hydrox/Aluminum Hyd/Simeth 20 ml PO Q6H PRN 07/10/20 07/10/20 [Mylanta Maximum Strength Liq] Multivitamins, Thera [Multivitamin 1 tab PO BID@0800,199907/10/20 07/10/20 (formulary)] Omeprazole 20 mg PO BID@0800,199907/10/20 07/10/20 Repaglinide [Prandin] 0.5 mg PO TID@0700,1130,1630 07/10/20 07/10/20 Previous Rx's Medication Instructions Recorded Acetaminophen Tab [Tylenol] 650 mg PO Q6HR PRN tab 11/29/18 Aspirin 81 mg PO DAILY chew 11/29/18 Allergies Allergy/AdvReac Type Severity Reaction Status Date / Time atenolol [From Tenormin] AdvReac Severe Anxiety Verified 07/10/20 21:49 attack Review of Systems ROS Statement: Those systems with pertinent positive or pertinent negative responses have been documented in the HPI. ROS Other: All systems not noted in ROS Statement are negative. Past Medical History Past Medical History: Asthma, Cancer, Heart Failure, COPD, Diabetes Mellitus, Eye Disorder, Hyperlipidemia, Hypertension, Osteoarthritis (OA), Thyroid Disorder Additional Past Medical History / Comment(s): Morbid obesity, obstructive, IDDM type II, chronic respiratory failure with home O2 most of the time 4 liters, CHF diastolic dysfunction, 03/04/15 ech with mild pulmonary hypertension, mild to moderate tricuspid regurg, L ventricular systolic function normal EF 60-65%, L leg lymphedema, peripheral neuropathy bilateral legs/feet, macular degeneration bilaterally-vision is now poor, falls, gait dysfunction, chronic pain multiple joints, chronic urine incontinence, sinus problems, obesity, hypothyroidism, osteoarthritis History of Any Multi-Drug Resistant Organisms: MRSA Date of last positivie culture/infection: 2012 MDRO Source:: Blood, unknown Past Surgical History: Hernia Repair, Hysterectomy, Joint Replacement, Orthopedic Surgery Additional Past Surgical History / Comment(s): total L knee x 2, knee and lower back surgery, left breast Lumpectomy without cancer, bilateral hand surgeries, bilateral cataract extraction with intraocular lens implantations, nonmalignant mass removed from left leg -resulting lymphedema, oopherectomy, hysterectomy and abdominal hernia repair, R carpal tunnel release, L leg wound debridement, lymph node removed from L neck. Past Anesthesia/Blood Transfusion Reactions: No Reported Reaction Additional Past Anesthesia/Blood Transfusion Reaction / Comment(s): Patient states "she has a hard time waking up from anesthesia". Past Psychological History: Anxiety Smoking Status: Never smoker Past Alcohol Use History: None Reported Past Drug Use History: None Reported - Past Family History Mother Family Medical History: Cancer Additional Family Medical History / Comment(s): Mother at age 89 with pt believes bone cancer. Father Family Medical History: Unable to Obtain Additional Family Medical History / Comment(s): Pt's father when she was 2 yrs old. He was in WWII and of a strep infection. General Exam Limitations: physical limitation General appearance: alert, in no apparent distress, obese Head exam: Present: atraumatic, normocephalic, normal inspection Eye exam: Present: normal appearance, PERRL, EOMI Pupils: Present: normal accommodation ENT exam: Present: normal exam, normal oropharynx, mucous membranes moist, TM's normal bilaterally, normal external ear exam Neck exam: Present: normal inspection, full ROM. Absent: tenderness Respiratory exam: Present: normal lung sounds bilaterally. Absent: respiratory distress, wheezes, rales Cardiovascular Exam: Present: regular rate, normal rhythm, normal heart sounds. Absent: systolic murmur, diastolic murmur GI/Abdominal exam: Present: soft, tenderness (Positive Paris sign). Absent: distended, guarding, rebound, rigid Extremities exam: Present: normal inspection, full ROM, normal capillary refill. Absent: tenderness, pedal edema, joint swelling Back exam: Present: normal inspection, full ROM, CVA tenderness (R) (Mild). Absent: tenderness, CVA tenderness (L) Neurological exam: Present: alert, oriented X3 Psychiatric exam: Present: normal affect, normal mood Skin exam: Present: warm, dry, intact, normal color Course Vital Signs 07/10/20 07/10/20 07/10/20 21:00 22:00 23:00 Temperature 98.0 F Pulse Rate 68 71 Respiratory 16 18 16 Rate Blood Pressure 116/55 136/62 112/57 O2 Sat by Pulse 100 96 Oximetry 07/11/20 00:00 Temperature Pulse Rate Respiratory 14 Rate Blood Pressure O2 Sat by Pulse 96 Oximetry Medical Decision Making - Medical Decision Making 80-year-old female presenting to emergency Department with chief complaint of abdominal pain. Physical examination reveals right upper quadrant abdominal pain with a positive Paris sign. Patient has an elevated troponin, however this appears to be her baseline. CBC reveals leukocytosis of 13.5 K. Her upper quadrant ultrasound reveals no signs of cholecystitis but does reveal cholelithiasis. No signs of choledocholithiasis. Elevated liver enzymes. UA does reveal a urinary tract infection. Most recent urine culture reveals positive for pseudomonas. Patient will be started on Zosyn. covid negative. She will be admitted for further medical management. Case discussed with Admitting is Dr kevin Parnell on consult. - Lab Data Result diagrams: 07/10/20 21:20 07/10/20 21:20 Lab Results 07/10/20 07/10/20 07/10/20 Range/Units 21:20 21:20 21:20 WBC 13.5 H (3.8-10.6) k/uL RBC 3.91 (3.80-5.40) m/uL Hgb 12.4 (11.4-16.0) gm/dL Hct 37.6 (34.0-46.0) % MCV 96.1 D (80.0-100.0) fL MCH 31.7 (25.0-35.0) pg MCHC 33.0 (31.0-37.0) g/dL RDW 12.8 (11.5-15.5) % Plt Count 271 (150-450) k/uL MPV 6.9 Neutrophils % 92 % Lymphocytes % 2 % Monocytes % 3 % Eosinophils % 1 % Basophils % 1 % Neutrophils # 12.5 H (1.3-7.7) k/uL Lymphocytes # 0.3 L (1.0-4.8) k/uL Monocytes # 0.4 (0-1.0) k/uL Eosinophils # 0.1 (0-0.7) k/uL Basophils # 0.1 (0-0.2) k/uL Sodium 138 (137-145) mmol/L Potassium 4.0 (3.5-5.1) mmol/L Chloride 99 (98-107) mmol/L Carbon Dioxide 35 H (22-30) mmol/L Anion Gap 4 mmol/L BUN 22 H (7-17) mg/dL Creatinine 0.81 (0.52-1.04) mg/dL Est GFR (CKD-EPI)AfAm 79 (>60 ml/min/1.73 sqM) Est GFR (CKD-EPI)NonAf 69 (>60 ml/min/1.73 sqM) Glucose 172 H (74-99) mg/dL Plasma Lactic Acid German 1.2 (0.7-2.0) mmol/L Calcium 8.7 (8.4-10.2) mg/dL Total Bilirubin 1.6 H (0.2-1.3) mg/dL AST 262 H (14-36) U/L ALT 88 H (4-34) U/L Alkaline Phosphatase 387 H (38-126) U/L Troponin I (0.000-0.034) ng/mL Total Protein 6.4 (6.3-8.2) g/dL Albumin 3.2 L (3.5-5.0) g/dL Amylase 52 (30-110) U/L Lipase 335 H (23-300) U/L Urine Color Urine Appearance (Clear) Urine pH (5.0-8.0) Ur Specific [place] (1.001-1.035) Urine Protein (Negative) Urine Glucose (UA) (Negative) Urine Ketones (Negative) Urine Blood (Negative) Urine Nitrite (Negative) Urine Bilirubin (Negative) Urine Urobilinogen (<2.0) mg/dL Ur Leukocyte Esterase (Negative) Urine RBC (0-5) /hpf Urine WBC (0-5) /hpf Urine WBC Clumps (None) /hpf Urine Bacteria (None) /hpf Hyaline Casts (0-2) /lpf Urine Mucus (None) /hpf Coronavirus (PCR) (Not Detectd) 07/10/20 07/10/20 07/10/20 Range/Units 21:20 21:38 23:06 WBC (3.8-10.6) k/uL RBC (3.80-5.40) m/uL Hgb (11.4-16.0) gm/dL Hct (34.0-46.0) % MCV (80.0-100.0) fL MCH (25.0-35.0) pg MCHC (31.0-37.0) g/dL RDW (11.5-15.5) % Plt Count (150-450) k/uL MPV Neutrophils % % Lymphocytes % % Monocytes % % Eosinophils % % Basophils % % Neutrophils # (1.3-7.7) k/uL Lymphocytes # (1.0-4.8) k/uL Monocytes # (0-1.0) k/uL Eosinophils # (0-0.7) k/uL Basophils # (0-0.2) k/uL Sodium (137-145) mmol/L Potassium (3.5-5.1) mmol/L Chloride (98-107) mmol/L Carbon Dioxide (22-30) mmol/L Anion Gap mmol/L BUN (7-17) mg/dL Creatinine (0.52-1.04) mg/dL Est GFR (CKD-EPI)AfAm (>60 ml/min/1.73 sqM) Est GFR (CKD-EPI)NonAf (>60 ml/min/1.73 sqM) Glucose (74-99) mg/dL Plasma Lactic Acid [place] (0.7-2.0) mmol/L Calcium (8.4-10.2) mg/dL Total Bilirubin (0.2-1.3) mg/dL AST (14-36) U/L ALT (4-34) U/L Alkaline Phosphatase (38-126) U/L Troponin I 0.195 H* (0.000-0.034) ng/mL Total Protein (6.3-8.2) g/dL Albumin (3.5-5.0) g/dL Amylase (30-110) U/L Lipase (23-300) U/L Urine Color Yellow Urine Appearance Cloudy H (Clear) Urine pH 5.5 (5.0-8.0) Ur Specific [place] 1.016 (1.001-1.035) Urine Protein Trace H (Negative) Urine Glucose (UA) Negative (Negative) Urine Ketones Negative (Negative) Urine Blood Trace H (Negative) Urine Nitrite Negative (Negative) Urine Bilirubin Negative (Negative) Urine Urobilinogen 2.0 (<2.0) mg/dL Ur Leukocyte Esterase Large H (Negative) Urine RBC 5 (0-5) /hpf Urine WBC 85 H (0-5) /hpf Urine WBC Clumps Moderate H (None) /hpf Urine Bacteria Many H (None) /hpf Hyaline Casts 4 H (0-2) /lpf Urine Mucus Occasional H (None) /hpf Coronavirus (PCR) Not Detected (Not Detectd) - EKG Data EKG Comments: Sinus rhythm, left axis deviation Ventricular rate 69, CA 200, QRS 92, QTC 465. Disposition Clinical Impression: Abdominal pain, Weakness, Urinary tract infection Disposition: ADMITTED IP TO THIS HOSP Condition: Fair Instructions (If sedation given, give patient instructions): Abdominal Pain (ED) Is patient prescribed a controlled substance at d/c from ED?: No Referrals: Donta Reyngaa DO [Primary Care Provider] - 1-2 days Time of Disposition: 00:18
--- NOTE | 2020-07-10 23:21 | XR ---
EXAMINATION TYPE: XR chest 2V DATE OF EXAM: 07/10/2020 COMPARISON: 01/26/2019 HISTORY: Pneumonia TECHNIQUE: 2 views FINDINGS: Heart is enlarged. There is pulmonary mild interstitial and airspace edema. There is no def inite pleural effusion. There are no hilar masses. IMPRESSION: Mild pulmonary edema appears new compared to old exam and could relate to minimal heart f ailure.
[2020-07-11] MEDS ORDERED: LORazepam 2 MG/ML INJ IV PRN (00:10)
[2020-07-11] MEDS ORDERED: NALOXONE 0.4 MG/ML 1 ML VIAL IV PRN (00:10)
[2020-07-11] MEDS ORDERED: PIPERACILLIN-TAZOBACTAM 3.375 GM in SODIUM CHLORIDE 0.9% 100 ML IVPB STA (00:12)
[2020-07-11] MEDS: SODIUM CHLORIDE 0.9% 1,000 ML IV SCH (00:43)
[2020-07-11] MEDS ORDERED: SODIUM CHLORIDE 0.9% 1,000 ML IV ONE (02:15)
[2020-07-11 02:19] LABS: Glucose,Whole Blood 207 mg/dL (75-99)
--- NOTE | 2020-07-11 02:36 | P.EN ---
A team note The patient seen and examined at the bedside after activation of A-team. Discussed case with the RN and reviewed the chart. The patient had presented to the emergency room with complaints of abdominal pain in the right upper quadrant. The patient had reported nausea and vomiting. Patient was admitted with UTI and cholelithiasis and was given a single dose of Zosyn. The patient was started on normal saline 130 mL an hour maintenance. A team was activated since patient's blood pressure had dropped to 72/42 with P 61, T 98, RR 18, and SpO2 99% on 2L NC. The patient was given a dose of Narcan with minimal improvement. At time of the interview, she noted R flank pain. On examination, patient was noted to be lethargic elderly morbidly obese female in no acute distress. The patient was answering questions appropriately, albeit would fall asleep. Abdominal examination revealed mild to moderate right upper quadrant tenderness with right CVA tenderness. Lungs were clear to auscultation bilaterally with heart sounds unremarkable with S1-S2 audible with no murmurs appreciated. 1 L normal saline bolus was ordered for the patient with good immediate response and improvement in the patient's blood pressure to 90s/60s within minutes. Informed RN of the suspicion for pyelonephritis with sepsis. The RN contacted the primary team for further orders. Patient had recently recieved Zosyn in the ED.
[2020-07-11] MEDS ORDERED: PIPERACILLIN-TAZOBACTAM 3.375 GM in SODIUM CHLORIDE 0.9% 100 ML IVPB ONE (03:30)
[2020-07-11] MEDS ORDERED: SODIUM CHLORIDE 0.9% 500 ML 500 ML IV ONE (03:44)
--- NOTE | 2020-07-11 04:09 | P.EN ---
A Team Note Activated due to persistent hypotension. Patient continues to be arousable although slow to respond. At time of evaluation, BP 77/47 P 62 SpO2 96% on 4L NC. 500 ml bolus of NS was ordered. Advised the RN that if BP fails to improve, consider IV pressor support and ICU transfer upon the discretion of the primary team. Repeat dose of Zosyn ordered by primary. RN will contact primary team to update them.
[2020-07-11] MEDS: SODIUM CHLORIDE 0.9% 1,000 ML IV STA (04:13)
[2020-07-11] MEDS ORDERED: ARTIFICIAL TEARS-HYPROMELLOSE DROPS 15 ML BTL BOTH EYES PRN (08:37)
[2020-07-11] MEDS ORDERED: MAG HYDROX/AL HYDROX/SIMETH 30 ML CUP PO PRN (08:37)
[2020-07-11] MEDS ORDERED: FUROSEMIDE 20 MG TAB PO SCH (09:00)
[2020-07-11] MEDS ORDERED: LOSARTAN 25 MG TAB PO SCH (09:00)
[2020-07-11] MEDS: ATORVASTATIN 20 MG TAB PO SCH (11:48)
[2020-07-11] MEDS: LACTOBACILLUS ACIDOPH & BULGAR 1 EACH PACKET PO SCH (11:48)
[2020-07-11] MEDS: GABAPENTIN 300 MG CAP PO SCH ×2 (11:48→17:29)
[2020-07-11] MEDS: CITALOPRAM HYDROBROMIDE 20 MG TAB PO SCH (11:48)
[2020-07-11] MEDS: CHOLECALCIFEROL 1,000 UNIT TAB PO SCH (11:48)
[2020-07-11] MEDS: ASPIRIN 81 MG PO SCH (11:48)
[2020-07-11] MEDS: PANTOPRAZOLE 40 MG TABLET PO SCH (11:51)
[2020-07-11 11:57] LABS: Glucose,Whole Blood 125 mg/dL (75-99)
[2020-07-11 15:01] LABS: Basophils # (A) 0.1 k/uL (0-0.2); Basophils % (A) 0 %; Eosinophils % (A) 0 %; HCT 36.2 % (34.0-46.0); HGB 11.6 gm/dL (11.4-16.0); Hypochromasia Slight; Lymphocytes # (A) 0.5 k/uL (1.0-4.8); Lymphocytes % (A) 4 %; MCH 32.4 pg (25.0-35.0); MCHC 32.1 g/dL (31.0-37.0); Mean Platelet Volume 6.8; Monocytes # (A) 0.5 k/uL (0-1.0); Monocytes % (A) 3 %; Neutrophils # (A) 13.8 k/uL (1.3-7.7); Neutrophils % (A) 92 %; Platelet Count 227 k/uL (150-450); RBC 3.58 m/uL (3.80-5.40); RDW 12.8 % (11.5-15.5); WBC 14.9 k/uL (3.8-10.6)
[2020-07-11] MEDS: ISOSORBIDE MONONITRATE ER 30 MG TAB.ER.24H PO SCH (15:03)
[2020-07-11] MEDS: METOPROLOL SUCCINATE (ER) 25 MG TAB.ER.24H PO SCH (15:03)
[2020-07-11] MEDS: REPAGLINIDE 1 MG TAB PO SCH ×2 (15:03→17:29)
[2020-07-11 15:23] LABS: ALT 113 U/L (4-34); AST 201 U/L (14-36); African American GFR (CKD) 41 (>60 ml/min/1.73 sqM); Albumin 2.6 g/dL (3.5-5.0); Albumin/Globulin Ratio 0.9; Alkaline Phosphatase 316 U/L (38-126); Anion Gap 4 mmol/L; Blood Urea Nitrogen 24 mg/dL (7-17); Calcium 7.9 mg/dL (8.4-10.2); Carbon Dioxide 33 mmol/L (22-30); Chloride 104 mmol/L (98-107); Globulin 2.8 g/dL; Glucose 130 mg/dL (74-99); Non-African American GFR(CKD) 36 (>60 ml/min/1.73 sqM); Potassium 4.5 mmol/L (3.5-5.1); Sodium 141 mmol/L (137-145); Total Bilirubin 2.4 mg/dL (0.2-1.3); Total Protein 5.4 g/dL (6.3-8.2)
--- NOTE | 2020-07-11 15:26 | P.GSCN ---
History of Present Illness Consult date: 07/11/20 History of present illness: This is a 80-year-old female previously seen Dr. Parnell as an outpatient for symptomatic cholelithiasis. She presented a hospital with a chief complaint of generalized abdominal pain. She stated she wasn't feeling well. She had some nausea and vomiting. She denies any fevers or chills or cough. She is found have a UTI. Ultrasound of the abdomen also revealed cholelithiasis without significant wall thickening there is no pericholecystic fluid and no ductal dilation. Past Medical History Past Medical History: Asthma, Cancer, Heart Failure, COPD, Diabetes Mellitus, Eye Disorder, Hyperlipidemia, Hypertension, Osteoarthritis (OA), Thyroid Disorder Additional Past Medical History / Comment(s): Morbid obesity, obstructive, IDDM type II, chronic respiratory failure with home O2 most of the time 4 liters, CHF diastolic dysfunction, 03/04/15 ech with mild pulmonary hypertension, mild to moderate tricuspid regurg, L ventricular systolic function normal EF 60-65%, L leg lymphedema, peripheral neuropathy bilateral legs/feet, macular degeneration bilaterally-vision is now poor, falls, gait dysfunction, chronic pain multiple joints, chronic urine incontinence, sinus problems, obesity, hypothyroidism, osteoarthritis History of Any Multi-Drug Resistant Organisms: MRSA Year Discovered:: 2012 MDRO Source:: Blood, unknown Past Surgical History: Hernia Repair, Hysterectomy, Joint Replacement, Orthopedic Surgery Additional Past Surgical History / Comment(s): total L knee x 2, knee and lower back surgery, left breast Lumpectomy without cancer, bilateral hand surgeries, bilateral cataract extraction with intraocular lens implantations, nonmalignant mass removed from left leg -resulting lymphedema, oopherectomy, hysterectomy and abdominal hernia repair, R carpal tunnel release, L leg wound debridement, lymph node removed from L neck. Past Anesthesia/Blood Transfusion Reactions: No Reported Reaction Additional Past Anesthesia/Blood Transfusion Reaction / Comm: Patient states "she has a hard time waking up from anesthesia". Past Psychological History: Anxiety Smoking Status: Never smoker Past Alcohol Use History: None Reported Past Drug Use History: None Reported - Past Family History Mother Family Medical History: Cancer Additional Family Medical History / Comment(s): Mother at age 89 with pt be lieves bone cancer. Father Family Medical History: Unable to Obtain Additional Family Medical History / Comment(s): Pt's father when she was 2 yrs old. He was in [place] and of a strep infection. Medications and Allergies Home Medications Medication Instructions Recorded Confirmed Type Cholecalciferol [Vitamin D3 (25 1,000 unit PO DAILY 02/24/15 07/10/20 History Mcg = 1000 Iu)] Insulin Glargine,Hum.rec.anlog 12 unit SQ HS 06/19/17 07/10/20 History [Lantus Solostar] Citalopram Hydrobromide [CeleXA] 20 mg PO DAILY 08/06/17 07/10/20 History Isosorbide Mononitrate ER [Imdur] 30 mg PO DAILY 09/05/18 07/10/20 History Levothyroxine Sodium [Synthroid] 125 mcg PO DAILY 09/05/18 07/10/20 History Metoprolol Succinate (ER) [Toprol 25 mg PO DAILY 09/05/18 07/10/20 History XL] Simvastatin 40 mg PO DAILY 11/24/18 07/10/20 History Acetaminophen Tab [Tylenol] 650 mg PO Q6HR PRN tab 11/29/18 07/10/20 Rx Aspirin 81 mg PO DAILY chew 11/29/18 07/10/20 Rx Artificial Tears-Hypromellose 1 drops BOTH EYES DIRECTED PRN 07/10/20 07/10/20 History [Artificial Tear Drops] Budesonide/Formoterol Fumarate 2 puff INHALATION RT-BID 07/10/20 07/10/20 History [Symbicort 80-4.5 Mcg Inhaler] Ferrous Sulfate [Feosol] 325 mg PO HS 07/10/20 07/10/20 History Furosemide [Lasix] 20 mg PO DAILY 07/10/20 07/10/20 History Gabapentin 600 mg PO TID@0800,1200,1800 07/10/20 07/10/20 History Lactobacillus Acidophilus 1 tab PO DAILY 07/10/20 07/10/20 History [Acidophilus] Losartan [Cozaar] 12.5 mg PO DAILY 07/10/20 07/10/20 History Mag Hydrox/Aluminum Hyd/Simeth 20 ml PO Q6H PRN 07/10/20 07/10/20 History [Mylanta Maximum Strength Liq] Multivitamins, Thera [Multivitamin 1 tab PO BID@0800,2000 07/10/2020 History (formulary)] Omeprazole 20 mg PO BID@0800,199907/10/20 07/10/20 History Repaglinide [Prandin] 0.5 mg PO TID@0700,1130,1630 07/10/20 07/10/20 History Allergies Allergy/AdvReac Type Severity Reaction Status Date / Time atenolol [From Tenormin] AdvReac Severe Anxiety Verified 07/10/20 21:49 attack Surgical - Exam Osteopathic Statement: *. No significant issues noted on an osteopathic structural exam other than those noted in the History and Physical/Consult. Vital Signs Temp Pulse Resp BP Pulse Ox 98.0 F 68 16 116/55 100 07/10/20 21:00 07/10/20 21:00 07/10/20 21:00 07/10/20 21:00 07/10/20 21:00 - General well developed, well nourished, no distress - Respiratory normal expansion, normal respiratory effort - Cardiovascular Rhythm: regular - Abdomen Abdomen: soft, non tender - Psychiatric oriented to time, oriented to person, oriented to place Results - Labs 07/11/20 14:47 07/10/20 21:20 Abnormal Lab Results - Last 24 Hours (Table) 07/10/20 07/10/20 07/10/20 Range/Units 21:20 21:20 21:20 WBC 13.5 H (3.8-10.6) k/uL RBC (3.80-5.40) m/uL MCV (80.0-100.0) fL Neutrophils # 12.5 H (1.3-7.7) k/uL Lymphocytes # 0.3 L (1.0-4.8) k/uL Carbon Dioxide 35 H (22-30) mmol/L BUN 22 H (7-17) mg/dL Glucose 172 H (74-99) mg/dL POC Glucose (mg/dL) (75-99) mg/dL Total Bilirubin 1.6 H (0.2-1.3) mg/dL AST 262 H (14-36) U/L ALT 88 H (4-34) U/L Alkaline Phosphatase 387 H (38-126) U/L Troponin I 0.195 H* (0.000-0.034) ng/mL Albumin 3.2 L (3.5-5.0) g/dL Lipase 335 H (23-300) U/L Urine Appearance (Clear) Urine Protein (Negative) Urine Blood (Negative) Ur Leukocyte Esterase (Negative) Urine WBC (0-5) /hpf Urine WBC Clumps (None) /hpf Urine Bacteria (None) /hpf Hyaline Casts (0-2) /lpf Urine Mucus (None) /hpf 07/10/20 07/11/20 07/11/20 Range/Units 21:38 02:17 11:33 WBC (3.8-10.6) k/uL RBC (3.80-5.40) m/uL MCV (80.0-100.0) fL Neutrophils # (1.3-7.7) k/uL Lymphocytes # (1.0-4.8) k/uL Carbon Dioxide (22-30) mmol/L BUN (7-17) mg/dL Glucose (74-99) mg/dL POC Glucose (mg/dL) 207 H 125 H (75-99) mg/dL Total Bilirubin (0.2-1.3) mg/dL AST (14-36) U/L ALT (4-34) U/L Alkaline Phosphatase (38-126) U/L Troponin I (0.000-0.034) ng/mL Albumin (3.5-5.0) g/dL Lipase (23-300) U/L Urine Appearance Cloudy H (Clear) Urine Protein Trace H (Negative) Urine Blood Trace H (Negative) Ur Leukocyte Esterase Large H (Negative) Urine WBC 85 H (0-5) /hpf Urine WBC Clumps Moderate H (None) /hpf Urine Bacteria Many H (None) /hpf Hyaline Casts 4 H (0-2) /lpf Urine Mucus Occasional H (None) /hpf 07/11/20 Range/Units 14:47 WBC 14.9 H (3.8-10.6) k/uL RBC 3.58 L (3.80-5.40) m/uL MCV 101.0 H (80.0-100.0) fL Neutrophils # 13.8 H (1.3-7.7) k/uL Lymphocytes # 0.5 L (1.0-4.8) k/uL Carbon Dioxide (22-30) mmol/L BUN (7-17) mg/dL Glucose (74-99) mg/dL POC Glucose (mg/dL) (75-99) mg/dL Total Bilirubin (0.2-1.3) mg/dL AST (14-36) U/L ALT (4-34) U/L Alkaline Phosphatase (38-126) U/L Troponin I (0.000-0.034) ng/mL Albumin (3.5-5.0) g/dL Lipase (23-300) U/L Urine Appearance (Clear) Urine Protein (Negative) Urine Blood (Negative) Ur Leukocyte Esterase (Negative) Urine WBC (0-5) /hpf Urine WBC Clumps (None) /hpf Urine Bacteria (None) /hpf Hyaline Casts (0-2) /lpf Urine Mucus (None) /hpf Microbiology - Last 24 Hours (Table) 07/10/20 21:38 Urine Culture - Preliminary Urine,Voided Diabetes panel 07/10/20 Range/Units 21:20 Sodium 138 (137-145) mmol/L Potassium 4.0 (3.5-5.1) mmol/L Chloride 99 (98-107) mmol/L Carbon Dioxide 35 H (22-30) mmol/L BUN 22 H (7-17) mg/dL Creatinine 0.81 (0.52-1.04) mg/dL Glucose 172 H (74-99) mg/dL Calcium 8.7 (8.4-10.2) mg/dL AST 262 H (14-36) U/L ALT 88 H (4-34) U/L Alkaline Phosphatase 387 H (38-126) U/L Total Protein 6.4 (6.3-8.2) g/dL Albumin 3.2 L (3.5-5.0) g/dL Calcium panel 07/10/20 Range/Units 21:20 Calcium 8.7 (8.4-10.2) mg/dL Albumin 3.2 L (3.5-5.0) g/dL Pituitary panel 07/10/20 Range/Units 21:20 Sodium 138 (137-145) mmol/L Potassium 4.0 (3.5-5.1) mmol/L Chloride 99 (98-107) mmol/L Carbon Dioxide 35 H (22-30) mmol/L BUN 22 H (7-17) mg/dL Creatinine 0.81 (0.52-1.04) mg/dL Glucose 172 H (74-99) mg/dL Calcium 8.7 (8.4-10.2) mg/dL Adrenal panel 07/10/20 Range/Units 21:20 Sodium 138 (137-145) mmol/L Potassium 4.0 (3.5-5.1) mmol/L Chloride 99 (98-107) mmol/L Carbon Dioxide 35 H (22-30) mmol/L BUN 22 H (7-17) mg/dL Creatinine 0.81 (0.52-1.04) mg/dL Glucose 172 H (74-99) mg/dL Calcium 8.7 (8.4-10.2) mg/dL Total Bilirubin 1.6 H (0.2-1.3) mg/dL AST 262 H (14-36) U/L ALT 88 H (4-34) U/L Alkaline Phosphatase 387 H (38-126) U/L Total Protein 6.4 (6.3-8.2) g/dL Albumin 3.2 L (3.5-5.0) g/dL Assessment and Plan Assessment: UTI Cholelithiasis Plan: Patient states she's not having any abdominal pain today she did have a UTI. She is being treated with antibiotics. She was planning on laparoscopic cholecystectomy as an outpatient secondary to symptomatic cholelithiasis. She was being worked up as an outpatient by cardiology and obtaining medical clearance. Patient does not appear to have acute cholecystitis at this time however she does have multiple other multiple medical comorbidities including elevated troponin. No plans for acute surgical intervention at this time we will continue to follow
[2020-07-11] MEDS: LEVOTHYROXINE 125 MCG TAB PO SCH (15:55)
[2020-07-11] MEDS: LACTATED RINGERS 1,000 ML IV SCH (15:55)
[2020-07-11] MEDS: PIPERACILLIN-TAZOBACTAM 3.375 GM in SODIUM CHLORIDE 0.9% 100 ML IVPB SCH (15:55)
[2020-07-11 16:34] LABS: Glucose,Whole Blood 108 mg/dL (75-99)
[2020-07-11] MEDS: SYMBICORT 80-4.5 MCG INHALER INHALATION SCH (21:14)
--- NOTE | 2020-07-11 22:39 | P.HPIM ---
History of Present Illness H&P Date: 07/11/20 Chief Complaint: Abdominal pain History of presenting complaint: This is a 80-year-old patient, Dr. Reynaga. At the [facility]. Chronic stable medical conditions include asthma, COPD, diabetes, hypertension, hyperlipidemia, osteoarthritis, morbid obesity, home oxygen 4 L, CHF with diastolic dysfunction, left leg lymphedema, peripheral neuropathy, macu lar degeneration, chronic urinary incontinence. She presents to the ER with abdominal pain. Right upper quadrant. She states she was scheduled for a cholecystectomy in 19 days. Not sure what surgeon. Pain radiates to the back. Has been having dry heaves. Pain is sharp. Also had some nausea and vomiting. No fever no chills. Has not been able to keep anything down. No fever no chills. Review of systems: GEN.: Tired EYES: None HEENT: None NECK: None RESPIRATORY: None CARDIOVASCULAR: None GASTROINTESTINAL: [As above GENITOURINARY: Incontinence MUSCULOSKELETAL: Joint pains LYMPHATICS: None HEMATOLOGICAL: None PSYCHIATRY: None NEUROLOGICAL: Peripheral neuropathy Past medical history to include: Asthma, diabetes, hypertension, hyperlipidemia, primary osteoarthritis, hypothyroid, morbid obesity, diabetes type 2, home oxygen 4 L, CHF from diastolic dysfunction, EF 60-65%, left leg lymphedema, peripheral neuropathy, macular degeneration, chronic urinary incontinence, hypothyroidism Social history: Uses a walker/wheelchair. No smoking or alcohol. Family history: Reviewed, noncontributory to presentation Physical examination: VITAL SIGNS: 97.5, 16, 98 x 63, 95% on 4 L GENERAL: BMI 47.4, laying in bed, awake. EYES: Pupils equal. Conjunctiva normal. HEENT: External appearance of nose and ears normal, oral cavity grossly normal. NECK: JVD unable to assess masses not palpable. HEART: First and second heart sounds are normal; nonpitting edema. LUNGS: Respiratory rate increased; distant breath sounds. ABDOMEN: Soft, right upper quadrant tenderness, no guarding rigidity, liver spleen not palpable, no masses palpable. PSYCH: Alert and oriented x3; mood and affect normal. NEUROLOGICAL: Cranial nerves grossly intact; no facial asymmetry, power and se nsation grossly intact. LYMPHATICS: Lymphedemas to The left lower extremity INVESTIGATIONS, reviewed in the clinical context: White count 14.9 hemoglobin 11.6 platelets 227 potassium 4.5 bun 24 creatinine 1.38 total bilirubin 2.4 AST 201 ALT 113 alk phos 316 Troponin I 0.195, 0.154 Coronavirus P/Cr-not detected White count 13.5 hemoglobin 12.4 potassium 4.0 creatinine 0.81 total bilirubin 1.6 UA positive for leukoesterase WBC EKG tracing personally reviewed by me-normal sinus rhythm Chest x-ray film personally reviewed by me-scattered infiltrates versus atypical edema Abdominal ultrasound-echogenic bile and gallstones or gallbladder. No dilated ducts. Common bile duct not visualized. Sonographic Paris sign positive Assessment: -Acute on chronic cholecystitis in a patient with known gallbladder disease. Scheduled for cholecystectomy. Now presents with right upper quadrant pain. Nausea vomiting. Leukocytosis. Tenderness in the right upper quadrant. -Intermittent asthma -Diabetes mellitus type 2 -Hyperlipidemia -Hyperlipidemia -Primary osteoarthritis -Chronic hypoxic is pretty failure on 4 L of oxygen at home -Chronic congestive heart failure from diastolic dysfunction EF 60-65% -Lower extremity lymphedema -Diabetic peripheral neuropathy -Macular degeneration -Chronic gait dysfunction uses a wheelchair or walker -Chronic urinary incontinence -Hypothyroidism -Morbid obesity BMI 47.4 -Acute kidney injury, could be ATN from hypotension Plan: Patient started on IV Zosyn. We will give IV fluids. Home medications resumed. General surgery consulted. Cutback the dose of Neurontin in the face of renal failure. DVT prophylaxis. Accu-Cheks will be followed. Care was discussed with the patient and questions answered. Given multiple comorbidities patient is a moderate risk for surgery. But now after quadrant medications. Past Medical History Past Medical History: Asthma, Cancer, Heart Failure, COPD, Diabetes Mellitus, Ey e Disorder, Hyperlipidemia, Hypertension, Osteoarthritis (OA), Thyroid Disorder Additional Past Medical History / Comment(s): Morbid obesity, obstructive, IDDM type II, chronic respiratory failure with home O2 most of the time 4 liters, CHF diastolic dysfunction, 03/04/15 ech with mild pulmonary hypertension, mild to moderate tricuspid regurg, L ventricular systolic function normal EF 60-65%, L leg lymphedema, peripheral neuropathy bilateral legs/feet, macular degeneration bilaterally-vision is now poor, falls, gait dysfunction, chronic pain multiple joints, chronic urine incontinence, sinus problems, obesity, hypothyroidism, osteoarthritis History of Any Multi-Drug Resistant Organisms: MRSA Date of last positivie culture/infection: 2012 MDRO Source:: Blood, unknown Past Surgical History: Hernia Repair, Hysterectomy, Joint Replacement, Orthopedic Surgery Additional Past Surgical History / Comment(s): total L knee x 2, knee and lower back surgery, left breast Lumpectomy without cancer, bilateral hand surgeries, bilateral cataract extraction with intraocular lens implantations, nonmalignant mass removed from left leg -resulting lymphedema, oopherectomy, hysterectomy and abdominal hernia repair, R carpal tunnel release, L leg wound debridement, lymph node removed from L neck. Past Anesthesia/Blood Transfusion Reactions: No Reported Reaction Additional Past Anesthesia/Blood Transfusion Reaction / Comment(s): Patient states "she has a hard time waking up from anesthesia". Past Psychological History: Anxiety Smoking Status: Never smoker Past Alcohol Use History: None Reported Past Drug Use History: None Reported - Past Family History Mother Family Medical History: Cancer Additional Family Medical History / Comment(s): Mother at age 89 with pt believes bone cancer. Father Family Medical History: Unable to Obtain Additional Family Medical History / Comment(s): Pt's father when she was 2 yrs old. He was in WW[place] and of a strep infection. Medications and Allergies Home Medications Medication Instructions Recorded Confirmed Type Cholecalciferol [Vitamin D3 (25 1,000 unit PO DAILY 02/24/15 07/10/20 History Mcg = 1000 Iu)] Insulin Glargine,Hum.rec.anlog 12 unit SQ HS 06/19/17 07/10/20 History [Lantus Solostar] Citalopram Hydrobromide [CeleXA] 20 mg PO DAILY 08/06/17 07/10/20 History Isosorbide Mononitrate ER [Imdur] 30 mg PO DAILY 09/05/18 07/10/20 History Levothyroxine Sodium [Synthroid] 125 mcg PO DAILY 09/05/18 07/10/20 History Metoprolol Succinate (ER) [Toprol 25 mg PO DAILY 09/05/18 07/10/20 History XL] Simvastatin 40 mg PO DAILY 11/24/18 07/10/20 History Acetaminophen Tab [Tylenol] 650 mg PO Q6HR PRN tab 11/29/18 07/10/20 Rx Aspirin 81 mg PO DAILY chew 11/29/18 07/10/20 Rx Artificial Tears-Hypromellose 1 drops BOTH EYES DIRECTED PRN 07/10/20 07/10/20 History [Artificial Tear Drops] Budesonide/Formoterol Fumarate 2 puff INHALATION RT-BID 07/10/20 07/10/20 History [Symbicort 80-4.5 Mcg Inhaler] Ferrous Sulfate [Feosol] 325 mg PO HS 07/10/20 07/10/20 History Furosemide [Lasix] 20 mg PO DAILY 07/10/20 07/10/20 History Gabapentin 600 mg PO TID@0800,1200,1800 07/10/20 07/10/20 History Lactobacillus Acidophilus 1 tab PO DAILY 07/10/20 07/10/20 History [Acidophilus] Losartan [Cozaar] 12.5 mg PO DAILY 07/10/20 07/10/20 History Mag Hydrox/Aluminum Hyd/Simeth 20 ml PO Q6H PRN 07/10/20 07/10/20 History [Mylanta Maximum Strength Liq] Multivitamins, Thera [Multivitamin 1 tab PO BID@0800,199907/10/20 07/10/20 History (formulary)] Omeprazole 20 mg PO BID@0800,199907/10/20 07/10/20 History Repaglinide [Prandin] 0.5 mg PO TID@0700,1130,1630 07/10/20 07/10/20 History Allergies Allergy/AdvReac Type Severity Reaction Status Date / Time atenolol [From Tenormin] AdvReac Severe Anxiety Verified 07/10/20 21:49 attack Physical Exam Vitals: Vital Signs Temp Pulse Pulse Resp BP BP Pulse Ox 07/11/20 07:52 97.5 F L 60 60 H 98/63 95 07/11/20 05:01 16 102/62 98 07/11/20 04:26 97.4 F L 56 L 16 94/58 95 07/11/20 04:10 57 L 16 93/56 97 07/11/20 03:54 61 16 96/59 97 07/11/20 03:40 63 16 92/55 96 07/11/20 03:37 62 78/46 96 07/11/20 03:13 60 85/50 07/11/20 02:55 57 L 16 77/45 95 07/11/20 02:43 56 L 16 77/46 100 07/11/20 02:30 100/60 100 07/11/20 02:15 66 16 99/63 95 07/11/20 02:05 18 07/11/20 01:50 67/43 07/11/20 01:37 72/42 07/11/20 01:35 70/40 07/11/20 01:31 82/49 07/11/20 01:30 67/43 07/11/20 01:27 79/40 07/11/20 01:25 98.2 F 71 16 70/38 94 L 07/11/20 01:00 98.6 F 70 16 94/56 95 07/11/20 00:00 14 96 07/10/20 23:00 16 112/57 96 07/10/20 22:00 71 18 136/62 07/10/20 21:00 98.0 F 68 16 116/55 100 Intake and Output 07/10/20 07/11/20 07/11/20 22:59 06:59 14:59 Output Total 200 Balance -200 Output: Urine 200 Straight 200 Other: Weight 129.274 kg 129.274 kg Results CBC & Chem 7: 07/11/20 14:47 07/11/20 14:47 Labs: Abnormal Lab Results - Last 24 Hours (Table) 07/10/20 07/10/20 07/10/20 Range/Units 21:20 21:20 21:20 WBC 13.5 H (3.8-10.6) k/uL Neutrophils # 12.5 H (1.3-7.7) k/uL Lymphocytes # 0.3 L (1.0-4.8) k/uL Carbon Dioxide 35 H (22-30) mmol/L BUN 22 H (7-17) mg/dL Glucose 172 H (74-99) mg/dL POC Glucose (mg/dL) (75-99) mg/dL Total Bilirubin 1.6 H (0.2-1.3) mg/dL AST 262 H (14-36) U/L ALT 88 H (4-34) U/L Alkaline Phosphatase 387 H (38-126) U/L Troponin I 0.195 H* (0.000-0.034) ng/mL Albumin 3.2 L (3.5-5.0) g/dL Lipase 335 H (23-300) U/L Urine Appearance (Clear) Urine Protein (Negative) Urine Blood (Negative) Ur Leukocyte Esterase (Negative) Urine WBC (0-5) /hpf Urine WBC Clumps (None) /hpf Urine Bacteria (None) /hpf Hyaline Casts (0-2) /lpf Urine Mucus (None) /hpf 07/10/20 07/11/20 Range/Units 21:38 02:17 WBC (3.8-10.6) k/uL Neutrophils # (1.3-7.7) k/uL Lymphocytes # (1.0-4.8) k/uL Carbon Dioxide (22-30) mmol/L BUN (7-17) mg/dL Glucose (74-99) mg/dL POC Glucose (mg/dL) 207 H (75-99) mg/dL Total Bilirubin (0.2-1.3) mg/dL AST (14-36) U/L ALT (4-34) U/L Alkaline Phosphatase (38-126) U/L Troponin I (0.000-0.034) ng/mL Albumin (3.5-5.0) g/dL Lipase (23-300) U/L Urine Appearance Cloudy H (Clear) Urine Protein Trace H (Negative) Urine Blood Trace H (Negative) Ur Leukocyte Esterase Large H (Negative) Urine WBC 85 H (0-5) /hpf Urine WBC Clumps Moderate H (None) /hpf Urine Bacteria Many H (None) /hpf Hyaline Casts 4 H (0-2) /lpf Urine Mucus Occasional H (None) /hpf Microbiology - Last 24 Hours (Table) 07/10/20 21:38 Urine Culture - Preliminary Urine,Voided Thrombosis Risk Factor Assmnt - Choose All That Apply Each Risk Factor Represents 3 Points: Age 75 years or older Thrombosis Risk Factor Assessment Total Risk Factor Score: 3 Thrombosis Risk Factor Assessment Level: Moderate Risk
[2020-07-11 23:26] LABS: Glucose,Whole Blood 126 mg/dL (75-99)
[2020-07-11] MEDS: MULTIVITAMINS, THERA 1 EACH TAB PO SCH (23:59)
[2020-07-11] MEDS: INSULIN ASPART (NovoLOG) 100 UNIT/ML VIAL SQ SCH (23:59)
[2020-07-11] MEDS: FERROUS SULFATE 325 MG TAB PO SCH (23:59)
[2020-07-11] MEDS: INSULIN DETEMIR (LEVEMIR) 100 UNIT/ML SYR SQ SCH (23:59)
[2020-07-12] MEDS: PIPERACILLIN-TAZOBACTAM 3.375 GM in SODIUM CHLORIDE 0.9% 100 ML IVPB SCH ×3 (00:02→17:21)
[2020-07-12] MEDS: LACTATED RINGERS 1,000 ML IV SCH ×3 (00:38→13:25)
[2020-07-12] MEDS: SODIUM CHLORIDE 0.9% 1,000 ML IV SCH (02:52)
[2020-07-12] MEDS: LEVOTHYROXINE 125 MCG TAB PO SCH (05:45)
[2020-07-12] MEDS: ACETAMINOPHEN TAB 325 MG TAB PO PRN (05:45)
[2020-07-12 06:57] LABS: HCT 34.1 % (34.0-46.0); HGB 10.9 gm/dL (11.4-16.0); Hypochromasia Slight; MCH 32.4 pg (25.0-35.0); MCHC 32.1 g/dL (31.0-37.0); MCV 100.9 fL (80.0-100.0); Platelet Count 217 k/uL (150-450); RBC 3.38 m/uL (3.80-5.40); RDW 12.8 % (11.5-15.5); WBC 13.3 k/uL (3.8-10.6)
[2020-07-12 07:36] LABS: Glucose,Whole Blood 154 mg/dL (75-99)
[2020-07-12] MEDS: REPAGLINIDE 1 MG TAB PO SCH ×3 (07:59→17:21)
[2020-07-12] MEDS: PANTOPRAZOLE 40 MG TABLET PO SCH (08:00)
[2020-07-12] MEDS: MULTIVITAMINS, THERA 1 EACH TAB PO SCH ×2 (08:01→22:27)
[2020-07-12] MEDS: METOPROLOL SUCCINATE (ER) 25 MG TAB.ER.24H PO SCH ×2 (08:03→08:04)
[2020-07-12] MEDS: CHOLECALCIFEROL 1,000 UNIT TAB PO SCH (08:04)
[2020-07-12] MEDS: ASPIRIN 81 MG PO SCH (08:05)
[2020-07-12] MEDS: ISOSORBIDE MONONITRATE ER 30 MG TAB.ER.24H PO SCH (08:05)
[2020-07-12] MEDS: GABAPENTIN 100 MG CAP PO SCH ×3 (08:06→22:27)
[2020-07-12] MEDS: ATORVASTATIN 20 MG TAB PO SCH (08:06)
[2020-07-12] MEDS: CITALOPRAM HYDROBROMIDE 20 MG TAB PO SCH (08:06)
[2020-07-12] MEDS: LACTOBACILLUS ACIDOPH & BULGAR 1 EACH PACKET PO SCH (08:07)
[2020-07-12] MEDS: INSULIN ASPART (NovoLOG) 100 UNIT/ML VIAL SQ SCH ×4 (08:10→22:28)
[2020-07-12 09:53] LABS: African American GFR (CKD) 49.1 (60.0-200.0); Albumin 2.8 g/dL (3.80-4.90); Albumin/Globulin Ratio 1.4 (1.60-3.17); Anion Gap 5.2 mmol/L (4.00-12.00); BUN/Creat Ratio 18.33 Ratio (12.00-20.00); Calcium 7.9 mg/dL (8.7-10.3); Carbon Dioxide 31.8 mmol/L (21.6-31.8); Non-African American GFR(CKD) 42.3 (60.0-200.0); Potassium 4.1 mmol/L (3.5-5.5); Total Bilirubin 1.7 mg/dL (0.2-1.2); Total Protein 4.8 g/dL (6.2-8.2)
--- NOTE | 2020-07-12 09:58 | P.CRDCN ---
History of Present Illness History of present illness: HISTORY OF PRESENTING ILLNESS This is a pleasant 80-year-old female past medical history significant for diabetes mellitus type 2, hypertension, dyslipidemia, morbid obesity, chronically elevated troponins, gallbladder disease, COPD on home oxygen, moderate to severe aortic stenosis. She admits she is followed with a client technologies specialist Dr Reynaga. She does have known gallbladder disease and admits has been worked up and scheduled for outpatient cholecystectomy however did present with right upper quadrant abdominal pain. She admits to feeling fatigued and weak over the last 1 week. She had blood cultures drawn which showed coag- negative staph and was found to have elevated white blood cell count 14.9, acute kidney injury with creatinine 1.38 up from 0.8. She had troponins drawn which were 0.195 and 0.154. Upon past review patient's troponins have been always been somewhat abnormal with them previously been in the range of 0.07-2.7. Her last echocardiogram from October 2018 showed ejection fraction 50-55%, moderate to severe aortic stenosis with a mean gradient of 25 mmHg. Patient denies any chest pain or pressure. She is not overly mobile and has chronic dyspnea however denies any change. She admits her right upper quadrant pain has since improved although it is still somewhat sore there. Patient is just waking up and somewhat somnolent. DIAGNOSTICS EKG reveals normal sinus rhythm, LVH, nonspecific ST-T wave abnormalities. Chest xray read out as mild pulmonary edema. Laboratory reviewed, white blood cell 13.5, hemoglobin 12.4, platelets 271, creatinine initially 0.81, increased to 1.38, total bilirubin 1.6, AST 262, ALT 88, alk phos 387, troponin 0.195, 0.154, lipase 335. Current cardiac medications include aspirin 81 mg daily, Lipitor 20 mg daily, Imdur 30 mg daily, Toprol 25 mg daily. Home losartan dose was held REVIEW OF SYSTEMS At the time of my exam: CONSTITUTIONAL: Denies fever or chills. CARDIOVASCULAR: Denies chest pain, +chronic shortness of breath, + chronic orthopnea "don't like sleeping flat", no PND or palpitations. RESPIRATORY: Denies cough. GASTROINTESTINAL: +abdominal pain, no diarrhea, constipation, nausea or vomiting. MUSCULOSKELETAL: Denies myalgias. NEUROLOGIC: Denies numbness, tingling or weakness. ENDOCRINE: +fatigue, no weight change, polydipsia or polyurina. GENITOURINARY: Denies burning, hematuria or urgency with micturation. HEMATOLOGIC: Denies history of anemia or bleeding. PHYSICAL EXAMINATION Blood pressure 87/49 heart rate 67 afebrile and maintaining oxygen saturation on 4 L nasal cannula. CONSTITUTIONAL: No apparent distress, somnolent but answering questions appropriately, morbidly obese. HEENT: Head is normocephalic. Pupils are equal, round. Sclerae anicteric. Mucous membranes of the mouth are moist. No JVD. No carotid bruit. CHEST EXAMINATION: Decreased breath sounds at bases, no wheeze No chest wall tenderness is noted on palpation or with deep breathing. HEART EXAMINATION: Regular rate and rhythm. S1, S2 heard. + Harsh 3/6 systolic murmur, no gallops or rub. ABDOMEN: Soft, + mild right upper quadrant tenderness. Positive bowel sounds. EXTREMITIES: 2+ peripheral pulses, + 1+ lower extremity edema which appears related to chronic lymphedema NEUROLOGIC EXAMINATION: Patient is awake, alert and oriented x3. ASSESSMENT 1. Right upper quadrant pain likely related to acute cholecystitis 2. Chronically elevated troponins which appears similar to previous. Patient without any chest pain and did not suspect acute coronary syndrome 3. Moderate to severe aortic stenosis by echo 10/2018 4. Essential hypertension, currently borderline low with losartan being held, may be related to sepsis 5. Chronic respiratory failure related to COPD on home O2 6. Morbid obesity 7. Diabetes mellitus type 2 8. Acute kidney injury 9. Coag-negative staph 1 of 2 blood culture 10. Preoperative cardiovascular examination PLAN Patient with chronically elevated troponins and do not suspect this is related to acute coronary syndrome. Previously echo was performed for elevated troponins with normal left ventricular function. We will repeat 2-D echo to evaluate LV function as well as to reevaluate degree of aortic stenosis as patient does have a significant harsh systolic murmur on exam. Agree with continuing to hold losartan as blood pressure borderline. Patient appears euvolemic. May consider gentle IV fluids given acute kidney injury. Patient is not active secondary to morbid obesity and unable to assess functional status. Patient will however be moderate to high risk for proposed cholecystectomy however appears benefits outweigh the risks and would be cleared from a cardio logy standpoint. We will however check a 2-D echo to rule out severe aortic stenosis however this would not be an absolute contraindication for surgery. Past Medical History Past Medical History: Asthma, Cancer, Heart Failure, COPD, Diabetes Mellitus, Eye Disorder, Hyperlipidemia, Hypertension, Osteoarthritis (OA), Thyroid Disorder Additional Past Medical History / Comment(s): Morbid obesity, obstructive, IDDM type II, chronic respiratory failure with home O2 most of the time 4 liters, CHF diastolic dysfunction, 03/04/15 ech with mild pulmonary hypertension, mild to moderate tricuspid regurg, L ventricular systolic function normal EF 60-65%, L leg lymphedema, peripheral neuropathy bilateral legs/feet, macular degeneration bilaterally-vision is now poor, falls, gait dysfunction, chronic pain multiple joints, chronic urine incontinence, sinus problems, obesity, hypothyroidism, osteoarthritis History of Any Multi-Drug Resistant Organisms: MRSA Date of last positivie culture/infection: 2012 MDRO Source:: Blood, unknown Past Surgical History: Hernia Repair, Hysterectomy, Joint Replacement, Orthopedic Surgery Additional Past Surgical History / Comment(s): total L knee x 2, knee and lower back surgery, left breast Lumpectomy without cancer, bilateral hand surgeries, bilateral cataract extraction with intraocular lens implantations, nonmalignant mass removed from left leg -resulting lymphedema, oopherectomy, hysterectomy and abdominal hernia repair, R carpal tunnel release, L leg wound debridement, lymph node removed from L neck. Past Anesthesia/Blood Transfusion Reactions: No Reported Reaction Additional Past Anesthesia/Blood Transfusion Reaction / Comment(s): Patient states "she has a hard time waking up from anesthesia". Past Psychological History: Anxiety Smoking Status: Never smoker Past Alcohol Use History: None Reported Past Drug Use History: None Reported - Past Family History Mother Family Medical History: Cancer Additional Family Medical History / Comment(s): Mother at age 89 with pt believes bone cancer. Father Family Medical History: Unable to Obtain Additional Family Medical History / Comment(s): Pt's father when she was 2 yrs old. He was in WW[place] and of a strep infection. Medications and Allergies Home Medications Medication Instructions Recorded Confirmed Type Cholecalciferol [Vitamin D3 (25 1,000 unit PO DAILY 02/24/15 07/10/20 History Mcg = 1000 Iu)] Insulin Glargine,Hum.rec.anlog 12 unit SQ HS 06/19/17 07/10/20 History [Lantus Solostar] Citalopram Hydrobromide [CeleXA] 20 mg PO DAILY 08/06/17 07/10/20 History Isosorbide Mononitrate ER [Imdur] 30 mg PO DAILY 09/05/18 07/10/20 History Levothyroxine Sodium [Synthroid] 125 mcg PO DAILY 09/05/18 07/10/20 History Metoprolol Succinate (ER) [Toprol 25 mg PO DAILY 09/05/18 07/10/20 History XL] Simvastatin 40 mg PO DAILY 11/24/18 07/10/20 History Acetaminophen Tab [Tylenol] 650 mg PO Q6HR PRN tab 11/29/18 07/10/20 Rx Aspirin 81 mg PO DAILY chew 11/29/18 07/10/20 Rx Artificial Tears-Hypromellose 1 drops BOTH EYES DIRECTED PRN 07/10/20 07/10/20 History [Artificial Tear Drops] Budesonide/Formoterol Fumarate 2 puff INHALATION RT-BID 07/10/20 07/10/20 History [Symbicort 80-4.5 Mcg Inhaler] Ferrous Sulfate [Feosol] 325 mg PO HS 07/10/20 07/10/20 History Furosemide [Lasix] 20 mg PO DAILY 07/10/20 07/10/20 History Gabapentin 600 mg PO TID@0800,1200,1800 07/10/20 07/10/20 History Lactobacillus Acidophilus 1 tab PO DAILY 07/10/20 07/10/20 History [Acidophilus] Losartan [Cozaar] 12.5 mg PO DAILY 07/10/20 07/10/20 History Mag Hydrox/Aluminum Hyd/Simeth 20 ml PO Q6H PRN 07/10/20 07/10/20 History [Mylanta Maximum Strength Liq] Multivitamins, Thera [Multivitamin 1 tab PO BID@0800,199907/10/20 07/10/20 History (formulary)] Omeprazole 20 mg PO BID@0800,199907/10/20 07/10/20 History Repaglinide [Prandin] 0.5 mg PO TID@0700,1130,1630 07/10/20 07/10/20 History Allergies Allergy/AdvReac Type Severity Reaction Status Date / Time atenolol [From Tenormin] AdvReac Severe Anxiety Verified 07/10/20 21:49 attack Physical Exam Vitals: Vital Signs Temp Pulse Resp BP Pulse Ox 07/12/20 07:48 97.9 F 67 16 87/49 96 07/12/20 00:59 98.3 F 73 15 96/60 100 07/11/20 22:00 68 16 109/65 99 07/11/20 20:00 68 18 07/11/20 18:18 97.5 F L 61 20 96/61 100 07/11/20 15:20 59 L 97/60 07/11/20 14:32 98.7 F 56 L 20 87/49 99 07/11/20 11:28 61 101/67 Intake and Output 07/11/20 07/12/20 07/12/20 22:59 06:59 14:59 Intake Total 600 Balance 600 Intake: Intake, IV Titration 600 Amount Lactated Ringers 1,000 ml 300 @ 125 mls/hr IV .Q8H RADHA Rx#:[id number] Sodium Chloride 0.9% 1, 300 000 ml @ 130 mls/hr IV . Q7H42M STA Rx#:[id number] Other: Voiding Method Diaper # Voids 1 Results 07/12/20 06:33 07/11/20 14:47 Cardiac Enzymes 07/11/20 07/11/20 Range/Units 14:47 14:47 AST 201 H (14-36) U/L Troponin I 0.154 H* (0.000-0.034) ng/mL CBC 07/11/20 07/12/20 Range/Units 14:47 06:33 WBC 14.9 H 13.3 H (3.8-10.6) k/uL RBC 3.58 L 3.38 L (3.80-5.40) m/uL Hgb 11.6 10.9 L (11.4-16.0) gm/dL Hct 36.2 34.1 (34.0-46.0) % Plt Count 227 217 (150-450) k/uL Comprehensive Metabolic Panel 07/11/20 Range/Units 14:47 Sodium 141 (137-145) mmol/L Potassium 4.5 (3.5-5.1) mmol/L Chloride 104 (98-107) mmol/L Carbon Dioxide 33 H (22-30) mmol/L BUN 24 H (7-17) mg/dL Creatinine 1.38 H (0.52-1.04) mg/dL Glucose 130 H (74-99) mg/dL Calcium 7.9 L (8.4-10.2) mg/dL AST 201 H (14-36) U/L ALT 113 H (4-34) U/L Alkaline Phosphatase 316 H (38-126) U/L Total Protein 5.4 L (6.3-8.2) g/dL Albumin 2.6 L (3.5-5.0) g/dL Current Medications Generic Name Dose Route Start Last Admin Trade Name Freq PRN Reason Stop Dose Admin Acetaminophen 650 mg 07/11/20 08:37 07/12/20 05:45 Acetaminophen Tab 325 Mg Tab PO 650 mg Q6HR PRN Administration Fever and/ or Mild Pain Al Hydroxide/Mg Hydroxide 30 ml 07/11/20 08:37 Mag Hydrox/Al Hydrox/Simeth 30 Ml Cup PO Q6H PRN GERD Artificial Tears 1 drops 07/11/20 08:37 Artificial Tears-Hypromellose Drops 15 Ml Btl BOTH EYES DIRECTED PRN DRY EYES Aspirin 81 mg 07/11/20 09:00 07/12/20 08:05 Aspirin 81 Mg PO 81 mg DAILY RADHA Administration Atorvastatin Calcium 20 mg 07/11/20 09:00 07/12/20 08:06 Atorvastatin 20 Mg Tab PO 20 mg DAILY RADHA Administration Budesonide/Formoterol Fumarate 2 puff 07/11/20 20:00 07/11/20 21:14 Symbicort 80-4.5 Mcg Inhaler INHALATION 2 puff RT-BID RADHA Administration Cholecalciferol 1,000 unit 07/11/20 09:00 07/12/20 08:04 Cholecalciferol 1,000 Unit Tab PO 1,000 unit DAILY RADHA Administration Citalopram Hydrobromide 20 mg 07/11/20 09:00 07/12/20 08:06 Citalopram Hydrobromide 20 Mg Tab PO 20 mg DAILY RADHA Administration Ferrous Sulfate 325 mg 07/11/20 21:00 07/11/20 23:59 Ferrous Sulfate 325 Mg Tab PO 325 mg HS RADHA Administration Gabapentin 200 mg 07/12/20 09:00 07/12/20 08:06 Gabapentin 100 Mg Cap PO 200 mg TID RADHA Administration Sodium Chloride 1,000 mls @ 20 mls/hr 07/11/20 00:15 07/12/20 02:52 Saline 0.9% IV Not Given .Q24H RADHA Lactated Ringer's 1,000 mls @ 125 mls/hr 07/11/20 14:45 07/12/20 07:59 Lactated Ringers IV 125 mls/hr .Q8H RADHA Administration Piperacillin Sod/Tazobactam 100 mls @ 25 mls/hr 07/11/20 16:00 07/12/20 08:02 Sod 3.375 gm/ Sodium Chloride IVPB 25 mls/hr Q8HR RADHA Administration Insulin Aspart 0 unit 07/11/20 22:45 07/12/20 08:10 Insulin Aspart (Novolog) 100 Unit/Ml Vial SQ 2 unit ACHS RADHA Administration Protocol Insulin Detemir 12 unit 07/11/20 21:00 07/11/20 23:59 Insulin Detemir (Levemir) 100 Unit/Ml Syr SQ 12 unit HS RADHA Administration Isosorbide Mononitrate 30 mg 07/11/20 09:00 07/12/20 08:05 Isosorbide Mononitrate Er 30 Mg Tab.Er.24h PO 30 mg DAILY RADHA Administration Lactobacillus Acidoph/Bulgaricus 1 each 07/11/20 09:00 07/12/20 08:07 Lactobacillus Acidoph & Bulgar 1 Each Packet PO 1 each DAILY RADHA Administration Levothyroxine Sodium 125 mcg 07/11/20 09:00 07/12/20 05:45 Levothyroxine 125 Mcg Tab PO 125 mcg DAILY@0630 RADHA Administration Lorazepam 0.5 mg 07/11/20 00:10 Lorazepam 2 Mg/Ml Inj IV Q6HR PRN Anxiety Metoprolol Succinate 25 mg 07/11/20 09:00 07/12/20 08:04 Metoprolol Succinate (Er) 25 Mg Tab.Er.24h PO 25 mg DAILY RADHA Administration Multivitamins 1 each 07/11/20 20:00 07/12/20 08:01 Multivitamins, Thera 1 Each Tab PO 1 each BID@0800,1999 RADHA Administration Naloxone HCl 0.2 mg 07/11/20 00:10 07/11/20 02:05 Naloxone 0.4 Mg/Ml 1 Ml Vial IV 0.2 mg Q2M PRN Administration Opioid Reversal Pantoprazole Sodium 40 mg 07/11/20 09:00 07/12/20 08:00 Pantoprazole 40 Mg Tablet PO 40 mg DAILY@0730 RADHA Administration Repaglinide 0.5 mg 07/11/20 11:30 07/12/20 07:59 Repaglinide 1 Mg Tab PO 0.5 mg TID@0700,1130,1630 RADHA Administration Intake and Output 07/11/20 07/12/20 07/12/20 22:59 06:59 14:59 Intake Total 600 Balance 600 Intake: Intake, IV Titration 600 Amount Lactated Ringers 1,000 ml 300 @ 125 mls/hr IV .Q8H RADHA Rx#:[id number] Sodium Chloride 0.9% 1, 300 000 ml @ 130 mls/hr IV . Q7H42M STA Rx#:[id number] Other: Voiding Method Diaper # Voids 1 07/12/20 06:33 07/11/20 14:47
[2020-07-12 11:53] LABS: Glucose,Whole Blood 97 mg/dL (75-99)
--- NOTE | 2020-07-12 12:00 | P.PN ---
Subjective Progress Note Date: 07/12/20 Patient seen and examined at bedside. No acute events. States his abdominal pain has improved slightly. Denies nausea or vomiting. Tolerating diet. Objective - Vital Signs Vital signs: Vital Signs Temp 97.9 F 07/12/20 07:48 Pulse 67 07/12/20 07:48 Resp 16 07/12/20 07:48 BP 87/49 07/12/20 07:48 Pulse Ox 96 07/12/20 07:48 Intake & Output 07/11/20 07/12/20 07/12/20 18:59 06:59 18:59 Intake Total 600 Balance 600 Intake: Intake, IV Titration 600 Amount Lactated Ringers 1,000 ml 300 @ 125 mls/hr IV .Q8H RADHA Rx#:[id number] Sodium Chloride 0.9% 1, 300 000 ml @ 130 mls/hr IV . Q7H42M STA Rx#:[id number] Other: Voiding Method Diaper Diaper # Voids 1 - Constitutional General appearance: Present: cooperative, no acute distress - Respiratory Details: No difficulty with respiration - Gastrointestinal Gastrointestinal Comment(s): Soft, some tenderness to palpation in the right upper quadrant, nondistended, no rebound, no guarding - Musculoskeletal Musculoskeletal: Present: generalized weakness - Labs CBC & Chem 7: 07/12/20 06:33 07/12/20 06:33 Labs: Abnormal Lab Results - Last 24 Hours (Table) 07/11/20 07/11/20 07/11/20 Range/Units 11:33 14:47 14:47 WBC (3.8-10.6) k/uL RBC (3.80-5.40) m/uL Hgb (11.4-16.0) gm/dL MCV (80.0-100.0) fL Neutrophils # (1.3-7.7) k/uL Lymphocytes # (1.0-4.8) k/uL Carbon Dioxide 33 H (22-30) mmol/L BUN 24 H (7-17) mg/dL Creatinine 1.38 H (0.52-1.04) mg/dL Est GFR (CKD-EPI)AfAm (60.0-200.0) Est GFR (CKD-EPI)NonAf (60.0-200.0) Glucose 130 H (74-99) mg/dL POC Glucose (mg/dL) 125 H (75-99) mg/dL Calcium 7.9 L (8.4-10.2) mg/dL Total Bilirubin 2.4 H (0.2-1.3) mg/dL AST 201 H (14-36) U/L ALT 113 H (4-34) U/L Alkaline Phosphatase 316 H (38-126) U/L Troponin I 0.154 H* (0.000-0.034) ng/mL Total Protein 5.4 L (6.3-8.2) g/dL Albumin 2.6 L (3.5-5.0) g/dL Albumin/Globulin Ratio (1.60-3.17) g/dL 07/11/20 07/11/20 07/11/20 Range/Units 14:47 16:30 23:24 WBC 14.9 H (3.8-10.6) k/uL RBC 3.58 L (3.80-5.40) m/uL Hgb (11.4-16.0) gm/dL MCV 101.0 H (80.0-100.0) fL Neutrophils # 13.8 H (1.3-7.7) k/uL Lymphocytes # 0.5 L (1.0-4.8) k/uL Carbon Dioxide (22-30) mmol/L BUN (7-17) mg/dL Creatinine (0.52-1.04) mg/dL Est GFR (CKD-EPI)AfAm (60.0-200.0) Est GFR (CKD-EPI)NonAf (60.0-200.0) Glucose (74-99) mg/dL POC Glucose (mg/dL) 108 H 126 H (75-99) mg/dL Calcium (8.4-10.2) mg/dL Total Bilirubin (0.2-1.3) mg/dL AST (14-36) U/L ALT (4-34) U/L Alkaline Phosphatase (38-126) U/L Troponin I (0.000-0.034) ng/mL Total Protein (6.3-8.2) g/dL Albumin (3.5-5.0) g/dL Albumin/Globulin Ratio (1.60-3.17) g/dL 07/12/20 07/12/20 07/12/20 Range/Units 06:33 06:33 07:31 WBC 13.3 H (3.8-10.6) k/uL RBC 3.38 L (3.80-5.40) m/uL Hgb 10.9 L (11.4-16.0) gm/dL MCV 100.9 H (80.0-100.0) fL Neutrophils # (1.3-7.7) k/uL Lymphocytes # (1.0-4.8) k/uL Carbon Dioxide (22-30) mmol/L BUN (7-17) mg/dL Creatinine (0.52-1.04) mg/dL Est GFR (CKD-EPI)AfAm 49.1 L (60.0-200.0) Est GFR (CKD-EPI)NonAf 42.3 L (60.0-200.0) Glucose 147 H (74-99) mg/dL POC Glucose (mg/dL) 154 H (75-99) mg/dL Calcium 7.9 L (8.4-10.2) mg/dL Total Bilirubin 1.7 H (0.2-1.3) mg/dL AST 127 H (14-36) U/L ALT 93 H (4-34) U/L Alkaline Phosphatase 347 H (38-126) U/L Troponin I (0.000-0.034) ng/mL Total Protein 4.8 L (6.3-8.2) g/dL Albumin 2.80 L (3.5-5.0) g/dL Albumin/Globulin Ratio 1.40 L (1.60-3.17) g/dL Microbiology - Last 24 Hours (Table) 07/10/20 21:53 Blood Culture Gram Stain - Preliminary Blood Blood Culture - Preliminary Coagulase Negative Staph 07/10/20 21:53 Blood Culture - Final Blood Assessment and Plan Plan: 80-year-old female with right upper quadrant pain, concern for cholecystitis. Patient is also noted to have a urinary tract infection. Based on elevated troponins, case was discussed with cardiology, Dr. Lang. At this point, it does not appear that the patient has any acute coronary issue, however echo is ordered. He does appear that the patient is a moderate cardiac risk for surgical intervention. Case was also discussed with patient's admitting physician, Dr. Echavarria. Based on patient's increasing bilirubin 2.4, we will have GI evaluation for any possible intervention prior to making any surgical decision. She also was noted to have some gram-negative positive blood cultures and will be treated with antibiotics. Plan will be for surgical intervention after patient is medically optimized and is evaluated completely by cardiology and gastroenterology.
[2020-07-12] MEDS: SYMBICORT 80-4.5 MCG INHALER INHALATION SCH ×2 (12:43→19:44)
--- NOTE | 2020-07-12 13:37 | P.PN ---
Subjective Cardiology progress note: Patient's echocardiogram reviewed and normal left ventricular function with only moderate aortic stenosis. Patient is at moderate risk for proposed surgery however benefits appear to outweigh the risks and is clear from cardiology standpoint. Troponins chronically elevated and do not suspect acute coronary syndrome. No further recommendations from a cardiology standpoint. Please call with any questions. Jose D Lang, Objective - Vital Signs Vital signs: Vital Signs Temp 97.9 F 07/12/20 07:48 Pulse 67 07/12/20 07:48 Resp 16 07/12/20 07:48 BP 87/49 07/12/20 07:48 Pulse Ox 96 07/12/20 07:48 Intake & Output 07/11/20 07/12/20 07/12/20 18:59 06:59 18:59 Intake Total 600 Balance 600 Intake: Intake, IV Titration 600 Amount Lactated Ringers 1,000 ml 300 @ 125 mls/hr IV .Q8H RADHA Rx#:[id number] Sodium Chloride 0.9% 1, 300 000 ml @ 130 mls/hr IV . Q7H42M STA Rx#:[id number] Other: Voiding Method Diaper Diaper # Voids 1 - Labs CBC & Chem 7: 07/12/20 06:33 07/12/20 06:33 Labs: Abnormal Lab Results - Last 24 Hours (Table) 07/11/20 07/11/20 07/11/20 Range/Units 14:47 14:47 14:47 WBC 14.9 H (3.8-10.6) k/uL RBC 3.58 L (3.80-5.40) m/uL Hgb (11.4-16.0) gm/dL MCV 101.0 H (80.0-100.0) fL Neutrophils # 13.8 H (1.3-7.7) k/uL Lymphocytes # 0.5 L (1.0-4.8) k/uL Carbon Dioxide 33 H (22-30) mmol/L BUN 24 H (7-17) mg/dL Creatinine 1.38 H (0.52-1.04) mg/dL Est GFR (CKD-EPI)AfAm (60.0-200.0) Est GFR (CKD-EPI)NonAf (60.0-200.0) Glucose 130 H (74-99) mg/dL POC Glucose (mg/dL) (75-99) mg/dL Calcium 7.9 L (8.4-10.2) mg/dL Total Bilirubin 2.4 H (0.2-1.3) mg/dL AST 201 H (14-36) U/L ALT 113 H (4-34) U/L Alkaline Phosphatase 316 H (38-126) U/L Troponin I 0.154 H* (0.000-0.034) ng/mL Total Protein 5.4 L (6.3-8.2) g/dL Albumin 2.6 L (3.5-5.0) g/dL Albumin/Globulin Ratio (1.60-3.17) g/dL 07/11/20 07/11/20 07/12/20 Range/Units 16:30 23:24 06:33 WBC 13.3 H (3.8-10.6) k/uL RBC 3.38 L (3.80-5.40) m/uL Hgb 10.9 L (11.4-16.0) gm/dL MCV 100.9 H (80.0-100.0) fL Neutrophils # (1.3-7.7) k/uL Lymphocytes # (1.0-4.8) k/uL Carbon Dioxide (22-30) mmol/L BUN (7-17) mg/dL Creatinine (0.52-1.04) mg/dL Est GFR (CKD-EPI)AfAm (60.0-200.0) Est GFR (CKD-EPI)NonAf (60.0-200.0) Glucose (74-99) mg/dL POC Glucose (mg/dL) 108 H 126 H (75-99) mg/dL Calcium (8.4-10.2) mg/dL Total Bilirubin (0.2-1.3) mg/dL AST (14-36) U/L ALT (4-34) U/L Alkaline Phosphatase (38-126) U/L Troponin I (0.000-0.034) ng/mL Total Protein (6.3-8.2) g/dL Albumin (3.5-5.0) g/dL Albumin/Globulin Ratio (1.60-3.17) g/dL 07/12/20 07/12/20 Range/Units 06:33 07:31 WBC (3.8-10.6) k/uL RBC (3.80-5.40) m/uL Hgb (11.4-16.0) gm/dL MCV (80.0-100.0) fL Neutrophils # (1.3-7.7) k/uL Lymphocytes # (1.0-4.8) k/uL Carbon Dioxide (22-30) mmol/L BUN (7-17) mg/dL Creatinine (0.52-1.04) mg/dL Est GFR (CKD-EPI)AfAm 49.1 L (60.0-200.0) Est GFR (CKD-EPI)NonAf 42.3 L (60.0-200.0) Glucose 147 H (74-99) mg/dL POC Glucose (mg/dL) 154 H (75-99) mg/dL Calcium 7.9 L (8.4-10.2) mg/dL Total Bilirubin 1.7 H (0.2-1.3) mg/dL AST 127 H (14-36) U/L ALT 93 H (4-34) U/L Alkaline Phosphatase 347 H (38-126) U/L Troponin I (0.000-0.034) ng/mL Total Protein 4.8 L (6.3-8.2) g/dL Albumin 2.80 L (3.5-5.0) g/dL Albumin/Globulin Ratio 1.40 L (1.60-3.17) g/dL Microbiology - Last 24 Hours (Table) 07/10/20 21:53 Blood Culture Gram Stain - Preliminary Blood Blood Culture - Preliminary Coagulase Negative Staph 07/10/20 21:53 Blood Culture - Final Blood
--- NOTE | 2020-07-12 13:58 | CDI ---
Documentation Clarification Form Date: 07/12/2020 01:47:23 PM From: Sierra LiraHuntQUINTON mora, CCDS Admit Date: 07/11/2020 12:18:00 AM Patient Name: Caitlin Kohler Visit Number: [id number] Discharge Date: ATTENTION: The Clinical Documentation Specialists (CDI) and [facility] Coding Staff appreciate your assistance in clarifying documentation. Please respond to the clarification below the line at the bottom and electronically sign. The CDI & [facility] Coding staff will review the response and follow-up if needed. Please note: Queries are made part of the Legal Health Record. If you have any questions, please contact the author of this message via ITS. Dr. Pablo Echavarria: Per the 07/11 A Team Note: "Informed RN of the suspicion for pyelonephritis with sepsis." Per the 07/12 Cardiology Consult: "Essential hypertension, currently borderline low with Losartan being held, may be related to sepsis." History/Risk Factors: DM II with peripheral neuropathy, Lower extremity Lymphedema, Morbid Obesity, BMI 47.4, Chronic Respiratory Failure on Home O2, Mild Intermittent Asthma, Hypertension, Hyperlipidemia, Macular degeneration, Chronic gait dysfunction, Chronic urinary incontinence, Hypothyroidism ,Primary Osteoarthritis. Clinical Indicators: Presented to the ED on 07/10 via EMS with RUQ abdominal pain. The patient is tentatively scheduled for an outpatient cholecystectomy pending cardiac clearance. Admitted with Abdominal pain, Weakness, UTI. VS 07/10: T 98.0, P 68, R 16 - 19, BP 116/55, PO 100 2Lnc LAB 07/10: WBC 13.5^, Neut 12.5^, Lymph 0.3*, Lactic Acid (1.9), BUN 22^, Glucose 172^, Total Bili 1.6^, AST 262^, ALT 88^, Troponin 0.195^^, 0.154^^; Albumin 32*, Lipase 335^. UA: cloudy, trace protein, trace blood, large esterase, WBC 85. COVID 19 NEGATIVE 07/10 Urine Culture: Negative 07/10 Blood Culture: Coagulase Negative Staph 1/2. Repeat pending. Treatment: IV Zofran, IV fluid 1,000 mls @ 130 mls/hr, IV Narcan, IV Zosyn, IV fluid 1,000 mls @ 999 mls/hr q1, In your professional opinion, please clarify if these findings signify one of the following conditions, whether the condition is POA, and cause, if known: Sepsis ruled out Sepsis ruled in: o Severe Sepsis Other, please specify Unable to determine Present on Admission: Yes or No Identify the (suspected) organism Link or clarify if there is associated (due to/with): Organ failure (Last Revision: October 2017) possible sepsis,POA MTDD
--- NOTE | 2020-07-12 14:00 | ECHOF ---
Referral Reason:re: elevated troponin MEASUREMENTS -------- HEIGHT: 165.1 cm WEIGHT: 129.3 kg BP: IVSd: 1.5 cm (0.6 - 1.1) LVIDd: 4.9 cm (3.9 - 5.3) LVPWd: 1.3 cm (0.6 - 1.1) IVSs: 1.8 cm LVIDs: 2.1 cm LVPWs: 2.0 cm Ao Diam: 3.2 cm (2.0 - 3.7) AV Cusp: 1.1 cm (1.5 - 2.6) LA Diam: 3.0 cm (2.7 - 3.8) MV EXCURSION: 16.790 mm (> 18.000) MV EF SLOPE: 54 mm/s (70 - 150) EPSS: 0.3 cm MV E Carlos: 0.95 m/s MV DecT: 317 ms MV A Carlos: 0.71 m/s MV E/A Ratio: 1.33 AV maxP.93 mmHg AV meanP.41 mmHg RAP: 5.00 mmHg RVSP: 9.97 mmHg FINDINGS -------- This was a technically difficult study with suboptimal views. The left ventricular size is normal. There is moderate concentric left ventricular hypertrophy. O verall left ventricular systolic function is normal with, an EF between 55 - 60 %. The RV was not well visualized. The left atrial size is normal. The right atrium was not well visualized. Lumason used Aortic valve is trileaflet and is moderately thickened. There is moderate aortic stenosis present. Peak/mean gradient across the Aortic Valve is 30.93mmHg / 20.41mmHg. The mitral valve is normal. The mitral valve leaflets are mildly thickened. Mild mitral regurgita tion is present. The tricuspid valve appears structurally normal. Trace tricuspid regurgitation present. Right gustavo tricular systolic pressure is normal at < 35 mmHg. The pulmonic valve was not well visualized. The aortic root size is normal. IVC Not well visulized. There is no pericardial effusion. CONCLUSIONS -------- 1. The left ventricular size is normal. 2. There is moderate concentric left ventricular hypertrophy. 3. Overall left ventricular systolic function is normal with, an EF between 55 - 60 %. 4. Aortic valve is trileaflet and is moderately thickened. 5. There is moderate aortic stenosis present. 6. Peak/mean gradient across the Aortic Valve is 30.93mmHg / 20.41mmHg. 7. The mitral valve leaflets are mildly thickened. 8. Mild mitral regurgitation is present. 9. Trace tricuspid regurgitation present. 10. There is no pericardial effusion. NUTRITION ASSISTANT: Lois Herndon RDCS
[2020-07-12 16:56] LABS: Glucose,Whole Blood 44 mg/dL (75-99)
[2020-07-12 17:07] LABS: Glucose,Whole Blood 54 mg/dL (75-99)
[2020-07-12 17:37] LABS: Glucose,Whole Blood 190 mg/dL (75-99)
[2020-07-12 17:37] LABS: Glucose,Whole Blood 65 mg/dL (75-99)
[2020-07-12 20:41] LABS: Glucose,Whole Blood 226 mg/dL (75-99)
[2020-07-12] MEDS: FERROUS SULFATE 325 MG TAB PO SCH (22:27)
[2020-07-12 22:31] LABS: Glucose,Whole Blood 76 mg/dL (75-99)
[2020-07-12] MEDS: INSULIN DETEMIR (LEVEMIR) 100 UNIT/ML SYR SQ SCH (22:32)
--- NOTE | 2020-07-12 23:06 | P.PN ---
Progress Note - Text Progress Note Date: 07/12/20 Chief Complaint: Abdominal pain History of presenting complaint: This is a 80-year-old patient, Dr. Reynaga. At the [facility]. Chronic stable medical conditions include asthma, COPD, diabetes, hypertension, hyperlipidemia, osteoarthritis, morbid obesity, home oxygen 4 L, CHF with diastolic dysfunction, left leg lymphedema, peripheral neuropathy, macular degeneration, chronic urinary incontinence. She presents to the ER with abdominal pain. Right upper quadrant. She states she was scheduled for a cholecystectomy in 19 days. Not sure what surgeon. Pain radiates to the back. Has been having dry heaves. Pain is sharp. Also had some nausea and vomiting. No fever no chills. Has not been able to keep anything down. No fever no chills. Admitted with acute and chronic cholecystitis and gallstones. Symptomatic. Started on IV Zosyn. Acute kidney injury from hypotension. Today-a bit tired. Some right upper quadrant pain. Getting IV antibiotics. Seen by cardiology and surgery. Review of systems: Was done for constitutional, cardiovascular, GI, pulmonary. relevant finding as above Active Medications Acetaminophen (Acetaminophen Tab 325 Mg Tab) 650 mg PO Q6HR PRN PRN Reason: Fever and/ or Mild Pain Last Admin: 07/12/20 05:45 Dose: 650 mg Documented by: Al Hydroxide/Mg Hydroxide (Mag Hydrox/Al Hydrox/Simeth 30 Ml Cup) 30 ml PO Q6H PRN PRN Reason: GERD Artificial Tears (Artificial Tears-Hypromellose Drops 15 Ml Btl) 1 drops BOTH EYES DIRECTED PRN PRN Reason: DRY EYES Aspirin (Aspirin 81 Mg) 81 mg PO DAILY [facility] Last Admin: 07/12/20 08:05 Dose: 81 mg Documented by: Atorvastatin Calcium (Atorvastatin 20 Mg Tab) 20 mg PO DAILY [facility] Last Admin: 07/12/20 08:06 Dose: 20 mg Documented by: Budesonide/Formoterol Fumarate (Symbicort 80-4.5 Mcg Inhaler) 2 puff INHALATION RT-BID [facility] Last Admin: 07/12/20 19:44 Dose: 2 puff Documented by: Cholecalciferol (Cholecalciferol 1,000 Unit Tab) 1,000 unit PO DAILY [facility] Last Admin: 07/12/20 08:04 Dose: 1,000 unit Documented by: Citalopram Hydrobromide (Citalopram Hydrobromide 20 Mg Tab) 20 mg PO DAILY [facility] Last Admin: 07/12/20 08:06 Dose: 20 mg Documented by: Ferrous Sulfate (Ferrous Sulfate 325 Mg Tab) 325 mg PO [facility] Last Admin: 07/12/20 22:27 Dose: 325 mg Documented by: Gabapentin (Gabapentin 100 Mg Cap) 200 mg PO TID [facility] Last Admin: 07/12/20 22:27 Dose: 200 mg Documented by: Sodium Chloride (Saline 0.9%) 1,000 mls @ 20 mls/hr IV .Q24H [facility] Last Admin: 07/12/20 02:52 Dose: Not Given Documented by: Lactated Ringer's (Lactated Ringers) 1,000 mls @ 125 mls/hr IV .Q8H [facility] Last Admin: 07/12/20 13:25 Dose: Not Given Documented by: Piperacillin Sod/Tazobactam (Sod 3.375 gm/ Sodium Chloride) 100 mls @ 25 mls/hr IVPB Q8HR [facility] Last Admin: 07/12/20 17:21 Dose: 25 mls/hr Documented by: Insulin Aspart (Insulin Aspart (Novolog) 100 Unit/Ml Vial) 0 unit SQ [facility]; Protocol Last Admin: 07/12/20 22:28 Dose: Not Given Documented by: Insulin Detemir (Insulin Detemir (Levemir) 100 Unit/Ml Syr) 12 unit SQ [facility] Last Admin: 07/12/20 22:32 Dose: Not Given Documented by: Isosorbide Mononitrate (Isosorbide Mononitrate Er 30 Mg Tab.Er.24h) 30 mg PO DAILY [facility] Last Admin: 07/12/20 08:05 Dose: 30 mg Documented by: Lactobacillus Acidoph/Bulgaricus (Lactobacillus Acidoph & Bulgar 1 Each Packet) 1 each PO DAILY [facility] Last Admin: 07/12/20 08:07 Dose: 1 each Documented by: Levothyroxine Sodium (Levothyroxine 125 Mcg Tab) 125 mcg PO DAILY@0630 [facility] Last Admin: 07/12/20 05:45 Dose: 125 mcg Documented by: Lorazepam (Lorazepam 2 Mg/Ml Inj) 0.5 mg IV Q6HR PRN PRN Reason: Anxiety Metoprolol Succinate (Metoprolol Succinate (Er) 25 Mg Tab.Er.24h) 25 mg PO DAILY [facility] Last Admin: 07/12/20 08:04 Dose: 25 mg Documented by: Multivitamins (Multivitamins, Thera 1 Each Tab) 1 each PO BID@0800,1999 [facility] Last Admin: 07/12/20 22:27 Dose: 1 each Documented by: Naloxone HCl (Naloxone 0.4 Mg/Ml 1 Ml Vial) 0.2 mg IV Q2M PRN PRN Reason: Opioid Reversal Last Admin: 07/11/20 02:05 Dose: 0.2 mg Documented by: Pantoprazole Sodium (Pantoprazole 40 Mg Tablet) 40 mg PO DAILY@0730 [facility] Last Admin: 07/12/20 08:00 Dose: 40 mg Documented by: Repaglinide (Repaglinide 1 Mg Tab) 0.5 mg PO TID@0700,1130,1630 [facility] Last Admin: 07/12/20 17:21 Dose: Not Given Documented by: Physical examination: VITAL SIGNS: 97.9, 65, 20, 91/53, 97% on 4 L GENERAL: BMI 47.4, laying in bed, awake. EYES: Pupils equal. Conjunctiva normal. NECK: JVD unable to assess masses not palpable. HEART: First and second heart sounds are normal; nonpitting edema. LUNGS: Respiratory rate increased; distant breath sounds. ABDOMEN: Soft, right upper quadrant tenderness, no guarding rigidity, liver spleen not palpable, no masses palpable. PSYCH: Alert and oriented x3; mood and affect normal. NEUROLOGICAL: Cranial nerves grossly intact; no facial asymmetry, power and sensation grossly intact. LYMPHATICS: Lymphedemas especially left lower extremity INVESTIGATIONS, reviewed in the clinical context: July 12: White count 13.3 hemoglobin 10.9 potassium 4.1 creatinine 1.2 total bilirubin 1.7 AST 127 ALT 93 White count 14.9 hemoglobin 11.6 platelets 227 potassium 4.5 bun 24 creatinine 1.38 total bilirubin 2.4 AST 201 ALT 113 alk phos 316 Troponin I 0.195, 0.154 Coronavirus P/Cr-not detected White count 13.5 hemoglobin 12.4 potassium 4.0 creatinine 0.81 total bilirubin 1.6 UA positive for leukoesterase WBC EKG tracing personally reviewed by me-normal sinus rhythm Chest x-ray film personally reviewed by me-scattered infiltrates versus atypical edema Abdominal ultrasound-echogenic bile and gallstones or gallbladder. No dilated ducts. Common bile duct not visualized. Sonographic Paris sign positive Assessment: -Acute on chronic cholecystitis in a patient with known gallbladder disease. Scheduled for cholecystectomy. Now presents with right upper quadrant pain. Nausea vomiting. Leukocytosis. Tenderness in the right upper quadrant. Started IV Zosyn -Intermittent asthma -Diabetes mellitus type 2 -Hyperlipidemia -Hyperlipidemia -Primary osteoarthritis -Chronic hypoxic is pretty failure on 4 L of oxygen at home -Chronic congestive heart failure from diastolic dysfunction EF 60-65% -Lower extremity lymphedema -Diabetic peripheral neuropathy -Macular degeneration -Chronic gait dysfunction uses a wheelchair or walker -Chronic urinary incontinence -Hypothyroidism -Morbid obesity BMI 47.4 -Acute kidney injury, could be ATN from hypotension Plan: Continue IV Zosyn. , IV fluids. Discussed with Dr. Parnell from general surgery. Continue with antibiotics. Get a GI opinion with a view to ERCP. Cardiology optimization. Hopefully get the patient scheduled for surgery either Wednesday or Wednesday. Follow labs. Discussed with patient.
[2020-07-12] MEDS ORDERED: DEXTROSE 5%-0.45% NACL 1,000 ML IV SCH (23:15)
[2020-07-13] MEDS: PIPERACILLIN-TAZOBACTAM 3.375 GM in SODIUM CHLORIDE 0.9% 100 ML IVPB SCH ×4 (00:17→23:03)
[2020-07-13] MEDS: LACTATED RINGERS 1,000 ML IV SCH ×4 (00:20→23:00)
[2020-07-13] MEDS: SODIUM CHLORIDE 0.9% 1,000 ML IV SCH (00:21)
[2020-07-13] MEDS: LEVOTHYROXINE 125 MCG TAB PO SCH (05:43)
[2020-07-13 07:04] LABS: Glucose,Whole Blood 78 mg/dL (75-99)
[2020-07-13] MEDS: SYMBICORT 80-4.5 MCG INHALER INHALATION SCH ×2 (08:27→20:46)
[2020-07-13] MEDS: INSULIN ASPART (NovoLOG) 100 UNIT/ML VIAL SQ SCH ×4 (08:47→21:26)
[2020-07-13] MEDS: CITALOPRAM HYDROBROMIDE 20 MG TAB PO SCH (09:02)
[2020-07-13] MEDS: PANTOPRAZOLE 40 MG TABLET PO SCH (09:02)
[2020-07-13] MEDS: CHOLECALCIFEROL 1,000 UNIT TAB PO SCH (09:02)
[2020-07-13] MEDS: LACTOBACILLUS ACIDOPH & BULGAR 1 EACH PACKET PO SCH (09:02)
[2020-07-13] MEDS: ATORVASTATIN 20 MG TAB PO SCH (09:02)
[2020-07-13] MEDS: GABAPENTIN 100 MG CAP PO SCH ×3 (09:02→21:26)
[2020-07-13] MEDS: MULTIVITAMINS, THERA 1 EACH TAB PO SCH ×2 (09:02→21:26)
[2020-07-13] MEDS: ISOSORBIDE MONONITRATE ER 30 MG TAB.ER.24H PO SCH (09:02)
[2020-07-13] MEDS: ASPIRIN 81 MG PO SCH (09:02)
[2020-07-13 09:04] LABS: HCT 35.8 % (34.0-46.0); HGB 11.3 gm/dL (11.4-16.0); Hypochromasia Moderate; MCH 31.9 pg (25.0-35.0); MCHC 31.5 g/dL (31.0-37.0); MCV 101.2 fL (80.0-100.0); Mean Platelet Volume 7.2; Platelet Count 240 k/uL (150-450); RBC 3.53 m/uL (3.80-5.40); RDW 12.9 % (11.5-15.5); WBC 10.7 k/uL (3.8-10.6)
[2020-07-13 11:57] LABS: Glucose,Whole Blood 116 mg/dL (75-99)
[2020-07-13 12:44] LABS: African American GFR (CKD) 44.6 (60.0-200.0); Albumin 2.9 g/dL (3.80-4.90); Albumin/Globulin Ratio 1.32 (1.60-3.17); Anion Gap 5.3 mmol/L (4.00-12.00); BUN/Creat Ratio 16.92 Ratio (12.00-20.00); Calcium 8.1 mg/dL (8.7-10.3); Carbon Dioxide 30.7 mmol/L (21.6-31.8); Globulin 2.2 g/dL (1.6-3.3); Non-African American GFR(CKD) 38.4 (60.0-200.0); Total Protein 5.1 g/dL (6.2-8.2)
--- NOTE | 2020-07-13 14:03 | P.CONS ---
History of Present Illness - Reason for Consult Consult date: 07/12/20 Elevated liver enzymes Requesting physician: Manoj Parnell - Chief Complaint Abdominal pain - History of Present Illness 80-year-old female with multiple medical comorbidities including macular generation, chronic urinary incontinence, congestive heart failure, lymphedema, COPD on home oxygen, diabetes mellitus, hypertension, the lipidemia and osteoarthritis who presents to the hospital due to complaints of abdominal pain. The patient has a known history of some choledocholithiasis and has been seen in the outpatient setting. She reported right upper quadrant pain and tenderness to palpation with radiation to her back she reports decreased oral intake secondary to the pain and an episode of vomiting prior to presentation. Ultrasound of the abdomen with CBD not visualized, echogenic bile and gallstones. Laboratory evaluation significant for elevated liver enzymes on presentation which are improving with total bilirubin 2.4-1.7, alkaline phosphatase 316 347, AST 201-127 and ALT 113-93. Review of Systems REVIEW OF SYSTEMS: CONSTITUTIONAL: Denies any fevers, chills, weight change or fatigue. CARDIOVASCULAR: Denies any chest pain, palpitations high or low blood pressures RESPIRATORY: Denies any shortness of breath, hemoptysis or cough, he is on chronic oxygen therapy. GENITOURINARY: No dysuria or hematuria, history of incontinence. MUSCULOSKELETAL: No weakness reported. SKIN: Denies any new rashes or lesions, jaundice or pallor. PSYCHIATRIC: Denies any depression or anxiety. NEUROLOGY: Denies headache, denies any new focal deficits. EARS/NOSE/THROAT: No recent hearing change, congestion, nasal discharge or sore throat. EYES: No pain in eyes, discharge or change in vision. GASTROINTESTINAL: As per HPI. Past Medical History Past Medical History: Asthma, Cancer, Heart Failure, COPD, Diabetes Mellitus, Eye Disorder, Hyperlipidemia, Hypertension, Osteoarthritis (OA), Thyroid Disorder Additional Past Medical History / Comment(s): Morbid obesity, obstructive, IDDM type II, chronic respiratory failure with home O2 most of the time 4 liters, CHF diastolic dysfunction, 03/04/15 ech with mild pulmonary hypertension, mild to moderate tricuspid regurg, L ventricular systolic function normal EF 60-65%, L leg lymphedema, peripheral neuropathy bilateral legs/feet, macular degeneration bilaterally-vision is now poor, falls, gait dysfunction, chronic pain multiple joints, chronic urine incontinence, sinus problems, obesity, hypothyroidism, osteoarthritis History of Any Multi-Drug Resistant Organisms: MRSA Year Discovered:: 2012 MDRO Source:: Blood, unknown Past Surgical History: Hernia Repair, Hysterectomy, Joint Replacement, Orthopedic Surgery Additional Past Surgical History / Comment(s): total L knee x 2, knee and lower back surgery, left breast Lumpectomy without cancer, bilateral hand surgeries, bilateral cataract extraction with intraocular lens implantations, nonmalignant mass removed from left leg -resulting lymphedema, oopherectomy, hysterectomy and abdominal hernia repair, R carpal tunnel release, L leg wound debridement, lymph node removed from L neck. Past Anesthesia/Blood Transfusion Reactions: No Reported Reaction Additional Past Anesthesia/Blood Transfusion Reaction / Comm: Patient states "she has a hard time waking up from anesthesia". Past Psychological History: Anxiety Smoking Status: Never smoker Past Alcohol Use History: None Reported Past Drug Use History: None Reported - Past Family History Mother Family Medical History: Cancer Additional Family Medical History / Comment(s): Mother at age 89 with pt believes bone cancer. Father Family Medical History: Unable to Obtain Additional Family Medical History / Comment(s): Pt's father when she was 2 yrs old. He was in WW[place] and of a strep infection. Medications and Allergies Home Medications Medication Instructions Recorded Confirmed Type Cholecalciferol [Vitamin D3 (25 1,000 unit PO DAILY 02/24/15 07/10/20 History Mcg = 1000 Iu)] Insulin Glargine,Hum.rec.anlog 12 unit SQ HS 06/19/17 07/10/20 History [Lantus Solostar] Citalopram Hydrobromide [CeleXA] 20 mg PO DAILY 08/06/17 07/10/20 History Isosorbide Mononitrate ER [Imdur] 30 mg PO DAILY 09/05/18 07/10/20 History Levothyroxine Sodium [Synthroid] 125 mcg PO DAILY 09/05/18 07/10/20 History Metoprolol Succinate (ER) [Toprol 25 mg PO DAILY 09/05/18 07/10/20 History XL] Simvastatin 40 mg PO DAILY 11/24/18 07/10/20 History Acetaminophen Tab [Tylenol] 650 mg PO Q6HR PRN tab 11/29/18 07/10/20 Rx Aspirin 81 mg PO DAILY chew 11/29/18 07/10/20 Rx Artificial Tears-Hypromellose 1 drops BOTH EYES DIRECTED PRN 07/10/20 07/10/20 History [Artificial Tear Drops] Budesonide/Formoterol Fumarate 2 puff INHALATION RT-BID 07/10/20 07/10/20 History [Symbicort 80-4.5 Mcg Inhaler] Ferrous Sulfate [Feosol] 325 mg PO HS 07/10/20 07/10/20 History Furosemide [Lasix] 20 mg PO DAILY 07/10/20 07/10/20 History Gabapentin 600 mg PO TID@0800,1200,1800 07/10/20 07/10/20 History Lactobacillus Acidophilus 1 tab PO DAILY 07/10/20 07/10/20 History [Acidophilus] Losartan [Cozaar] 12.5 mg PO DAILY 07/10/20 07/10/20 History Mag Hydrox/Aluminum Hyd/Simeth 20 ml PO Q6H PRN 07/10/20 07/10/20 History [Mylanta Maximum Strength Liq] Multivitamins, Thera [Multivitamin 1 tab PO BID@0800,199907/10/20 07/10/20 History (formulary)] Omeprazole 20 mg PO BID@0800,199907/10/20 07/10/20 History Repaglinide [Prandin] 0.5 mg PO TID@0700,1130,1630 07/10/20 07/10/20 History Allergies Allergy/AdvReac Type Severity Reaction Status Date / Time atenolol [From Tenormin] AdvReac Severe Anxiety Verified 07/10/20 21:49 attack Physical Exam Vitals: Vital Signs Temp Pulse Resp BP Pulse Ox 07/12/20 14:00 97.9 F 65 20 91/53 97 07/12/20 07:48 97.9 F 67 16 87/49 96 07/12/20 00:59 98.3 F 73 15 96/60 100 07/11/20 22:00 68 16 109/65 99 07/11/20 20:00 68 18 07/11/20 18:18 97.5 F L 61 20 96/61 100 Intake and Output 07/12/20 07/12/20 07/12/20 06:59 14:59 22:59 Other: Voiding Method Diaper # Voids 1 On physical examination, patient appears comfortable in no apparent distress. HEAD: Normocephalic, atraumatic. EYES: No scleral icterus. No conjunctival injection. MOUTH: No lesions, tongue midline. NECK: Trachea midline, no gross abnormalities. CHEST: Decreased air entry in all valenzuela. HEART: S1-S2 appreciated. ABDOMEN: Soft, obese, mild tenderness to palpation in the right upper quadrant. Bowel sounds are positive. No organomegaly. No guarding or rigidity. EXTREMITIES: Bilateral lower extremity edema. SKIN: No rashes, no jaundice. NEUROLOGIC: Alert and oriented x3. No focal deficits. Results CBC & Chem 7: 07/13/20 08:02 07/13/20 08:02 Labs: Abnormal Lab Results - Last 24 Hours (Table) 07/11/20 07/11/20 07/11/20 Range/Units 14:47 16:30 23:24 WBC (3.8-10.6) k/uL RBC (3.80-5.40) m/uL Hgb (11.4-16.0) gm/dL MCV (80.0-100.0) fL Est GFR (CKD-EPI)AfAm (60.0-200.0) Est GFR (CKD-EPI)NonAf (60.0-200.0) Glucose (70-110) mg/dL POC Glucose (mg/dL) 108 H 126 H (75-99) mg/dL Calcium (8.7-10.3) mg/dL Total Bilirubin (0.2-1.2) mg/dL AST (13-35) U/L ALT (8-44) U/L Alkaline Phosphatase (41-126) U/L Troponin I 0.154 H* (0.000-0.034) ng/mL Total Protein (6.2-8.2) g/dL Albumin (3.80-4.90) g/dL Albumin/Globulin Ratio (1.60-3.17) g/dL 07/12/20 07/12/20 07/12/20 Range/Units 06:33 06:33 07:31 WBC 13.3 H (3.8-10.6) k/uL RBC 3.38 L (3.80-5.40) m/uL Hgb 10.9 L (11.4-16.0) gm/dL MCV 100.9 H (80.0-100.0) fL Est GFR (CKD-EPI)AfAm 49.1 L (60.0-200.0) Est GFR (CKD-EPI)NonAf 42.3 L (60.0-200.0) Glucose 147 H (70-110) mg/dL POC Glucose (mg/dL) 154 H (75-99) mg/dL Calcium 7.9 L (8.7-10.3) mg/dL Total Bilirubin 1.7 H (0.2-1.2) mg/dL AST 127 H (13-35) U/L ALT 93 H (8-44) U/L Alkaline Phosphatase 347 H (41-126) U/L Troponin I (0.000-0.034) ng/mL Total Protein 4.8 L (6.2-8.2) g/dL Albumin 2.80 L (3.80-4.90) g/dL Albumin/Globulin Ratio 1.40 L (1.60-3.17) g/dL Microbiology - Last 24 Hours (Table) 07/10/20 21:38 Urine Culture - Preliminary Urine,Voided Gram Neg Bacilli 07/10/20 21:53 Blood Culture Gram Stain - Preliminary Blood Blood Culture - Preliminary Coagulase Negative Staph 07/10/20 21:53 Blood Culture - Final Blood US - abdomen: report reviewed (Ultrasound of the abdomen with CBD not visualized, echogenic bile and gallstones.) Assessment and Plan (1) Elevated liver enzymes Narrative/Plan: 80-year-old female with multiple medical comorbidities including symptomatic c holelithiasis who presented to the hospital with abdominal pain. Currently being treated for cholecystitis GI service was consulted to see the patient for elevated liver enzymes. Currently liver enzymes are trending down with total bilirubin 1.7, alkaline phosphatase 347, AST 127 and ALT 93. She is being seen by the surgical service at this time. Option of the abdomen showed cholelithiasis and sludge with CBD not visualized. Unclear etiology, may be related to underlying cholecystitis, a stone which is passed through the CBD, cannot exclude CBD stone of the liver enzymes are trending down unfortunately patient is not a candidate for MRCP due to metal in her body. Current Visit: Yes Status: Acute Code(s): R74.8 - ABNORMAL LEVELS OF OTHER SERUM ENZYMES SNOMED Code(s): 619538568 (2) Cholelithiasis Current Visit: Yes Status: Acute Code(s): K80.20 - CALCULUS OF GALLBLADDER W/O CHOLECYSTITIS W/O OBSTRUCTION SNOMED Code(s): 018111275 (3) Abdominal pain Current Visit: Yes Status: Acute Code(s): R10.9 - UNSPECIFIED ABDOMINAL PAIN SNOMED Code(s): 15736042 Plan: Supportive care Continue broad-spectrum antibiotic therapy Okay for liquid diet Continue monitor CBC, BMP, LFTs Surgical service following the patient No plan for ERCP at this time with liver enzymes trending down Thank you for allowing us to participate in the care of the patient
[2020-07-13 17:05] LABS: Glucose,Whole Blood 120 mg/dL (75-99)
--- NOTE | 2020-07-13 19:38 | P.PN ---
Subjective Progress Note Date: 07/13/20 patient resting comfortably in bed. tolerating diet. no complaints at this time VSSAF Objective - Vital Signs Vital signs: Vital Signs Temp 97.9 F 07/13/20 14:00 Pulse 62 07/13/20 16:00 Resp 18 07/13/20 14:00 BP 104/55 07/13/20 14:00 Pulse Ox 94 L 07/13/20 16:00 Intake & Output 07/13/20 07/13/20 07/14/20 06:59 18:59 06:59 Intake Total 1100 Balance 1100 Intake: IV 200 Piperacillin-Tazobactam 3 200 .375 gm In Sodium Chloride 0.9% 100 ml @ 25 mls/hr IVPB Q8HR [facility] Rx# :[id number] Intake, IV Titration 900 Amount Dextrose 5%-0.45% NaCl 1, 450 000 ml @ 75 mls/hr IV . [id number] [facility] Rx#:[id number] Lactated Ringers 1,000 ml 450 @ 75 mls/hr IV .[id number] [facility] Rx#:[id number] Other: Voiding Method Diaper Diaper # Voids 1 # Bowel Movements 2 - Constitutional General appearance: Present: cooperative - Cardiovascular Rhythm: regular - Gastrointestinal Gastrointestinal Comment(s): s/nt/nd - Labs CBC & Chem 7: 07/13/20 08:02 07/13/20 08:02 Labs: Abnormal Lab Results - Last 24 Hours (Table) 07/12/20 07/13/20 07/13/20 Range/Units 20:39 08:02 08:02 WBC 10.7 H (3.8-10.6) k/uL RBC 3.53 L (3.80-5.40) m/uL Hgb 11.3 L (11.4-16.0) gm/dL MCV 101.2 H (80.0-100.0) fL Est GFR (CKD-EPI)AfAm 44.6 L (60.0-200.0) Est GFR (CKD-EPI)NonAf 38.4 L (60.0-200.0) POC Glucose (mg/dL) 226 H (75-99) mg/dL Calcium 8.1 L (8.7-10.3) mg/dL AST 99 H (13-35) U/L ALT 85 H (8-44) U/L Alkaline Phosphatase 376 H (41-126) U/L Total Protein 5.1 L (6.2-8.2) g/dL Albumin 2.90 L (3.80-4.90) g/dL Albumin/Globulin Ratio 1.32 L (1.60-3.17) g/dL 07/13/20 07/13/20 Range/Units 11:57 17:03 WBC (3.8-10.6) k/uL RBC (3.80-5.40) m/uL Hgb (11.4-16.0) gm/dL MCV (80.0-100.0) fL Est GFR (CKD-EPI)AfAm (60.0-200.0) Est GFR (CKD-EPI)NonAf (60.0-200.0) POC Glucose (mg/dL) 116 H 120 H (75-99) mg/dL Calcium (8.7-10.3) mg/dL AST (13-35) U/L ALT (8-44) U/L Alkaline Phosphatase (41-126) U/L Total Protein (6.2-8.2) g/dL Albumin (3.80-4.90) g/dL Albumin/Globulin Ratio (1.60-3.17) g/dL Microbiology - Last 24 Hours (Table) 07/10/20 21:38 Urine Culture - Final Urine,Voided Escherichia coli Assessment and Plan Assessment: UTI cholecystitis Plan: continue medical management and pre op optimization.
--- NOTE | 2020-07-13 19:42 | P.PN ---
Subjective Progress Note Date: 07/13/20 Principal diagnosis: Elevated liver enzymes, abdominal pain, cholelithiasis Patient is seen lying in bed today so reporting some abdominal pain. No nausea or vomiting. Objective - Vital Signs Vital signs: Vital Signs Temp 98.0 F 07/13/20 07:47 Pulse 56 L 07/13/20 07:47 Resp 19 07/13/20 08:00 BP 101/59 07/13/20 07:47 Pulse Ox 95 07/13/20 07:47 Intake & Output 07/12/20 07/13/20 07/13/20 18:59 06:59 18:59 Intake Total 100 Balance 100 Intake: IV 100 Piperacillin-Tazobactam 3 100 .375 gm In Sodium Chloride 0.9% 100 ml @ 25 mls/hr IVPB Q8HR [facility] Rx# :[id number] Other: Voiding Method Diaper Diaper Diaper # Voids 1 # Bowel Movements 2 - Exam On physical examination, patient appears comfortable in no apparent distress. HEAD: Normocephalic, atraumatic. EYES: No scleral icterus. No conjunctival injection. MOUTH: No lesions, tongue midline. NECK: Trachea midline, no gross abnormalities. ABDOMEN: Soft, obese, mildly tender to palpation in the RUQ. Bowel sounds are positive. No organomegaly. No guarding or rigidity. EXTREMITIES: No pedal edema. SKIN: No rashes, no jaundice. NEUROLOGIC: Alert and oriented x3. No focal deficits. - Labs CBC & Chem 7: 07/13/20 08:02 07/13/20 08:02 Labs: Abnormal Lab Results - Last 24 Hours (Table) 07/12/20 07/12/20 07/12/20 Range/Units 16:47 17:04 17:19 WBC (3.8-10.6) k/uL RBC (3.80-5.40) m/uL Hgb (11.4-16.0) gm/dL MCV (80.0-100.0) fL Est GFR (CKD-EPI)AfAm (60.0-200.0) Est GFR (CKD-EPI)NonAf (60.0-200.0) POC Glucose (mg/dL) 44 L 54 L 65 L (75-99) mg/dL Calcium (8.7-10.3) mg/dL AST (13-35) U/L ALT (8-44) U/L Alkaline Phosphatase (41-126) U/L Total Protein (6.2-8.2) g/dL Albumin (3.80-4.90) g/dL Albumin/Globulin Ratio (1.60-3.17) g/dL 07/12/20 07/12/20 07/13/20 Range/Units 17:34 20:39 08:02 WBC (3.8-10.6) k/uL RBC (3.80-5.40) m/uL Hgb (11.4-16.0) gm/dL MCV (80.0-100.0) fL Est GFR (CKD-EPI)AfAm 44.6 L (60.0-200.0) Est GFR (CKD-EPI)NonAf 38.4 L (60.0-200.0) POC Glucose (mg/dL) 190 H 226 H (75-99) mg/dL Calcium 8.1 L (8.7-10.3) mg/dL AST 99 H (13-35) U/L ALT 85 H (8-44) U/L Alkaline Phosphatase 376 H (41-126) U/L Total Protein 5.1 L (6.2-8.2) g/dL Albumin 2.90 L (3.80-4.90) g/dL Albumin/Globulin Ratio 1.32 L (1.60-3.17) g/dL 07/13/20 07/13/20 Range/Units 08:02 11:57 WBC 10.7 H (3.8-10.6) k/uL RBC 3.53 L (3.80-5.40) m/uL Hgb 11.3 L (11.4-16.0) gm/dL MCV 101.2 H (80.0-100.0) fL Est GFR (CKD-EPI)AfAm (60.0-200.0) Est GFR (CKD-EPI)NonAf (60.0-200.0) POC Glucose (mg/dL) 116 H (75-99) mg/dL Calcium (8.7-10.3) mg/dL AST (13-35) U/L ALT (8-44) U/L Alkaline Phosphatase (41-126) U/L Total Protein (6.2-8.2) g/dL Albumin (3.80-4.90) g/dL Albumin/Globulin Ratio (1.60-3.17) g/dL Microbiology - Last 24 Hours (Table) 07/10/20 21:38 Urine Culture - Final Urine,Voided Escherichia coli 07/10/20 21:53 Blood Culture Gram Stain - Preliminary Blood Blood Culture - Preliminary Coagulase Negative Staph Assessment and Plan (1) Elevated liver enzymes Narrative/Plan: 80-year-old female with multiple medical comorbidities including symptomatic cholelithiasis who presented to the hospital with abdominal pain. Currently being treated for cholecystitis GI service was consulted to see the patient for elevated liver enzymes. Currently liver enzymes are trending down with total bilirubin 1.7, alkaline phosphatase 347, AST 127 and ALT 93. She is being seen by the surgical service at this time. Option of the abdomen showed cholelithiasis and sludge with CBD not visualized. Unclear etiology, may be related to underlying cholecystitis, a stone which is passed through the CBD, cannot exclude CBD stone of the liver enzymes are trending down unfortunately patient is not a candidate for MRCP due to metal in her body. Liver enzymes trending down and total bilirubin normal at 1 today. Current Visit: Yes Status: Acute Code(s): R74.8 - ABNORMAL LEVELS OF OTHER SERUM ENZYMES SNOMED Code(s): 136504246 (2) Cholelithiasis Current Visit: Yes Status: Acute Code(s): K80.20 - CALCULUS OF GALLBLADDER W/O CHOLECYSTITIS W/O OBSTRUCTION SNOMED Code(s): 637488200 (3) Abdominal pain Current Visit: Yes Status: Acute Code(s): R10.9 - UNSPECIFIED ABDOMINAL PAIN SNOMED Code(s): 82925141 Plan: Supportive care Continue broad-spectrum antibiotic therapy Okay for liquid diet Continue monitor CBC, BMP, LFTs Surgical service following the patient, will defer further managment to their service and the admitting team No plan for ERCP at this time with liver enzymes trending down and total bilirubin normal today Thank you for allowing us to participate in the care of the patient, the GI service will stand by please call us back with any questions or concerns
--- NOTE | 2020-07-13 20:20 | P.PN ---
Progress Note - Text Progress Note Date: 07/13/20 Chief Complaint: Abdominal pain History of presenting complaint: This is a 80-year-old patient, Dr. Reynaga. At the [facility]. Chronic stable medical conditions include asthma, COPD, diabetes, hypertension, hyperlipidemia, osteoarthritis, morbid obesity, home oxygen 4 L, CHF with diastolic dysfunction, left leg lymphedema, peripheral neuropathy, macular degeneration, chronic urinary incontinence. She presents to the ER with abdominal pain. Right upper quadrant. She states she was scheduled for a cholecystectomy in 19 days. Not sure what surgeon. Pain radiates to the back. Has been having dry heaves. Pain is sharp. Also had some nausea and vomiting. No fever no chills. Has not been able to keep anything down. No fever no chills. Admitted with acute and chronic cholecystitis and gallstones. Symptomatic. Started on IV Zosyn. Acute kidney injury from hypotension. Today-liquid diet. Some vague abdominal pain. No nausea vomiting. Otherwise comfortable at rest. Review of systems: Was done for constitutional, cardiovascular, GI, pulmonary. relevant finding as above Active Medications Acetaminophen (Acetaminophen Tab 325 Mg Tab) 650 mg PO Q6HR PRN PRN Reason: Fever and/ or Mild Pain Last Admin: 07/12/20 05:45 Dose: 650 mg Documented by: Al Hydroxide/Mg Hydroxide (Mag Hydrox/Al Hydrox/Simeth 30 Ml Cup) 30 ml PO Q6H PRN PRN Reason: GERD Artificial Tears (Artificial Tears-Hypromellose Drops 15 Ml Btl) 1 drops BOTH EYES DIRECTED PRN PRN Reason: DRY EYES Aspirin (Aspirin 81 Mg) 81 mg PO DAILY [facility] Last Admin: 07/13/20 09:02 Dose: 81 mg Documented by: Atorvastatin Calcium (Atorvastatin 20 Mg Tab) 20 mg PO DAILY [facility] Last Admin: 07/13/20 09:02 Dose: 20 mg Documented by: Budesonide/Formoterol Fumarate (Symbicort 80-4.5 Mcg Inhaler) 2 puff INHALATION RT-BID [facility] Last Admin: 07/13/20 08:27 Dose: 2 puff Documented by: Cholecalciferol (Cholecalciferol 1,000 Unit Tab) 1,000 unit PO DAILY [facility] Last Admin: 07/13/20 09:02 Dose: 1,000 unit Documented by: Citalopram Hydrobromide (Citalopram Hydrobromide 20 Mg Tab) 20 mg PO DAILY [facility] Last Admin: 07/13/20 09:02 Dose: 20 mg Documented by: Ferrous Sulfate (Ferrous Sulfate 325 Mg Tab) 325 mg PO HS [facility] Last Admin: 07/12/20 22:27 Dose: 325 mg Documented by: Gabapentin (Gabapentin 100 Mg Cap) 200 mg PO TID [facility] Last Admin: 07/13/20 15:57 Dose: 200 mg Documented by: Sodium Chloride (Saline 0.9%) 1,000 mls @ 20 mls/hr IV .Q24H [facility] Last Admin: 07/13/20 00:21 Dose: Not Given Documented by: Lactated Ringer's (Lactated Ringers) 1,000 mls @ 75 mls/hr IV .[id number] [facility] Last Admin: 07/13/20 13:21 Dose: 125 mls/hr Documented by: Piperacillin Sod/Tazobactam (Sod 3.375 gm/ Sodium Chloride) 100 mls @ 25 mls/hr IVPB Q8HR [facility] Last Admin: 07/13/20 15:57 Dose: 25 mls/hr Documented by: Insulin Aspart (Insulin Aspart (Novolog) 100 Unit/Ml Vial) 0 unit SQ ACHS [facility]; Protocol Last Admin: 07/13/20 17:08 Dose: Not Given Documented by: Isosorbide Mononitrate (Isosorbide Mononitrate Er 30 Mg Tab.Er.24h) 30 mg PO DAILY [facility] Last Admin: 07/13/20 09:02 Dose: 30 mg Documented by: Lactobacillus Acidoph/Bulgaricus (Lactobacillus Acidoph & Bulgar 1 Each Packet) 1 each PO DAILY [facility] Last Admin: 07/13/20 09:02 Dose: 1 each Documented by: Levothyroxine Sodium (Levothyroxine 125 Mcg Tab) 125 mcg PO DAILY@0630 [facility] Last Admin: 07/13/20 05:43 Dose: 125 mcg Documented by: Lorazepam (Lorazepam 2 Mg/Ml Inj) 0.5 mg IV Q6HR PRN PRN Reason: Anxiety Metoprolol Succinate (Metoprolol Succinate (Er) 25 Mg Tab.Er.24h) 25 mg PO DAILY [facility] Last Admin: 07/12/20 08:04 Dose: 25 mg Documented by: Multivitamins (Multivitamins, Thera 1 Each Tab) 1 each PO BID@0800,1999 [facility] Last Admin: 07/13/20 09:02 Dose: 1 each Documented by: Naloxone HCl (Naloxone 0.4 Mg/Ml 1 Ml Vial) 0.2 mg IV Q2M PRN PRN Reason: Opioid Reversal Last Admin: 07/11/20 02:05 Dose: 0.2 mg Documented by: Pantoprazole Sodium (Pantoprazole 40 Mg Tablet) 40 mg PO DAILY@0730 [facility] Last Admin: 07/13/20 09:02 Dose: 40 mg Documented by: Physical examination: VITAL SIGNS: 97.9, 64, 18, 104 x 55, GENERAL: BMI 47.4, laying in bed, awake. EYES: Pupils equal. Conjunctiva normal. NECK: JVD unable to assess masses not palpable. HEART: First and second heart sounds are normal; nonpitting edema. LUNGS: Respiratory rate increased; distant breath sounds. ABDOMEN: Soft, right upper quadrant tenderness, no guarding rigidity, liver spleen not palpable, no masses palpable. PSYCH: Alert and oriented x3; mood and affect normal. NEUROLOGICAL: Cranial nerves grossly intact; no facial asymmetry, power and sensation grossly intact. LYMPHATICS: Lymphedemas especially left lower extremity INVESTIGATIONS, reviewed in the clinical context: July 13: White count 10.7 hemoglobin 11.3 potassium 4.0 creatinine 1.3 total bilirubin 1.0 AST 99 ALT 85 July 12: White count 13.3 hemoglobin 10.9 potassium 4.1 creatinine 1.2 total bilirubin 1.7 AST 127 ALT 93 White count 14.9 hemoglobin 11.6 platelets 227 potassium 4.5 bun 24 creatinine 1.38 total bilirubin 2.4 AST 201 ALT 113 alk phos 316 Troponin I 0.195, 0.154 Coronavirus P/Cr-not detected White count 13.5 hemoglobin 12.4 potassium 4.0 creatinine 0.81 total bilirubin 1.6 UA positive for leukoesterase WBC EKG tracing personally reviewed by me-normal sinus rhythm Chest x-ray film personally reviewed by me-scattered infiltrates versus atypical edema Abdominal ultrasound-echogenic bile and gallstones or gallbladder. No dilated ducts. Common bile duct not visualized. Sonographic Paris sign positive Assessment: -Acute on chronic cholecystitis in a patient with known gallbladder disease. Scheduled for cholecystectomy. Now presents with right upper quadrant pain. Nausea vomiting. Leukocytosis. Tenderness in the right upper quadrant. Started IV Zosyn -Gallstones. No plan for ERCP per Dr. Pantoja -Intermittent asthma -Diabetes mellitus type 2 -Hyperlipidemia -Hyperlipidemia -Primary osteoarthritis -Chronic hypoxic is pretty failure on 4 L of oxygen at home -Chronic congestive heart failure from diastolic dysfunction EF 60-65% -Lower extremity lymphedema -Diabetic peripheral neuropathy -Macular degeneration -Chronic gait dysfunction uses a wheelchair or walker -Chronic urinary incontinence -Hypothyroidism -Morbid obesity BMI 47.4 -Acute kidney injury, could be ATN from hypotension Plan: Continue IV Zosyn. , IV fluids. No plan for ERCP per Dr. Pantoja. Continue current medication. Due to plan. Clear liquids. Surgery to be scheduled as per
[2020-07-13 20:50] LABS: Glucose,Whole Blood 118 mg/dL (75-99)
[2020-07-13] MEDS: FERROUS SULFATE 325 MG TAB PO SCH (21:26)
[2020-07-13] MEDS: ACETAMINOPHEN TAB 325 MG TAB PO PRN (23:02)
[2020-07-14] MEDS: SODIUM CHLORIDE 0.9% 1,000 ML IV SCH ×2 (00:17→23:37)
[2020-07-14 02:51] LABS: Glucose,Whole Blood 119 mg/dL (75-99)
[2020-07-14] MEDS: LEVOTHYROXINE 125 MCG TAB PO SCH (05:47)
[2020-07-14 06:44] LABS: Glucose,Whole Blood 114 mg/dL (75-99)
[2020-07-14] MEDS: INSULIN ASPART (NovoLOG) 100 UNIT/ML VIAL SQ SCH ×4 (07:45→20:57)
[2020-07-14] MEDS: MULTIVITAMINS, THERA 1 EACH TAB PO SCH ×2 (07:55→20:37)
[2020-07-14] MEDS: METOPROLOL SUCCINATE (ER) 25 MG TAB.ER.24H PO SCH (07:56)
[2020-07-14] MEDS: CHOLECALCIFEROL 1,000 UNIT TAB PO SCH (07:56)
[2020-07-14] MEDS: ISOSORBIDE MONONITRATE ER 30 MG TAB.ER.24H PO SCH (07:56)
[2020-07-14] MEDS: PANTOPRAZOLE 40 MG TABLET PO SCH (07:56)
[2020-07-14] MEDS: ATORVASTATIN 20 MG TAB PO SCH (07:56)
[2020-07-14] MEDS: GABAPENTIN 100 MG CAP PO SCH ×3 (07:56→20:37)
[2020-07-14] MEDS: CITALOPRAM HYDROBROMIDE 20 MG TAB PO SCH (07:56)
[2020-07-14] MEDS: ASPIRIN 81 MG PO SCH (07:56)
[2020-07-14] MEDS: LACTOBACILLUS ACIDOPH & BULGAR 1 EACH PACKET PO SCH (07:56)
[2020-07-14] MEDS: PIPERACILLIN-TAZOBACTAM 3.375 GM in SODIUM CHLORIDE 0.9% 100 ML IVPB SCH ×3 (07:57→23:36)
[2020-07-14] MEDS: SYMBICORT 80-4.5 MCG INHALER INHALATION SCH ×2 (08:54→20:00)
[2020-07-14 11:58] LABS: Glucose,Whole Blood 118 mg/dL (75-99)
--- NOTE | 2020-07-14 12:33 | P.PN ---
Subjective Progress Note Date: 07/14/20 patient resting comfortably in bed. tolerating diet. no complaints at this time [facility]SSAF Objective - Vital Signs Vital signs: Vital Signs Temp 97.9 F 07/14/20 08:00 Pulse 61 07/14/20 08:00 Resp 18 07/14/20 08:00 BP 127/68 07/14/20 08:00 Pulse Ox 97 07/14/20 08:00 Intake & Output 07/13/20 07/14/20 07/14/20 18:59 06:59 18:59 Intake Total 1100 100 Balance 1100 100 Intake: IV 200 Piperacillin-Tazobactam 3 200 .375 gm In Sodium Chloride 0.9% 100 ml @ 25 mls/hr IVPB Q8HR [facility] Rx# :[id number] Intake, IV Titration 900 Amount Dextrose 5%-0.45% NaCl 1, 450 000 ml @ 75 mls/hr IV . [id number] [facility] Rx#:[id number] Lactated Ringers 1,000 ml 450 @ 75 mls/hr IV .[id number] [facility] Rx#:[id number] Oral 100 Other: Voiding Method Diaper Diaper Diaper # Voids 3 # Bowel Movements 4 - Constitutional General appearance: Present: cooperative - Respiratory Details: nonlabored - Gastrointestinal Gastrointestinal Comment(s): S/NT/nD - Labs CBC & Chem 7: 07/13/20 08:02 07/13/20 08:02 Labs: Abnormal Lab Results - Last 24 Hours (Table) 07/13/20 07/13/20 07/13/20 Range/Units 08:02 17:03 20:49 Est GFR (CKD-EPI)AfAm 44.6 L (60.0-200.0) Est GFR (CKD-EPI)NonAf 38.4 L (60.0-200.0) POC Glucose (mg/dL) 120 H 118 H (75-99) mg/dL Calcium 8.1 L (8.7-10.3) mg/dL AST 99 H (13-35) U/L ALT 85 H (8-44) U/L Alkaline Phosphatase 376 H (41-126) U/L Total Protein 5.1 L (6.2-8.2) g/dL Albumin 2.90 L (3.80-4.90) g/dL Albumin/Globulin Ratio 1.32 L (1.60-3.17) g/dL 07/14/20 07/14/20 07/14/20 Range/Units 02:50 06:42 11:57 Est GFR (CKD-EPI)AfAm (60.0-200.0) Est GFR (CKD-EPI)NonAf (60.0-200.0) POC Glucose (mg/dL) 119 H 114 H 118 H (75-99) mg/dL Calcium (8.7-10.3) mg/dL AST (13-35) U/L ALT (8-44) U/L Alkaline Phosphatase (41-126) U/L Total Protein (6.2-8.2) g/dL Albumin (3.80-4.90) g/dL Albumin/Globulin Ratio (1.60-3.17) g/dL Microbiology - Last 24 Hours (Table) 07/10/20 21:53 Blood Culture Gram Stain - Final Blood Blood Culture - Final Staphylococcus epidermidis 07/10/20 21:38 Urine Culture - Final Urine,Voided Escherichia coli Assessment and Plan Assessment: UTI cholecystitis Plan: continue medical management and pre op optimization.
[2020-07-14 16:42] LABS: Glucose,Whole Blood 134 mg/dL (75-99)
--- NOTE | 2020-07-14 20:11 | P.PN ---
Progress Note - Text Progress Note Date: 07/14/20 Chief Complaint: Abdominal pain History of presenting complaint: This is a 80-year-old patient, Dr. Reynaga. At the [facility]. Chronic stable medical conditions include asthma, COPD, diabetes, hypertension, hyperlipidemia, osteoarthritis, morbid obesity, home oxygen 4 L, CHF with diastolic dysfunction, left leg lymphedema, peripheral neuropathy, macular degeneration, chronic urinary incontinence. She presents to the ER with abdominal pain. Right upper quadrant. She states she was scheduled for a cholecystectomy in 19 days. Not sure what surgeon. Pain radiates to the back. Has been having dry heaves. Pain is sharp. Also had some nausea and vomiting. No fever no chills. Has not been able to keep anything down. No fever no chills. Admitted with acute and chronic cholecystitis and gallstones. Symptomatic. Started on IV Zosyn. Acute kidney injury from hypotension. No ERCP as per Dr. Pantoja. Acute UTI with cystitis from E. coli. Today-liquid diet. Some right upper abdominal pain. No nausea vomiting. Pending surgery Review of systems: Was done for constitutional, cardiovascular, GI, pulmonary. relevant finding as above Active Medications Acetaminophen (Acetaminophen Tab 325 Mg Tab) 650 mg PO Q6HR PRN PRN Reason: Fever and/ or Mild Pain Last Admin: 07/13/20 23:02 Dose: 650 mg Documented by: Al Hydroxide/Mg Hydroxide (Mag Hydrox/Al Hydrox/Simeth 30 Ml Cup) 30 ml PO Q6H PRN PRN Reason: GERD Artificial Tears (Artificial Tears-Hypromellose Drops 15 Ml Btl) 1 drops BOTH EYES DIRECTED PRN PRN Reason: DRY EYES Aspirin (Aspirin 81 Mg) 81 mg PO DAILY [facility] Last Admin: 07/14/20 07:56 Dose: 81 mg Documented by: Atorvastatin Calcium (Atorvastatin 20 Mg Tab) 20 mg PO DAILY [facility] Last Admin: 07/14/20 07:56 Dose: 20 mg Documented by: Budesonide/Formoterol Fumarate (Symbicort 80-4.5 Mcg Inhaler) 2 puff INHALATION RT-BID [facility] Last Admin: 07/14/20 20:00 Dose: 2 puff Documented by: Cholecalciferol (Cholecalciferol 1,000 Unit Tab) 1,000 unit PO DAILY [facility] Last Admin: 07/14/20 07:56 Dose: 1,000 unit Documented by: Citalopram Hydrobromide (Citalopram Hydrobromide 20 Mg Tab) 20 mg PO DAILY [facility] Last Admin: 07/14/20 07:56 Dose: 20 mg Documented by: Ferrous Sulfate (Ferrous Sulfate 325 Mg Tab) 325 mg PO HS [facility] Last Admin: 07/13/20 21:26 Dose: 325 mg Documented by: Gabapentin (Gabapentin 100 Mg Cap) 200 mg PO TID [facility] Last Admin: 07/14/20 17:03 Dose: 200 mg Documented by: Sodium Chloride (Saline 0.9%) 1,000 mls @ 20 mls/hr IV .Q24H [facility] Last Admin: 07/14/20 00:17 Dose: Not Given Documented by: Lactated Ringer's (Lactated Ringers) 1,000 mls @ 75 mls/hr IV .[id number] [facility] Last Admin: 07/13/20 23:00 Dose: Not Given Documented by: Piperacillin Sod/Tazobactam (Sod 3.375 gm/ Sodium Chloride) 100 mls @ 25 mls/hr IVPB Q8HR [facility] Last Admin: 07/14/20 17:03 Dose: 25 mls/hr Documented by: Insulin Aspart (Insulin Aspart (Novolog) 100 Unit/Ml Vial) 0 unit SQ ACHS [facility]; Protocol Last Admin: 07/14/20 17:47 Dose: Not Given Documented by: Isosorbide Mononitrate (Isosorbide Mononitrate Er 30 Mg Tab.Er.24h) 30 mg PO DAILY [facility] Last Admin: 07/14/20 07:56 Dose: 30 mg Documented by: Lactobacillus Acidoph/Bulgaricus (Lactobacillus Acidoph & Bulgar 1 Each Packet) 1 each PO DAILY [facility] Last Admin: 07/14/20 07:56 Dose: 1 each Documented by: Levothyroxine Sodium (Levothyroxine 125 Mcg Tab) 125 mcg PO DAILY@0630 [facility] Last Admin: 07/14/20 05:47 Dose: 125 mcg Documented by: Lorazepam (Lorazepam 2 Mg/Ml Inj) 0.5 mg IV Q6HR PRN PRN Reason: Anxiety Metoprolol Succinate (Metoprolol Succinate (Er) 25 Mg Tab.Er.24h) 25 mg PO DAILY [facility] Last Admin: 07/14/20 07:56 Dose: 25 mg Documented by: Multivitamins (Multivitamins, Thera 1 Each Tab) 1 each PO BID@08,1999 [facility] Last Admin: 07/14/20 07:55 Dose: 1 each Documented by: Naloxone HCl (Naloxone 0.4 Mg/Ml 1 Ml Vial) 0.2 mg IV Q2M PRN PRN Reason: Opioid Reversal Last Admin: 07/11/20 02:05 Dose: 0.2 mg Documented by: Pantoprazole Sodium (Pantoprazole 40 Mg Tablet) 40 mg PO DAILY@0730 [facility] Last Admin: 07/14/20 07:56 Dose: 40 mg Documented by: Physical examination: VITAL SIGNS: 97.9, 61, 18, 127/68, 97% on room air GENERAL: laying in bed, comfortable EYES: Pupils equal. Conjunctiva normal. NECK: JVD unable to assess masses not palpable. HEART: First and second heart sounds are normal; nonpitting edema. LUNGS: Respiratory rate increased; distant breath sounds. ABDOMEN: Soft, right upper quadrant tenderness, no guarding rigidity, liver spleen not palpable, no masses palpable. PSYCH: Alert and oriented x3; mood and affect normal. NEUROLOGICAL: Cranial nerves grossly intact; no facial asymmetry, power and sensation grossly intact. LYMPHATICS: Lymphedemas especially left lower extremity INVESTIGATIONS, reviewed in the clinical context: July 13: White count 10.7 hemoglobin 11.3 potassium 4.0 creatinine 1.3 total bilirubin 1.0 AST 99 ALT 85 July 12: White count 13.3 hemoglobin 10.9 potassium 4.1 creatinine 1.2 total bilirubin 1.7 AST 127 ALT 93 White count 14.9 hemoglobin 11.6 platelets 227 potassium 4.5 bun 24 creatinine 1.38 total bilirubin 2.4 AST 201 ALT 113 alk phos 316 Troponin I 0.195, 0.154 Coronavirus P/Cr-not detected White count 13.5 hemoglobin 12.4 potassium 4.0 creatinine 0.81 total bilirubin 1.6 UA positive for leukoesterase WBC Urine culture-E. coli EKG tracing personally reviewed by me-normal sinus rhythm Chest x-ray film personally reviewed by me-scattered infiltrates versus atypical edema Abdominal ultrasound-echogenic bile and gallstones or gallbladder. No dilated ducts. Common bile duct not visualized. Sonographic Paris sign positive Assessment: -Acute on chronic cholecystitis in a patient with known gallbladder disease. Scheduled for cholecystectomy. Now presents with right upper quadrant pain. Nausea vomiting. Leukocytosis. Tenderness in the right upper quadrant. Started IV Zosyn -Gallstones. No plan for ERCP per Dr. Pantoja -Blood culture showing Staphylococcus epidermidis-contaminant -Acute UTI with cystitis from E. coli. -Intermittent asthma -Diabetes mellitus type 2 -Hyperlipidemia -Hyperlipidemia -Primary osteoarthritis -Chronic hypoxic is pretty failure on 4 L of oxygen at home -Chronic congestive heart failure from diastolic dysfunction EF 60-65% -Lower extremity lymphedema -Diabetic peripheral neuropathy -Macular degeneration -Chronic gait dysfunction uses a wheelchair or walker -Chronic urinary incontinence -Hypothyroidism -Morbid obesity BMI 47.4 -Acute kidney injury, could be ATN from hypotension Plan: Continue IV Zosyn. , Continue other medications. Medically stable to proceed for surgery. Repeat labs in the morning.
[2020-07-14] MEDS: LACTATED RINGERS 1,000 ML IV SCH (20:37)
[2020-07-14] MEDS: FERROUS SULFATE 325 MG TAB PO SCH (20:37)
[2020-07-14] MEDS: ACETAMINOPHEN TAB 325 MG TAB PO PRN (20:41)
[2020-07-14 20:46] LABS: Glucose,Whole Blood 164 mg/dL (75-99)
[2020-07-15] MEDS: LACTATED RINGERS 1,000 ML IV SCH ×2 (01:05→17:44)
[2020-07-15 02:06] LABS: Glucose,Whole Blood 95 mg/dL (75-99)
[2020-07-15] MEDS: LEVOTHYROXINE 125 MCG TAB PO SCH ×2 (05:45→22:57)
[2020-07-15 05:55] LABS: Glucose,Whole Blood 104 mg/dL (75-99)
[2020-07-15 06:35] LABS: HCT 34.1 % (34.0-46.0); HGB 10.8 gm/dL (11.4-16.0); Hypochromasia Slight; MCH 31.6 pg (25.0-35.0); MCHC 31.7 g/dL (31.0-37.0); MCV 99.9 fL (80.0-100.0); Mean Platelet Volume 7.1; Platelet Count 263 k/uL (150-450); RBC 3.41 m/uL (3.80-5.40); RDW 12.8 % (11.5-15.5); WBC 7.7 k/uL (3.8-10.6)
[2020-07-15 06:51] LABS: Glucose,Whole Blood 103 mg/dL (75-99)
[2020-07-15] MEDS: SYMBICORT 80-4.5 MCG INHALER INHALATION SCH ×2 (07:46→20:30)
[2020-07-15] MEDS: INSULIN ASPART (NovoLOG) 100 UNIT/ML VIAL SQ SCH ×4 (08:42→21:37)
[2020-07-15] MEDS: METOPROLOL SUCCINATE (ER) 25 MG TAB.ER.24H PO SCH (09:00)
[2020-07-15] MEDS: PANTOPRAZOLE 40 MG TABLET PO SCH (09:00)
[2020-07-15] MEDS: ATORVASTATIN 20 MG TAB PO SCH (09:00)
[2020-07-15] MEDS: LACTOBACILLUS ACIDOPH & BULGAR 1 EACH PACKET PO SCH (09:00)
[2020-07-15] MEDS: GABAPENTIN 100 MG CAP PO SCH ×3 (09:00→21:36)
[2020-07-15] MEDS: ISOSORBIDE MONONITRATE ER 30 MG TAB.ER.24H PO SCH (09:00)
[2020-07-15] MEDS: PIPERACILLIN-TAZOBACTAM 3.375 GM in SODIUM CHLORIDE 0.9% 100 ML IVPB SCH ×3 (09:00→22:56)
[2020-07-15] MEDS: CITALOPRAM HYDROBROMIDE 20 MG TAB PO SCH (09:00)
[2020-07-15] MEDS: CHOLECALCIFEROL 1,000 UNIT TAB PO SCH (09:00)
[2020-07-15] MEDS: ASPIRIN 81 MG PO SCH (09:00)
[2020-07-15] MEDS: MULTIVITAMINS, THERA 1 EACH TAB PO SCH ×2 (09:02→21:37)
[2020-07-15 09:39] LABS: African American GFR (CKD) 80.1 (60.0-200.0); Albumin 2.8 g/dL (3.80-4.90); Albumin/Globulin Ratio 1.4 (1.60-3.17); Anion Gap 6.7 mmol/L (4.00-12.00); BUN/Creat Ratio 16.25 Ratio (12.00-20.00); Calcium 8.5 mg/dL (8.7-10.3); Carbon Dioxide 33.3 mmol/L (21.6-31.8); Non-African American GFR(CKD) 69.1 (60.0-200.0); Potassium 3.5 mmol/L (3.5-5.5); Total Bilirubin 0.7 mg/dL (0.3-1.2); Total Protein 4.8 g/dL (6.2-8.2)
[2020-07-15 11:48] LABS: Glucose,Whole Blood 123 mg/dL (75-99)
[2020-07-15 16:40] LABS: Glucose,Whole Blood 125 mg/dL (75-99)
--- NOTE | 2020-07-15 19:03 | P.PN ---
Subjective Progress Note Date: 07/23/20 pt seen and examined at bedside. no acute events. abdominal pain minimal. Objective - Vital Signs Vital signs: Vital Signs Temp 98.2 F 07/15/20 14:00 Pulse 60 07/15/20 14:00 Resp 18 07/15/20 14:00 BP 134/66 07/15/20 14:00 Pulse Ox 93 L 07/15/20 14:00 Intake & Output 07/14/20 07/15/20 07/15/20 18:59 06:59 18:59 Other: Voiding Method Diaper Diaper Diaper # Voids 3 - Constitutional General appearance: Present: cooperative, no acute distress - Gastrointestinal Gastrointestinal Comment(s): soft, nontender, nondistended - Labs CBC & Chem 7: 07/15/20 06:08 07/15/20 06:08 Labs: Abnormal Lab Results - Last 24 Hours (Table) 07/14/20 07/15/20 07/15/20 Range/Units 20:44 05:52 06:08 RBC 3.41 L (3.80-5.40) m/uL Hgb 10.8 L (11.4-16.0) gm/dL Carbon Dioxide (21.6-31.8) mmol/L POC Glucose (mg/dL) 164 H 104 H (75-99) mg/dL Calcium (8.7-10.3) mg/dL Alkaline Phosphatase (41-126) U/L Total Protein (6.2-8.2) g/dL Albumin (3.80-4.90) g/dL Albumin/Globulin Ratio (1.60-3.17) g/dL 07/15/20 07/15/20 07/15/20 Range/Units 06:08 06:49 11:46 RBC (3.80-5.40) m/uL Hgb (11.4-16.0) gm/dL Carbon Dioxide 33.3 H (21.6-31.8) mmol/L POC Glucose (mg/dL) 103 H 123 H (75-99) mg/dL Calcium 8.5 L (8.7-10.3) mg/dL Alkaline Phosphatase 302 H (41-126) U/L Total Protein 4.8 L (6.2-8.2) g/dL Albumin 2.80 L (3.80-4.90) g/dL Albumin/Globulin Ratio 1.40 L (1.60-3.17) g/dL 07/15/20 Range/Units 16:38 RBC (3.80-5.40) m/uL Hgb (11.4-16.0) gm/dL Carbon Dioxide (21.6-31.8) mmol/L POC Glucose (mg/dL) 125 H (75-99) mg/dL Calcium (8.7-10.3) mg/dL Alkaline Phosphatase (41-126) U/L Total Protein (6.2-8.2) g/dL Albumin (3.80-4.90) g/dL Albumin/Globulin Ratio (1.60-3.17) g/dL Assessment and Plan Plan: plan is for cholecystectomy. discussed boarding with OR. due to COVID pandemic and strain on the system, staffing is a concern for cases today. plan for cholecystectomy tomorrow, timing uncertain and will be based on staffing. npo after midnight.
[2020-07-15 20:23] LABS: Glucose,Whole Blood 181 mg/dL (75-99)
[2020-07-15] MEDS: FERROUS SULFATE 325 MG TAB PO SCH (21:37)
[2020-07-15] MEDS: SODIUM CHLORIDE 0.9% 1,000 ML IV SCH (22:58)
--- NOTE | 2020-07-15 23:01 | P.PN ---
Progress Note - Text Progress Note Date: 07/15/20 Chief Complaint: Abdominal pain History of presenting complaint: This is a 80-year-old patient, Dr. Reynaga. At the [facility]. Chronic stable medical conditions include asthma, COPD, diabetes, hypertension, hyperlipidemia, osteoarthritis, morbid obesity, home oxygen 4 L, CHF with diastolic dysfunction, left leg lymphedema, peripheral neuropathy, macular degeneration, chronic urinary incontinence. She presents to the ER with abdominal pain. Right upper quadrant. She states she was scheduled for a cholecystectomy in 19 days. Not sure what surgeon. Pain radiates to the back. Has been having dry heaves. Pain is sharp. Also had some nausea and vomiting. No fever no chills. Has not been able to keep anything down. No fever no chills. Admitted with acute and chronic cholecystitis and gallstones. Symptomatic. Started on IV Zosyn. Acute kidney injury from hypotension. No ERCP as per Dr. Pantoja. Acute UTI with cystitis from E. coli. Today-liquid diet. right upper abdominal pain. No nausea vomiting. Pending surgery tomorrow Review of systems: Was done for constitutional, cardiovascular, GI, pulmonary. relevant finding as above Active Medications Acetaminophen (Acetaminophen Tab 325 Mg Tab) 650 mg PO Q6HR PRN PRN Reason: Fever and/ or Mild Pain Last Admin: 07/14/20 20:41 Dose: 650 mg Documented by: Al Hydroxide/Mg Hydroxide (Mag Hydrox/Al Hydrox/Simeth 30 Ml Cup) 30 ml PO Q6H PRN PRN Reason: GERD Artificial Tears (Artificial Tears-Hypromellose Drops 15 Ml Btl) 1 drops BOTH EYES DIRECTED PRN PRN Reason: DRY EYES Aspirin (Aspirin 81 Mg) 81 mg PO DAILY [facility] Last Admin: 07/15/20 09:00 Dose: 81 mg Documented by: Atorvastatin Calcium (Atorvastatin 20 Mg Tab) 20 mg PO DAILY [facility] Last Admin: 07/15/20 09:00 Dose: 20 mg Documented by: Budesonide/Formoterol Fumarate (Symbicort 80-4.5 Mcg Inhaler) 2 puff INHALATION RT-BID [facility] Last Admin: 07/15/20 20:30 Dose: 2 puff Documented by: Cholecalciferol (Cholecalciferol 1,000 Unit Tab) 1,000 unit PO DAILY [facility] Last Admin: 07/15/20 09:00 Dose: 1,000 unit Documented by: Citalopram Hydrobromide (Citalopram Hydrobromide 20 Mg Tab) 20 mg PO DAILY [facility] Last Admin: 07/15/20 09:00 Dose: 20 mg Documented by: Ferrous Sulfate (Ferrous Sulfate 325 Mg Tab) 325 mg PO HS [facility] Last Admin: 07/15/20 21:37 Dose: 325 mg Documented by: Gabapentin (Gabapentin 100 Mg Cap) 200 mg PO TID [facility] Last Admin: 07/15/20 21:36 Dose: 200 mg Documented by: Sodium Chloride (Saline 0.9%) 1,000 mls @ 20 mls/hr IV .Q24H [facility] Last Admin: 07/15/20 22:58 Dose: Not Given Documented by: Lactated Ringer's (Lactated Ringers) 1,000 mls @ 75 mls/hr IV .[id number] [facility] Last Admin: 07/15/20 17:44 Dose: 75 mls/hr Documented by: Piperacillin Sod/Tazobactam (Sod 3.375 gm/ Sodium Chloride) 100 mls @ 25 mls/hr IVPB Q8HR [facility] Last Admin: 07/15/20 22:56 Dose: 25 mls/hr Documented by: Insulin Aspart (Insulin Aspart (Novolog) 100 Unit/Ml Vial) 0 unit SQ ACHS [facility]; Protocol Last Admin: 07/15/20 21:37 Dose: 4 unit Documented by: Isosorbide Mononitrate (Isosorbide Mononitrate Er 30 Mg Tab.Er.24h) 30 mg PO DAILY [facility] Last Admin: 07/15/20 09:00 Dose: 30 mg Documented by: Lactobacillus Acidoph/Bulgaricus (Lactobacillus Acidoph & Bulgar 1 Each Packet) 1 each PO DAILY [facility] Last Admin: 07/15/20 09:00 Dose: 1 each Documented by: Levothyroxine Sodium (Levothyroxine 125 Mcg Tab) 125 mcg PO DAILY@0630 [facility] Last Admin: 07/15/20 22:57 Dose: Not Given Documented by: Lorazepam (Lorazepam 2 Mg/Ml Inj) 0.5 mg IV Q6HR PRN PRN Reason: Anxiety Metoprolol Succinate (Metoprolol Succinate (Er) 25 Mg Tab.Er.24h) 25 mg PO DAILY [facility] Last Admin: 07/15/20 09:00 Dose: 25 mg Documented by: Multivitamins (Multivitamins, Thera 1 Each Tab) 1 each PO BID@08 [facility] Last Admin: 07/15/20 21:37 Dose: 1 each Documented by: Naloxone HCl (Naloxone 0.4 Mg/Ml 1 Ml Vial) 0.2 mg IV Q2M PRN PRN Reason: Opioid Reversal Last Admin: 07/11/20 02:05 Dose: 0.2 mg Documented by: Pantoprazole Sodium (Pantoprazole 40 Mg Tablet) 40 mg PO DAILY@0730 [facility] Last Admin: 07/15/20 09:00 Dose: 40 mg Documented by: Physical examination: VITAL SIGNS: 98.2, 60, 18, 134 Bicitra 6, 93% on 4 L GENERAL: laying in bed, comfortable EYES: Pupils equal. Conjunctiva normal. NECK: JVD unable to assess masses not palpable. HEART: First and second heart sounds are normal; nonpitting edema. LUNGS: Respiratory rate increased; distant breath sounds. ABDOMEN: Soft, right upper quadrant tenderness, no guarding rigidity, liver spleen not palpable, no masses palpable. PSYCH: Alert and oriented x3; mood and affect normal. NEUROLOGICAL: Cranial nerves grossly intact; no facial asymmetry, power and sensation grossly intact. LYMPHATICS: Lymphedemas especially left lower extremity INVESTIGATIONS, reviewed in the clinical context: July 15: White count 7.7 hemoglobin 10.8 platelets 263 potassium 3.5 creatinine 0.8. Total bilirubin 0.7 AST 27 ALT 43 July 13: White count 10.7 hemoglobin 11.3 potassium 4.0 creatinine 1.3 total bilirubin 1.0 AST 99 ALT 85 July 12: White count 13.3 hemoglobin 10.9 potassium 4.1 creatinine 1.2 total bilirubin 1.7 AST 127 ALT 93 White count 14.9 hemoglobin 11.6 platelets 227 potassium 4.5 bun 24 creatinine 1.38 total bilirubin 2.4 AST 201 ALT 113 alk phos 316 Troponin I 0.195, 0.154 Coronavirus P/Cr-not detected White count 13.5 hemoglobin 12.4 potassium 4.0 creatinine 0.81 total bilirubin 1.6 UA positive for leukoesterase WBC Urine culture-E. coli EKG tracing personally reviewed by me-normal sinus rhythm Chest x-ray film personally reviewed by me-scattered infiltrates versus atypical edema Abdominal ultrasound-echogenic bile and gallstones or gallbladder. No dilated ducts. Common bile duct not visualized. Sonographic Paris sign positive Assessment: -Acute on chronic cholecystitis in a patient with known gallbladder disease. Scheduled for cholecystectomy. Now presents with right upper quadrant pain. Nausea vomiting. Leukocytosis. Tenderness in the right upper quadrant. Started IV Zosyn. Pending surgery -Gallstones. No plan for ERCP per Dr. Pantoja -Blood culture showing Staphylococcus epidermidis-contaminant -Acute UTI with cystitis from E. coli. -Intermittent asthma -Diabetes mellitus type 2 -Hyperlipidemia -Hyperlipidemia -Primary osteoarthritis -Chronic hypoxic is pretty failure on 4 L of oxygen at home -Chronic congestive heart failure from diastolic dysfunction EF 60-65% -Lower extremity lymphedema -Diabetic peripheral neuropathy -Macular degeneration -Chronic gait dysfunction uses a wheelchair or walker -Chronic urinary incontinence -Hypothyroidism -Morbid obesity BMI 47.4 -Acute kidney injury, could be ATN from hypotension-improved Plan: Continue IV Zosyn. , Continue other medications. Discussed with Dr. Parnell. Being scheduled for surgery tomorrow. Medically stable.
[2020-07-16 01:41] LABS: Glucose,Whole Blood 91 mg/dL (75-99)
[2020-07-16] MEDS: LACTATED RINGERS 1,000 ML IV SCH ×3 (05:17→17:16)
[2020-07-16] MEDS: INSULIN ASPART (NovoLOG) 100 UNIT/ML VIAL SQ SCH ×4 (07:16→21:00)
[2020-07-16] MEDS: MULTIVITAMINS, THERA 1 EACH TAB PO SCH ×3 (07:16→21:06)
[2020-07-16] MEDS: PANTOPRAZOLE 40 MG TABLET PO SCH (07:16)
[2020-07-16] MEDS: CITALOPRAM HYDROBROMIDE 20 MG TAB PO SCH (07:17)
[2020-07-16] MEDS: GABAPENTIN 100 MG CAP PO SCH ×3 (07:17→21:01)
[2020-07-16] MEDS: CHOLECALCIFEROL 1,000 UNIT TAB PO SCH (07:17)
[2020-07-16] MEDS: LACTOBACILLUS ACIDOPH & BULGAR 1 EACH PACKET PO SCH (07:17)
[2020-07-16] MEDS: ISOSORBIDE MONONITRATE ER 30 MG TAB.ER.24H PO SCH (07:17)
[2020-07-16] MEDS: ASPIRIN 81 MG PO SCH (07:17)
[2020-07-16] MEDS: ATORVASTATIN 20 MG TAB PO SCH (07:17)
[2020-07-16 07:26] LABS: Glucose,Whole Blood 104 mg/dL (75-99)
[2020-07-16] MEDS: METOPROLOL SUCCINATE (ER) 25 MG TAB.ER.24H PO SCH (07:59)
[2020-07-16] MEDS: PIPERACILLIN-TAZOBACTAM 3.375 GM in SODIUM CHLORIDE 0.9% 100 ML IVPB SCH ×3 (07:59→23:20)
[2020-07-16] MEDS: SYMBICORT 80-4.5 MCG INHALER INHALATION SCH ×2 (08:27→20:03)
[2020-07-16 11:40] LABS: Glucose,Whole Blood 104 mg/dL (75-99)
[2020-07-16] MEDS ORDERED: IV FLUID CONTINUATION 1,000 ML IV ONE ×2 (13:10)
[2020-07-16] MEDS ORDERED: HYDROmorphone 0.5 MG/0.5 ML SYRINGE IVP PRN (13:35)
[2020-07-16] MEDS ORDERED: LIDOCAINE 1% (10MG/ML) FOR IV START INTRADERMA PRN (13:35)
[2020-07-16] MEDS: DEXAMETHASONE SOD PHOSPHATE 4 MG/ML 1 ML VIAL IV ONE ×2 (13:43→13:44)
[2020-07-16] MEDS: ONDANSETRON 4 MG/2 ML VIAL IVP ONE ×2 (13:43→13:44)
[2020-07-16 13:44] LABS: Glucose,Whole Blood 107 mg/dL (75-99)
[2020-07-16] MEDS ORDERED: HEPARIN SODIUM,PORCINE 5,000 UNIT/ML 1 ML VIAL SQ ONE (14:02)
[2020-07-16] MEDS ORDERED: PROPOFOL 10 MG/ML 20 ML VIAL IV ONE (14:03)
[2020-07-16] MEDS ORDERED: fentaNYL (PF) 50 MCG/ML 2 ML AMP ONE (14:03)
[2020-07-16] MEDS ORDERED: ROCURONIUM 10 MG/ML (10 ML VIAL) IV ONE (14:03)
[2020-07-16] MEDS ORDERED: GLYCOPYRROLATE 0.2 MG/ML 2 ML VIAL ONE (14:03)
[2020-07-16] MEDS ORDERED: LIDOCAINE 1% INJ 10MG/ML (20 ML MDV) ONE (14:03)
[2020-07-16] MEDS ORDERED: MIDAZOLAM 2 MG/2 ML VIAL ONE (14:03)
[2020-07-16] MEDS ORDERED: NEOSTIGMINE 1 MG/ML 10 ML VIAL ONE (14:03)
[2020-07-16] MEDS ORDERED: SUCCINYLCHOLINE CHLORIDE 100 MG/5 ML SYR IV ONE (14:03)
[2020-07-16] MEDS ORDERED: BUPIVACAINE (PF) 0.25% 30 ML VIAL SQ ONE ×2 (14:15)
[2020-07-16] MEDS ORDERED: LACTATED RINGERS 1,000 ML IV ONE (14:48)
--- NOTE | 2020-07-16 16:07 | P.OP ---
Date of Procedure: 07/16/20 Preoperative Diagnosis: Acute cholecystitis Postoperative Diagnosis: Acute cholecystitis Procedure(s) Performed: Robotic cholecystectomy Anesthesia: CHIKA Surgeon: Manoj Parnell Pathology: other (Gallbladder and contents) Condition: stable Disposition: floor Indications for Procedure: 80-year-old female presented to the emergency department with complaints of right upper quadrant pain and nausea and vomiting. She was initially scheduled for an elective cholecystectomy, however did have a cholecystitis episode. Secondary to this, she was admitted. She started on IV antibiotics and was followed by cardiology and medicine for clearance prior to surgery. She was noted to be a moderate risk for surgery. She was explained the risks, benefits and alternatives to the procedure and did provide consent prior to attending the operating suite. The patient is noted to be a no code patient based on her directives, however she has provided consent to be placed as a full code during the procedure. Operative Findings: Extremely dilated gallbladder with significant amount of adhesive tissue Description of Procedure: Patient was brought to the operating suite and placed in supine position on the operating table. Sedation was provided by anesthesia patient underwent endotracheal intubation. The patient was then prepped and draped in regular sterile fashion. A 5 mm incision was made in the left upper quadrant at palmers point and the abdomen was entered under direct visualization using a 5 mm Visiport. Pneumoperitoneum was achieved. On examination, the patient was noted to have some previous adhesions from likely previous hernia surgery. A 8 mm trocar was placed in the left lower quadrant and these adhesions were dissected using cauterized and sharp dissection. Once the adhesions were completely taken down, 3 additional 8 mm ports were placed. 2 were placed in the lower right quadrant and one was placed in the midline. At this point, the robot was docked. The gallbladder was then retracted and was noted to be extremely di lated. Secondary to this, aspiration needle was placed and bilious fluid was suctioned. Gallbladder was then fully retracted superiorly and laterally. The infundibulum of the gallbladder was then grasped and retracted laterally. Dissection was carried and the gallbladder was noted to be quite elongated. The infundibulum of the gallbladder looked to travel towards the pylorus. ICG technology was used and the gallbladder was clearly visualized along with what was considered the ductal system. A window was created behind the infundibulum of the gallbladder and based on the amount of inflammation it was decided to place a staple load across the gallbladder for resection. One of the 8 mm trocar sites was upsized to a 12 mm trocar. This was done with a blue load stapler. The cystic artery was clearly visualized and skeletonized. 2 clips are placed proximally one was placed distally and the cystic artery was ligated. The gallbladder was then dissected from the gallbladder fossa using cautery. The gallbladder was then placed in an Endo Catch bag and removed from the abdomen. The gallbladder fossa was examined and hemostasis was noted to be controlled. CORY drain was placed in the liver bed just around the gallbladder fossa and secured towards one of the 8 mm trocar sites using a 2-0 nylon suture. Copious muss irrigation was placed and suctioned and him stasis was noted to be maintained. The 12 mm port site was closed under direct visualization using a Everette-Julio César device and an 0 Vicryl suture. At this point pneumoperitoneum was released and all port sites were closed using 4-0 Vicryl suture. Sterile dressing was applied. The patient was awakened in the operating suite and taken to postanesthesia care unit in stable condition.
[2020-07-16 16:30] LABS: Glucose,Whole Blood 128 mg/dL (75-99)
[2020-07-16] MEDS: HYDROmorphone 0.5 MG/0.5 ML SYRINGE IVP PRN ×2 (18:00→21:01)
[2020-07-16 21:00] LABS: Glucose,Whole Blood 169 mg/dL (75-99)
[2020-07-16] MEDS: FERROUS SULFATE 325 MG TAB PO SCH (21:01)
--- NOTE | 2020-07-16 21:27 | P.PN ---
Progress Note - Text Progress Note Date: 07/16/20 Chief Complaint: Abdominal pain History of presenting complaint: This is a 80-year-old patient, Dr. Reynaga. At the [facility]. Chronic stable medical conditions include asthma, COPD, diabetes, hypertension, hyperlipidemia, osteoarthritis, morbid obesity, home oxygen 4 L, CHF with diastolic dysfunction, left leg lymphedema, peripheral neuropathy, macular degeneration, chronic urinary incontinence. She presents to the ER with abdominal pain. Right upper quadrant. She states she was scheduled for a cholecystectomy in 19 days. Not sure what surgeon. Pain radiates to the back. Has been having dry heaves. Pain is sharp. Also had some nausea and vomiting. No fever no chills. Has not been able to keep anything down. No fever no chills. Admitted with acute and chronic cholecystitis and gallstones. Symptomatic. Started on IV Zosyn. Acute kidney injury from hypotension. No ERCP as per Dr. Pantoja. Acute UTI with cystitis from E. coli. Today-saw the patient earlier today. Was due to go down for surgery. Diet underwent laparoscopic cholecystectomy. No JVD. Review of systems: Was done for constitutional, cardiovascular, GI, pulmonary. relevant finding as above Active Medications Acetaminophen (Acetaminophen Tab 325 Mg Tab) 650 mg PO Q6HR PRN PRN Reason: Fever and/ or Mild Pain Last Admin: 07/14/20 20:41 Dose: 650 mg Documented by: Al Hydroxide/Mg Hydroxide (Mag Hydrox/Al Hydrox/Simeth 30 Ml Cup) 30 ml PO Q6H PRN PRN Reason: GERD Artificial Tears (Artificial Tears-Hypromellose Drops 15 Ml Btl) 1 drops BOTH EYES DIRECTED PRN PRN Reason: DRY EYES Aspirin (Aspirin 81 Mg) 81 mg PO DAILY [facility] Last Admin: 07/16/20 07:17 Dose: Not Given Documented by: Atorvastatin Calcium (Atorvastatin 20 Mg Tab) 20 mg PO DAILY [facility] Last Admin: 07/16/20 07:17 Dose: Not Given Documented by: Budesonide/Formoterol Fumarate (Symbicort 80-4.5 Mcg Inhaler) 2 puff INHALATION RT-BID [facility] Last Admin: 07/16/20 20:03 Dose: 2 puff Documented by: Cholecalciferol (Cholecalciferol 1,000 Unit Tab) 1,000 unit PO DAILY [facility] Last Admin: 07/16/20 07:17 Dose: Not Given Documented by: Citalopram Hydrobromide (Citalopram Hydrobromide 20 Mg Tab) 20 mg PO DAILY [facility] Last Admin: 07/16/20 07:17 Dose: Not Given Documented by: Ferrous Sulfate (Ferrous Sulfate 325 Mg Tab) 325 mg PO HS [facility] Last Admin: 07/16/20 21:01 Dose: 325 mg Documented by: Gabapentin (Gabapentin 100 Mg Cap) 200 mg PO TID [facility] Last Admin: 07/16/20 21:01 Dose: 200 mg Documented by: Heparin Sodium (Porcine) (Heparin Sodium,Porcine 5,000 Unit/Ml 1 Ml Vial) 5,000 unit SQ Q8HR RADHA Hydromorphone HCl (Hydromorphone 0.5 Mg/0.5 Ml Syringe) 0.5 mg IVP Q5M PRN PRN Reason: Pain Control Stop: 07/17/20 18:00 Hydromorphone HCl (Hydromorphone 0.5 Mg/0.5 Ml Syringe) 0.5 mg IVP Q3HR PRN PRN Reason: Pain Last Admin: 07/16/20 21:01 Dose: 0.5 mg Documented by: Sodium Chloride (Saline 0.9%) 1,000 mls @ 20 mls/hr IV .Q24H [facility] Last Admin: 07/15/20 22:58 Dose: Not Given Documented by: Lactated Ringer's (Lactated Ringers) 1,000 mls @ 75 mls/hr IV .[id number] [facility] Last Admin: 07/16/20 17:16 Dose: Not Given Documented by: Piperacillin Sod/Tazobactam (Sod 3.375 gm/ Sodium Chloride) 100 mls @ 25 mls/hr IVPB Q8HR [facility] Last Admin: 07/16/20 17:14 Dose: Not Given Documented by: Lactated Ringer's (Lactated Ringers) 1,000 mls @ 20 mls/hr IV .Q24H [facility] Last Admin: 07/16/20 17:13 Dose: Not Given Documented by: Insulin Aspart (Insulin Aspart (Novolog) 100 Unit/Ml Vial) 0 unit SQ ACHS [facility]; Protocol Last Admin: 07/16/20 21:00 Dose: Not Given Documented by: Isosorbide Mononitrate (Isosorbide Mononitrate Er 30 Mg Tab.Er.24h) 30 mg PO DAILY [facility] Last Admin: 07/16/20 07:17 Dose: Not Given Documented by: Lactobacillus Acidoph/Bulgaricus (Lactobacillus Acidoph & Bulgar 1 Each Packet) 1 each PO DAILY [facility] Last Admin: 07/16/20 07:17 Dose: Not Given Documented by: Levothyroxine Sodium (Levothyroxine 125 Mcg Tab) 125 mcg PO DAILY@0630 [facility] Last Admin: 07/15/20 22:57 Dose: Not Given Documented by: Lidocaine HCl (Lidocaine 1% (10mg/Ml) For Iv Start) 0.1 ml INTRADERMA PER PROTOCOL PRN PRN Reason: IV Start Lorazepam (Lorazepam 2 Mg/Ml Inj) 0.5 mg IV Q6HR PRN PRN Reason: Anxiety Metoprolol Succinate (Metoprolol Succinate (Er) 25 Mg Tab.Er.24h) 25 mg PO DAILY [facility] Last Admin: 07/16/20 07:59 Dose: 25 mg Documented by: Multivitamins (Multivitamins, Thera 1 Each Tab) 1 each PO BID@0800,1999 [facility] Last Admin: 07/16/20 21:06 Dose: Not Given Documented by: Naloxone HCl (Naloxone 0.4 Mg/Ml 1 Ml Vial) 0.2 mg IV Q2M PRN PRN Reason: Opioid Reversal Last Admin: 07/11/20 02:05 Dose: 0.2 mg Documented by: Pantoprazole Sodium (Pantoprazole 40 Mg Tablet) 40 mg PO DAILY@0730 [facility] Last Admin: 07/16/20 07:16 Dose: Not Given Documented by: Physical examination: VITAL SIGNS: 97.2, 68, 20, 160 was 68, 100% on 4 L GENERAL: laying in bed, comfortable EYES: Pupils equal. Conjunctiva normal. NECK: JVD unable to assess masses not palpable. HEART: First and second heart sounds are normal; nonpitting edema. LUNGS: Respiratory rate increased; distant breath sounds. ABDOMEN: Soft, right upper quadrant tenderness, no guarding rigidity, liver spleen not palpable, no masses palpable. PSYCH: Alert and oriented x3; mood and affect normal. NEUROLOGICAL: Cranial nerves grossly intact; no facial asymmetry, power and sensation grossly intact. LYMPHATICS: Lymphedemas especially left lower extremity INVESTIGATIONS, reviewed in the clinical context: July 16: Accu-Cheks noted July 15: White count 7.7 hemoglobin 10.8 platelets 263 potassium 3.5 creatinine 0.8. Total bilirubin 0.7 AST 27 ALT 43 July 13: White count 10.7 hemoglobin 11.3 potassium 4.0 creatinine 1.3 total bilirubin 1.0 AST 99 ALT 85 July 12: White count 13.3 hemoglobin 10.9 potassium 4.1 creatinine 1.2 total bilirubin 1.7 AST 127 ALT 93 White count 14.9 hemoglobin 11.6 platelets 227 potassium 4.5 bun 24 creatinine 1.38 total bilirubin 2.4 AST 201 ALT 113 alk phos 316 Troponin I 0.195, 0.154 Coronavirus P/Cr-not detected White count 13.5 hemoglobin 12.4 potassium 4.0 creatinine 0.81 total bilirubin 1.6 UA positive for leukoesterase WBC Urine culture-E. coli EKG tracing personally reviewed by me-normal sinus rhythm Chest x-ray film personally reviewed by me-scattered infiltrates versus atypical edema Abdominal ultrasound-echogenic bile and gallstones or gallbladder. No dilated ducts. Common bile duct not visualized. Sonographic Paris sign positive Assessment: -Acute on chronic cholecystitis -laparoscopic cholecystectomy on July 16. -Gallstones. No plan for ERCP per Dr. Pantoja -Blood culture showing Staphylococcus epidermidis-contaminant -Acute UTI with cystitis from E. coli. -Intermittent asthma -Diabetes mellitus type 2 -Hyperlipidemia -Hyperlipidemia -Primary osteoarthritis -Chronic hypoxic is pretty failure on 4 L of oxygen at home -Chronic congestive heart failure from diastolic dysfunction EF 60-65% -Lower extremity lymphedema -Diabetic peripheral neuropathy -Macular degeneration -Chronic gait dysfunction uses a wheelchair or walker -Chronic urinary incontinence -Hypothyroidism -Morbid obesity BMI 47.4 -Acute kidney injury, could be ATN from hypotension-improved Plan: Continue IV Zosyn. , Continue other medications. Postop orders as per Dr. Parnell. Patient has a CORY drain.
[2020-07-16] MEDS: HEPARIN SODIUM,PORCINE 5,000 UNIT/ML 1 ML VIAL SQ SCH (23:20)
[2020-07-17] MEDS: SODIUM CHLORIDE 0.9% 1,000 ML IV SCH (00:26)
[2020-07-17] MEDS: HYDROmorphone 0.5 MG/0.5 ML SYRINGE IVP PRN ×2 (00:45→04:36)
[2020-07-17 03:20] LABS: Glucose,Whole Blood 148 mg/dL (75-99)
[2020-07-17] MEDS: LACTATED RINGERS 1,000 ML IV SCH ×3 (04:37→21:57)
[2020-07-17] MEDS: LEVOTHYROXINE 125 MCG TAB PO SCH (05:25)
[2020-07-17 06:48] LABS: Glucose,Whole Blood 146 mg/dL (75-99)
[2020-07-17 07:09] LABS: Basophils % (A) 0 %; Eosinophils % (A) 0 %; HCT 34.2 % (34.0-46.0); HGB 10.7 gm/dL (11.4-16.0); Hypochromasia Moderate; Lymphocytes # (A) 0.8 k/uL (1.0-4.8); Lymphocytes % (A) 6 %; MCH 31.8 pg (25.0-35.0); MCHC 31.2 g/dL (31.0-37.0); MCV 101.8 fL (80.0-100.0); Macrocytosis Slight; Mean Platelet Volume 6.8; Monocytes # (A) 0.7 k/uL (0-1.0); Monocytes % (A) 5 %; Neutrophils # (A) 11.2 k/uL (1.3-7.7); Neutrophils % (A) 87 %; Platelet Count 338 k/uL (150-450); RBC 3.36 m/uL (3.80-5.40); RDW 12.8 % (11.5-15.5); WBC 12.8 k/uL (3.8-10.6)
[2020-07-17] MEDS: INSULIN ASPART (NovoLOG) 100 UNIT/ML VIAL SQ SCH ×4 (07:21→21:55)
[2020-07-17] MEDS: ISOSORBIDE MONONITRATE ER 30 MG TAB.ER.24H PO SCH (08:21)
[2020-07-17] MEDS: CHOLECALCIFEROL 1,000 UNIT TAB PO SCH (08:21)
[2020-07-17] MEDS: MULTIVITAMINS, THERA 1 EACH TAB PO SCH ×2 (08:21→21:55)
[2020-07-17] MEDS: PANTOPRAZOLE 40 MG TABLET PO SCH (08:21)
[2020-07-17] MEDS: HEPARIN SODIUM,PORCINE 5,000 UNIT/ML 1 ML VIAL SQ SCH ×2 (08:21→15:46)
[2020-07-17] MEDS: ASPIRIN 81 MG PO SCH (08:21)
[2020-07-17] MEDS: METOPROLOL SUCCINATE (ER) 25 MG TAB.ER.24H PO SCH (08:21)
[2020-07-17] MEDS: ATORVASTATIN 20 MG TAB PO SCH (08:21)
[2020-07-17] MEDS: CITALOPRAM HYDROBROMIDE 20 MG TAB PO SCH (08:22)
[2020-07-17] MEDS: LACTOBACILLUS ACIDOPH & BULGAR 1 EACH PACKET PO SCH (08:22)
[2020-07-17] MEDS: GABAPENTIN 100 MG CAP PO SCH ×3 (08:22→21:54)
[2020-07-17] MEDS: PIPERACILLIN-TAZOBACTAM 3.375 GM in SODIUM CHLORIDE 0.9% 100 ML IVPB SCH ×2 (08:22→15:46)
[2020-07-17] MEDS: SYMBICORT 80-4.5 MCG INHALER INHALATION SCH ×2 (09:05→19:47)
[2020-07-17 10:00] LABS: African American GFR (CKD) 61.2 (60.0-200.0); Albumin 2.9 g/dL (3.80-4.90); Albumin/Globulin Ratio 1.38 (1.60-3.17); Anion Gap 7.6 mmol/L (4.00-12.00); Calcium 8.4 mg/dL (8.7-10.3); Carbon Dioxide 33.4 mmol/L (21.6-31.8); Globulin 2.1 g/dL (1.6-3.3); Non-African American GFR(CKD) 52.8 (60.0-200.0); Potassium 4.1 mmol/L (3.5-5.5); Total Bilirubin 0.5 mg/dL (0.2-1.2)
[2020-07-17 11:32] LABS: Glucose,Whole Blood 148 mg/dL (75-99)
--- NOTE | 2020-07-17 13:30 | P.PN ---
Subjective Progress Note Date: 07/17/20 Pt seen and examined at bedside. Pain tolerable. Tolerating clear liquid diet. CORY drain with serosanguinous output. Objective - Vital Signs Vital signs: Vital Signs Temp 98.1 F 07/17/20 07:05 Pulse 76 07/17/20 07:05 Resp 16 07/17/20 07:05 BP 117/73 07/17/20 07:05 Pulse Ox 92 L 07/17/20 07:05 Intake & Output 07/16/20 07/17/20 07/17/20 18:59 06:59 18:59 Intake Total 950 Output Total 25 40 90 Balance 925 -40 -90 Weight 129.274 kg Intake: IV 950 Output: Drainage 40 90 Right Lower Abdomen 40 90 Estimated Blood Loss 25 Other: Voiding Method Diaper Diaper # Voids 2 1 # Bowel Movements 2 - Constitutional General appearance: Present: cooperative, no acute distress - Gastrointestinal Gastrointestinal Comment(s): soft, nontender, nondistended, no rebound, incisions are clean/dry/intact - Psychiatric Psychiatric: Present: A&O x's 3 - Labs CBC & Chem 7: 07/17/20 06:36 07/17/20 06:36 Labs: Abnormal Lab Results - Last 24 Hours (Table) 07/16/20 07/16/20 07/16/20 Range/Units 13:41 16:28 20:59 WBC (3.8-10.6) k/uL RBC (3.80-5.40) m/uL Hgb (11.4-16.0) gm/dL MCV (80.0-100.0) fL Neutrophils # (1.3-7.7) k/uL Lymphocytes # (1.0-4.8) k/uL Carbon Dioxide (21.6-31.8) mmol/L Est GFR (CKD-EPI)NonAf (60.0-200.0) Glucose (70-110) mg/dL POC Glucose (mg/dL) 107 H 128 H 169 H (75-99) mg/dL Calcium (8.7-10.3) mg/dL Alkaline Phosphatase (41-126) U/L Total Protein (6.2-8.2) g/dL Albumin (3.80-4.90) g/dL Albumin/Globulin Ratio (1.60-3.17) g/dL 07/17/20 07/17/20 07/17/20 Range/Units 03:18 06:36 06:36 WBC 12.8 H (3.8-10.6) k/uL RBC 3.36 L (3.80-5.40) m/uL Hgb 10.7 L (11.4-16.0) gm/dL MCV 101.8 H (80.0-100.0) fL Neutrophils # 11.2 H (1.3-7.7) k/uL Lymphocytes # 0.8 L (1.0-4.8) k/uL Carbon Dioxide 33.4 H (21.6-31.8) mmol/L Est GFR (CKD-EPI)NonAf 52.8 L (60.0-200.0) Glucose 138 H (70-110) mg/dL POC Glucose (mg/dL) 148 H (75-99) mg/dL Calcium 8.4 L (8.7-10.3) mg/dL Alkaline Phosphatase 527 H (41-126) U/L Total Protein 5.0 L (6.2-8.2) g/dL Albumin 2.90 L (3.80-4.90) g/dL Albumin/Globulin Ratio 1.38 L (1.60-3.17) g/dL 07/17/20 07/17/20 Range/Units 06:46 11:30 WBC (3.8-10.6) k/uL RBC (3.80-5.40) m/uL Hgb (11.4-16.0) gm/dL MCV (80.0-100.0) fL Neutrophils # (1.3-7.7) k/uL Lymphocytes # (1.0-4.8) k/uL Carbon Dioxide (21.6-31.8) mmol/L Est GFR (CKD-EPI)NonAf (60.0-200.0) Glucose (70-110) mg/dL POC Glucose (mg/dL) 146 H 148 H (75-99) mg/dL Calcium (8.7-10.3) mg/dL Alkaline Phosphatase (41-126) U/L Total Protein (6.2-8.2) g/dL Albumin (3.80-4.90) g/dL Albumin/Globulin Ratio (1.60-3.17) g/dL Assessment and Plan Plan: POD #1, robotic cholecystectomy - Advance to low fat diet - Continue CORY drain - Pt will likely need follow up MRCP as there is concern about anatomy of bili nkechi tree from intra-op evaluation. This can be done as an outpatient. - Continue medical mgmt
[2020-07-17 16:51] LABS: Glucose,Whole Blood 150 mg/dL (75-99)
[2020-07-17 20:38] LABS: Glucose,Whole Blood 149 mg/dL (75-99)
[2020-07-17] MEDS: FERROUS SULFATE 325 MG TAB PO SCH (21:54)
--- NOTE | 2020-07-17 22:00 | P.PN ---
Progress Note - Text Progress Note Date: 07/17/20 Chief Complaint: Abdominal pain History of presenting complaint: This is a 80-year-old patient, Dr. Reynaga. At the [facility]. Chronic stable medical conditions include asthma, COPD, diabetes, hypertension, hyperlipidemia, osteoarthritis, morbid obesity, home oxygen 4 L, CHF with diastolic dysfunction, left leg lymphedema, peripheral neuropathy, macular degeneration, chronic urinary incontinence. She presents to the ER with abdominal pain. Right upper quadrant. She states she was scheduled for a cholecystectomy in 19 days. Not sure what surgeon. Pain radiates to the back. Has been having dry heaves. Pain is sharp. Also had some nausea and vomiting. No fever no chills. Has not been able to keep anything down. No fever no chills. Admitted with acute and chronic cholecystitis and gallstones. Symptomatic. Started on IV Zosyn. Acute kidney injury from hypotension. No ERCP as per Dr. Pantoja. Acute UTI with cystitis from E. coli. July 16-laparoscopic cholecystectomy Today-was on a liquid diet. Advance to low-fat diet. Some operative site pain. Otherwise feeling okay. Review of systems: Was done for constitutional, cardiovascular, GI, pulmonary. relevant finding as above Active Medications Acetaminophen (Acetaminophen Tab 325 Mg Tab) 650 mg PO Q6HR PRN PRN Reason: Fever and/ or Mild Pain Last Admin: 07/14/20 20:41 Dose: 650 mg Documented by: Al Hydroxide/Mg Hydroxide (Mag Hydrox/Al Hydrox/Simeth 30 Ml Cup) 30 ml PO Q6H PRN PRN Reason: GERD Artificial Tears (Artificial Tears-Hypromellose Drops 15 Ml Btl) 1 drops BOTH EYES DIRECTED PRN PRN Reason: DRY EYES Aspirin (Aspirin 81 Mg) 81 mg PO DAILY [facility] Last Admin: 07/17/20 08:21 Dose: 81 mg Documented by: Atorvastatin Calcium (Atorvastatin 20 Mg Tab) 20 mg PO DAILY [facility] Last Admin: 07/17/20 08:21 Dose: 20 mg Documented by: Budesonide/Formoterol Fumarate (Symbicort 80-4.5 Mcg Inhaler) 2 puff INHALATION RT-BID [facility] Last Admin: 07/17/20 19:47 Dose: 2 puff Documented by: Cholecalciferol (Cholecalciferol 1,000 Unit Tab) 1,000 unit PO DAILY [facility] Last Admin: 07/17/20 08:21 Dose: 1,000 unit Documented by: Citalopram Hydrobromide (Citalopram Hydrobromide 20 Mg Tab) 20 mg PO DAILY [facility] Last Admin: 07/17/20 08:22 Dose: 20 mg Documented by: Enoxaparin Sodium (Enoxaparin 40 Mg/0.4 Ml Syringe) 40 mg SQ DAILY [facility] Ferrous Sulfate (Ferrous Sulfate 325 Mg Tab) 325 mg PO HS [facility] Last Admin: 07/17/20 21:54 Dose: 325 mg Documented by: Gabapentin (Gabapentin 100 Mg Cap) 200 mg PO TID [facility] Last Admin: 07/17/20 21:54 Dose: 200 mg Documented by: Hydromorphone HCl (Hydromorphone 0.5 Mg/0.5 Ml Syringe) 0.5 mg IVP Q3HR PRN PRN Reason: Pain Last Admin: 07/17/20 04:36 Dose: 0.5 mg Documented by: Sodium Chloride (Saline 0.9%) 1,000 mls @ 20 mls/hr IV .Q24H [facility] Last Admin: 07/17/20 00:26 Dose: Not Given Documented by: Lactated Ringer's (Lactated Ringers) 1,000 mls @ 75 mls/hr IV .[id number] [facility] Last Admin: 07/17/20 21:57 Dose: Not Given Documented by: Piperacillin Sod/Tazobactam (Sod 3.375 gm/ Sodium Chloride) 100 mls @ 25 mls/hr IVPB Q8HR [facility] Last Admin: 07/17/20 15:46 Dose: 25 mls/hr Documented by: Lactated Ringer's (Lactated Ringers) 1,000 mls @ 20 mls/hr IV .Q24H [facility] Last Admin: 07/17/20 15:01 Dose: Not Given Documented by: Insulin Aspart (Insulin Aspart (Novolog) 100 Unit/Ml Vial) 0 unit SQ ACHS [facility]; Protocol Last Admin: 07/17/20 21:55 Dose: 2 unit Documented by: Isosorbide Mononitrate (Isosorbide Mononitrate Er 30 Mg Tab.Er.24h) 30 mg PO DAILY [facility] Last Admin: 07/17/20 08:21 Dose: 30 mg Documented by: Lactobacillus Acidoph/Bulgaricus (Lactobacillus Acidoph & Bulgar 1 Each Packet) 1 each PO DAILY [facility] Last Admin: 07/17/20 08:22 Dose: Not Given Documented by: Levothyroxine Sodium (Levothyroxine 125 Mcg Tab) 125 mcg PO DAILY@0630 [facility] Last Admin: 07/17/20 05:25 Dose: 125 mcg Documented by: Lidocaine HCl (Lidocaine 1% (10mg/Ml) For Iv Start) 0.1 ml INTRADERMA PER PROTOCOL PRN PRN Reason: IV Start Lorazepam (Lorazepam 2 Mg/Ml Inj) 0.5 mg IV Q6HR PRN PRN Reason: Anxiety Metoprolol Succinate (Metoprolol Succinate (Er) 25 Mg Tab.Er.24h) 25 mg PO DAILY [facility] Last Admin: 07/17/20 08:21 Dose: 25 mg Documented by: Multivitamins (Multivitamins, Thera 1 Each Tab) 1 each PO BID@0800,2000 [facility] Last Admin: 07/17/20 21:55 Dose: 1 each Documented by: Naloxone HCl (Naloxone 0.4 Mg/Ml 1 Ml Vial) 0.2 mg IV Q2M PRN PRN Reason: Opioid Reversal Last Admin: 07/11/20 02:05 Dose: 0.2 mg Documented by: Pantoprazole Sodium (Pantoprazole 40 Mg Tablet) 40 mg PO DAILY@0730 [facility] Last Admin: 07/17/20 08:21 Dose: 40 mg Documented by: Physical examination: VITAL SIGNS: 97.6, 64, 15, 103/63, 90% on 4.5 L GENERAL: laying in bed, comfortable EYES: Pupils equal. Conjunctiva normal. NECK: JVD unable to assess masses not palpable. HEART: First and second heart sounds are normal; nonpitting edema. LUNGS: Respiratory rate increased; distant breath sounds. ABDOMEN: Soft, mild abdominal tenderness, no guarding rigidity, liver spleen not palpable, no masses palpable. CORY drain-serosanguineous drainage PSYCH: Alert and oriented x3; mood and affect normal. NEUROLOGICAL: Cranial nerves grossly intact; no facial asymmetry, power and sensation grossly intact. LYMPHATICS: Lymphedemas especially left lower extremity INVESTIGATIONS, reviewed in the clinical context: July 17: White count 12.8 hemoglobin 10.7 potassium 4.1 creatinine 1.0 July 16: Accu-Cheks noted July 15: White count 7.7 hemoglobin 10.8 platelets 263 potassium 3.5 creatinine 0.8. Total bilirubin 0.7 AST 27 ALT 43 July 13: White count 10.7 hemoglobin 11.3 potassium 4.0 creatinine 1.3 total bilirubin 1.0 AST 99 ALT 85 July 12: White count 13.3 hemoglobin 10.9 potassium 4.1 creatinine 1.2 total bilirubin 1.7 AST 127 ALT 93 White count 14.9 hemoglobin 11.6 platelets 227 potassium 4.5 bun 24 creatinine 1.38 total bilirubin 2.4 AST 201 ALT 113 alk phos 316 Troponin I 0.195, 0.154 Coronavirus P/Cr-not detected White count 13.5 hemoglobin 12.4 potassium 4.0 creatinine 0.81 total bilirubin 1.6 UA positive for leukoesterase WBC Urine culture-E. coli EKG tracing personally reviewed by me-normal sinus rhythm Chest x-ray film personally reviewed by me-scattered infiltrates versus atypical edema Abdominal ultrasound-echogenic bile and gallstones or gallbladder. No dilated ducts. Common bile duct not visualized. Sonographic Paris sign positive Assessment: -Acute on chronic cholecystitis -laparoscopic cholecystectomy on July 16. Possible MRCP as an outpatient -Gallstones. No plan for ERCP per Dr. Pantoja. Status post cholecystectomy -Blood culture showing Staphylococcus epidermidis-contaminant -Acute UTI with cystitis from E. coli. -Intermittent asthma -Diabetes mellitus type 2 -Hyperlipidemia -Hyperlipidemia -Primary osteoarthritis -Chronic hypoxic is pretty failure on 4 L of oxygen at home -Chronic congestive heart failure from diastolic dysfunction EF 60-65% -Lower extremity lymphedema -Diabetic peripheral neuropathy -Macular degeneration -Chronic gait dysfunction uses a wheelchair or walker -Chronic urinary incontinence -Hypothyroidism -Morbid obesity BMI 47.4 -Acute kidney injury, could be ATN from hypotension-improved Plan: Continue IV Zosyn. , Diet has been advanced per surgery.
[2020-07-18] MEDS: PIPERACILLIN-TAZOBACTAM 3.375 GM in SODIUM CHLORIDE 0.9% 100 ML IVPB SCH ×3 (00:49→16:10)
[2020-07-18 01:57] LABS: Glucose,Whole Blood 125 mg/dL (75-99)
[2020-07-18] MEDS: SODIUM CHLORIDE 0.9% 1,000 ML IV SCH (04:13)
[2020-07-18] MEDS: LEVOTHYROXINE 125 MCG TAB PO SCH (05:45)
[2020-07-18 06:36] LABS: Glucose,Whole Blood 147 mg/dL (75-99)
[2020-07-18] MEDS: LACTATED RINGERS 1,000 ML IV SCH ×2 (07:53→19:13)
[2020-07-18] MEDS: GABAPENTIN 100 MG CAP PO SCH ×3 (07:54→22:36)
[2020-07-18] MEDS: ASPIRIN 81 MG PO SCH (07:54)
[2020-07-18] MEDS: METOPROLOL SUCCINATE (ER) 25 MG TAB.ER.24H PO SCH (07:54)
[2020-07-18] MEDS: INSULIN ASPART (NovoLOG) 100 UNIT/ML VIAL SQ SCH ×4 (07:54→20:20)
[2020-07-18] MEDS: CITALOPRAM HYDROBROMIDE 20 MG TAB PO SCH (07:54)
[2020-07-18] MEDS: ATORVASTATIN 20 MG TAB PO SCH (07:54)
[2020-07-18] MEDS: CHOLECALCIFEROL 1,000 UNIT TAB PO SCH (07:54)
[2020-07-18] MEDS: PANTOPRAZOLE 40 MG TABLET PO SCH (07:54)
[2020-07-18] MEDS: MULTIVITAMINS, THERA 1 EACH TAB PO SCH ×2 (07:54→19:33)
[2020-07-18] MEDS: ENOXAPARIN 40 MG/0.4 ML SYRINGE SQ SCH (07:54)
[2020-07-18] MEDS: ISOSORBIDE MONONITRATE ER 30 MG TAB.ER.24H PO SCH (07:55)
[2020-07-18] MEDS: LACTOBACILLUS ACIDOPH & BULGAR 1 EACH PACKET PO SCH (07:57)
[2020-07-18] MEDS: SYMBICORT 80-4.5 MCG INHALER INHALATION SCH ×2 (08:47→21:18)
--- NOTE | 2020-07-18 09:58 | P.PN ---
Subjective Progress Note Date: 07/18/20 Patient seen and examined at bedside. No acute events. Complains of some incisional pain. Tolerating diet. CORY drain in place with serosanguineous output. 60 mL overnight. Objective - Vital Signs Vital signs: Vital Signs Temp 98.1 F 07/18/20 07:21 Pulse 65 07/18/20 07:21 Resp 18 07/18/20 07:21 BP 108/59 07/18/20 07:21 Pulse Ox 99 07/18/20 08:47 Intake & Output 07/17/20 07/18/20 07/18/20 18:59 06:59 18:59 Intake Total 1000 Output Total 2220 460 Balance -1220 -460 Intake: IV 100 Piperacillin-Tazobactam 3 100 .375 gm In Sodium Chloride 0.9% 100 ml @ 25 mls/hr IVPB Q8HR [facility] Rx# :[id number] Intake, IV Titration 900 Amount Lactated Ringers 1,000 ml 900 @ 75 mls/hr IV .[id number] [facility] Rx#:[id number] Output: Drainage 130 60 Right Lower Abdomen 130 60 Urine 1690 400 Straight 445 Uretheral ([place]) 400 Post Void Residual 400 Other: Voiding Method Diaper Indwelling Catheter # Voids 1 1 - Constitutional General appearance: Present: cooperative, no acute distress - Gastrointestinal Gastrointestinal Comment(s): Soft, appropriate tenderness, nondistended, CORY drain in place, incision sites are clean, dry and intact - Musculoskeletal Musculoskeletal: Present: generalized weakness - Labs CBC & Chem 7: 07/17/20 06:36 07/17/20 06:36 Labs: Abnormal Lab Results - Last 24 Hours (Table) 07/17/20 07/17/20 07/17/20 Range/Units 06:36 11:30 16:49 Carbon Dioxide 33.4 H (21.6-31.8) mmol/L Est GFR (CKD-EPI)NonAf 52.8 L (60.0-200.0) Glucose 138 H (70-110) mg/dL POC Glucose (mg/dL) 148 H 150 H (75-99) mg/dL Calcium 8.4 L (8.7-10.3) mg/dL Alkaline Phosphatase 527 H (41-126) U/L Total Protein 5.0 L (6.2-8.2) g/dL Albumin 2.90 L (3.80-4.90) g/dL Albumin/Globulin Ratio 1.38 L (1.60-3.17) g/dL 07/17/20 07/18/20 07/18/20 Range/Units 20:36 01:55 06:35 Carbon Dioxide (21.6-31.8) mmol/L Est GFR (CKD-EPI)NonAf (60.0-200.0) Glucose (70-110) mg/dL POC Glucose (mg/dL) 149 H 125 H 147 H (75-99) mg/dL Calcium (8.7-10.3) mg/dL Alkaline Phosphatase (41-126) U/L Total Protein (6.2-8.2) g/dL Albumin (3.80-4.90) g/dL Albumin/Globulin Ratio (1.60-3.17) g/dL Assessment and Plan Plan: POD #2, robotic cholecystectomy - Continue low fat diet - Continue CORY drain - Pt will likely need follow up MRCP as there is concern about anatomy of biliary tree from intra-op evaluation. This can be done as an outpatient. - Continue medical mgmt
[2020-07-18] MEDS: ACETAMINOPHEN TAB 325 MG TAB PO PRN ×2 (10:16→19:33)
[2020-07-18 11:37] LABS: Glucose,Whole Blood 152 mg/dL (75-99)
[2020-07-18 15:44] VITALS: BMI 47.4
[2020-07-18 16:39] LABS: Glucose,Whole Blood 228 mg/dL (75-99)
[2020-07-18 19:52] LABS: Glucose,Whole Blood 179 mg/dL (75-99)
[2020-07-18] MEDS: FERROUS SULFATE 325 MG TAB PO SCH (20:20)
--- NOTE | 2020-07-18 21:02 | P.PN ---
Progress Note - Text Progress Note Date: 07/18/20 Chief Complaint: Abdominal pain History of presenting complaint: This is a 80-year-old patient, Dr. Reynaga. At the [facility]. Chronic stable medical conditions include asthma, COPD, diabetes, hypertension, hyperlipidemia, osteoarthritis, morbid obesity, home oxygen 4 L, CHF with diastolic dysfunction, left leg lymphedema, peripheral neuropathy, macular degeneration, chronic urinary incontinence. She presents to the ER with abdominal pain. Right upper quadrant. She states she was scheduled for a cholecystectomy in 19 days. Not sure what surgeon. Pain radiates to the back. Has been having dry heaves. Pain is sharp. Also had some nausea and vomiting. No fever no chills. Has not been able to keep anything down. No fever no chills. Admitted with acute and chronic cholecystitis and gallstones. Symptomatic. Started on IV Zosyn. Acute kidney injury from hypotension. No ERCP as per Dr. Pantoja. Acute UTI with cystitis from E. coli. July 16-laparoscopic cholecystectomy Today-low fat diet. Comfortable. Slight abdominal pain. No nausea vomiting. Review of systems: Was done for constitutional, cardiovascular, GI, pulmonary. relevant finding as above Active Medications Acetaminophen (Acetaminophen Tab 325 Mg Tab) 650 mg PO Q6HR PRN PRN Reason: Fever and/ or Mild Pain Last Admin: 07/18/20 19:33 Dose: 650 mg Documented by: Al Hydroxide/Mg Hydroxide (Mag Hydrox/Al Hydrox/Simeth 30 Ml Cup) 30 ml PO Q6H PRN PRN Reason: GERD Artificial Tears (Artificial Tears-Hypromellose Drops 15 Ml Btl) 1 drops BOTH EYES DIRECTED PRN PRN Reason: DRY EYES Aspirin (Aspirin 81 Mg) 81 mg PO DAILY [facility] Last Admin: 07/18/20 07:54 Dose: 81 mg Documented by: Atorvastatin Calcium (Atorvastatin 20 Mg Tab) 20 mg PO DAILY [facility] Last Admin: 07/18/20 07:54 Dose: 20 mg Documented by: Budesonide/Formoterol Fumarate (Symbicort 80-4.5 Mcg Inhaler) 2 puff INHALATION RT-BID [facility] Last Admin: 07/18/20 08:47 Dose: 2 puff Documented by: Cholecalciferol (Cholecalciferol 1,000 Unit Tab) 1,000 unit PO DAILY [facility] Last Admin: 07/18/20 07:54 Dose: 1,000 unit Documented by: Citalopram Hydrobromide (Citalopram Hydrobromide 20 Mg Tab) 20 mg PO DAILY [facility] Last Admin: 07/18/20 07:54 Dose: 20 mg Documented by: Enoxaparin Sodium (Enoxaparin 40 Mg/0.4 Ml Syringe) 40 mg SQ DAILY [facility] Last Admin: 07/18/20 07:54 Dose: 40 mg Documented by: Ferrous Sulfate (Ferrous Sulfate 325 Mg Tab) 325 mg PO HS [facility] Last Admin: 07/18/20 20:20 Dose: 325 mg Documented by: Gabapentin (Gabapentin 100 Mg Cap) 200 mg PO TID [facility] Last Admin: 07/18/20 16:12 Dose: 200 mg Documented by: Hydromorphone HCl (Hydromorphone 0.5 Mg/0.5 Ml Syringe) 0.5 mg IVP Q3HR PRN PRN Reason: Pain Last Admin: 07/17/20 04:36 Dose: 0.5 mg Documented by: Sodium Chloride (Saline 0.9%) 1,000 mls @ 20 mls/hr IV .Q24H [facility] Last Admin: 07/18/20 04:13 Dose: Not Given Documented by: Lactated Ringer's (Lactated Ringers) 1,000 mls @ 75 mls/hr IV .[id number] [facility] Last Admin: 07/18/20 07:53 Dose: 75 mls/hr Documented by: Lactated Ringer's (Lactated Ringers) 1,000 mls @ 20 mls/hr IV .Q24H [facility] Last Admin: 07/18/20 19:13 Dose: Not Given Documented by: Insulin Aspart (Insulin Aspart (Novolog) 100 Unit/Ml Vial) 0 unit SQ ACHS [facility]; Protocol Last Admin: 07/18/20 20:20 Dose: 4 unit Documented by: Isosorbide Mononitrate (Isosorbide Mononitrate Er 30 Mg Tab.Er.24h) 30 mg PO DAILY [facility] Last Admin: 07/18/20 07:55 Dose: 30 mg Documented by: Lactobacillus Acidoph/Bulgaricus (Lactobacillus Acidoph & Bulgar 1 Each Packet) 1 each PO DAILY [facility] Last Admin: 07/18/20 07:57 Dose: Not Given Documented by: Levothyroxine Sodium (Levothyroxine 125 Mcg Tab) 125 mcg PO DAILY@0630 [facility] Last Admin: 07/18/20 05:45 Dose: 125 mcg Documented by: Lidocaine HCl (Lidocaine 1% (10mg/Ml) For Iv Start) 0.1 ml INTRADERMA PER PROTOCOL PRN PRN Reason: IV Start Lorazepam (Lorazepam 2 Mg/Ml Inj) 0.5 mg IV Q6HR PRN PRN Reason: Anxiety Metoprolol Succinate (Metoprolol Succinate (Er) 25 Mg Tab.Er.24h) 25 mg PO DAILY [facility] Last Admin: 07/18/20 07:54 Dose: 25 mg Documented by: Multivitamins (Multivitamins, Thera 1 Each Tab) 1 each PO BID@0800,1999 [facility] Last Admin: 07/18/20 19:33 Dose: 1 each Documented by: Naloxone HCl (Naloxone 0.4 Mg/Ml 1 Ml Vial) 0.2 mg IV Q2M PRN PRN Reason: Opioid Reversal Last Admin: 07/11/20 02:05 Dose: 0.2 mg Documented by: Pantoprazole Sodium (Pantoprazole 40 Mg Tablet) 40 mg PO DAILY@0730 [facility] Last Admin: 07/18/20 07:54 Dose: 40 mg Documented by: Physical examination: VITAL SIGNS: 98.3, 63, 16, 130/58, 100% on 4 L GENERAL: laying in bed, comfortable EYES: Pupils equal. Conjunctiva normal. NECK: JVD unable to assess masses not palpable. HEART: First and second heart sounds are normal; nonpitting edema. LUNGS: Respiratory rate increased; distant breath sounds. ABDOMEN: Soft, mild abdominal tenderness, no guarding rigidity, liver spleen not palpable, no masses palpable. CORY drain-serosanguineous drainage PSYCH: Alert and oriented x3; mood and affect normal. NEUROLOGICAL: Cranial nerves grossly intact; no facial asymmetry, power and sensation grossly intact. LYMPHATICS: Lymphedemas especially left lower extremity INVESTIGATIONS, reviewed in the clinical context: July 17: White count 12.8 hemoglobin 10.7 potassium 4.1 creatinine 1.0 July 16: Accu-Cheks noted July 15: White count 7.7 hemoglobin 10.8 platelets 263 potassium 3.5 c reatinine 0.8. Total bilirubin 0.7 AST 27 ALT 43 July 13: White count 10.7 hemoglobin 11.3 potassium 4.0 creatinine 1.3 total bilirubin 1.0 AST 99 ALT 85 July 12: White count 13.3 hemoglobin 10.9 potassium 4.1 creatinine 1.2 total bilirubin 1.7 AST 127 ALT 93 White count 14.9 hemoglobin 11.6 platelets 227 potassium 4.5 bun 24 creatinine 1.38 total bilirubin 2.4 AST 201 ALT 113 alk phos 316 Troponin I 0.195, 0.154 Coronavirus P/Cr-not detected White count 13.5 hemoglobin 12.4 potassium 4.0 creatinine 0.81 total bilirubin 1.6 UA positive for leukoesterase WBC Urine culture-E. coli EKG tracing personally reviewed by me-normal sinus rhythm Chest x-ray film personally reviewed by me-scattered infiltrates versus atypical edema Abdominal ultrasound-echogenic bile and gallstones or gallbladder. No dilated ducts. Common bile duct not visualized. Sonographic Paris sign positive Assessment: -Acute on chronic cholecystitis -laparoscopic cholecystectomy on July 16. Possible MRCP as an outpatient -Gallstones. No plan for ERCP per Dr. Pantoja. Status post cholecystectomy -Blood culture showing Staphylococcus epidermidis-contaminant -Acute UTI with cystitis from E. coli. -Intermittent asthma -Diabetes mellitus type 2 -Hyperlipidemia -Hyperlipidemia -Primary osteoarthritis -Chronic hypoxic is pretty failure on 4 L of oxygen at home -Chronic congestive heart failure from diastolic dysfunction EF 60-65% -Lower extremity lymphedema -Diabetic peripheral neuropathy -Macular degeneration -Chronic gait dysfunction uses a wheelchair or walker -Chronic urinary incontinence -Hypothyroidism -Morbid obesity BMI 47.4 -Acute kidney injury, could be ATN from hypotension-improved Plan: Continue IV Zosyn. , Diet advanced. Patient was to go to the [facility] today. But no beds available. Possibly tomorrow. Other medications to continue. Cleared by surgery for DC.
[2020-07-19] MEDS: SODIUM CHLORIDE 0.9% 1,000 ML IV SCH (02:13)
[2020-07-19] MEDS: LACTATED RINGERS 1,000 ML IV SCH ×3 (02:13→18:44)
[2020-07-19 02:21] LABS: Glucose,Whole Blood 115 mg/dL (75-99)
[2020-07-19] MEDS: LEVOTHYROXINE 125 MCG TAB PO SCH (05:44)
[2020-07-19 06:42] LABS: Glucose,Whole Blood 111 mg/dL (75-99)
[2020-07-19] MEDS: INSULIN ASPART (NovoLOG) 100 UNIT/ML VIAL SQ SCH ×3 (07:09→17:22)
[2020-07-19] MEDS: ATORVASTATIN 20 MG TAB PO SCH (08:11)
[2020-07-19] MEDS: CITALOPRAM HYDROBROMIDE 20 MG TAB PO SCH (08:11)
[2020-07-19] MEDS: ENOXAPARIN 40 MG/0.4 ML SYRINGE SQ SCH (08:11)
[2020-07-19] MEDS: ASPIRIN 81 MG PO SCH (08:11)
[2020-07-19] MEDS: GABAPENTIN 100 MG CAP PO SCH ×2 (08:11→17:22)
[2020-07-19] MEDS: METOPROLOL SUCCINATE (ER) 25 MG TAB.ER.24H PO SCH (08:11)
[2020-07-19] MEDS: MULTIVITAMINS, THERA 1 EACH TAB PO SCH (08:11)
[2020-07-19] MEDS: PANTOPRAZOLE 40 MG TABLET PO SCH (08:11)
[2020-07-19] MEDS: ISOSORBIDE MONONITRATE ER 30 MG TAB.ER.24H PO SCH (08:11)
[2020-07-19] MEDS: CHOLECALCIFEROL 1,000 UNIT TAB PO SCH (08:11)
[2020-07-19] MEDS: ACETAMINOPHEN TAB 325 MG TAB PO PRN (08:16)
[2020-07-19] MEDS: SYMBICORT 80-4.5 MCG INHALER INHALATION SCH ×2 (08:21→19:27)
[2020-07-19] MEDS: LACTOBACILLUS ACIDOPH & BULGAR 1 EACH PACKET PO SCH (09:58)
[2020-07-19 11:22] LABS: Glucose,Whole Blood 154 mg/dL (75-99)
[2020-07-19 14:37] VITALS: BP 101/61; PULSE 61; RESP 18; TEMP 98.1
--- NOTE | 2020-07-19 15:22 | P.DS ---
Providers Date of admission: 07/11/20 00:18 Expected date of discharge: 07/19/20 Attending physician: Pablo Echavarria Consults: 07/11/20 00:10 Consult Physician Stat Consulting Provider: Manoj Parnell Consult Reason/Comments: Cholelithiasis Do you want consulting provider notified?: Yes 07/11/20 14:40 Consult Physician Routine Consulting Provider: Jose D Lang Consult Reason/Comments: positive troponin Do you want consulting provider notified?: Yes Primary care physician: Dnota [facility] Course: Chief Complaint: Abdominal pain History of presenting complaint: This is a 80-year-old patient, Dr. Reynaga. [facility]. Chronic stable medical conditions include asthma, COPD, diabetes, hypertension, hyperlipidemia, osteoarthritis, morbid obesity, home oxygen 4 L, CHF with diastolic dysfunction, left leg lymphedema, peripheral neuropathy, macular degeneration, chronic urinary incontinence. She presents to the ER with abdominal pain. Right upper quadrant. She states she was scheduled for a cholecystectomy in 19 days. Not sure what surgeon. Pain radiates to the back. Has been having dry heaves. Pain is sharp. Also had some nausea and vomiting. No fever no chills. Has not been able to keep anything down. No fever no chills. Admitted with acute and chronic cholecystitis and gallstones. Symptomatic. Started on IV Zosyn. Acute kidney injury from hypotension. No ERCP as per Dr. Pantoja. Acute UTI with cystitis from E. coli. July 16-laparoscopic cholecystectomy Today-appetite improving. Pain well controlled. Feeling well. Cleared by surgery. Carpet Technician: Dr. Parnell from surgery Physical examination: VITAL SIGNS: 98.1, 61, 18, 101/61, 96% on 2 L GENERAL: laying in bed, comfortable EYES: Pupils equal. Conjunctiva normal. NECK: JVD unable to assess masses not palpable. HEART: First and second heart sounds are normal; nonpitting edema. LUNGS: Respiratory rate increased; distant breath sounds. ABDOMEN: Soft, minimal tenderness, no guarding rigidity, liver spleen not palpable, no masses palpable. CORY drain-serosanguineous drainage PSYCH: Alert and oriented x3; mood and affect normal. NEUROLOGICAL: Cranial nerves grossly intact; no facial asymmetry, power and sensation grossly intact. LYMPHATICS: Lymphedemas especially left lower extremity INVESTIGATIONS, reviewed in the clinical context: July 17: White count 12.8 hemoglobin 10.7 potassium 4.1 creatinine 1.0 July 16: Accu-Cheks noted July 15: White count 7.7 hemoglobin 10.8 platelets 263 potassium 3.5 creatinine 0.8. Total bilirubin 0.7 AST 27 ALT 43 July 13: White count 10.7 hemoglobin 11.3 potassium 4.0 creatinine 1.3 total bilirubin 1.0 AST 99 ALT 85 July 12: White count 13.3 hemoglobin 10.9 potassium 4.1 creatinine 1.2 total bilirubin 1.7 AST 127 ALT 93 White count 14.9 hemoglobin 11.6 platelets 227 potassium 4.5 bun 24 creatinine 1.38 total bilirubin 2.4 AST 201 ALT 113 alk phos 316 Troponin I 0.195, 0.154 Coronavirus P/Cr-not detected White count 13.5 hemoglobin 12.4 potassium 4.0 creatinine 0.81 total bilirubin 1.6 UA positive for leukoesterase WBC Urine culture-E. coli EKG tracing personally reviewed by me-normal sinus rhythm Chest x-ray film personally reviewed by me-scattered infiltrates versus atypical edema Abdominal ultrasound-echogenic bile and gallstones or gallbladder. No dilated ducts. Common bile duct not visualized. Sonographic Paris sign positive Assessment: -Acute on chronic cholecystitis -laparoscopic cholecystectomy on July 16. Possible MRCP as an outpatient -Gallstones. No plan for ERCP per Dr. Pantoja. Status post cholecystectomy -Blood culture showing Staphylococcus epidermidis-contaminant -Acute UTI with cystitis from E. coli.-Completed course of antibiotic -Intermittent asthma -Diabetes mellitus type 2 -Hyperlipidemia -Hyperlipidemia -Primary osteoarthritis -Chronic hypoxic is pretty failure on 4 L of oxygen at home -Chronic congestive heart failure from diastolic dysfunction EF 60-65% -Lower extremity lymphedema -Diabetic peripheral neuropathy -Macular degeneration -Chronic gait dysfunction uses a wheelchair or walker -Chronic urinary incontinence -Hypothyroidism -Morbid obesity BMI 47.4 -Acute kidney injury, could be ATN from hypotension-improved Disposition: ECF/[facility] Patient Condition at Discharge: Stable Plan - Discharge Summary Discharge Rx Participant: No New Discharge Prescriptions: New Atorvastatin [Lipitor] 20 mg PO DAILY tab Amoxic-Pot Clav 875-125Mg [Augmentin 875-125] 1 tab PO Q12HR #14 tab Gabapentin [Neurontin] 200 mg PO TID #9 cap INSULIN ASPART (NovoLOG) [NovoLOG (formulary)] 0 unit SQ ACHS vial Continue Cholecalciferol [Vitamin D3 (25 Mcg = 1000 Iu)] 1,000 unit PO DAILY Citalopram Hydrobromide [CeleXA] 20 mg PO DAILY Isosorbide Mononitrate ER [Imdur] 30 mg PO DAILY Levothyroxine Sodium [Synthroid] 125 mcg PO DAILY Metoprolol Succinate (ER) [Toprol XL] 25 mg PO DAILY Aspirin 81 mg PO DAILY chew Acetaminophen Tab [Tylenol] 650 mg PO Q6HR PRN tab PRN Reason: Fever And/ Or Pain Artificial Tears-Hypromellose [Artificial Tear Drops] 1 drops BOTH EYES DIRECTED PRN PRN Reason: DRY EYES Budesonide/Formoterol Fumarate [Symbicort 80-4.5 Mcg Inhaler] 2 puff INHALATION RT-BID Ferrous Sulfate [Iron (65 MG Elemental)] 325 mg PO HS Lactobacillus Acidophilus [Acidophilus] 1 tab PO DAILY Mag Hydrox/Aluminum Hyd/Simeth [Mylanta Maximum Strength Liq] 20 ml PO Q6H PRN PRN Reason: GERD Multivitamins, Thera [Multivitamin (formulary)] 1 tab PO BID@0800,1999 Omeprazole 20 mg PO BID@0800,1999 Repaglinide [Prandin] 0.5 mg PO TID@0700,1130,1630 Changed Losartan [Cozaar] 12.5 mg PO HS #0 Discontinued Insulin Glargine,Hum.rec.anlog [Lantus Solostar] 12 unit SQ HS Simvastatin 40 mg PO DAILY Furosemide [Lasix] 20 mg PO DAILY Gabapentin 600 mg PO TID@0800,1200,1800 Discharge Medication List Cholecalciferol [Vitamin D3 (25 Mcg = 1000 Iu)] 1,000 unit PO DAILY 02/24/15 [History] Citalopram Hydrobromide [CeleXA] 20 mg PO DAILY 08/06/17 [History] Isosorbide Mononitrate ER [Imdur] 30 mg PO DAILY 09/05/18 [History] Levothyroxine Sodium [Synthroid] 125 mcg PO DAILY 09/05/18 [History] Metoprolol Succinate (ER) [Toprol XL] 25 mg PO DAILY 09/05/18 [History] Acetaminophen Tab [Tylenol] 650 mg PO Q6HR PRN tab 11/29/18 [Rx] Aspirin 81 mg PO DAILY chew 11/29/18 [Rx] Artificial Tears-Hypromellose [Artificial Tear Drops] 1 drops BOTH EYES DIRECTED PRN 07/10/20 [History] Budesonide/Formoterol Fumarate [Symbicort 80-4.5 Mcg Inhaler] 2 puff INHALATION RT-BID 07/10/20 [History] Ferrous Sulfate [Iron (65 MG Elemental)] 325 mg PO HS 07/10/20 [History] Lactobacillus Acidophilus [Acidophilus] 1 tab PO DAILY 07/10/20 [History] Mag Hydrox/Aluminum Hyd/Simeth [Mylanta Maximum Strength Liq] 20 ml PO Q6H PRN 07/10/20 [History] Multivitamins, Thera [Multivitamin (formulary)] 1 tab PO BID@0800,199907/10/20 [History] Omeprazole 20 mg PO BID@0800,199907/10/20 [History] Repaglinide [Prandin] 0.5 mg PO TID@0700,1130,1630 07/10/20 [History] Amoxic-Pot Clav 875-125Mg [Augmentin 875-125] 1 tab PO Q12HR #14 tab 07/18/20 [Rx] Atorvastatin [Lipitor] 20 mg PO DAILY tab 07/18/20 [Rx] Gabapentin [Neurontin] 200 mg PO TID #9 cap 07/18/20 [Rx] INSULIN ASPART (NovoLOG) [NovoLOG (formulary)] 0 unit SQ ACHS vial 07/18/20 [Rx] Losartan [Cozaar] 12.5 mg PO HS #0 07/18/20 [Rx] Follow up Appointment(s)/Referral(s): Donta Reynaga DO [Primary Care Provider] - 1-2 days [facility], [NON-STAFF] - As Needed Manoj Parnell DO [Doctor of Osteopathic Medicine] - 2 Weeks (office closed. Please call Wednesday to schedule an appointment) Patient Instructions/Handouts: Abdominal Pain (ED) Activity/Diet/Wound Care/Special Instructions: surgery dc orders adam bland - diabetic diet
[2020-07-19 16:41] LABS: Glucose,Whole Blood 141 mg/dL (75-99)
== END 2020-07-19 19:30 | DRG 853 ==
LOC: EC 20:57 → 4SSUR 07-11 00:18 → OBSVTOIN 07-11 00:18 → 4SSUR 07-11 00:36
PROVIDERS: ADMIT Hospitalist; ATTEND Hospitalist
PROC: 8E0W4CZ Robotic Assisted Procedure of Trunk Region, Percutaneous Endoscopic Approach (ICD-10-PCS; principal; 2020-07-16 07:30)
PROC: 0FT44ZZ Resection of Gallbladder, Percutaneous Endoscopic Approach (ICD-10-PCS; principal; 2020-07-16 07:30)
DX: A41.9 Sepsis, unspecified organism (principal); N17.0 Acute kidney failure with tubular necrosis; K80.12 Calculus of gallbladder with acute and chronic cholecystitis without obstruction; I50.32 Chronic diastolic (congestive) heart failure; Z68.42 Body mass index [BMI] 45.0-49.9, adult; J96.11 Chronic respiratory failure with hypoxia; E11.42 Type 2 diabetes mellitus with diabetic polyneuropathy; I11.0 Hypertensive heart disease with heart failure; J44.9 Chronic obstructive pulmonary disease, unspecified; E66.01 Morbid (severe) obesity due to excess calories; I95.9 Hypotension, unspecified; R74.8 Abnormal levels of other serum enzymes; N30.90 Cystitis, unspecified without hematuria; B96.20 Unspecified Escherichia coli [E. coli] as the cause of diseases classified elsewhere; I35.0 Nonrheumatic aortic (valve) stenosis; J45.20 Mild intermittent asthma, uncomplicated; E78.5 Hyperlipidemia, unspecified; H35.30 Unspecified macular degeneration; Z20.828 Contact with and (suspected) exposure to other viral communicable diseases; I27.20 Pulmonary hypertension, unspecified; R32 Unspecified urinary incontinence; R26.9 Unspecified abnormalities of gait and mobility; E03.9 Hypothyroidism, unspecified; I89.0 Lymphedema, not elsewhere classified; M19.91 Primary osteoarthritis, unspecified site; F41.9 Anxiety disorder, unspecified; R29.6 Repeated falls; Z99.81 Dependence on supplemental oxygen; Z90.710 Acquired absence of both cervix and uterus; Z96.652 Presence of left artificial knee joint; Z98.42 Cataract extraction status, left eye; Z98.41 Cataract extraction status, right eye; Z96.1 Presence of intraocular lens; Z88.8 Allergy status to other drugs, medicaments and biological substances; Z79.899 Other long term (current) drug therapy; Z79.890 Hormone replacement therapy; Z79.51 Long term (current) use of inhaled steroids; Z79.82 Long term (current) use of aspirin; Z86.14 Personal history of Methicillin resistant Staphylococcus aureus infection; Z79.4 Long term (current) use of insulin
CPT/HCPCS: 36415; 51701; 71046; 76705; 80053; 81001; 82150; 83605; 83690; 84484; 85025; 85027; 87040; 87077; 87086; 87186; 87635; 88304; 93005; 93306; 94640; 94660; 94760; 96365; 96375; 99285

== ENCOUNTER → 2021-01-17 | Outpatient (CLI) | payer MEDICARE, OTHER ==
--- NOTE | 2021-01-18 13:31 | CT ---
EXAMINATION TYPE: CT abdomen w con DATE OF EXAM: 01/17/2021 COMPARISON: 11/24/2018 INDICATION: Calculus in bile duct DLP: 1943.2 mGycm, Automated exposure control for dose reduction was used. CONTRAST: 100 mL of Isovue 300. Study performed with Oral Contrast TECHNIQUE: Axial images were obtained from above the diaphragm to the pubic rami in the axial plane a t 5 mm thick sections. Reconstructed images are reviewed on the computer in the coronal plane. FINDINGS: Limited CT sections are obtained the lung bases. There is a small left pleural effusion. Some minima l adjacent compressive atelectasis is present.. Coronary artery calcification is present. CT ABDOMEN: Liver: Normal Spleen: Normal Pancreas: Normal Adrenal glands: The adrenal glands are normal. Gallbladder: Surgically absent. Kidneys: There is malrotation of the right kidney. Nonobstructing 0.5 cm calcification is in the supe rior pole right kidney. No masses are evident. No hydronephrosis is present. No cysts are present. Delayed images were obtained through the kidneys, which remain unremarkable. Aorta: Vascular calcification is within the aorta. Inferior vena cava: Normal. Loops of bowel within the abdomen and pelvis are normal. There are loops of bowel which are incom pletely distended or lack oral contrast limiting their evaluation. There is a periumbilical hernia containing mesenteric fat. No loops of bowel are involved. The openin g 2.2 cm. Osseous structures: Sacroiliac joint degenerative changes are present. Scoliosis is present. IMPRESSIONS: 1. Periumbilical hernia containing mesenteric fat. 2. Malrotation right kidney. A superior pole right renal calcification is present without obstruction . 3. Small left pleural effusion with some minimal adjacent compressive atelectasis.
== END | disposition home or self-care (01) ==
LOC: RADCTMAIN 12:35
PROVIDERS: ATTEND Internal Medicine Gastroenterology
DX: K50.80 Crohn's disease of both small and large intestine without complications (principal); K42.9 Umbilical hernia without obstruction or gangrene; J90 Pleural effusion, not elsewhere classified; J98.11 Atelectasis; Q63.2 Ectopic kidney; N28.89 Other specified disorders of kidney and ureter
CPT/HCPCS: 74160; Q9967